=== PATIENT | male | born 1940 | race Caucasian/White ===

== ENCOUNTER 2019-03-26 13:02 | Outpatient (RCR) | payer MEDICARE, SELFPAY ==
[2019-03-26 13:00] VITALS: BP 141/76; PULSE 69; PULSE 76; RESP 16; O2SAT 98
[2019-03-26 13:05] VITALS: BP 137/72
== END 2019-06-24 23:59 | disposition home or self-care (01) ==
LOC: CHSCARD 13:02
PROVIDERS: PCP Family Medicine; Visit Provider Family Medicine
DX: I70.213 Atherosclerosis of native arteries of extremities with intermittent claudication, bilateral legs (principal)
CPT/HCPCS: 93668

== ENCOUNTER 2019-06-12 10:17 | Outpatient (CLI) | payer MEDICARE, SELFPAY ==
[2019-06-12 10:33] LABS: Hematocrit 43.5 % (37.0-46.0); Hemoglobin 14.6 g/dL (12.4-15.3); Mean Corpuscular HGB Conc 33.6 g/dL (32.0-36.0); Mean Corpuscular Hemoglobin 31.7 pg (27.0-31.0); Mean Corpuscular Volume 94.4 fL (78.0-102.0); Mean Platelet Volume 8.8 fl (8.7-11.0); Platelet Count Result 288 K/mm3 (150-420); Red Blood Count 4.61 M/mm3 (4.70-6.10); Red Cell Distribution Width 12.5 % (11.6-14.4); White Blood Count 6.6 K/mm3 (4.8-10.8)
[2019-06-12 12:37] LABS: Ferritin 51 ng/mL (26-388); Iron 87 ug/dL (65-175); Percent Iron Saturation 34 % (12-57)
== END 2019-06-12 10:18 | disposition home or self-care (01) ==
PROVIDERS: PCP Family Medicine; Visit Provider Family Medicine
DX: E78.5 Hyperlipidemia, unspecified (principal); D64.9 Anemia, unspecified
CPT/HCPCS: 36415; 82728; 83540; 83550; 85027

== ENCOUNTER 2019-06-13 10:23 | Outpatient (CLI) | payer MEDICARE, SELFPAY ==
--- NOTE | 2019-06-14 14:53 | WPDPFTINT ---
PFT Interpretation PFT Interpretation: DOS: 06/13/2019 REQUESTING: Toño Dejesus DO REASON FOR TESTING: Nicotine dependence PULMONARY FUNCTION TESTS Results are reliable and reproducible. Spirometry: FEV1 is 78%, mildly reduced, 2.09 liters. FVC is 95%, normal. FEV1% is decreased at 63%. [id number]% is reduced at 36%and increases by 36%. There is a non-statistically significant response to bronchodilator in the large airways, 8% increase in FEV1. Lung volumes: TLC 94%, normal. RV 87%, normal. Airway resistance 133 mildly elevated. Diffusion: DLCO 100%, normal Flow volume loop: normal. IMPRESSION: Mild obstructive ventilatory impairment, severe in the small airways with normal lung volumes and diffusion. Lack of response to bronchodilator should not preclude use if clinically indicated. Racheal Martinez MD
== END 2019-06-13 10:24 | disposition home or self-care (01) ==
PROVIDERS: PCP Family Medicine; Visit Provider Family Medicine
DX: F17.200 Nicotine dependence, unspecified, uncomplicated (principal)
CPT/HCPCS: 94060; 94726; 94729

== ENCOUNTER 2019-06-25 12:06 | Outpatient (RCR) | payer MEDICARE, SELFPAY | END 2019-09-23 23:59 | disposition home or self-care (01) | LOC: CHSCARD 12:06 | PROVIDERS: PCP Family Medicine; Visit Provider Family Medicine | DX: I70.213 Atherosclerosis of native arteries of extremities with intermittent claudication, bilateral legs (principal) | CPT/HCPCS: 93668 ==

== ENCOUNTER 2019-08-07 11:27 | Outpatient (CLI) | payer MEDICARE, SELFPAY ==
[2019-08-07 12:59] LABS: Anion Gap 9.8 mmol/L (7-16); Blood Urea Nitrogen 8 mg/dL (7-18); Carbon Dioxide 34 mmol/L (21-32); Chloride 104 mmol/L (98-108); Estimated Glomerular Filt Rate > 60; Glucose 104 mg/dL (70-99); Osmolality Calculated 296 mOsm/kg (285-295); Potassium 3.8 mmol/L (3.5-5.1); Sodium 144 mmol/L (136-145)
== END 2019-08-07 11:28 | disposition home or self-care (01) ==
PROVIDERS: PCP Family Medicine
DX: I65.29 Occlusion and stenosis of unspecified carotid artery (principal)
CPT/HCPCS: 36415; 80048

== ENCOUNTER 2019-09-19 10:58 | Outpatient (RCR) | payer MEDICARE, SELFPAY | END 2019-09-26 15:16 | disposition home or self-care (01) | PROVIDERS: PCP Family Medicine; Visit Provider Internal Medicine Cardiovascular Disease | DX: I70.213 Atherosclerosis of native arteries of extremities with intermittent claudication, bilateral legs (principal) | CPT/HCPCS: 93668 ==

== ENCOUNTER 2020-01-09 16:13 | Outpatient (CLI) | payer MEDICARE, SELFPAY ==
[2020-01-09 16:34] LABS: Basophils Absolute Auto 0.05 K/mm3 (0.00-0.10); Basophils Percent Auto 0.6 % (0.0-1.0); Eosinophils Absolute Auto 0.08 K/mm3 (0.02-0.50); Hematocrit 43.7 % (37.0-46.0); Hemoglobin 14.6 g/dL (12.4-15.3); Immature Granulocyte Absolute 0.03 K/mm3 (0.00-0.00); Immature Granulocyte Percent A 0.4 % (0.0-0.0); Lymphocytes Absolute Auto 1.49 K/mm3 (1.10-4.50); Lymphocytes Percent Auto 19.1 % (18.0-42.0); Mean Corpuscular HGB Conc 33.4 g/dL (32.0-36.0); Mean Corpuscular Hemoglobin 30.6 pg (27.0-31.0); Mean Corpuscular Volume 91.6 fL (78.0-102.0); Mean Platelet Volume 8.9 fl (8.7-11.0); Neutrophils Absolute Auto 5.5 K/mm3 (1.7-7.2); Neutrophils Percent Auto 69.9 % (50.0-70.0); Platelet Count Result 315 K/mm3 (150-420); Red Blood Count 4.77 M/mm3 (4.70-6.10); Red Cell Distribution Width 13.3 % (11.6-14.4); White Blood Count 7.8 K/mm3 (4.8-10.8)
[2020-01-09 18:00] LABS: Alanine Aminotransferase 10 U/L (16-63); Albumin Level 3.8 g/dL (3.4-5.0); Alkaline Phosphatase 72 U/L (46-116); Anion Gap 10 mmol/L (8-16); Aspartate Amino Transferase 11 U/L (15-37); Bilirubin,Total 0.9 mg/dL (0.00-1.00); Blood Urea Nitrogen 10 mg/dL (7-18); Calcium 9.7 mg/dL (8.5-10.1); Carbon Dioxide 31 mmol/L (21-32); Chloride 102 mmol/L (98-108); Estimated Glomerular Filt Rate 50; Ferritin 52 ng/mL (26-388); Glucose 137 mg/dL (70-99); Iron 127 ug/dL (65-175); Osmolality Calculated 297 mOsm/kg (285-295); Percent Iron Saturation 49 % (12-57); Potassium 3.7 mmol/L (3.5-5.1); Sodium 143 mmol/L (136-145); Total Protein 7.3 g/dL (6.4-8.2)
[2020-01-09 18:10] LABS: Thyroid Stimulating Hormone Reflex 1.19 u/IU/mL (0.36-3.74)
== END 2020-01-09 16:14 | disposition home or self-care (01) ==
LOC: CHSLAB 16:15
PROVIDERS: PCP Family Medicine; Visit Provider Family Medicine
DX: R53.1 Weakness (principal); Z86.2 Personal history of diseases of the blood and blood-forming organs and certain disorders involving the immune mechanism; E03.9 Hypothyroidism, unspecified
CPT/HCPCS: 36415; 80053; 82728; 83540; 83550; 84443; 85025

== ENCOUNTER 2020-01-10 13:55 | Outpatient (CLI) | payer MEDICARE, SELFPAY ==
--- NOTE | ~2020-01-10 | CT_ITS ---
EXAMINATION: CT brain wo con EXAM DATE: 01/10/2020 14:23 INDICATION: R53.1 - Weakness weakness x 1mo, stroke 2019. TECHNIQUE: Spiral CT of the head was performed without contrast. Axial, coronal and sagittal images were reviewed. The dose-length product (DLP) for this examination was 605.33 mGy-cm. The exposure w as tailored according to patient size, and iterative reconstruction (ASIR) was used as additional dos e reduction technique. Comparison is made to prior examination from 10/17/2018. FINDINGS: There is no acute intraparenchymal hemorrhage. No evidence of intraparenchymal brain mass lesion. No evidence of acute infarction. Please note that initial head CT has limited sensitivity f or small or acute infarctions. Bilateral basal ganglia old lacunar infarctions. Small old right occi pital lobe infarction. Small old right temporal lobe infarction. Small old right frontal lobe infarct ion posteriorly. There is moderate periventricular and subcortical hypodensity, nonspecific but proba tres related to small vessel ischemic disease. There is moderate prominence of the sulci and ventric les related to cerebral atrophy. There is intracranial carotid arteriosclerosis. There are no extr a-axial collections. There is no mass effect or midline shift. Patient has had bilateral ocular sabrina s surgery. Soft tissue is unremarkable. The visualized sinuses and mastoid air cells are well aerat ed. There is no significant interval change. IMPRESSION: 1. No acute intracranial findings. 2. Chronic age related findings. 3. Small old infarctions. Reviewed, dictated and finalized at location A. TRIC MOTOR TESTER ASSEMBLER
== END 2020-01-10 13:56 | disposition home or self-care (01) ==
LOC: CHSIMG 13:56
PROVIDERS: PCP Family Medicine; Visit Provider Family Medicine
DX: R53.1 Weakness (principal); Z86.73 Personal history of transient ischemic attack (TIA), and cerebral infarction without residual deficits
CPT/HCPCS: 70450

== ENCOUNTER 2020-01-14 13:45 | Outpatient (RCR) | payer MEDICARE, SELFPAY ==
--- NOTE | 2020-01-14 14:44 | PTOPEVAL ---
Thank you for referring Jacques Quiroz to [facility] [place].? The patient is scheduled to be seen for therapy? ____x/week for ___ weeks. Please review, sign, date and return this plan of care STEVE. I agree with and certify that the following plan of care is medically necessary. 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 he reports he is having increased difficulty with walking and steady. he reports he uses a walker at home. he report she does not use any AD in the community. he reports he does not drive. he reports he has had no falls. he reports he is living at home with his at home. he reports he has 3 steps into the house. Prior Level of Function Comments Additional Prior Level of Function he reports he feels like his Comments mobility and ADL performance have been slowly getting work. Pain Assessment Timing of Pain Assessment Timing of Pain Assessment Assessment Self Report Self Report Pain Level 0 Pain Score Pain Score 0: Self Report Lower Extremity Range of Motion General Lower Extremity Range of Motion Gross Lower Extremity Range of Motion limites bilateral knee Comments extension in sitting due to severe bilateral hamstirngs tightness. however, in supine,
--- NOTE | 2020-02-18 16:48 | PTOPEVAL ---
Thank you for referring Jacques Quiroz to [facility].? The patient is scheduled to be seen for therapy? ____x/week for ___ weeks. Please review, sign, date and return this plan of care STEVE. I agree with and certify that the following plan of care is medically necessary. Referring Physician Date Admitting Provider: Attending Provider: Lew Mcadams MD Referring Provider: *PT Outpatient Evaluation Start: 01/14/20 13:58 Freq: Status: Active Protocol: Document 02/18/20 15:00 [facility] (Rec: 02/18/20 16:09 [facility] [id number]) Therapy Assessment Status Assessment Status Assessment Status Re-evaluation Outpatient Past Medical History Neurological History Hx Cerebrovascular Accident (CVA) Yes: 2018 Hx Transient Ischemic Attacks (TIA) Yes Cardiovascular History Hx Hypercholesterolemia Yes Hx Hypertension Yes Hx Peripheral Vascular Disease Yes Hx Vascular Surgery Yes: CAROTID ENDARTERECTOMY Gastrointestinal History Hx Appendectomy Yes: 1951 Genitourinary History Hx Genitourinary Disorders No Significant History Musculoskeletal History Hx Musculoskeletal Disorders No Significant History Hematological History Hx Hematological Disorders No Significant History Endocrine History Hx Endocrine Disorders No Significant History HEENT History Hx Cataracts Yes: BILATERAL Hx Glaucoma Yes Integumentary History Hx Skin Disorders No Significant History Reproductive History Hx Reproductive Disorders No Significant History Psychosocial History Hx Psychiatric Disorders No Significant History Pain History Has Past Pain Affected Your Daily Life Yes Effective Methods of Pain Control REST Anesthesia History Hx Anesthesia Reactions No Significant History Evaluation Information Problem Diagnosis weakness, gait abnormality Onset 01/07/20` Subjective Information patients reports he is Query Text:As Reported By Patient/ awaiting evaluation for Family parkinsons disease. however, he has had another stroke since beginning therapy initially. he and his report they would like to continue therapy. Pain Assessment Timing of Pain Assessment Timing of Pain Assessment Assessment Self Report Self Report Pain Level 0 Pain Score Pain Score 0: Self Report Lower Extremity Muscle Strength Testing Hip Strength Left Hip Flexion Strength 3+ Fair + Hip Abduction Strength 3+ Fair + Right Hip Flexion Strength 4- Good - Hip Abduction Strength 4- Good - Knee Strength Le
--- NOTE | 2020-04-03 13:03 | PTOPEVAL ---
Thank you for referring Jacques Quiroz to [facility].? The patient is scheduled to be seen for therapy? ____x/week for ___ weeks. Please review, sign, date and return this plan of care STEVE. I agree with and certify that the following plan of care is medically necessary. Referring Physician Date Admitting Provider: Attending Provider: Lew Mcadams MD Referring Provider: *PT Outpatient Evaluation Start: 01/14/20 13:58 Freq: Status: Active Protocol: Document 03/25/20 14:00 [facility] (Rec: 03/25/20 15:07 [facility] [id number]) Therapy Assessment Status Assessment Status Assessment Status Re-evaluation Outpatient Past Medical History Neurological History Hx Cerebrovascular Accident (CVA) Yes: 2018 Hx Transient Ischemic Attacks (TIA) Yes Cardiovascular History Hx Hypercholesterolemia Yes Hx Hypertension Yes Hx Peripheral Vascular Disease Yes Hx Vascular Surgery Yes: CAROTID ENDARTERECTOMY Gastrointestinal History Hx Appendectomy Yes: 1951 Genitourinary History Hx Genitourinary Disorders No Significant History Musculoskeletal History Hx Musculoskeletal Disorders No Significant History Hematological History Hx Hematological Disorders No Significant History Endocrine History Hx Endocrine Disorders No Significant History HEENT History Hx Cataracts Yes: BILATERAL Hx Glaucoma Yes Integumentary History Hx Skin Disorders No Significant History Reproductive History Hx Reproductive Disorders No Significant History Psychosocial History Hx Psychiatric Disorders No Significant History Pain History Has Past Pain Affected Your Daily Life Yes Effective Methods of Pain Control REST Anesthesia History Hx Anesthesia Reactions No Significant History Evaluation Information Problem Diagnosis weakness, gait abnormality, parkinsons Onset 01/07/20 Subjective Information patient reports he feels good Query Text:As Reported By Patient/ this date. he reports no Family pain, and no new complaints. he reports he does follow up with his neurology doctor in a few weeks. Pain Assessment Timing of Pain Assessment Timing of Pain Assessment Assessment Self Report Self Report Pain Level 0 Pain Score Pain Score 0: Self Report Lower Extremity Muscle Strength Testing Hip Strength Left Hip Flexion Strength 4- Good - Hip Abduction Strength 4- Good - Right Hip Flexion Strength 4 Good Hip Abduction Strength 4 Good Knee Strength Left Knee Flexion Strength 4 Good Knee Extension Streng
== END 2020-04-23 16:52 | disposition home or self-care (01) ==
LOC: CHSPT 13:45
PROVIDERS: PCP Family Medicine; Visit Provider Family Medicine
DX: R53.1 Weakness (principal); R26.9 Unspecified abnormalities of gait and mobility; R29.898 Other symptoms and signs involving the musculoskeletal system
CPT/HCPCS: 97110; 97161; 97530

== ENCOUNTER 2020-01-18 08:55 | Outpatient (CLI) | payer MEDICARE, SELFPAY ==
--- NOTE | ~2020-01-18 | MR_ITS ---
EXAMINATION: MR brain/brain stem wo/w con DATE: 01/18/2020 10:35 INDICATION: Unspecified abnormalities of gait and mobility. TECHNIQUE: Magnetic resonance imaging (MRI) of the brain and brainstem was performed without and with 10 mL MultiHance intravenous contrast. Sequences included sagittal and axial T1-weighted FSE, axial diffusion-weighted FS EPI, axial T2*-weighted GRE, axial T2-weighted FLAIR Propeller, and axial T2-we ighted Propeller. Postcontrast sequences included axial and coronal T1-weighted FSE. Apparent diffusi on coefficient (ADC) maps were created. COMPARISON: Brain MRI 04/30/2017, head CT 01/10/20 FINDINGS: There are scattered areas of nonspecific increased T2-weighted signal intensity in the cere bral white matter and dick. There are old infarcts in the right temporal, frontal, and occipital lobe s. There are old infarcts involving the bilateral basal ganglia and thalami and posterior limb left i nternal capsule. There are small acute infarcts in the right subinsular white matter and right pariet al lobe deep white matter. The diffusion weighted images also show a few foci of T2 shine through. Th ere is no intracranial hemorrhage or abnormal mass lesion. There is ex vacuo dilatation of right late ral ventricle. There is mild mucosal thickening in the paranasal sinuses. Right maxillary sinus is sm all. There are likely changes of ocular lens replacement surgeries. IMPRESSION: 1. Small acute infarcts in the right subinsular white matter and right parietal lobe deep white matte r. 2. Multiple old infarcts in the brain. 3. Extensive nonspecific cerebral white matter disease and pontine disease, which likely represents c hronic small vessel ischemic disease. Reviewed, dictated and finalized at location A. TRICAL CONTINUITY INSPECTOR IMPRESSION: 1. Small acute infarcts in the right subinsular white matter and right parietal lobe deep white matter. 2. Multiple old infarcts in the brain. 3. Extensive nonspecific cerebral white matter disease and pontine disease, whi ch likely represents chronic small vessel ischemic disease.
== END 2020-01-18 08:56 | disposition home or self-care (01) ==
LOC: CHSIMG 08:57
PROVIDERS: PCP Family Medicine; Visit Provider Family Medicine
DX: R26.9 Unspecified abnormalities of gait and mobility (principal); R45.86 Emotional lability
CPT/HCPCS: 70553; A9577

== ENCOUNTER 2020-01-24 12:13 | Observation (INO) | payer MEDICARE, SELFPAY ==
[2020-01-24] VITALS (17 sets, daily range): BP systolic 119–198; BP diastolic 64–91; PULSE 80–100; RESP 17–23; TEMP 36.1–36.6; O2SAT 96–98; BMI 22.8
--- NOTE | ~2020-01-24 | CT_ITS ---
EXAMINATION: CTA brain carotid DATE: 01/24/2020 12:32 INDICATION: Cerebrovascular accident. TECHNIQUE: Computed tomographic angiography (CTA) of the head was performed without and with 100 mL O mnipaque-350 intravenous contrast. CTA of the neck was performed with intravenous contrast. Automated exposure control and iterative reconstruction technique were employed. The dose-length product was 1 766.74 mGy-cm. Maximum intensity projection and volume rendered 3D-reconstructions were created by amadou sow technologist on a separate workstation. COMPARISON: Head CT 01/10/20, brain MRI 01/18/2020 FINDINGS: HEAD CTA: There are old infarcts involving the bilateral basal ganglia, right thalamus, posterior yoon b left internal capsule, right temporal lobe, right occipital lobe, right frontal lobe, and right par ietal lobe. There is no intracranial hemorrhage, acute infarction, or abnormal intracranial mass lesi on. There is ex vacuo dilatation of right lateral ventricle. There are likely changes of ocular lens replacement surgeries. The paranasal sinuses are clear. The mastoid air cells are normal. Right verte bral artery is dominant. There is moderate to severe stenosis of left vertebral artery. There is no s ignificant stenosis of basilar artery or the posterior cerebral arteries. There is mild stenosis of t he intracranial internal carotid arteries. Right A1 anterior cerebral artery segment is small, a norm al variant. Anterior communicating artery is normal. There is no significant stenosis of the middle c erebral arteries. There is no aneurysm. NECK CTA: There is mild scarring at the lung apices. There are no pathologically enlarged lymph nodes . There is moderate stenosis of right vertebral artery origin. There is intermittent moderate to tu re stenosis of left vertebral artery with collaterals. There is thrombosis of distal left vertebral a rtery with reconstitution. There is plaque in the proximal internal carotid arteries. There is 0% nick nosis of the proximal right internal carotid artery relative to normal distal artery lumen diameter ( NASCET criteria). There is 46% stenosis of the proximal left internal carotid artery relative to norm al distal artery lumen diameter. There is severe cervical spondylosis. IMPRESSION: 1. Multiple old infarcts in the brain. 2. 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 Multifocal stenosis in the left vertebral artery. 3. 0% stenosis of the proximal right internal carotid artery relative to normal distal artery lumen d iameter (NASCET criteria). 4. 46% stenosis of the proximal left internal carotid artery relative to normal distal artery lumen d iameter. 5. I discussed this case with Dr. Daniels. Reviewed, dictated and finalized at location A. ION INSPECTOR IMPRESSION: 1. Multiple old infarcts in the brain. 2. 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 Multifocal stenosis in the left vertebral artery. 3. 0% stenosis of the proximal right internal carotid artery relative to normal distal artery lumen diameter (NASCET criteria). 4. 46% stenosis of the proximal left internal carotid artery relative to normal distal artery lumen diameter. 5. I discussed this case with Dr. Daniels.
--- NOTE | 2020-01-24 12:31 | ECG_ITS ---
Measurements Intervals [place] Rate: 93 P: -68 NV: 128 QRS: -24 QRSD: 76 T: 127 QT: 334 QTc: 417 Interpretive Statements SINUS RHYTHM ATRIAL PREMATURE COMPLEXES CANNOT RULE OUT SEPTAL INFARCT, AGE INDETERMINATE ST-T WAVE ABNORMALITY IN HIGH LATERAL LEADS- CONSIDER ISCHEMIA BASELINE ARTIFACT- I, II, III, AVR, AVL, AVF ABNORMAL ECG Electronically Signed On 01-24-2020 12:59:37 WHOLESALER by Rian Bautista D.O.
[2020-01-24 12:50] LABS: Basophils Absolute Auto 0.1 K/mm3 (0.0-0.1); Basophils Percent Auto 0.7 % (0.2-1.2); Eosinophils Absolute Auto 0.1 K/mm3 (0-0.3); Eosinophils Percent Auto 1.3 % (0-4.4); Hematocrit 38.6 % (42.0-52.0); Immature Granulocyte Absolute 0.02 K/mm3 (0.00-0.031); Immature Granulocyte Percent A 0.3 % (0-0.5); Lymphocytes Absolute Auto 1.01 K/mm3 (0.9-3.2); Lymphocytes Percent Auto 14.1 % (18.3-44.2); Mean Corpuscular HGB Conc 33.7 g/dl (32-36); Mean Corpuscular Hemoglobin 31.3 pg (26-34); Mean Corpuscular Volume 92.8 fl (80-100); Monocytes Absolute Auto 0.8 K/mm3 (0.1-0.6); Monocytes Percent Auto 11.7 % (2.6-8.5); Neutrophils Absolute Auto 5.2 K/mm3 (1.3-6.7); Neutrophils Percent Auto 71.9 % (45.5-73.1); Platelet Count Result 237 k/mm3 (150-375); Red Blood Count 4.16 M/mm3 (4.6-6.20); Red Cell Distribution Width 13.2 % (11.5-14.5); White Blood Count 7.2 K/mm3 (4.5-10.0)
[2020-01-24 12:51] LABS: Glucose Point of Care 133 (65-105)
[2020-01-24 13:01] LABS: INR 1.1; Prothrombin Time 14.5 Seconds (11.1-14.7)
[2020-01-24 13:03] LABS: Alanine Aminotransferase 8 U/L (4-50); Albumin Level 3.2 g/dL (3.5-5.1); Alkaline Phosphatase 60 U/L (38-126); Anion Gap 3 mmol/L (8-16); Aspartate Amino Transferase 18 U/L (17-59); Blood Urea Nitrogen 10 mg/dL (9-20); Calcium 9.1 mg/dL (8.4-10.2); Carbon Dioxide 33 mmol/L (22-30); Chloride 103 mmol/L (98-107); Estimated CRCL calculation 51 ml/min; Estimated Glomerular Filt Rate > 60; Glucose 127 mg/dL (75-110); Potassium 3.9 mmol/L (3.4-5.0); Sodium 139 mmol/L (137-145)
--- NOTE | 2020-01-24 13:34 | PC.NURSE ---
VERBAL ORDER FOR 3 AND 6 HOUR TROP PER EDP LIVIER.
--- NOTE | 2020-01-24 14:00 | ED.NEUROSD ---
HPI - Neuro Symptoms/Deficit General Chief Complaint: Neuro Symptoms/Deficit Stated Complaint: possible stroke - 2 weeks ago Source: patient and EMS Mode of arrival: EMS Limitations: no limitations History of Present Illness HPI Narrative: 79-year-old with a history of CVA, TIA, hyperlipidemia here with complaints of having slurred speech, inability to walk. Patient states that he woke up this morning feeling okay , had an appointment with a urologist soon after the appointment patient started having the slurred speech, inability to walk. However by the time he arrived to the ER his speech is much clear and he is able to move all the 4 extremities without any difficulty. He denies any headache, chest pain, shortness of breath or blurred vision. Time: 12:19 Last Observed Normal: 11:00 Timing confirmed by: family member Location: speech, left arm and left leg History of same: Yes Severity: moderate Relieving factors: none Exacerbating factors: none Context: sudden onset On Anticoagulants: Yes Associated symptoms: denies other symptoms Related Data Home Medications Medication Instructions Recorded Confirmed aspirin 81 mg tablet,delayed 81 mg PO DAILY 12/14/18 01/09/20 release cilostazol 100 mg tablet 100 mg PO ONCE tablet 12/14/18 01/09/20 latanoprost 0.005 % eye drops 1 drop EACH EYE DAILY 12/14/18 01/09/20 mecobalamin (vitamin B12) 1,000 1,000 mcg SUBLINGUAL DAILY 12/14/18 01/09/20 mcg disintegrating tablet,sublingual timolol maleate 0.5 % eye drops 1 drop EACH EYE Q12H 12/14/18 01/09/20 Allergies Allergy/AdvReac Type Severity Reaction Status Date / Time No Known Allergies Allergy Verified 01/14/20 13:11 Review of Systems Review of Systems: All systems reviewed & are unremarkable except as noted in HPI and below Constitutional: Constitutional: Reports no additional constitutional complaints Eyes: Eyes: Reports no additional eye complaints ENT: Reports system reviewed and no additional complaints, except as documented Cardiovascular: Cardiovascular: Reports no additional cardiovascular complaints Respiratory: Respiratory: Reports no additional respiratory complaints Gastrointestinal: Gastrointestinal: Reports no additional gastrointestinal complaints Musculoskeletal: Musculoskeletal: Reports no additional musculoskeletal complaints Neurologic: Reports system reviewed and no additional complaints, except as documented Psychiatric: Psychiatric: Reports no additional psychiatric complaints [facility] Past Medical History Medical History Cataract COPD (chronic obstructive pulmonary disease) CVA (cerebral vascular accident) History of CVA (cerebrovascular accident) Hyperlipidemia Hypertension Nicotine dependence PVD (peripheral vascular disease) Surgical History Surgical History History of appendectomy History of back surgery History of right-sided carotid endarterectomy Family History Family History Sister Family history of rheumatoid arthritis Brother Familial Alzheimer's disease of late onset Father Lung cancer Other Family history of coronary artery disease Social History Social History Years smoked: 40 Smoking status: Current every day smoker Tobacco type: cigars Second hand tobacco smoke exposure: No Additional smoking assessment comments: SMOKES 10 CIGARS A DAY Alcohol intake: current Substance use: never Additional occupation/education comments: Prior Occupation: [employer]. . No children. Gender identity (if verbalized by the patient): Male Spiritual care concerns: No Exam Narrative: Exam Narrative: GENERAL: Well-appearing, well-nourished, and in no acute distress. HEAD: Normocephalic, atraumatic. EYES: PERRLA and EOMI.
--- NOTE | 2020-01-24 15:45 | ADMGEN ---
This patient, Jacques Quiroz, was admitted to IMU Room 206-02. Patient/family oriented to hospital policies and general routines including ID bracelet, bed and alarms, visiting hours, pain management, procedures, bathroom and other care routines, personal items, smoking policy, room service/diet, and visiting hours. Information on how to activate the Rapid Response Team has been discussed. Patient/Family are encouraged to report perceived risks to care and to ask questions if they do not understand what they are told or what they should do.
[2020-01-24 16:23] LABS: Troponin I 0.052 ng/mL (0.000-0.034)
[2020-01-24] MEDS: SODIUM CHLORIDE 0.9% IV 1,000 ML 75 ML IV CONT (17:12)
--- NOTE | 2020-01-24 18:41 | PM.IMHP ---
H&P: HPI History of Present Illness Date/Time: 01/24/20 18:41 Chief Complaint: TIA Narrative: Jacques Quiroz is a 79 year old male of CVA TIA and hyperlipidemia. The patient was at his urology appointment today when all of his son he started to have slurred speech and inability to walk. The patient stated that he felt fine when he woke up this morning. Patient was sent to the emergency room from the urology appointment and his speech was found to be clear and he could move all 4 extremities. The patient was not short of breath or having any chest pain. At the time that I evaluated the patient he was talking in full sentences and had no focal weakness. The patient has been on aspirin and Plavix. His senior abap developer is here. [employer] Engraver Hand was consulted. Infarcts in the brain. 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 Multifocal stenosis in the left vertebral artery. 0 stenosis of proximal right internal carotid relative to normal distal artery low diameter. 46% stenosis of proximal left internal carotid artery relative to normal distal artery lumen diameter. Shows small acute infarcts in the right subinsular white matter and right parietal lobe deep white matter. Multiple old infarcts in the brain. Extensive nonspecific cerebral white matter disease and on yu disease which likely represents chronic small vessel ischemic disease. Lower GI explained that the patient's symptoms subsided and the NIH score of 0 there is no further intervention needed at this time. The family requested [facility] and the ER physician did talk to neurologist Dr. Garza with no further intervention needed. Patient is being admitted for observation date of service is 01/24/2020. Review of Systems Review of Systems: All systems reviewed & are unremarkable except as noted in HPI and below Constitutional: Constitutional: Reports as per HPI and Reports no additional constitutional complaints Eyes: Eyes: Reports as per HPI and Reports no additional eye complaints ENT: Reports system reviewed and no additional complaints, except as documented and Reports Normal hearing present Cardiovascular: Cardiovascular: Reports no additional cardiovascular complaints Respiratory: Respiratory: Reports no additional respiratory complaints and Reports no additional respiratory complaints Gastrointestinal: Gastrointestinal: Reports as per HPI and Reports no additional gastrointestinal complaints Musculoskeletal: Musculoskeletal: Reports no additional musculoskeletal complaints Integumentary/Breasts: Skin/Breast: Reports system reviewed and no additional complaints, except as docu and Reports as per HPI Neurologic: Reports system reviewed and no additional complaints, except as documented, Reports as per HPI and Reports Normal hearing present Psychiatric: Psychiatric: Reports no additional psychiatric complaints and Reports as per HPI Endocrine: Endocrine: Reports no additional endocrine complaints Hematologic/Lymphatic: Hematologic/Lymphatic: Reports no additional hematologic/lymphatic complaints Allergic/Immunologic: Allergic/Immunologic: Reports no additional allergic/immunologic complaints [facility] Past Medical History Medical History (Updated 01/24/20 @ 22:19 by Treasure Weiner NP) Cataract COPD (chronic obstructive pulmonary disease) CVA (cerebral vascular accident) Glaucoma History of CVA (cerebrovascular accident) Hyperlipidemia Hypertension Nicotine dependence PVD (peripheral vascular disease) Surgical History Surgical History (Updated 01/24/20 @ 22:17 by Treasure Weiner NP) H/O shoulder surgery On the left History of appendectomy History of back surgery History of right-sided carotid endarterectomy Hx of cataract extraction Family History Family History Sister Family history of rheumatoid arthritis Brother Familial Alzheimer's disease of late onset Father Lung cance
[2020-01-24 19:22] LABS: Troponin I 0.053 ng/mL (0.000-0.034)
[2020-01-25] VITALS (9 sets, daily range): BP systolic 162–192; BP diastolic 69–114; PULSE 79–97; RESP 18–20; TEMP 36.2–36.4; O2SAT 95–98
--- NOTE | 2020-01-25 | ECHO_ITS ---
Patient Info Name: Jacques Quiroz Age: 79 years : 1940 Gender: Male Ht: 70 in Wt: 165 lbs BSA: 1.93 m2 HR: 91 bpm BP: 191 / 99 mmHg Heart Rhythm: Sinus Rhythm Technical Quality: Good Exam Date: 01/25/2020 8:47 AM Exam Location: [facility] Pulmonary Exam Room: [facility] Patient Status: Inpatient Admit Date: 01/24/2020 Staff Ordering Physician: Treasure Weiner NP Stunt Person: Mindi Rodriguez RDCS Attending Provider: Soheila Montenegro MD Referring Physician: Regine PALACIOS; Exam Type: CA echo dop bubble study w con Study Info Indications - TIA COPD Complete two-dimensional, color flow and Doppler transthoracic echocardiogram is performed with agitated saline. Contrast/Agitated Saline Contrast/Ag. Saline: Agitated Saline Amount: 20.00 ml Summary 1. Left ventricular chamber dimension is normal. 2. Left ventricular systolic function is normal, estimated at 60-65%. 3. There is mildly increased left ventricular wall thickness. 4. The left ventricular diastolic function is grade I diastolic dysfunction. 5. Intact interatrial septum visualized by agitated saline imaging. 6. There is mild mitral valve regurgitation. 7. The mitral valve has thickened leaflets and calcified annulus. 8. There is mild mitral valve calcification. 9. There is mild tricuspid valve regurgitation. 10. There is mild pulmonic regurgitation. Left Ventricle Left ventricular chamber dimension is normal. Left ventricular systolic function is normal, estimated at 60-65%. There is mildly increased left ventricular wall thickness. The left ventricular diastolic function is grade I diastolic dysfunction. Right Ventricle Right ventricular chamber dimension is normal. Right ventricular systolic function is normal. Left Atria Left atrial chamber dimension is normal. Right Atria Right atrial chamber dimension is normal. Atrial Septum Intact interatrial septum visualized by agitated saline imaging. Aortic Valve The aortic valve is trileaflet. There is mild aortic valve sclerosis. There is no aortic valve stenosis. There is trace aortic valve regurgitation. Pulmonic Valve The pulmonic valve is not well visualized. There is no pulmonic valve stenosis. There is mild pulmonic regurgitation. Mitral Valve The mitral valve has thickened leaflets and calcified annulus. There is no mitral valve stenosis. There is mild mitral valve regurgitation. There is mild mitral valve calcification. Tricuspid Valve The tricuspid valve leaflets are normal. There is no significant tricuspid valve stenosis. There is mild tricuspid valve regurgitation. No pulmonary hypertension, estimated pulmonary arterial systolic pressure is 34 mmHg. Pericardium/Pleural The pericardium appears normal. There is no pericardial effusion. Inferior Vena Cava Normal inferior vena cava with >50% collapse upon inspiration consistent with normal right atrial pressure, 10 mmHg. Aorta The aortic root size at the sinus of Valsalva is normal. There is mild aortic atherosclerosis. Left Ventricular Outflow Tract Name Value Normal LVOT 2D LVOT Diameter 2.1 cm
[2020-01-25 05:20] LABS: Basophils Absolute Auto 0.1 K/mm3 (0.0-0.1); Basophils Percent Auto 0.7 % (0.2-1.2); Eosinophils Absolute Auto 0.2 K/mm3 (0-0.3); Eosinophils Percent Auto 2.4 % (0-4.4); Hematocrit 37.9 % (42.0-52.0); Hemoglobin 12.9 g/dL (14.0-18.0); Immature Granulocyte Absolute 0.01 K/mm3 (0.00-0.031); Immature Granulocyte Percent A 0.1 % (0-0.5); Lymphocytes Absolute Auto 1.55 K/mm3 (0.9-3.2); Lymphocytes Percent Auto 23.1 % (18.3-44.2); Mean Corpuscular Hemoglobin 30.6 pg (26-34); Monocytes Absolute Auto 0.8 K/mm3 (0.1-0.6); Monocytes Percent Auto 11.9 % (2.6-8.5); Neutrophils Absolute Auto 4.1 K/mm3 (1.3-6.7); Neutrophils Percent Auto 61.8 % (45.5-73.1); Platelet Count Result 218 k/mm3 (150-375); Red Blood Count 4.21 M/mm3 (4.6-6.20); Red Cell Distribution Width 13.2 % (11.5-14.5); White Blood Count 6.7 K/mm3 (4.5-10.0)
[2020-01-25 05:58] LABS: Alanine Aminotransferase 7 U/L (4-50); Albumin Level 3.4 g/dL (3.5-5.1); Alkaline Phosphatase 62 U/L (38-126); Anion Gap 2 mmol/L (8-16); Aspartate Amino Transferase 18 U/L (17-59); Bilirubin,Total 0.9 mg/dL (0.2-1.3); Blood Urea Nitrogen 9 mg/dL (9-20); Calcium 8.8 mg/dL (8.4-10.2); Carbon Dioxide 30 mmol/L (22-30); Chloride 108 mmol/L (98-107); Estimated CRCL calculation 77 ml/min; Estimated Glomerular Filt Rate > 60; Glucose 87 mg/dL (75-110); Magnesium 2.1 mg/dL (1.6-2.3); Potassium 3.2 mmol/L (3.4-5.0); Sodium 140 mmol/L (137-145)
[2020-01-25] MEDS: SODIUM CHLORIDE 0.9% IV 1,000 ML 75 ML IV CONT (07:13)
[2020-01-25] MEDS: NICOTINE (*PBKC) 7 MG PATCH 1 PATCH TRANSDERM (10:33)
[2020-01-25] MEDS: POTASSIUM CHLORIDE 10 MEQ TABLET.ER PO (10:33)
[2020-01-25] MEDS: lisinopriL 5 MG TABLET BY MOUTH (10:33)
[2020-01-25] MEDS: ATORVASTATIN 40 MG TABLET PO (10:33)
[2020-01-25] MEDS: LATANOPROST 0.005% OP SOLN 2.5 ML BTL 1 DROP EACH EYE (10:34)
[2020-01-25] MEDS: TIMOLOL MALEATE 0.5% OP SOLN 5 ML BOTTLE 1 DROP EACH EYE (10:34)
--- NOTE | 2020-01-25 14:04 | WPDNEURCNPN ---
Assessment and Plan Assessment and plan (1) Transient cerebral ischemia: Code(s): G45.9 - Transient cerebral ischemic attack, unspecified Status: Acute (2) Gait abnormality: Code(s): R26.9 - Unspecified abnormalities of gait and mobility Status: Acute (3) History of CVA (cerebrovascular accident): Code(s): Z86.73 - Personal history of transient ischemic attack (TIA), and cerebral infarction without residual deficits Status: Acute (4) Hypertension: Code(s): I10 - Essential (primary) hypertension Status: Chronic (5) Hyperlipidemia: Code(s): E78.5 - Hyperlipidemia, unspecified Status: Chronic (6) Nicotine dependence: Code(s): F17.200 - Nicotine dependence, unspecified, uncomplicated Status: Chronic Additional Plan Admitted to the hospital for the complaint of increasing weakness. 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 Patient is receiving aspirin and clopidogrel and will be continued on the same medications Consult date: 01/25/20 Time Seen: 14:04 HPI: Jacques Quiroz is a 79 year old male Admitted to the hospital for the complaints of slurred speech with inability to walk reportedly he felt fine when he woke up in the morning he was able to move all 4 extremities very well but subsequently became weak had slurred speech patient had been taking aspirin and Plavix. Patient does carry the diagnosis of COPD with previous stroke, glaucoma, hypertension, and peripheral vascular disease. He has undergone lead left shoulder surgery in addition to back surgery and right-sided carotid endarterectomy. Currently he is a smoker of cigars. And has been taking aspirin 81 mg daily in addition to lisinopril 5 mg daily mirtazapine 15 mg at HS atorvastatin 40 mg daily as well as clopidogrel 75 mg daily Review of Systems Review of Systems: All systems reviewed & are unremarkable except as noted in HPI and below PMFSH Past Medical History Medical History Cataract COPD (chronic obstructive pulmonary disease) CVA (cerebral vascular accident) Glaucoma History of CVA (cerebrovascular accident) Hyperlipidemia Hypertension Nicotine dependence PVD (peripheral vascular disease) Surgical History Surgical History H/O shoulder surgery On the left History of appendectomy History of back surgery History of right-sided carotid endarterectomy Hx of cataract extraction Family History Family History Sister Family history of rheumatoid arthritis Brother Familial Alzheimer's disease of late onset Father Lung cancer Other Family history of coronary artery disease Social History Social History Social History: The patient lives with his who is a durable power banking attorney for healthcare. He is a full code. 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 Gender identity (if verbalized by the patient): Male Spiritual care concerns: Yes (scientology) Meds Home Medications and Allergies Home Medications Medication Instructions Recorde
--- NOTE | 2020-01-25 14:25 | PM.DS ---
DS: Admitting Diagnosis Admitting Diagnosis Admitting Diagnosis: Slurred speech TIA/Stroke DS: Summary Hospital Course Hospital Course: Jacques Quiroz is a 79 year old male of CVA TIA and hyperlipidemia. He was at his urologist appointment today when suddenly started to have slurred speech and inability to walk. He felt fine when he woke up in the morning. Patient was sent to the emergency room from the urology appointment and his speech was found to be clear and he could move all 4 extremities. The patient was not short of breath or having any chest pain. At the time that patient was evaluated was talking in full sentences and had no focal weakness. The patient has been on aspirin and Plavix. He was admitted for a stroke work up. Pertinent studies are as below. Patient had no events during his hospital stay and was discharged home later in the day. [place] [id number] Magnetic Resonance Report Signed Patient: Jacques Quiroz : 1940MR#: [id number] Age/Sex: 79 / MAcct:[id number] Loc: [facility] [place] ADM Date: 01/18/[address]: Toño Dejesus DO Ordering Physician: Toño Dejesus DO Date of Service: 01/18/20 Procedure(s): MR brain/brain stem wo/w con Accession Number(s): [id number] cc: Toño Dejesus DO~ EXAMINATION: MR brain/brain stem wo/w con DATE: 01/18/2020 10:35 INDICATION: Unspecified abnormalities of gait and mobility. TECHNIQUE: Magnetic resonance imaging (MRI) of the brain and brainstem was performed without and with 10 mL MultiHance intravenous contrast. Sequences included sagittal and axial T1-weighted FSE, axial diffusion-weighted FS EPI, axial T2*-weighted GRE, axial T2-weighted FLAIR Propeller, and axial T2-weighted Propeller. Postcontrast sequences included axial and coronal T1-weighted FSE. Apparent diffusion coefficient (ADC) maps were created. COMPARISON: Brain MRI 04/30/2017, head CT 01/10/20 FINDINGS: There are scattered areas of nonspecific increased T2-weighted signal intensity in the cerebral white matter and dick. There are old infarcts in the right temporal, frontal, and occipital lobes. There are old infarcts involving the bilateral basal ganglia and thalami and posterior limb left internal capsule. There are small acute infarcts in the right subinsular white matter and right parietal lobe deep white matter. The diffusion weighted images also show a few foci of T2 shine through. There is no intracranial hemorrhage or abnormal mass lesion. There is ex vacuo dilatation of right lateral ventricle. There is mild mucosal thickening in the paranasal sinuses. Right maxillary sinus is small. There are likely changes of ocular lens replacement surgeries. IMPRESSION: 1. Small acute infarcts in the right subinsular white matter and right parietal lobe deep white matter. 2. Multiple old infarcts in the brain. 3. Extensive nonspecific cerebral white matter disease and pontine disease, which likely represents chronic small vessel ischemic disease. EXAMINATION: CTA brain carotid DATE: 01/24/2020 12:32 INDICATION: Cerebrovascular accident. TECHNIQUE: Computed tomographic angiography (CTA) of the head was performed without and with 100 mL Omnipaque-350 intravenous contrast. CTA of the neck was performed with intravenous contrast. Automated exposure control and iterative reconstruction technique were employed. The dose-length product was 1766.74 mGy-cm. Maximum intensity projection and volume rendered 3D-reconstructions were created by the technologist on a separate workstation. COMPARISON: Head CT 01/10/20, brain MRI 01/18/2020 FINDINGS: HEAD CTA: There are old infarcts involving the bilateral basal ganglia, right thalamus, posterior limb left internal capsule, right temporal lobe, right occipital lobe, right frontal lobe, and right parietal lobe. There is no intracranial hemorrhage, acute infarction, or abnormal intracrania
== END 2020-01-25 15:23 | disposition home or self-care (01) ==
LOC: ANHED 14:10 → ANHIMU 15:25
PROVIDERS: Nurse Practitioner; Admitting Provider Family Medicine; Emergency Provider Family Medicine; PCP Family Medicine; Visit Provider Internal Medicine
DX: G45.9 Transient cerebral ischemic attack, unspecified (principal); R29.700 NIHSS score 0; R26.9 Unspecified abnormalities of gait and mobility; I10 Essential (primary) hypertension; J44.9 Chronic obstructive pulmonary disease, unspecified; E78.5 Hyperlipidemia, unspecified; H40.9 Unspecified glaucoma; I73.9 Peripheral vascular disease, unspecified; F17.290 Nicotine dependence, other tobacco product, uncomplicated; Z79.02 Long term (current) use of antithrombotics/antiplatelets; Z79.82 Long term (current) use of aspirin; Z86.73 Personal history of transient ischemic attack (TIA), and cerebral infarction without residual deficits
CPT/HCPCS: 36415; 70496; 70498; 80053; 82948; 83735; 84443; 84484; 85025; 85610; 93005; 93306; 96360; 96361; 96375; 99285; A9270; G0378; J7030; Q9967

== ENCOUNTER 2020-04-01 12:46 | Outpatient (CLI) | payer MEDICARE, SELFPAY ==
--- NOTE | ~2020-04-01 | US_ITS ---
EXAMINATION: US retroperitoneal comp EXAM DATE: 04/01/2020 14:36 INDICATION: R32 - Unspecified urinary incontinence.. TECHNIQUE: Multiple grayscale and Doppler images of the kidneys were obtained (by a technologist who performed the scan) and subsequently reviewed. There is no prior study for comparison. FINDINGS: Right kidney: There is normal contour and echogenicity. It measures 10.1 x 4.8 x 6.3 centimeters. T here are no focal renal lesions identified. There is no hydronephrosis. Left kidney: There is normal contour and echogenicity. It measures 9.9 x 5.0 x 5.7 centimeters. The re are no focal renal lesions identified. There is no hydronephrosis. The bladder has trabecular wall consistent with chronic cystitis. Prevoid bladder volume 305 mL, post void bladder volume 64 mL. IMPRESSION: 1. Sonographically unremarkable kidneys. 2. Moderate post void residual of 64 mL. 3. Bladder wall trabeculation, consistent with chronic cystitis. Reviewed, dictated and finalized at location B. N [employer]IVER
[2020-04-01 13:02] LABS: Add Urine Microscopic? NO; Appearance Urine Clear (Clear); Bilirubin Urine Negative (Negative); Blood Urine Negative (Negative); Color Urine Yellow (Yellow); Glucose Urine UA Negative (Negative); Ketones Urine Negative (Negative); Leukocyte Esterase Ur Negative LEU/UL (Negative); Nitrate Urine Negative (Negative); Protein Urine Negative (Negative); Specific Grav Ur >= 1.030 (1.010-1.020); Urobilinogen Urine 0.2 mg/dL (0.2-1.0)
[2020-04-01 13:57] LABS: Anion Gap 9 mmol/L (8-16); Blood Urea Nitrogen 7 mg/dL (7-18); Calcium 9.2 mg/dL (8.5-10.1); Carbon Dioxide 31 mmol/L (21-32); Chloride 102 mmol/L (98-108); Estimated Glomerular Filt Rate > 60; Glucose 154 mg/dL (70-99); Osmolality Calculated 295 mOsm/kg (285-295); Potassium 3.7 mmol/L (3.5-5.1); Sodium 142 mmol/L (136-145)
== END 2020-04-01 12:47 | disposition home or self-care (01) ==
LOC: CHSLAB 12:48
PROVIDERS: PCP Family Medicine; Visit Provider Family Medicine
DX: R32 Unspecified urinary incontinence (principal); N32.89 Other specified disorders of bladder; Z79.899 Other long term (current) drug therapy
CPT/HCPCS: 36415; 76770; 80048; 81003

== ENCOUNTER 2020-04-17 13:31 | Outpatient (CLI) | payer MEDICARE, SELFPAY ==
[2020-04-17 14:31] LABS: Alanine Aminotransferase 10 U/L (16-63); Albumin Level 3.7 g/dL (3.4-5.0); Alkaline Phosphatase 84 U/L (46-116); Anion Gap 7 mmol/L (8-16); Aspartate Amino Transferase 17 U/L (15-37); Blood Urea Nitrogen 11 mg/dL (7-18); Calcium 9.8 mg/dL (8.5-10.1); Carbon Dioxide 31 mmol/L (21-32); Chloride 103 mmol/L (98-108); Estimated Glomerular Filt Rate 56; Glucose 139 mg/dL (70-99); Osmolality Calculated 293 mOsm/kg (285-295); Potassium 3.7 mmol/L (3.5-5.1); Sodium 141 mmol/L (136-145); Total Protein 6.9 g/dL (6.4-8.2)
== END 2020-04-17 13:32 | disposition home or self-care (01) ==
LOC: CHSLAB 13:35
PROVIDERS: PCP Family Medicine; Visit Provider Family Medicine
DX: Z79.899 Other long term (current) drug therapy (principal); Z86.73 Personal history of transient ischemic attack (TIA), and cerebral infarction without residual deficits; I73.9 Peripheral vascular disease, unspecified; G45.9 Transient cerebral ischemic attack, unspecified; R45.86 Emotional lability; R29.898 Other symptoms and signs involving the musculoskeletal system; J06.9 Acute upper respiratory infection, unspecified; F17.200 Nicotine dependence, unspecified, uncomplicated; I10 Essential (primary) hypertension
CPT/HCPCS: 36415; 80053

== ENCOUNTER 2020-07-13 13:46 | Outpatient (CLI) | payer MEDICARE, SELFPAY ==
[2020-07-13 14:37] LABS: Cholesterol 148 mg/dL (0-200); HDL Direct 54 mg/dL (40-60); LDL Cholesterol Calculated 82 mg/dL (<130); Triglycerides 60 mg/dL (0-150)
== END 2020-07-13 13:47 | disposition home or self-care (01) ==
LOC: CHSLAB 13:49
PROVIDERS: PCP Family Medicine; Visit Provider Family Medicine
DX: E78.5 Hyperlipidemia, unspecified (principal)
CPT/HCPCS: 36415; 80061

== ENCOUNTER 2020-07-20 12:47 | Outpatient (RCR) | payer MEDICARE, SELFPAY ==
--- NOTE | 2020-07-20 13:56 | PTOPEVAL ---
Thank you for referring Jacques Quiroz to [facility].? The patient is scheduled to be seen for therapy? ____x/week for ___ weeks. Please review, sign, date and return this plan of care STEVE. I agree with and certify that the following plan of care is medically necessary. Referring Physician Date Admitting Provider: Attending Provider: Toño Dejesus DO Referring Provider: *PT Outpatient Evaluation Start: 07/20/20 12:57 Freq: Status: Active Protocol: Document 07/20/20 12:57 [facility] (Rec: 07/20/20 13:55 [facility] [id number]) Therapy Assessment Status Assessment Status Assessment Status Evaluation Outpatient Past Medical History Neurological History Hx Cerebrovascular Accident (CVA) Yes: 2018 Hx Transient Ischemic Attacks (TIA) Yes Cardiovascular History Hx Hypercholesterolemia Yes Hx Hypertension Yes Hx Peripheral Vascular Disease Yes Hx Vascular Surgery Yes: CAROTID ENDARTERECTOMY Gastrointestinal History Hx Appendectomy Yes: 1951 Genitourinary History Hx Genitourinary Disorders No Significant History Musculoskeletal History Hx Musculoskeletal Disorders No Significant History Hematological History Hx Hematological Disorders No Significant History Endocrine History Hx Endocrine Disorders No Significant History HEENT History Hx Cataracts Yes: BILATERAL Hx Glaucoma Yes Integumentary History Hx Skin Disorders No Significant History Reproductive History Hx Reproductive Disorders No Significant History Psychosocial History Hx Psychiatric Disorders No Significant History Pain History Has Past Pain Affected Your Daily Life Yes Effective Methods of Pain Control REST Anesthesia History Hx Anesthesia Reactions No Significant History Evaluation Information Problem Diagnosis gait instability Onset 07/03/20 Subjective Information Patient states that he had a Query Text:As Reported By Patient/ TIA around the first july. Family The patient states that having difficulty sitting in a chair because he takes such small steps. He states his walking has been good but he tends to furniture surf. Patient states he has no other concerns. Patient states that he sometimes utilizes his rollator, but not often. 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
== END 2020-08-13 11:04 | disposition home or self-care (01) ==
LOC: CHSPT 12:47
PROVIDERS: PCP Family Medicine; Visit Provider Family Medicine
DX: R26.9 Unspecified abnormalities of gait and mobility (principal)
CPT/HCPCS: 97110; 97161; 97530

== ENCOUNTER 2020-09-21 11:50 | Outpatient (CLI) | payer MEDICARE, SELFPAY ==
--- NOTE | ~2020-09-21 | CT_ITS ---
EXAMINATION: CT brain wo con DATE: 09/21/2020 12:39 INDICATION: Right posterior head injury TECHNIQUE: Computed tomography (CT) of the head was performed without intravenous contrast. Sagittal and coronal reconstructions were performed. The mA was adjusted according to patient size. Iterative reconstruction technique was employed. The dose-length product was 681.00 mGy-cm. COMPARISON: head CT dated 01/24/2020 FINDINGS: No fracture. Small old lacunar infarcts at the bilateral basal ganglia including the bilateral caudat e and lentiform nuclei, right thalamus and posterior limb of the right internal capsule. Additional s mall old cortical infarcts in the right frontal, temporal, parietal and occipital lobes. No acute int racranial hemorrhage, acute infarction or abnormal extra axial fluid collection. There is moderate to severe scattered white matter hypoattenuation consistent with chronic small vessel ischemic disease. Ex vacuo dilation of the right lateral ventricle. Increased prominence of the sulci and remaining v entricles consistent with moderate age-appropriate diffuse cerebral volume loss. No mass/mass effect. Changes of bilateral intraocular lens replacement. The orbits, paranasal sinuses and mastoid air terry ls are normal. Intracranial calcified cerebral atherosclerosis is noted. IMPRESSION: 1. No fracture or acute intracranial process. 2. Stable appearance of multiple small old infarcts in the bilateral basal ganglia, right thalamus an d right cerebral hemisphere as detailed above. 3. Age-related changes including moderate diffuse volume loss and moderate to severe scattered white matter hypoattenuation consistent with chronic small vessel ischemic disease. Reviewed, dictated and finalized at location A. IMPRESSION: 1. No fracture or acute intracranial process. 2. Stable appearance of multiple small old infarcts in the bilateral basal gang tammi, right thalamus and right cerebral hemisphere as detailed above. 3. Age-related changes including moderate diffuse volume loss and moderate to s evere scattered white matter hypoattenuation consistent with chronic small vess el ischemic disease.
--- NOTE | ~2020-09-21 | XR_ITS ---
XR hip BI 2V w AP pelvis DATE: 09/21/2020 12:40 INDICATION: Fall 3 days ago. Low back pain, right greater than left hip pain TECHNIQUE: AP pelvis. AP and lateral views of each hip COMPARISON: None FINDINGS: No pelvic fracture. No pelvic bone destruction is evident. The paranasal sinuses and sacroi liac joints are intact. Dextroscoliosis and multilevel degenerative disc disease of the lumbar spine. Extensive arterial calcification of the abdominal aorta, iliac and femoral arteries IMPRESSION: Lumbarization scoliosis and multilevel degenerative disc disease of lumbar spine Reviewed, dictated and finalized at location A.
--- NOTE | ~2020-09-21 | XR_ITS ---
XR lumbar spine 2-3V DATE: 09/21/2020 12:39 INDICATION: Fall 3 days ago. Low back pain, right greater than left hip pain TECHNIQUE: AP, lateral, coned lateral lumbosacral views COMPARISON: None FINDINGS: There is diffuse osteopenia. There is mild rotatory dextroscoliosis of the thoracolumbar spine. There is degenerative disease throughout the lumbar and lumbosacral spine, most severe on the right a t L4-5. No fracture or bone destruction is evident. The sacroiliac joints are intact. Extensive calcification of the abdominal aorta and iliac arteries, without apparent aneurysm. IMPRESSION: Diffuse osteopenia Dextroscoliosis Degenerative disc disease throughout the lumbar and lumbosacral spine Reviewed, dictated and finalized at location A.
== END 2020-09-21 11:51 | disposition home or self-care (01) ==
LOC: CHSIMG 11:55
PROVIDERS: PCP Family Medicine; Visit Provider Family Medicine
DX: M54.5 Low back pain (principal); M25.552 Pain in left hip; M25.551 Pain in right hip; Z86.73 Personal history of transient ischemic attack (TIA), and cerebral infarction without residual deficits; S09.90XA Unspecified injury of head, initial encounter
CPT/HCPCS: 70450; 72100; 73521

== ENCOUNTER 2020-10-19 01:56 | Day surgery (SDC) | payer MEDICARE, SELFPAY ==
[2020-10-07 15:04] VITALS: BMI 24.0
[2020-10-19 06:49] VITALS: BP 153/86; PULSE 79; RESP 18; TEMP 36; O2SAT 98; BMI 24.3
[2020-10-19] MEDS: LACTATED RINGERS 1,000 ML 150 ML IV CONT (06:52)
--- NOTE | 2020-10-19 07:05 | WPDANESEPPF ---
Anes - Initial Pre Proc Eval Procedure: Operation Date: 10/19/20 07:30 Proposed Procedures p Screening Colonoscopy - Brady Jenkins MD Date/Time: 10/19/20 07:05 Surgeon: Brady Jenkins MD Pre Op Diagnosis: hx of colon polyps Patient Data Age: 79 Gender: M Height: 1.78 m Weight: 76.8 kg Last Vital Signs Temp 36.0 C L 10/19/20 06:49 Pulse 79 10/19/20 06:49 Resp 18 10/19/20 06:49 BP 153/86 H 10/19/20 06:49 Pulse Ox 98 10/19/20 06:49 Allergies Allergy/AdvReac Type Severity Reaction Status Date / Time No Known Allergies Allergy Verified 10/19/20 06:47 Home Medications Medication Instructions Recorded Confirmed Type aspirin 81 mg tablet,delayed 81 mg PO DAILY 12/14/18 10/15/20 History release latanoprost 0.005 % eye drops 1 drop EACH EYE DAILY 12/14/18 10/15/20 History mecobalamin (vitamin B12) 1,000 1,000 mcg SUBLINGUAL DAILY 12/14/18 10/15/20 History mcg disintegrating tablet,sublingual timolol maleate 0.5 % eye drops 1 drop EACH EYE QAM 12/14/18 10/15/20 History atorvastatin 40 mg tablet See Rx Instructions .ROUTE 04/08/20 10/15/20 Rx .COMPLEX #90 tablet lisinopril 5 mg tablet 5 mg PO DAILY 04/20/20 10/15/20 History cilostazol 100 mg tablet 100 mg PO BID 07/13/20 10/15/20 History carbidopa 25 mg-levodopa 100 mg See Rx Instructions .ROUTE 08/24/20 10/15/20 Rx tablet .COMPLEX #270 tablet Patient hx anesthesia problems: none Family hx anesthesia problems: none PMFSH Past Medical History Medical History Cataract COPD (chronic obstructive pulmonary disease) CVA (cerebral vascular accident) Glaucoma History of CVA (cerebrovascular accident) Hyperlipidemia PVD (peripheral vascular disease) Surgical History Surgical History H/O shoulder surgery On the left History of appendectomy History of back surgery History of right-sided carotid endarterectomy Hx of cataract extraction Family History Family History Sister Family history of rheumatoid arthritis Brother Familial Alzheimer's disease of late onset Father Lung cancer Other Family history of coronary artery disease Social History Social History Social History: The patient lives with his who is a durable power computing systems mechanic for healthcare. He is a full code. 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 Gender identity (if verbalized by the patient): Male Spiritual care concerns: Yes (zoroastrian) Anes - Eval Final PreProcedure Day of Procedure 10/19/20 07:05 Patient weight: normal Heart: regular rate and rhythm Lungs: clear to auscultation and normal air movement Airway: Mallampati scale class II Neurological: alert and oriented Last oral intake: >/= 8 hours ASA classification: III Emergent: no Anesthetic plan: proceed Anesthesia type and monitoring: general GIVS Informed Consent: The patient's anesthetic plan and its attendant risks and benefits were discussed with the patient/family/POA. Questions were solicited and answers provided to the satisfaction of the patient/family/POA.
--- NOTE | 2020-10-19 07:16 | WPDGICN ---
Assessment and Plan Assessment and plan (1) History of colon polyps: Code(s): Z86.010 - Personal history of colonic polyps Status: Acute Assessment and Plan: Patient has prior history of colon polyps in 2018. He presents today for surveillance colonoscopy. Further recommendations will be given after endoscopy. GI Consult Note Consult date/time: 10/19/20 07:16 HPI: Jacques Quiroz is a 79 year old male Presents for screening colonoscopy. Patient was identified as having several colon polyps in 2018. Patient presents today for follow-up examination. His recent history is significant for several CVAs. Most recently in January of 2020. His reports that he has some modest urgency and incontinence of stools subsequent. Family history is noncontributory. Review of Systems Review of Systems: All systems reviewed & are unremarkable except as noted in HPI and below PMFSH Past Medical History Medical History Cataract COPD (chronic obstructive pulmonary disease) CVA (cerebral vascular accident) Glaucoma History of CVA (cerebrovascular accident) Hyperlipidemia PVD (peripheral vascular disease) Surgical History Surgical History H/O shoulder surgery On the left History of appendectomy History of back surgery History of right-sided carotid endarterectomy Hx of cataract extraction Family History Family History Sister Family history of rheumatoid arthritis Brother Familial Alzheimer's disease of late onset Father Lung cancer Other Family history of coronary artery disease Social History Social History Social History: The patient lives with his who is a durable power commonwealth attorney for healthcare. He is a full code. 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 Gender identity (if verbalized by the patient): Male Spiritual care concerns: Yes (zoroastrian) Meds Home Medications and Allergies Home Medications Medication Instructions Recorded Confirmed Type aspirin 81 mg tablet,delayed 81 mg PO DAILY 12/14/18 10/15/20 History release latanoprost 0.005 % eye drops 1 drop EACH EYE DAILY 12/14/18 10/15/20 History mecobalamin (vitamin B12) 1,000 1,000 mcg SUBLINGUAL DAILY 12/14/18 10/15/20 History mcg disintegrating tablet,sublingual timolol maleate 0.5 % eye drops 1 drop EACH EYE QAM 12/14/18 10/15/20 History atorvastatin 40 mg tablet See Rx Instructions .ROUTE 04/08/20 10/15/20 Rx .COMPLEX #90 tablet lisinopril 5 mg tablet 5 mg PO DAILY 04/20/20 10/15/20 History cilostazol 100 mg tablet 100 mg PO BID 07/13/20 10/15/20 History carbidopa 25 mg-levodopa 100 mg See Rx Instructions .ROUTE 08/24/20 10/15/20 Rx tablet .COMPLEX #270 tablet Allergies Allergy/AdvReac Type Severity Reaction Status Date / Time No Known Allergies Allergy Verified 10/19/20 06:47 Vital Signs Vital Signs - 24 hr 10/19/20 06:49 Temperature 96.8 F L Pulse Rate 79 Respiratory Rate 18 Blood Pressure 153/86 H Pulse Oximetry 98 Exam Narrative: Physical exam reveals patient to be alert. Vital signs are stable. HEENT exam is unremarkable. Patient is anicteric. Lungs are clear to auscultation and percussion. Heart is without murmur o
[2020-10-19 08:08] VITALS: BP 151/70; PULSE 81; RESP 21; O2SAT 100
[2020-10-19 08:18] VITALS: BP 163/72; PULSE 76; RESP 25; O2SAT 100
[2020-10-19 08:28] VITALS: BP 159/91; PULSE 81; RESP 22; O2SAT 97
--- NOTE | 2020-10-19 08:50 | SUR.PHASEII ---
Notified Dr. Arechiga (anesthesiology) of possible A-fib on monitor. Dr. Arechiga in to speak to pt and spouse and recommends for pt to follow up with alley worker as planned. Pt and spouse state understanding.
--- NOTE | 2020-10-19 08:57 | SUR.PHASEII ---
Notified Dr. Jenkins that pt is taking Cilastozol. Dr. Jenkins states ok to resume medication today.
== END 2020-10-19 08:59 | disposition home or self-care (01) ==
PROVIDERS: PCP Family Medicine; Visit Provider Internal Medicine Gastroenterology
PROC: 0DJD8ZZ Inspection of Lower Intestinal Tract, Via Natural or Artificial Opening Endoscopic (ICD-10-PCS; CPT 45378; principal; 2020-10-19 07:30)
DX: Z12.11 Encounter for screening for malignant neoplasm of colon (principal); Z86.010 Personal history of colon polyps; K63.5 Polyp of colon; K57.30 Diverticulosis of large intestine without perforation or abscess without bleeding; K64.8 Other hemorrhoids; J44.9 Chronic obstructive pulmonary disease, unspecified; Z86.73 Personal history of transient ischemic attack (TIA), and cerebral infarction without residual deficits; I73.9 Peripheral vascular disease, unspecified; E78.5 Hyperlipidemia, unspecified; Z87.891 Personal history of nicotine dependence; Z79.82 Long term (current) use of aspirin
CPT/HCPCS: 45385; 88305; J2704; J7120

== ENCOUNTER 2021-01-04 15:02 | Outpatient (NON) | payer MEDICARE, SELFPAY | END 2021-01-04 15:03 | disposition home or self-care (01) | LOC: CHSLAB 15:04 | PROVIDERS: Visit Provider Family Medicine | DX: R31.9 Hematuria, unspecified (principal) | CPT/HCPCS: 87077; 87086; 87088; 87186 ==

== ENCOUNTER 2021-03-02 12:42 | Outpatient (CLI) | payer MEDICARE, SELFPAY ==
[2021-03-02 14:46] LABS: Add Urine Microscopic? NO; Appearance Urine Clear (Clear); Bilirubin Urine Negative (Negative); Blood Urine Negative (Negative); Color Urine Light Yellow (Yellow); Glucose Urine UA Negative (Negative); Ketones Urine Negative (Negative); Leukocyte Esterase Ur Negative (Negative); Nitrate Urine Negative (Negative); Protein Urine Negative (Negative); Urobilinogen Urine 0.2 mg/dL (0.2-1.0); pH Urine 5.5 (5.0-8.0)
== END 2021-03-02 12:43 | disposition home or self-care (01) ==
LOC: CHSLAB 12:45
PROVIDERS: PCP Family Medicine; Visit Provider Family Medicine
DX: M54.50 Low back pain, unspecified (principal); R82.90 Unspecified abnormal findings in urine
CPT/HCPCS: 81003; 87086

== ENCOUNTER 2021-06-18 13:09 | Outpatient (CLI) | payer MEDICARE, SELFPAY ==
[2021-06-18 13:24] LABS: Hematocrit 42.2 % (37.0-46.0); Hemoglobin 13.6 g/dL (12.4-15.3); Mean Corpuscular HGB Conc 32.2 g/dL (32.0-36.0); Mean Corpuscular Hemoglobin 28.9 pg (27.0-31.0); Mean Corpuscular Volume 89.8 fL (78.0-102.0); Mean Platelet Volume 8.8 fl (8.7-11.0); Platelet Count Result 269 K/mm3 (150-420); Red Cell Distribution Width 14.6 % (11.6-14.4); White Blood Count 9.5 K/mm3 (4.8-10.8)
[2021-06-18 14:02] LABS: Thyroid Stimulating Hormone Reflex 0.52 u/IU/mL (0.36-3.74)
[2021-06-18 14:04] LABS: Albumin Level 3.3 g/dL (3.4-5.0); Alkaline Phosphatase 92 U/L (46-116); Anion Gap 6 mmol/L (8-16); Aspartate Amino Transferase 13 U/L (15-37); Bilirubin,Total 0.7 mg/dL (0.00-1.00); Blood Urea Nitrogen 11 mg/dL (7-18); Calcium 9.2 mg/dL (8.5-10.1); Carbon Dioxide 29 mmol/L (21-32); Chloride 104 mmol/L (98-108); Cholesterol 137 mg/dL (0-200); Estimated Glomerular Filt Rate > 60; Glucose 101 mg/dL (70-99); HDL Direct 48 mg/dL (40-60); LDL Cholesterol Calculated 69 mg/dL (<130); Osmolality Calculated 287 mOsm/kg (285-295); Potassium 4.4 mmol/L (3.5-5.1); Sodium 139 mmol/L (136-145); Total Protein 7.4 g/dL (6.4-8.2); Triglycerides 100 mg/dL (0-150)
[2021-06-18 14:14] LABS: Alanine Aminotransferase < 6 U/L (16-63)
== END 2021-06-18 13:10 | disposition home or self-care (01) ==
LOC: CHSLAB 13:12
PROVIDERS: PCP Family Medicine; Visit Provider Family Medicine
DX: E11.9 Type 2 diabetes mellitus without complications (principal); I10 Essential (primary) hypertension
CPT/HCPCS: 36415; 80053; 80061; 84443; 85027

== ENCOUNTER 2022-06-23 10:18 | Outpatient (CLI) | payer MEDICARE, SELFPAY ==
[2022-06-23 10:34] LABS: Hematocrit 39.8 % (37.0-46.0); Hemoglobin 13.1 g/dL (12.4-15.3); Mean Corpuscular HGB Conc 32.9 g/dL (32.0-36.0); Mean Corpuscular Hemoglobin 30.5 pg (27.0-31.0); Mean Corpuscular Volume 92.6 fL (78.0-102.0); Mean Platelet Volume 9.7 fl (8.7-11.0); Platelet Count Result 230 K/mm3 (150-420); Red Cell Distribution Width 13.9 % (11.6-14.4); White Blood Count 7.8 K/mm3 (4.8-10.8)
[2022-06-23 10:49] LABS: Appearance Urine Clear (Clear); Bilirubin Urine Negative (Negative); Blood Urine Negative (Negative); Color Urine Light Yellow (Yellow); Glucose Urine UA Negative (Negative); Ketones Urine Trace (Negative); Leukocyte Esterase Ur Negative LEU/UL (Negative); Nitrate Urine Negative (Negative); Protein Urine Negative (Negative); Urobilinogen Urine 0.2 mg/dL (0.2-1.0)
[2022-06-23 10:53] LABS: Add Urine Microscopic? YES; Bacteria Urine Trace /hpf; RBC Urine 0-2 /hpf (0-2); Squamous Epithelial Cell Urine Occasional /hpf (Few); WBC Urine None seen /hpf (0-3)
[2022-06-23 11:03] LABS: Alanine Aminotransferase 8 U/L (16-63); Albumin Level 3.3 g/dL (3.4-5.0); Alkaline Phosphatase 97 U/L (46-116); Anion Gap 8 mmol/L (8-16); Aspartate Amino Transferase 12 U/L (15-37); Bilirubin,Total 0.6 mg/dL (0.00-1.00); Blood Urea Nitrogen 8 mg/dL (7-18); Calcium 9.1 mg/dL (8.5-10.1); Carbon Dioxide 29 mmol/L (21-32); Chloride 105 mmol/L (98-108); Cholesterol 115 mg/dL (0-200); Estimated Glomerular Filt Rate > 60; Glucose 135 mg/dL (70-99); HDL Direct 44 mg/dL (40-60); LDL Cholesterol Calculated 61 mg/dL (<130); Osmolality Calculated 294 mOsm/kg (285-295); Potassium 4.1 mmol/L (3.5-5.1); Sodium 142 mmol/L (136-145); Total Protein 6.7 g/dL (6.4-8.2); Triglycerides 49 mg/dL (0-150)
== END 2022-06-23 10:19 | disposition home or self-care (01) ==
LOC: CHSLAB 10:19
PROVIDERS: PCP Family Medicine; Visit Provider Family Medicine
DX: R39.9 Unspecified symptoms and signs involving the genitourinary system (principal); I10 Essential (primary) hypertension
CPT/HCPCS: 36415; 80053; 80061; 81001; 85027

== ENCOUNTER 2022-09-24 09:32 | Outpatient (CLI) | payer MEDICARE, SELFPAY ==
--- NOTE | ~2022-09-24 | MR_ITS ---
EXAMINATION: MR brain IAC wo con DATE: 09/24/2022 10:49 INDICATION: Cerebral infarct. TECHNIQUE: Magnetic resonance imaging (MRI) of the brain, brainstem, and internal auditory canals was performed without intravenous contrast. COMPARISON: Head CT 09/21/2020, brain MRI 01/18/2020 FINDINGS: There are small scattered acute infarcts in the right frontal and parietal lobes. There are old infarcts involving the right frontal, temporal, parietal, and occipital lobes. There are old inf arcts involving the bilateral basal ganglia and thalami. There is no intracranial hemorrhage or abnor mal mass lesion. There is an old infarct in left cerebellum. There are scattered areas of nonspecific increased T2-weighted signal intensity in the cerebral white matter and dick. There is ex vacuo dila tation of right lateral ventricle. There are likely changes of ocular lens replacement surgeries. The re is mild mucosal thickening in the ethmoid sinuses. The mastoid air cells are normal. IMPRESSION: 1. Small scattered acute infarcts in the right frontal and parietal lobes. 2. Multiple old infarcts in the brain. 3. Extensive nonspecific cerebral white matter disease and pontine disease, which likely represents c hronic small vessel ischemic disease. Reviewed, dictated and finalized at location A. IMPRESSION: 1. Small scattered acute infarcts in the right frontal and parietal lobes. 2. Multiple old infarcts in the brain. 3. Extensive nonspecific cerebral white matter disease and pontine disease, whi ch likely represents chronic small vessel ischemic disease.
[2022-09-24 09:49] LABS: Basophils Absolute Auto 0.04 K/mm3 (0.00-0.10); Basophils Percent Auto 0.6 % (0.0-1.0); Eosinophils Absolute Auto 0.26 K/mm3 (0.02-0.50); Hematocrit 42.7 % (37.0-46.0); Hemoglobin 14.2 g/dL (12.4-15.3); Immature Granulocyte Absolute 0.02 K/mm3 (0.00-0.00); Immature Granulocyte Percent A 0.3 % (0.0-0.0); Lymphocytes Percent Auto 15.6 % (18.0-42.0); Mean Corpuscular HGB Conc 33.3 g/dL (32.0-36.0); Mean Corpuscular Hemoglobin 30.7 pg (27.0-31.0); Mean Corpuscular Volume 92.4 fL (78.0-102.0); Mean Platelet Volume 9.1 fl (8.7-11.0); Monocytes Absolute Auto 0.62 K/mm3 (0.10-0.90); Monocytes Percent Auto 9.6 % (2.0-11.0); Neutrophils Absolute Auto 4.5 K/mm3 (1.7-7.2); Neutrophils Percent Auto 69.9 % (50.0-70.0); Platelet Count Result 227 K/mm3 (150-420); Red Blood Count 4.62 M/mm3 (4.70-6.10); White Blood Count 6.4 K/mm3 (4.8-10.8)
[2022-09-24 11:30] LABS: Albumin Level 3.4 g/dL (3.4-5.0); Alkaline Phosphatase 95 U/L (46-116); Anion Gap 8 mmol/L (8-16); Blood Urea Nitrogen 9 mg/dL (7-18); Calcium 9.3 mg/dL (8.5-10.1); Carbon Dioxide 31 mmol/L (21-32); Chloride 104 mmol/L (98-108); Estimated Glomerular Filt Rate > 60; Folic Acid 11.8 ng/mL (8.6->20); Glucose 88 mg/dL (70-99); Osmolality Calculated 293 mOsm/kg (285-295); Potassium 4.3 mmol/L (3.5-5.1); Sodium 143 mmol/L (136-145); Total Protein 6.7 g/dL (6.4-8.2); Vitamin B12 870 pg/mL (193-986)
[2022-09-24 11:35] LABS: Thyroid Stimulating Hormone Reflex 0.51 u/IU/mL (0.36-3.74)
[2022-09-24 11:47] LABS: Aspartate Amino Transferase 15 U/L (15-37)
[2022-09-24 11:53] LABS: Alanine Aminotransferase < 6 U/L (16-63)
== END 2022-09-24 09:33 | disposition home or self-care (01) ==
PROVIDERS: PCP Family Medicine; Visit Provider Family Medicine
DX: R53.1 Weakness (principal); E11.9 Type 2 diabetes mellitus without complications; E53.8 Deficiency of other specified B group vitamins; I63.9 Cerebral infarction, unspecified; R90.82 White matter disease, unspecified
CPT/HCPCS: 36415; 70551; 80053; 82607; 82746; 84443; 85025

== ENCOUNTER 2022-09-27 13:39 | Outpatient (RCR) | payer MEDICARE, SELFPAY ==
--- NOTE | 2022-09-27 14:55 | PTOPEVAL1 ---
Assessment and note entered by Jose Alberto Borges Evaluation Information Assessment Status Evaluation Diagnosis weakness, PD Onset 09/13/22 Subjective Information Pt. is present. She reports that 2 weeks ago the pt. suffered a stroke. He reports that he has noticed he is starting to shuffle more and has weakness in the left hand. He reports that he has had no recent falls. he reports that he is currently having no pain. Pt. states that they have a walker and he is uisng it on occasion, but not all the time. He reports that he is concerned regarding his balance. He states that his goal is to improve his strength and balance. Reported Pain Level Pain Score 0: Self Report Assessment PT Clinical Summary Pt. is an 81 year old male who enters the clinic due to developed weakness and impaired balance. He presents with impaired gait, impaired l.e. strength, impaired balance, high fall risk and functional decline. Continued skilled PT is indicated in order to improve these areas to allow the pt. to be able to complete all IADL's with improved safety and efficiency. Plan of Care Interventions Gait Training,Manual Therapy,Neuro Re-education, Patient/Caregiver Educati,Therapeutic Activities, Therapeutic Exercise PT Services Indicated Yes Treatment Frequency and 3x/week x 12 visits Duration These treatments will address the objective and functional deficits as defined above. The patient will be advanced safely and appropriately in order for the patient to progress towards his/her prior level of function. Additional exercises will be introduced and as well as a comprehensive home exercise program upon discharge, if needed, ?to ensure carryover of functional gains achieved in the clinic. This treatment plan has been reviewed and agreement upon by the patient.
--- NOTE | 2022-09-27 14:55 | OPREHPOC ---
Outpatient Therapy Plan of Care This is a Multidisciplinary Plan of Care that may contain components documented by all disciplines (PT, OT, and ST.) PT Problem 1 PT Problem #1 Knowledge Deficit PT Goal 1 Goal Pt. will be independent with a HEP addressing strength and mobility. Target Visit 2 PT Problem 2 PT Problem #2 Impaired Balance PT Goal 1 Goal -Pt. will complete 5 time sit to fire alarm inspector 22 seconds or less indicating improved safety -Pt. will improve tinetti score to 15 or greater indicating improve safety and decreased fall risk. Target Visit 12 PT Problem 3 PT Problem #3 Impaired Gait PT Goal 1 Goal Pt. will demonstrate improve stride length with use of rollator walker and complete 6 minute walk test for distance of 800' or greater independently . Target Visit 12 PT Problem 4 PT Problem #4 Impaired Strength PT Goal 1 Goal Pt. will present with 4/5 gross l.e. strength or greater to improve standing endurance Target Visit 12
--- NOTE | 2022-09-29 17:40 | PCPTNOTE ---
patient cancelled therapy today for an unknown reason
--- NOTE | 2022-11-15 15:38 | OPREHPOC ---
Outpatient Therapy Plan of Care This is a Multidisciplinary Plan of Care that may contain components documented by all disciplines (PT, OT, and ST.) PT Problem 1 PT Problem #1 Knowledge Deficit PT Goal 1 Goal Pt. will be independent with a HEP addressing strength and mobility. Target Visit 2 PT Problem 2 PT Problem #2 Impaired Balance PT Goal 1 Goal -Pt. will complete 5 time sit to brine maker 14 seconds or less indicating improved safety -Pt. will improve tinetti score to 19 or greater indicating improve safety and decreased fall risk. Target Visit 12 PT Problem 3 PT Problem #3 Impaired Gait PT Goal 1 Goal Pt. will demonstrate improve stride length with use of rollator walker and complete 6 minute walk test for distance of 800' or greater independently . Target Visit 12 PT Problem 4 PT Problem #4 Impaired Strength PT Goal 1 Goal Pt. will present with 4/5 gross l.e. strength or greater to improve standing endurance Target Visit 12
--- NOTE | 2022-11-15 15:39 | PTOPPROG ---
Assessment and note entered by JT File, PT Evaluation Information Assessment Status Progress Diagnosis weakness, PD Onset 09/13/22 Subjective Information patient has not been to skilled PT since his initial evaluation on 09/27/22. he reports he has had no falls since his initial evaluation, but continues to have weakness, decreased balance, and trouble walking. Assessment PT Clinical Summary mr. dodge presents to skilled PT with continued weakness, decreased balance, and poor ambulation mechanics. he has not been to skilled PT since his initial evaluation on 09/27/22. due to his continued deficits, he is appropriate to continue skilled PT to finish out his POC from his initial evaluation. Plan of Care Interventions Gait Training,Manual Therapy,Neuro Re-education, Patient/Caregiver Educati,Therapeutic Activities, Therapeutic Exercise PT Services Indicated Yes Treatment Frequency and continue skilled PT 3x weekly for 10 more visits Duration per initial evaluation These treatments will address the objective and functional deficits as defined above. The patient will be advanced safely and appropriately in order for the patient to progress towards his/her prior level of function. Additional exercises will be introduced and as well as a comprehensive home exercise program upon discharge, if needed, ?to ensure carryover of functional gains achieved in the clinic. This treatment plan has been reviewed and agreement upon by the patient.
--- NOTE | 2022-12-16 13:59 | OPREHPOC ---
Outpatient Therapy Plan of Care This is a Multidisciplinary Plan of Care that may contain components documented by all disciplines (PT, OT, and ST.) PT Problem 1 PT Problem #1 Knowledge Deficit PT Goal 1 Goal Pt. will be independent with a HEP addressing strength and mobility. Target Visit 2 Progress Partially Met Comment assist of with HEP PT Problem 2 PT Problem #2 Impaired Balance PT Goal 1 Goal -Pt. will complete 5 time sit to coating inspector 14 seconds or less indicating improved safety. not met -Pt. will improve tinetti score to 19 or greater indicating improve safety and decreased fall risk. not met Target Visit 12 Progress Not Met PT Problem 3 PT Problem #3 Impaired Gait PT Goal 1 Goal Pt. will demonstrate improve stride length with use of rollator walker and complete 6 minute walk test for distance of 800' or greater independently . not met Target Visit 12 Progress Not Met PT Problem 4 PT Problem #4 Impaired Strength PT Goal 1 Goal Pt. will present with 4/5 gross l.e. strength or greater to improve standing endurance Target Visit 12 Progress Met PT Problem 5 PT Problem #5 Impaired Functional Mobil PT Goal 1 Goal 1. patient to maintain score on tinetti, tug, and 6 minute walk test to maintain his level of functional performance quality of life. 2. patient to aquire rollator walker to use for ambulation at all times. Target Visit 16
--- NOTE | 2022-12-16 13:59 | PTOPREEVAL ---
Assessment and note entered by JT File, PT Evaluation Information Assessment Status Re-evaluation Diagnosis weakness, PD Onset 09/13/22 Subjective Information patient reports he feels Good today. he reports no pain. he reports he has had no falls since starting this bout of therapy. Reported Pain Level Pain Score 0: Self Report Assessment PT Clinical Summary mr. dodge presents to skilled PT for his 12th skilled PT visit this date. he presents with continued deficits in transfers, ambulation, and balance associated with his parkinsons disease. he has met goal for HEP participation with his , and for LE strength. however, his balance, ambulation, and transfer goals are not met. due to his neuroligcal deficits from parkinsons disease, patients progress in and ability to maintain current balance and ambulation safety will begin to dwindle if he does not participate in a routine exercise program. unfortunately he is unsafe to perform most balance exercises and gait training on his own at home. he will be able to participate in some strengthening exercises with his , but would best continue skilled PT in a maintenance program to limit the regression of his independence and safety and to maintain a higher quality of life. Plan of Care Interventions Gait Training,Neuro Re-education,Patient/Caregiver Educati,Therapeutic Activities,Therapeutic Exercise PT Services Indicated Yes Treatment Frequency and continue skilled PT 1x weekly for 4 weeks in a Duration maintenance capacity. These treatments will address the objective and functional deficits as defined above. The patient will be advanced safely and appropriately in order for the patient to progress towards his/her prior level of function. Additional exercises will be introduced and as well as a comprehensive home exercise program upon discharge, if needed, ?to ensure carryover of functional gains achieved in the clinic. This treatment plan has been reviewed and agreement upon by the patient.
== END 2022-12-21 13:23 | disposition still patient (30) ==
LOC: CHSPT 13:39
PROVIDERS: PCP Family Medicine; Visit Provider Family Medicine
DX: I63.9 Cerebral infarction, unspecified (principal); R53.1 Weakness; G20 Parkinson's disease
CPT/HCPCS: 97110; 97112; 97116; 97161; 97530; 97750

== ENCOUNTER 2022-10-12 12:42 | Outpatient (CLI) | payer MEDICARE, SELFPAY ==
--- NOTE | 2022-10-12 12:56 | ECG_ITS ---
Measurements Intervals [place] Rate: 75 P: 76 NV: 181 QRS: 2 QRSD: 77 T: 88 QT: 353 QTc: 396 Interpretive Statements SINUS RHYTHM ATRIAL PREMATURE COMPLEX DELAYED PRECORDIAL R/S TRANSITION BORDERLINE ST-T WAVE ABNORMALITY- HIGH LATERAL LEADS BASELINE ARTIFACT- I, II, III, AVR, AVL, AVF BORDERLINE ECG COMPARED TO ECG 01/24/2020 12:19:24 NO SIGNIFICANT CHANGES Electronically Signed On 10-12-2022 13:49:33 CDT by Rian Bautista D.O.
[2022-10-12 13:11] LABS: Hemoglobin A1C 5.8 % (<5.7)
== END 2022-10-12 12:43 | disposition home or self-care (01) ==
LOC: CHSLAB 12:45
PROVIDERS: PCP Family Medicine; Visit Provider Student in an Organized Health Care Education/Training Program
DX: I63.9 Cerebral infarction, unspecified (principal); Z86.2 Personal history of diseases of the blood and blood-forming organs and certain disorders involving the immune mechanism
CPT/HCPCS: 36415; 83036; 93005

== ENCOUNTER 2022-11-11 07:30 | Outpatient (CLI) | payer MEDICARE, SELFPAY ==
--- NOTE | ~2022-11-11 | CT_ITS ---
CT ANGIOGRAM NECK AND HEAD History: Cerebral infarct. Technique: Axial noncontrast imaging of the brain was performed. Serial spiral axial images through t he head and neck were then obtained during arterial phase IV injection of 100 cc of Omnipaque 350. 3- D postprocessing and MIP images were then reconstructed on the remote workstation. Dose reduction rose hnique was used on this scan by utilizing automated exposure control and iterative reconstruction rose hnique. The dose-length product (DLP) was 1818.17 mGy-cm. COMPARISON: 09/21/2020, 01/24/2020 CTA neck findings: There is multifocal high-grade stenotic change throughout the course of the left vertebral artery, overall similar to prior exam. There is probable focal moderate stenosis at the beto gin of the right vertebral artery, however the right vertebral artery otherwise is widely patent. The re as been interval development of high-grade stenosis at the proximal right internal carotid artery, approximately 95%. There is probable moderate stenosis at the proximal left internal carotid artery , with approximate 60% luminal narrowing. There are extensive calcified plaques at the bilateral prox imal internal carotid arteries. The proximal right internal carotid artery demonstrates 95% stenosis relative to the normal distal artery lumen diameter. The proximal left internal carotid artery demons trates 60% stenosis relative to the normal distal artery lumen diameter. CTA head findings: Basilar artery and posterior cerebral arteries are patent. Distal internal carotid arteries, middle cerebral arteries, and anterior cerebral arteries are patent. There are extensive a therosclerotic calcifications of the cavernous portions of the distal internal carotid arteries, with areas of [id number] stenosis. Axial noncontrast imaging of the brain demonstrates no acute abnormality. There is moderate generaliz ed atrophy and moderate hypodensities about the periventricular white matter, consistent with chronic microvascular ischemic change. Probable tiny chronic lacunar infarcts in the right basal ganglia reg ion. Paranasal sinuses and mastoid air cells are clear. Impression: Interval development of high-grade stenosis of the proximal right internal carotid artery, 95% in deg ree. Probable minimal progression of moderate degree stenosis of the proximal left internal carotid artery , 60% in degree. Multifocal severe stenotic change of the left vertebral artery throughout its course, similar to prio r exam. No acute abnormality seen on noncontrast brain CT. There are stable chronic lacunar infarcts, chroni c microvascular ischemic changes, and atrophic changes. Reviewed, dictated and finalized at location M. Impression: Interval development of high-grade stenosis of the proximal right internal banda tid artery, 95% in degree. Probable minimal progression of moderate degree stenosis of the proximal left i nternal carotid artery, 60% in degree. Multifocal severe stenotic change of the left vertebral artery throughout its c ourse, similar to prior exam. No acute abnormality seen on noncontrast brain CT. There are stable chronic la cunar infarcts, chronic microvascular ischemic changes, and atrophic changes.
[2022-11-11 07:59] LABS: Estimated Glomerular Filt Rate > 60
== END 2022-11-11 07:31 | disposition home or self-care (01) ==
LOC: CHSIMG 07:33
PROVIDERS: PCP Family Medicine; Visit Provider Student in an Organized Health Care Education/Training Program
DX: I63.231 Cerebral infarction due to unspecified occlusion or stenosis of right carotid arteries (principal); I65.23 Occlusion and stenosis of bilateral carotid arteries
CPT/HCPCS: 70496; 70498; Q9967

== ENCOUNTER 2022-12-26 09:48 | Outpatient (CLI) | payer MEDICARE, SELFPAY ==
[2022-12-26 10:01] LABS: Basophils Absolute Auto 0.03 K/mm3 (0.00-0.10); Basophils Percent Auto 0.4 % (0.0-1.0); Eosinophils Percent Auto 1.3 % (1.0-6.0); Hematocrit 42.5 % (37.0-46.0); Immature Granulocyte Absolute 0.03 K/mm3 (0.00-0.00); Immature Granulocyte Percent A 0.4 % (0.0-0.0); Lymphocytes Absolute Auto 0.94 K/mm3 (1.10-4.50); Lymphocytes Percent Auto 12.6 % (18.0-42.0); Mean Corpuscular HGB Conc 32.9 g/dL (32.0-36.0); Mean Corpuscular Hemoglobin 30.5 pg (27.0-31.0); Mean Corpuscular Volume 92.6 fL (78.0-102.0); Mean Platelet Volume 9.2 fl (8.7-11.0); Monocytes Absolute Auto 0.55 K/mm3 (0.10-0.90); Monocytes Percent Auto 7.4 % (2.0-11.0); Neutrophils Absolute Auto 5.8 K/mm3 (1.7-7.2); Neutrophils Percent Auto 77.9 % (50.0-70.0); Platelet Count Result 297 K/mm3 (150-420); Red Blood Count 4.59 M/mm3 (4.70-6.10); Red Cell Distribution Width 13.7 % (11.6-14.4); White Blood Count 7.5 K/mm3 (4.8-10.8)
[2022-12-26 10:44] LABS: Alanine Aminotransferase 11 U/L (16-63); Albumin Level 3.1 g/dL (3.4-5.0); Alkaline Phosphatase 86 U/L (46-116); Anion Gap 7 mmol/L (8-16); Aspartate Amino Transferase 14 U/L (15-37); Bilirubin,Total 1.2 mg/dL (0.00-1.00); Blood Urea Nitrogen 12 mg/dL (7-18); Calcium 9.3 mg/dL (8.5-10.1); Carbon Dioxide 32 mmol/L (21-32); Chloride 102 mmol/L (98-108); Estimated Glomerular Filt Rate 59; Glucose 125 mg/dL (70-99); Osmolality Calculated 292 mOsm/kg (285-295); Potassium 4.3 mmol/L (3.5-5.1); Sodium 141 mmol/L (136-145)
== END 2022-12-26 09:49 | disposition home or self-care (01) ==
LOC: CHSLAB 09:50
PROVIDERS: PCP Family Medicine; Visit Provider Family Medicine
DX: I63.9 Cerebral infarction, unspecified (principal)
CPT/HCPCS: 36415; 80053; 85025

== ENCOUNTER 2022-12-28 13:25 | Outpatient (RCR) | payer MEDICARE, SELFPAY ==
--- NOTE | 2023-01-11 14:46 | OPREHPOC ---
Outpatient Therapy Plan of Care This is a Multidisciplinary Plan of Care that may contain components documented by all disciplines (PT, OT, and ST.) PT Problem 1 PT Problem #1 Knowledge Deficit PT Goal 1 Goal Pt. will be independent with a HEP addressing strength and mobility. Target Visit 2 Progress Partially Met Comment assist of with HEP PT Problem 2 PT Problem #2 Impaired Balance PT Goal 1 Goal -Pt. will complete 5 time sit to ground services instructor 14 seconds or less indicating improved safety. not met -Pt. will improve tinetti score to 19 or greater indicating improve safety and decreased fall risk. not met Target Visit 12 Progress Not Met PT Problem 3 PT Problem #3 Impaired Gait PT Goal 1 Goal Pt. will demonstrate improve stride length with use of rollator walker and complete 6 minute walk test for distance of 800' or greater independently . not met Target Visit 12 Progress Not Met PT Problem 4 PT Problem #4 Impaired Strength PT Goal 1 Goal Pt. will present with 4/5 gross l.e. strength or greater to improve standing endurance Target Visit 12 Progress Met PT Problem 5 PT Problem #5 Impaired Functional Mobil PT Goal 1 Goal 1. patient to maintain score on tinetti, tug, and 6 minute walk test to maintain his level of functional performance quality of life. 2. patient to aquire rollator walker to use for ambulation at all times. has not completed this Target Visit 20 Progress Partially Met
--- NOTE | 2023-01-11 14:47 | PTOPREEVAL ---
Assessment and note entered by JT File, PT Evaluation Information Assessment Status Re-evaluation Diagnosis weakness, PD Onset 09/13/22 Subjective Information patient reports he has had no falls. he reports he and his are working on some exercises at home. Reported Pain Level Pain Score 0: Self Report Assessment PT Clinical Summary mr. dodge presents to skilled PT services for his 4th visit in a skilled maintenance program. through his first 4 visits, he has maintined scoring on TUG, 5x sit to tand, tinetti, and ambulation distance during 6 minute walk test. he continues to ambulate with shuffled gait mechanics and poor foot clearance. he would benefit from continued maintenance skilled PT to maintain his balance, strength, safety, and ambulation independence to maintain his quality of life and functional activity performance Plan of Care Interventions Therapeutic Exercise,Patient/Caregiver Educati, Neuro Re-education,Therapeutic Activities,Gait Training PT Services Indicated Yes Treatment Frequency and continue skilled maintenance therapy 1x weekly for Duration 4 more visits These treatments will address the objective and functional deficits as defined above. The patient will be advanced safely and appropriately in order for the patient to progress towards his/her prior level of function. Additional exercises will be introduced and as well as a comprehensive home exercise program upon discharge, if needed, ?to ensure carryover of functional gains achieved in the clinic. This treatment plan has been reviewed and agreement upon by the patient.
--- NOTE | 2023-02-15 13:18 | OPREHPOC ---
Outpatient Therapy Plan of Care This is a Multidisciplinary Plan of Care that may contain components documented by all disciplines (PT, OT, and ST.) PT Problem 1 PT Problem #1 Knowledge Deficit PT Goal 1 Goal Pt. will be independent with a HEP addressing strength and mobility. Target Visit 2 Progress Met Comment assist of with HEP PT Problem 2 PT Problem #2 Impaired Balance PT Goal 1 Goal -Pt. will complete 5 time sit to metal sander and finisher 14 seconds or less indicating improved safety. met -Pt. will improve tinetti score to 19 or greater indicating improve safety and decreased fall risk. not met Target Visit 24 Progress Partially Met PT Problem 3 PT Problem #3 Impaired Gait PT Goal 1 Goal Pt. will demonstrate improve stride length with use of rollator walker and complete 6 minute walk test for distance of 800' or greater independently . not met Target Visit 24 Progress Not Met PT Problem 4 PT Problem #4 Impaired Strength PT Goal 1 Goal Pt. will present with 4/5 gross l.e. strength or greater to improve standing endurance Target Visit 12 Progress Met PT Problem 5 PT Problem #5 Impaired Functional Mobil PT Goal 1 Goal 1. patient to maintain score on tinetti, tug, and 6 minute walk test to maintain his level of functional performance quality of life. 2. patient to aquire rollator walker to use for ambulation at all times. has not completed this 3. patient to be compliant with 2x weekly fall prevention class and 3x weekly HEP at home. Target Visit 24 Progress Partially Met
--- NOTE | 2023-02-15 13:18 | PTOPREEVAL ---
Assessment and note entered by JT File, PT Evaluation Information Assessment Status Re-evaluation Diagnosis weakness, PD, maintenance therapy Onset 09/13/22 Subjective Information patient reports he has been doing well. he reports he has had no falls. he reports no pain today. he reports he is doing some exercises at home with his . he reports he has not tried to attend the fall prevention class yet. Reported Pain Level Pain Score 0: Self Report Assessment PT Clinical Summary mr. dodge presents to skilled PT for his 20th overall visit, but 8th bout of maintenance therapy . he continues to not use a rollator for ambulation, and reportedly is unable to complete his HEP consistently at home. however, he displays improvements in 6 minute walk test, TUG, 5x sit to stand, and tinetti. objectively he continues have a high fall risk per the tinetti. he would benefit from continued skilled maintenance therapy to maintain his improvements and stability in balance, endurance, strength, and transfers. patient will attend fall prevention calls 2x a week in addition to 1x weekly skilled PT. if patient continues to do well with maintenance program at the end of his next 4 visits, we may taper off to an HEP and fall prevention class only trial. Plan of Care Interventions Therapeutic Exercise,Patient/Caregiver Educati, Neuro Re-education,Therapeutic Activities,Gait Training PT Services Indicated Yes Treatment Frequency and continue skilled maintenance therapy 1x weekly for Duration 4 more visits These treatments will address the objective and functional deficits as defined above. The patient will be advanced safely and appropriately in order for the patient to progress towards his/her prior level of function. Additional exercises will be introduced and as well as a comprehensive home exercise program upon discharge, if needed, ?to ensure carryover of functional gains achieved in the clinic. This treatment plan has been reviewed and agreement upon by the patient.
--- NOTE | 2023-03-15 14:39 | OPREHPOC ---
Outpatient Therapy Plan of Care This is a Multidisciplinary Plan of Care that may contain components documented by all disciplines (PT, OT, and ST.) PT Problem 1 PT Problem #1 Knowledge Deficit PT Goal 1 Goal Pt. will be independent with a HEP addressing strength and mobility. Target Visit 2 Progress Met Comment assist of with HEP PT Problem 2 PT Problem #2 Impaired Balance PT Goal 1 Goal -Pt. will complete 5 time sit to director inbound sales 14 seconds or less indicating improved safety. not met -Pt. will improve tinetti score to 19 or greater indicating improve safety and decreased fall risk. met Target Visit 24 Progress Partially Met PT Problem 3 PT Problem #3 Impaired Gait PT Goal 1 Goal Pt. will demonstrate improve stride length with use of rollator walker and complete 6 minute walk test for distance of 800' or greater independently . not met Target Visit 24 Progress Not Met PT Problem 4 PT Problem #4 Impaired Strength PT Goal 1 Goal Pt. will present with 4/5 gross l.e. strength or greater to improve standing endurance Target Visit 12 Progress Met PT Problem 5 PT Problem #5 Impaired Functional Mobil PT Goal 1 Goal 1. patient to maintain score on tinetti, tug, and 6 minute walk test to maintain his level of functional performance quality of life. met 2. patient to aquire rollator walker to use for ambulation at all times. has not completed this 3. patient to be compliant with 2x weekly fall prevention class and 3x weekly HEP at home. met Target Visit 24 Progress Partially Met
--- NOTE | 2023-03-15 14:39 | PTOPDC ---
Assessment and note entered by JT File, PT Evaluation Information Assessment Status Discharge Diagnosis weakness, PD, maintenance therapy Onset 09/13/22 Subjective Information patient reports he is doing well today. he reports he has no pain. he reports he has had no falls. he reports his has been able to take him to fall prevention class 2x weekly. his reports he has been doing very well walking and moving about at home an the community. Reported Pain Level Pain Score 0: Self Report Assessment PT Clinical Summary mr. dodge presents to skilled PT for his 4th visit of his last round of maintenance therapy. he is doing well, and has no had any falls. he maintains his scores on tinetti, 5x sit to stand, tug, and 6 minute walk test within a relative variance. patient has been able to attend fall prevention class 2x weekly. as of this date, we will DC patient from skilled PT/maintenance therapy for a trial of HEP with , and 2x weekly fall prevention class. patient and are in agreement with plan at this time. they were both educated to return back to therapy if patient regresses, or if patient has any falls. Plan of Care PT Services Indicated Yes
== END 2023-03-15 15:52 | disposition home or self-care (01) ==
LOC: CHSPT 13:25
PROVIDERS: PCP Family Medicine; Visit Provider Family Medicine
DX: I63.9 Cerebral infarction, unspecified (principal); R53.1 Weakness; G20.C Parkinsonism, unspecified
CPT/HCPCS: 97112; 97530; 97750

== ENCOUNTER 2023-02-04 09:09 | Emergency (ER) | payer MEDICARE, SELFPAY ==
[2023-02-04 09:09] VITALS: BP 143/61; PULSE 72; RESP 16; TEMP 36.2; O2SAT 100
--- NOTE | 2023-02-04 09:20 | ED.GENADULT ---
HPI - General Adult General Chief complaint: Skin/Abscess/Foreign Body Stated complaint: left hand injury Time Seen by Provider: 02/04/23 09:20 Source: patient Mode of arrival: ambulatory Limitations: no limitations History of Present Illness HPI narrative: Patient is an 82-year-old male with a left hand skin laceration after his dog accidentally placed his paw on the left hand of the patient. Patient has CVA and Plavix. There has been some oozing and bleeding since yesterday. Patient had last tetanus 2017. Onset (ago): day(s) (1) Location: left and upper extremity (hand) Radiation: non-radiation Severity: mild Severity scale (1-10): 1 Quality: aching Pain Consistency: constant Relieving factors: none Exacerbating factors: none Associated symptoms: denies other symptoms Treatments prior to arrival: none Related Data Home Medications Medication Instructions Recorded Confirmed aspirin 81 mg tablet,delayed 81 mg PO DAILY 12/14/18 02/04/23 release (Adult Low Dose Aspirin) latanoprost 0.005 % eye drops 1 drop ophthalmic (eye) DAILY 12/14/18 02/04/23 (Xalatan) mecobalamin (vitamin B12) 1,000 1,000 mcg sublingual DAILY 12/14/18 02/04/23 mcg disintegrating tablet,sublingual timolol maleate 0.5 % eye drops 1 drop ophthalmic (eye) QAM 12/14/18 02/04/23 cilostazol 100 mg tablet 100 mg PO BID 07/13/20 02/04/23 clopidogrel 75 mg tablet 75 mg PO DAILY 10/11/22 02/04/23 Allergies Allergy/AdvReac Type Severity Reaction Status Date / Time No Known Allergies Allergy Verified 02/04/23 09:21 Review of Systems Review of Systems: All systems reviewed & are unremarkable except as noted in HPI and below Constitutional: Constitutional: Reports no additional constitutional complaints Eyes: Eyes: Reports no additional eye complaints ENT: Reports system reviewed and no additional complaints, except as documented Cardiovascular: Cardiovascular: Reports no additional cardiovascular complaints Respiratory: Respiratory: Reports no additional respiratory complaints Gastrointestinal: Gastrointestinal: Reports no additional gastrointestinal complaints Genitourinary: Genitourinary: Reports no additional male genitourinary complaints Musculoskeletal: Musculoskeletal: Reports no additional musculoskeletal complaints Integumentary/Breasts: Skin/Breast: Reports system reviewed and no additional complaints, except as docu Neurologic: Reports system reviewed and no additional complaints, except as documented Psychiatric: Psychiatric: Reports no additional psychiatric complaints Endocrine: Endocrine: Reports no additional endocrine complaints Hematologic/Lymphatic: Hematologic/Lymphatic: Reports no additional hematologic/lymphatic complaints Allergic/Immunologic: Allergic/Immunologic: Reports no additional allergic/immunologic complaints PMFSH Past Medical History Medical History Cataract COPD (chronic obstructive pulmonary disease) CVA (cerebral vascular accident) History of CVA (cerebrovascular accident) Hyperlipidemia PVD (peripheral vascular disease) Surgical History Surgical History H/O shoulder surgery On the left History of appendectomy History of back surgery History of right-sided carotid endarterectomy Hx of cataract extraction Family History Family History Sister Family history of rheumatoid arthritis Brother Familial Alzheimer's disease of late onset Father Lung cancer Other Family history of coronary artery disease Social History Social History Social History: The patient lives with his who is a durable power supervisor 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 He is a full code. Smoking packs per day: 2 Smoking cigarettes per day: 40.0 Years smoked: 25 Smoking pack-years: 5
[2023-02-04 09:23] VITALS: BP 143/61; PULSE 72; RESP 16; TEMP 36.2; O2SAT 100
[2023-02-04 10:22] VITALS: BP 132/69; PULSE 65; RESP 16; TEMP 36.6; O2SAT 97
== END 2023-02-04 10:24 | disposition home or self-care (01) ==
PROVIDERS: Emergency Provider Emergency Medicine; PCP Family Medicine
DX: S61.412A Laceration without foreign body of left hand, initial encounter (principal); J44.9 Chronic obstructive pulmonary disease, unspecified; E78.5 Hyperlipidemia, unspecified; Z79.899 Other long term (current) drug therapy; Z79.82 Long term (current) use of aspirin; Z86.73 Personal history of transient ischemic attack (TIA), and cerebral infarction without residual deficits; Z87.891 Personal history of nicotine dependence; W45.8XXA Other foreign body or object entering through skin, initial encounter
CPT/HCPCS: 12001; 99283

== ENCOUNTER 2023-04-10 11:29 | Outpatient (CLI) | payer MEDICARE, SELFPAY ==
[2023-04-10 12:21] LABS: Hemoglobin A1C 5.1 % (<5.7)
[2023-04-10 13:01] LABS: LDL Cholesterol Direct 72 mg/dL (0-130); Thyroid Stimulating Hormone 0.78 uIU/mL (0.36-3.74); Vitamin B12 485 pg/mL (193-986)
== END 2023-04-10 11:30 | disposition home or self-care (01) ==
LOC: CHSLAB 11:33
PROVIDERS: PCP Family Medicine; Visit Provider Student in an Organized Health Care Education/Training Program
DX: R41.3 Other amnesia (principal); Z86.2 Personal history of diseases of the blood and blood-forming organs and certain disorders involving the immune mechanism; E78.5 Hyperlipidemia, unspecified
CPT/HCPCS: 36415; 82607; 82746; 83036; 83721; 84443

== ENCOUNTER 2023-04-24 13:45 | Outpatient (CLI) | payer MEDICARE, SELFPAY ==
--- NOTE | 2023-04-24 13:50 | ECHO_ITS ---
Patient Info Name: Jacques Quiroz Age: 82 years : 1940 Gender: Male Ht: 70 in Wt: 160 lbs BSA: 1.89 m2 HR: 75 bpm BP: 160 / 80 mmHg Heart Rhythm: Sinus Rhythm Technical Quality: Fair Exam Date: 04/24/2023 1:54 PM Exam Location: Echo Lab Patient Status: Outpatient Admit Date: 04/24/2023 Staff Ordering Physician: Michaela Richardson MD Planner/Scheduler: Aidan Morales RDCS Attending Provider: Michaela Richardson MD Exam Type: CA echo doppler w bubble study Study Info Indications - hx of stroke Complete two-dimensional, color flow and Doppler transthoracic echocardiogram is performed with agitated saline. Summary 1. Left ventricular chamber dimension is normal. 2. Left ventricular systolic function is normal, estimated at 60-65%. 3. The left ventricular diastolic function is grade I diastolic dysfunction. 4. E/e' 12 is mildly elevated. 5. Left atrial chamber dimension is mildly enlarged. 6. There is moderate aortic valve sclerosis. 7. The mitral valve has moderately calcified leaflets and moderately calcified annulus. 8. No pulmonary hypertension, estimated pulmonary arterial systolic pressure is 13 mmHg. Left Ventricle E/e' 12 is mildly elevated. Left ventricular chamber dimension is normal. Left ventricular systolic function is normal, estimated at 60-65%. The left ventricular diastolic function is grade I diastolic dysfunction. Right Ventricle Right ventricular systolic function is normal and with normal TAPSE 3.0 cm. Right ventricular chamber dimension is normal. Left Atria Left atrial chamber dimension is mildly enlarged. Right Atria Right atrial chamber dimension is normal. Atrial Septum Agitated saline injection with and without valsalva maneuver opacified right side cardiac chambers with no shunt to left side cardiac chambers. Interatrial septum not well visualized by 2D and agitated saline imaging. Aortic Valve The aortic valve is trileaflet. There is moderate aortic valve sclerosis. There is no aortic valve stenosis. There is no aortic valve regurgitation. Pulmonic Valve There is no pulmonic regurgitation. Mitral Valve The mitral valve has moderately calcified leaflets and moderately calcified annulus. There is no mitral valve stenosis. There is no mitral valve regurgitation. Tricuspid Valve There is no tricuspid valve regurgitation. No pulmonary hypertension, estimated pulmonary arterial systolic pressure is 13 mmHg. Pericardium/Pleural There is no pericardial effusion. Inferior Vena Cava Normal inferior vena cava with >50% collapse upon inspiration consistent with normal right atrial pressure, 5 mmHg. Aorta The aortic root size at the sinus of Valsalva is normal. Left Ventricular Outflow Tract Name Value Normal LVOT 2D LVOT Diameter 1.9 cm LVOT Doppler LVOT Peak Velocity 88 cm/s LVOT Peak Gradient 3 mmHg LVOT Mean Gradient 2 mmHg LVOT VTI 31 cm LVOT VTI/AV VTI Ratio 0.7 LVOT Stroke Volume 87 ml Pulmonic Valve Name
== END 2023-04-24 13:46 | disposition home or self-care (01) ==
LOC: CHSIMG 13:46
PROVIDERS: PCP Family Medicine; Visit Provider Student in an Organized Health Care Education/Training Program
DX: R41.3 Other amnesia (principal); I63.9 Cerebral infarction, unspecified; I08.0 Rheumatic disorders of both mitral and aortic valves
CPT/HCPCS: 93306; 96375

== ENCOUNTER 2023-06-15 12:26 | Emergency (ER) | payer MEDICARE, SELFPAY ==
--- NOTE | ~2023-06-15 | CT_ITS ---
EXAMINATION: CT brain wo con DATE: 06/15/2023 13:02 INDICATION: Left posterior head injury. TECHNIQUE: Computed tomography (CT) of the head was performed without intravenous contrast. The mA wa s adjusted according to patient size. Iterative reconstruction technique was employed. The dose-lengt h product was 605.33 mGy-cm. COMPARISON: Head CT 11/11/2022 FINDINGS: There is an old infarct in left cerebellum. There are old infarcts involving right frontal, temporal, and parietal lobes. There are old infarcts in the right thalamus and the right basal gangl ia. There is an old lacunar infarct in the left basal ganglia. There is no intracranial hemorrhage, a cute infarction, or abnormal intracranial mass lesion. There are scattered areas of low attenuation i n the cerebral white matter. There is ex vacuo dilatation of right lateral ventricle. There are likel y changes of ocular lens replacement surgeries. The paranasal sinuses are clear. The mastoid air cell s are normal. There is left posterior scalp soft tissue swelling. IMPRESSION: 1. Old infarcts in the brain. 2. Stable extensive nonspecific cerebral white matter disease, which likely represents chronic small vessel ischemic disease. Reviewed, dictated and finalized at location A. IMPRESSION: 1. Old infarcts in the brain. 2. Stable extensive nonspecific cerebral white matter disease, which likely rep resents chronic small vessel ischemic disease.
[2023-06-15 12:26] VITALS: BP 100/48; PULSE 77; RESP 20; TEMP 36.8; O2SAT 99
--- NOTE | 2023-06-15 12:53 | ED.HEATRA ---
HPI - Head Injury General Chief complaint: Head Injury Stated complaint: FALL, HEAD INJURY Source: patient and family Mode of arrival: wheelchair Limitations: no limitations History of Present Illness HPI Narrative: this is 82-year-old male with history of CVA and peripheral vascular disease currently on Plavix had a fall earlier today and hit the back of his head has a mild hematoma with no lacerations no abrasions, patient is on Plavix, no loss of consciousness no neck pain has good range of motion with no neurological deficits no nausea vomiting no blurry vision no headache. Complaint: head injury Onset (ago): hour(s) Mechanism of Injury: fall Place: home Loss of Consciousness: no Location of injury: occipital Severity: mild Severity scale (1-10): 1 Radiation: none Other Injuries: none Context: other anticoagulant use Associated symptoms: denies other symptoms Related Data Home Medications Medication Instructions Recorded Confirmed aspirin 81 mg tablet,delayed 81 mg PO DAILY 12/14/18 02/04/23 release (Adult Low Dose Aspirin) latanoprost 0.005 % eye drops 1 drop ophthalmic (eye) DAILY 12/14/18 02/04/23 (Xalatan) mecobalamin (vitamin B12) 1,000 1,000 mcg sublingual DAILY 12/14/18 02/04/23 mcg disintegrating tablet,sublingual timolol maleate 0.5 % eye drops 1 drop ophthalmic (eye) QAM 12/14/18 02/04/23 cilostazol 100 mg tablet 100 mg PO BID 07/13/20 02/04/23 Allergies Allergy/AdvReac Type Severity Reaction Status Date / Time No Known Allergies Allergy Verified 04/06/23 13:42 Review of Systems Review of Systems: All systems reviewed & are unremarkable except as noted in HPI and below PMFSH Past Medical History Medical History Cataract COPD (chronic obstructive pulmonary disease) CVA (cerebral vascular accident) History of CVA (cerebrovascular accident) Hyperlipidemia PVD (peripheral vascular disease) Surgical History Surgical History H/O shoulder surgery On the left History of appendectomy History of back surgery History of right-sided carotid endarterectomy Hx of cataract extraction Family History Family History Sister Family history of rheumatoid arthritis Brother Familial Alzheimer's disease of late onset Father Lung cancer Other Family history of coronary artery disease Social History Social History Social History: The patient lives with his who is a durable power defense attorney for healthcare. He is a full code. Smoking packs per day: 2 Smoking cigarettes per day: 40.0 Years smoked: 25 Smoking pack-years: 50.00 Smoking status: Former smoker Tobacco type: cigars Second hand tobacco smoke exposure: No Smoking end date: 01/07/20 Additional smoking assessment comments: SMOKES 20 CIGARS A DAY Alcohol intake: current Drinks per week: 1 Alcohol use details: RARE SINCE THE STROKES Substance use: never Substance use type: does not use Lack of Transportation: No Lack of Food: Never True Current Housing: I Have Housing Concerned About Future Housing: No Difficulty Paying Gas/Electric Bills: No Difficulty Paying for Meds: No Currently Unemployed: No Education: Associate Degree Difficulty w/ Childcare or Family Care: No Living arrangements: with family Occupation/Education: retired Additional occupation/education comments: 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 Gender identity (if verbalized by the patient): Male Spiritual care concerns: Yes (mandaen) Exam Const: General: healthy appearing, no acute distress and alert Nutritional Appearance: well nourished Orientation/consciousness: patient oriented x3 Limitations: no limitations HENMT: Head: normal to inspection Eyes:
[2023-06-15 13:10] VITALS: BP 92/46; PULSE 75
[2023-06-15 13:12] VITALS: BP 91/52; PULSE 82
[2023-06-15 13:15] VITALS: BP 144/61; PULSE 76
[2023-06-15] MEDS: SODIUM CHLORIDE 0.9% IV 1,000 ML 999 ML IV CONT (13:19)
[2023-06-15 13:47] VITALS: BP 122/56; PULSE 79; RESP 20; TEMP 36.9; O2SAT 97
== END 2023-06-15 13:47 | disposition home or self-care (01) ==
LOC: CHSED 13:14
PROVIDERS: Emergency Provider Emergency Medicine; PCP Family Medicine
DX: S09.90XA Unspecified injury of head, initial encounter (principal); I95.1 Orthostatic hypotension; W19.XXXA Unspecified fall, initial encounter; J44.9 Chronic obstructive pulmonary disease, unspecified; E78.5 Hyperlipidemia, unspecified; I73.9 Peripheral vascular disease, unspecified; Z86.73 Personal history of transient ischemic attack (TIA), and cerebral infarction without residual deficits; Z87.891 Personal history of nicotine dependence; Z79.82 Long term (current) use of aspirin; Z79.02 Long term (current) use of antithrombotics/antiplatelets
CPT/HCPCS: 70450; 99284; J7030

== ENCOUNTER 2023-08-04 08:36 | Outpatient (CLI) | payer MEDICARE, SELFPAY ==
--- NOTE | ~2023-08-04 | XR_ITS ---
EXAMINATION: XR barium swallow modified DATE: 08/04/2023 09:04 INDICATION: Dysphagia, unspecified. TECHNIQUE: The patient was given barium-containing material of multiple consistencies to swallow by t addie speech pathologist while I performed fluoroscopy. Fluoroscopy exposure time was 1.1 minutes. The n umber of fluoroscopy images saved to the PACS was 1. Dose-area product was 0.8 Gy-cm^2. FINDINGS: There is reduced labial seal/lip tension. There is reduced lingual movement. There is reduced larynge al elevation, reduced laryngeal adduction, reduced tongue base retraction, reduced pharyngeal squeeze , vallecular residue, pyriform sinus residue, laryngeal penetration, and aspiration. IMPRESSION: 1. Aspiration. 2. Please refer to the speech therapy report for recommendations. Reviewed, dictated and finalized at location A.
--- NOTE | 2023-08-04 10:01 | REHSTMBS ---
Assessment and note entered by Racheal Patel, [employer]NAGER Modified Barium Swallow Evaluation Feeding Type Recommended Oral Food Consistency Pureed, Level 4 Liquid Consistency Mildly Thick (2) Treatment Recommendations Bolus Control Exercise,Effortful Swallow,Laryngeal Elevation Exerc,Supraglottic Swallow,Tongue Base Exercise,Tongue ROM Exercise,Vocal Fold Adduction Exer ST Clinical Summary MODIFIED BARIUM SWALLOW STUDY This patient was seen for an outpatient Modified Barium Swallow study at the request of his physician. Patient has a history of CVA 2017, and TIA, 2020. reported patient was diagnosed with Parkinson's Disease two years ago. After the evaluation and when presented with recommendations and exercises, then admitted patient has had previous swallowing and speech therapy. Today, the patient stated, I just can't swallow, and reported he has even had difficulty swallowing ice cream. She stated that his most success is with chocolate protein shakes and V8 juice. Throughout this evaluation, it was noted that patient was exhibiting loss of saliva anteriorly from the mouth. Patient was viewed in the lateral position to the level of C5/C6. He was presented with small sip of thin liquid contrast medium, then thin liquid contrast medium per cup, and a small bite of pudding mixed with semi-solid contrast medium. Impairments: Oral Stage: *Loss of material anteriorly from the mouth during and for a significant period of time after the evaluation. *Poor anterior to posterior lingual movement Pharyngeal Stage: *Reduced base of tongue retraction contributing to significant vallecular residue before, during, and after the swallows were triggered. *Reduced laryngeal elevation contributing to mild laryngeal penetration with no cough reflex triggered and with aspiration at and below the level of the vocal cords expected. *Reduced pharyngeal squeeze.
== END 2023-08-04 08:37 | disposition home or self-care (01) ==
PROVIDERS: PCP Family Medicine; Visit Provider Family Medicine
DX: R13.10 Dysphagia, unspecified (principal)
CPT/HCPCS: 92611

== ENCOUNTER 2023-10-19 12:30 | Outpatient (RCR) | payer MEDICARE, SELFPAY ==
--- NOTE | 2023-09-01 12:55 | STOPEVAL1 ---
Assessment and note entered by CORIE Chacon Evaluation Information Assessment Status Evaluation ICD-10 Condition Codes (ST) R13.12 Onset 07/28 Reported Pain Level Pain Score 0: Self Report Assessment ST Clinical Summary SWALLOWING EVALUATION This patient was seen for a Swallowing Evaluation after being seen for a Modified Barium Swallow ( MBS) study at [facility] on 08/04/23. See above information for results of that MBS study. Because the patient lives near [facility], continued Speech Therapy was recommended however there is a waiting list for Speech Therapy at that location so had patient return to [place] for continued ST. Results of MBS 08/04/23 This patient was seen for an outpatient Modified Barium Swallow study at the request of his physician. Patient has a history of CVA 2017, and TIA, 2020. reported patient was diagnosed with Parkinson's Disease two years ago. After the evaluation and when presented with recommendations and exercises, then admitted patient has had previous swallowing and speech therapy. Today, the patient stated, I just can't swallow, and reported he has even had difficulty swallowing ice cream. She stated that his most success is with chocolate protein shakes and V8 juice. Throughout this evaluation, it was noted that patient was exhibiting loss of saliva anteriorly from the mouth. Patient was viewed in the lateral position to the level of C5/C6. He was presented with small sip of thin liquid contrast medium, then thin liquid contrast medium per cup, and a small bite of pudding mixed with semi-solid contrast medium. Impairments: Oral Stage: *Loss of material anteriorly from the mouth during and for a significant period of time after the evaluation. *Poor anterior to posterior lingual movement Pharyngeal Stage:
--- NOTE | 2023-09-26 13:36 | PCSTNOTE ---
The patient treatment will not be completed on 09/28/23 due to patient/family being out of town. Will plan to continue treatment per plan of care.
--- NOTE | 2023-10-20 12:59 | STOPPROG ---
Assessment and note entered by Racheal Patel, REGROOVER Assessment ST Clinical Summary PROGRESS NOTE The patient has been seen for 10 visits of Speech Therapy focusing on improving the strength of the swallow and also addressing improving vocal volume to improve overall speech intelligibility and communication. Patient has completed swallowing exercises at home with and they are now both reporting no significant issues with swallowing, that patient advanced from liquids only to soft solid foods. Additionally, they both report that patient's vocal volume has improved in that can understand him much better and that he is expressing himself much better. Today the patient completed the sustaining of the ah sound as a laryngeal adduction exercise for improved airway protection and for adequate vocal loudness with an average of 81 decibels; initially his ah sound was sustained at 88-90 decibels with an average of 84 decibels. This demonstrates an increase in overall vocal loudness indicating improved airway protection. Additionally he responded to a variety of questions with adequate loudness and specific information expected of someone who is participating in a complete conversation using quiet room and also while loud music was being played for distraction. He completed swallowing strengthening exercises 10 reps with good strength and loudness. Speech Therapy will not continue twice weekly at this time, however patient is undergoing dental procedures on October 30 and is concerned that patient will regress after the dental work. The patient will be seen for a re-assessment to determine if any regression has taken place and that he is confident to resume soft solid foods without risk of choking. Patient and are in agreement. Plan of Care Interventions Treatment of Swallowing D ST Services Indicated Yes Treatment Frequency and 1x reassessment within three weeks Duration These treatments will address the objective and functional deficits as defined above. The patient will be advanced safely and appropri
--- NOTE | 2023-11-07 11:30 | STOPDC ---
Assessment and note entered by Racheal Patel [employer]ODUCTION TROUBLESHOOTER Evaluation Information Assessment Status Discharge - Pt Not Presen Assessment ST Clinical Summary DISCHARGE SUMMARY Patient was seen for a Speech Therapy evaluation for swallowing and speech and then for nine subsequent treatment sessions focusing on safe swallowing, strengthening the swallow through exercises, and improving vocal loudness for intelligibility. Patient performed exercises well; the reported they completed the exercises regularly at home in between sessions, and speech was judged to be more intelligible with improved loudness, patient participating more in conversation more frequently and for longer periods of time during sessions and at home, and no recent choking episodes noted by time of discharge. Patient is discharged at this time with all goals achieved other than the most recent goal of completing a reassessment session after dentist appointment to ensure improved speech and swallowing continue due to session omitted at request as patient was maintaining improved skills. No further Speech Therapy is indicated at this time however, patient may return at any time there is a decline in skills. Plan of Care ST Services Indicated No
== END 2023-11-07 15:05 | disposition home or self-care (01) ==
LOC: ANHST 12:30
PROVIDERS: PCP Family Medicine; Visit Provider Family Medicine
DX: T17.908A Unspecified foreign body in respiratory tract, part unspecified causing other injury, initial encounter (principal); R13.10 Dysphagia, unspecified; R41.3 Other amnesia
CPT/HCPCS: 92507; 92526; 92610

== ENCOUNTER 2023-12-26 10:59 | Outpatient (CLI) | payer MEDICARE, SELFPAY ==
[2023-12-26 11:13] LABS: Basophils Absolute Auto 0.07 K/mm3 (0.00-0.10); Basophils Percent Auto 0.8 % (0.0-1.0); Eosinophils Absolute Auto 0.39 K/mm3 (0.02-0.50); Eosinophils Percent Auto 4.6 % (1.0-6.0); Hematocrit 44.5 % (37.0-46.0); Hemoglobin 14.7 g/dL (12.4-15.3); Immature Granulocyte Absolute 0.04 K/mm3 (0.00-0.00); Immature Granulocyte Percent A 0.5 % (0.0-0.0); Lymphocytes Absolute Auto 1.59 K/mm3 (1.10-4.50); Lymphocytes Percent Auto 18.7 % (18.0-42.0); Mean Corpuscular Hemoglobin 29.8 pg (27.0-31.0); Mean Corpuscular Volume 90.3 fL (78.0-102.0); Mean Platelet Volume 9.4 fl (8.7-11.0); Monocytes Percent Auto 9.4 % (2.0-11.0); Neutrophils Absolute Auto 5.63 K/mm3 (1.70-7.20); Platelet Count Result 249 K/mm3 (150-420); Red Blood Count 4.93 M/mm3 (4.70-6.10); Red Cell Distribution Width 14.4 % (11.6-14.4); White Blood Count 8.5 K/mm3 (4.8-10.8)
[2023-12-26 12:08] LABS: Alanine Aminotransferase 10 U/L (16-63); Albumin Level 3.6 g/dL (3.4-5.0); Alkaline Phosphatase 110 U/L (46-116); Anion Gap 10 mmol/L (4-12); Aspartate Amino Transferase 13 U/L (15-37); Blood Urea Nitrogen 14 mg/dL (7-18); Calcium 9.7 mg/dL (8.5-10.1); Carbon Dioxide 30 mmol/L (21-32); Chloride 104 mmol/L (98-108); Cholesterol 140 mg/dL (0-200); Estimated Glomerular Filt Rate > 60; Glucose 89 mg/dL (70-99); HDL Direct 54 mg/dL (40-60); LDL Cholesterol Calculated 77 mg/dL (<130); Osmolality Calculated 297 mOsm/kg (285-295); Potassium 3.9 mmol/L (3.5-5.1); Sodium 144 mmol/L (136-145); Total Protein 7.1 g/dL (6.4-8.2); Triglycerides 46 mg/dL (0-150)
== END 2023-12-26 11:00 | disposition home or self-care (01) ==
PROVIDERS: PCP Family Medicine; Visit Provider Family Medicine
DX: E78.5 Hyperlipidemia, unspecified (principal); Z86.73 Personal history of transient ischemic attack (TIA), and cerebral infarction without residual deficits
CPT/HCPCS: 36415; 80053; 80061; 85025

== ENCOUNTER 2024-05-11 09:17 | Outpatient (CLI) | payer MEDICARE, SELFPAY ==
--- NOTE | ~2024-05-11 | MR_ITS ---
EXAMINATION: MR brain/brain stem wo con DATE: 05/11/2024 10:17 INDICATION: Left arm and hand weakness post fall 3 months prior TECHNIQUE: Magnetic resonance imaging (MRI) of the brain and brainstem was performed without intraven ous contrast. Sequences included sagittal and axial T1-weighted SE, axial diffusion-weighted FS SE, a xial T2*-weighted GRE, axial T2-weighted FLAIR, and axial T2-weighted FSE. Apparent diffusion coeffic ient (ADC) maps were created. COMPARISON: 09/24/2022 FINDINGS: There are a few small regions of encephalomalacia in the left cerebellum and in the right right front al, temporal and parietal lobes consistent with sequela of chronic infarcts. Additional small old lac unar infarcts in the bilateral thalami and bilateral basal ganglia. There are no areas of restricted diffusion to suggest acute infarction. No intracranial hemorrhage or abnormal intracranial mass lesio n. Additional extensive scattered areas of nonspecific increased T2-weighted signal intensity in the cerebral white matter, predominantly involving the deep and periventricular white matter consistent w ith chronic small vessel ischemic disease. There are no intraparenchymal signal abnormalities seen on the other pulse sequences. Symmetric prominence of the sulci and ventricles consistent with moderate age-appropriate diffuse cerebral volume loss. There are no abnormal extra-axial fluid collections. W ith the exception of the left vertebral artery there are flow voids in the cerebral arteries on the T 2-weighted sequences consistent with their expected patency. Chronic absence of the left vertebral fl ow void is likely due to slow flow with contrast opacification of the intracranial portion of the art jennifer on prior CT angiogram dated 11/11/2022 but with a few regions of severe stenosis in the more proxi mal artery. Changes of bilateral intraocular lens replacement. Visualized orbits and soft tissues ar e unremarkable. IMPRESSION: 1. No acute intracranial process. 2. 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 3. Age-related changes including moderate diffuse volume loss and extensive scattered white matter T2 hyperintensity consistent with chronic small vessel ischemic disease. 4. 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 Reviewed, dictated and finalized at location A. IMPRESSION: 1. No acute intracranial process. 2. 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 3. Age-related changes including moderate diffuse volume loss and extensive sca ttered white matter T2 hyperintensity consistent with chronic small vessel isch emic disease. 4. 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
--- OUTSIDE RECORDS SUMMARY | 2024-05-11 09:23 | XMS_ITS | Encounter Summary ---
Author Organization [facility] Address [address] [place] [address] Care Team Providers Care Lidar Technician Name Role Phone [facility], External Provider Primary Care Provider U navailable Encounter Details Date Type Department Care Team (Late st Contact Info) Description 08/17/2006 Outpatient Historical [facility] Supp [facility] Blood Flow [address] [place] [address] Nghia Longoria MD [address] 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 [place] [id number] PCP - General 08/06/19 documented as of this encounter
--- OUTSIDE RECORDS SUMMARY | 2024-05-11 09:23 | XMS_ITS | Encounter Summary ---
Author Name [facility] [place] [facility] [place] Address [address] [place] [address] Care Team Providers Care Dietary Clerk Name Role Phone LUCERO GRIFFIN Primary Care Provider Unavail le Insurance Providers: All historical and current Section Date Range: From patient's date of to the date document was created. This section includes the names of all active insurance providers for the patient. Insurance Provider Type of Coverage Plan Name Start of Policy Coverage End of Policy Coverage Group Number Member ID Insurance Provider's Telephone Number Policy Smith's Name Patient's Relationship to Policy Smith [place] MEDIC ARE SUPPL EMENT Aug 06, 2009 [id number] [phone] LEVI NIETO PATIENT [place] MED[place] SUPPL EMENT Aug 06, 2009 [id number] [phone] LEVI NIETO PATIENT AN[place] MEDICARE SUPPLEMEN [place] MEDIC ARE SUPPL EMENT Aug 06, 2009 [id number] [phone] LEVI NIETO PATIENT [place] MEDIC ARE SUPPL EMENT Aug 06, 2009 [id number] [phone] LEVI NIETO PATIENT MEDICARE (WNR) MEDICARE (M) PART A Dec 07, 2006 PART A [id number] [phone] LEVI NIETO PATIENT MEDICARE (WNR) MEDICARE (M) PART B Dec 07, 2006 PART B [id number] [phone] LEVI NIETO PATIENT Selected Encounter This section includes the information on record at [place] for the Encounter. Date/Time Encounter Type Encounter Description Reason Provider Source May 08, 2024 11:00 AM OFFICE O/P EST HI 40 MIN PRIMARY CARE/MEDICINE ICD-10-CM I67.9 Cerebrovascular disease, unspecified SIMMERING,JAM ES IHE Encounter Template Text not used by [place] Assessments - Encounter Diagnoses This section includes the primary and secondary diagnoses documented for the Encounter. Date/Time Primary/Secondary Diagnosis Diagnosis Name Provider Source May 08, 2024 12:15 PM PRIMARY C[facility]brovascular disease, unspecified [facility] May 08, 2024 12:15 PM SECONDARY Chronic obstructive pulmonary disease, unspecified [facility] May 08, 2024 12:15 PM SECONDARY Contact with and exposure to other hazardous substances [facility] May 08, 2024 12:15 PM SECONDARY Deficiency of other specified B group vitamins [facility] May 08, 2024 12:15 PM SECONDARY Essential (primary) hypertension [facility] May 08, 2024 12:15 PM SECONDARY Low back pain, unspecified [facility] May 08, 2024 12:15 PM SECONDARY Male erectile dysfunction, unspecified [facility] May 08, 2024 12:15 PM SECONDARY Mixed hyperlipidemia [facility] May 08, 2024 12:15 PM SECONDARY Occlusion and stenosis of unspecified carotid artery [facility] May 08, 2024 12:15 PM SECONDARY Peripheral vascular disease, unspecified [facility] May 08, 2024 12:15 PM SECONDARY Polyneuropathy, unspecified [facility] May 08, 2024 12:15 PM SECONDARY Unsp dementia, unsp severity, without beh/psych/mood/anx [facility] Lab Results: +/- 30 days of the encounter This section includes the Chemistry and Hematology Lab Results on record with [facility] for the [facility]. Radiology Reports and Pathology Reports are provided separately, in subsequent sections. Lab Results This section contains the Chemistry/Hematology Results that were resulted 30 days before or 30 daysafter the date of the Encounter. Date/Time Source Result Type Result - Unit Interpretation Reference Range Comment May 08, 2024 12:21 PM [facility] TSH W/ REFLEX FT4 (STL) Specimen Type: PLASMA No comment entered. Ordering Provider: AYDIN GRIFFIN Report Released Date/Time: May 08, 2024 12:01 PM Reporting Lab: [facility] [address] [place] [phone] Performing Lab: [address] [phone] TSH 0.764 u[IU]/mL 0.47-5 May 08, 2024 12:21 PM [facility] VITAMIN D, 25-HYDROXY Specimen Type: SERUM No comment entered. Ordering Provider: AYDIN GRIFFIN Report Released Date/Time: May 08, 2024 12:01 PM Reporting Lab: [facility] [address] [place] [phone] Performing Lab: [facility] [address] [place] [phone] VITAMIN D, 25-HYDROXY 27.2 ng/mL L 30-96 May 08, 2024 12:21 PM [facility] URINALYSIS (STL-PB) Specimen Type: URINE No comment entered. Ordering Provider: AYDIN GRIFFIN Report Released Date/Time: May 08, 2024 12:01 PM Reporting Lab: [facility] [address] [place] [phone] Performing Lab: [facility] [address] [place] [phone] URINE COLOR Yellow Yellow U.BILIRUBIN Negative mg/dL Negative U.PH 6.0 5.0-8.0 URINE WBC/HPF >182 /[HPF] H 0-5 URINE RBC/HPF 3 /[HPF] 0-5 APPEARANCE Turbid Clear U.NITRITE 2+ mg/dL H Negative BACTERIA OCC /[HPF] Negative SQUAMOUS EPITH. 2 /[HPF] 0-5 MUCUS RARE /[LPF] Negative -Rar e URN.GLUCOSE Normal mg/dL Negative URN.PROTEIN 20 mg/dL H URN.UROBILINOGEN Normal mg/dL Normal URN.BLOOD Negative mg/dL Negative-Tra ce URN.KETONES Trace mg/dL Negati ve-Tra ce URN.LEUK.EST. 500 mg/dL H Negati ve-Tra ce URN.SPECIFIC GRAVITY 1.022 May 08, 2024 12:21 PM [facility] COMPREHENSIVE METABOLIC PANEL Specimen Type: PLASMA Comment: No hemolysis noted. Ordering Provider: AYDIN GRIFFIN [facility] Report Released Date/Time: May 08, 2024 12:01 PM Reporting Lab: [address] [phone] Performing Lab: [address] [phone] CREATININE 0.72 mg/dL 0.7-1.3 UREA NITROGEN 12.4 mg/dL 9.0-25.0 GLUCOSE 104 mg/dL H 72-99 SODIUM 139 meq/L 136-145 POTASSIUM 4.0 meq/L 3.5-5 CHLORIDE 104 meq/L 98-107 CARBON DIOXIDE 27 meq/L 22-31 CALCIUM 9.9 mg/dL 8.4-10.4 PROTEIN 7.0 g/dL 6-8.6 ALBUMIN 3.7 g/dL 3.4-5 TOTAL BILIRUBIN 1.1 mg/dL 0.2-1.2 ALKALINE PHOSPHATASE 78 U/L 40-150 AST/SGOT 41 U/L H 5-34 ALT/SGPT <7 U/L L 8-40 EGFR (CKD-EPI 2020) 91.2 >60 May 08, 2024 12:21 PM [facility] LIPID PANEL (STL) Specimen Type: PLASMA Comment: No hemolysis noted. Ordering Provider: AYDIN GRIFFIN [facility] Report Released Date/Time: May 08, 2024 12:01 PM Reporting Lab: [address] [phone] Performing Lab: [address] [phone] CHOLESTEROL 132 mg/dL 0-200 TRIGLYCERIDE 55 mg/dL 0-150 CALCULATED LDL 75 mg/dL HDL(New) 46 mg/dL >40 May 08, 2024 12:21 PM [facility] CBC Specimen Type: BLOOD No comment entered. Ordering Provider: AYDIN GRIFFIN [facility] Report Released Date/Time: May 08, 2024 12:01 PM Reporting Lab: [facility] [address] [place] [phone] Performing Lab: [address] [phone] WBC 7.9 10*3/uL 3.6-11.2 RBC 4.54 10*6/uL 4.10-5.70 HGB 13.5 g/dL 13.1-16.8 HCT 41.2 38.2-48.4 MCV 90.7 fL 80.0-100.0 MCH 29.7 pg 27.0-34.0 MCHC 32.8 g/dL L 33.0-36.0 PLT 280 10*3/uL 150-400 MPV 10.1 fL 7.5-11.2 RDW 14.4 11.8-15.1 LYMPHOCYTES, AUTO % 15 MONOCYTES, AUTO % 12 NEUTROPHILS, AUTO % 70 EOSINOPHILS, AUTO % 2 BASOPHILS, AUTO % 1 LYMPHOCYTES, ABSOLUTE 1.18 10*3/uL 0.77-4.50 MONOCYTES, ABSOLUTE 0.93 10*3/uL H 0.19-0.80 NEUTROPHILS, ABSOLUTE 5.59 10*3/uL 2.10-8.00 EOSINOPHILS, ABSOLUTE 0.14 10*3/uL 0.00-0.60 BASOPHILS, ABSOLUTE 0.06 10*3/uL 0.00-0.20 May 08, 2024 12:21 PM [facility] HGA1C Specimen Type: BLOOD No comment entered. Ordering Provider: AYDIN GRIFFIN [facility] Report Released Date/Time: May 08, 2024 12:01 PM Reporting Lab: [facility] [address] [place] [phone] Performing Lab: [address] [phone] HGA1C 5.7 4.0-6.0 Vital Signs: All taken on the encounter date This section contains inpatient and outpatient Vital Signs collected on the date of the Encounter. Date/Time Temperature Pulse Blood Pressure Respiratory Rate SP02 Pain Height Weight Body Mass Index Source May 08, 2024 11:34 AM 98.2 63 134/72 20 94 0 172 [facility] Social History: Smoking Status (Most current) and Tobacco Use (All prior to encounter date) This section includes the most current, and the historical, smoking and tobacco- related health factors from the [place] facility where the Encounter took place. Current Smoking Status This section includes the most current smoking, or tobacco-related health factor, from the [place] facility where the Encounter took place. Date/Time Current Smoking Status Comment Facil ity May 08, 2024 11:00 AM [facility]-TOBACCO USE FORMER CIGARETTES [facility] Tobacco Use History This section includes a history of the smoking, or tobacco-related health factors, that were collected on or before the date of the Encounter. The data comes from the [place] facility where the Encounter took place. Date/Time Smoking Status/Tobacco Use Comment F acility May 08, 2024 11:00 AM [facility] May 08, 2023 10:00 AM VA-TOBACCO FORMER USER [facility] May 08, 2023 10:00 AM VA-TOBACCO QUIT 1 TO < 5 YRS [facility] May 06, 2022 09:00 AM VA-TOBACCO FORMER USER [facility] May 06, 2022 09:00 AM VA-TOBACCO QUIT 15 YRS OR MORE [facility] Encounter Notes: All associated encounter notes This section contains the clinical notes associated to the Encounter. Date/Time Encounter Note(s) Provider Source May 08, 2024 11:56 AM PRIMARY CARE NOTE: LOCAL TITLE: PRIMARY CARE PROVIDER ESTABLISHED VISIT ST STANDARD TITLE: PRIMARY CARE NOTE DATE OF NOTE: MAY 08, 2024@11:56 ENTRY DATE: MAY 08, 2024@11:57:01 AUTHOR: LUCERO GRIFFIN COSIGNER: URGENCY: STATUS: COMPLETED ESTABLISHED PATIENT CVPP-TE-CTVY: REASON FOR VISIT/CHIEF COMPLAINT: HPI: pt had stroke last year. July 2023. had dental implants. (held his plavix asa and clilostiazol) had a stroke immediately after that. pt has seen dr Nghia justice (vascular surgery) he has a high grade stenosis right sided carotid (operated on this in the past and it has recurred)) dr justice declines surgery in the past due to age and overall health. pt now has left sided weakness and contracture. meds reviwed w today. memory no change. appetitite is better off aricept. pt is not taking memantine. WHAT IS YOUR GOAL FOR TODAY? SOURCE(S) OF HISTORY: Patient PAST MEDICAL HISTORY: 1) Parkinsonism 2) CVD - Cerebrovascular Disease ([facility] [id number]) comment: right sided stroke left sided weakness. comment: cva in september 2022. 3) PVD - peripheral vascular disease comment: left sided weakness. 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 Vascular declined [facility] intervene outside [facility] Navarro 18) Dementia ([facility] [id number]) comment: vascular and parkinson's. 19) Abnormal swallowing FAMILY HISTORY: Reviewed and unchanged. SOCIAL HISTORY: NICOTINE:quit ILLICIT DRUGS:none ALCOHOL:none ALLERGIES: Patient has answered NKA ALLERGY REVIEW: Allergy list reviewed and remains current. MEDICATIONS: Active and Recently Outpatient Medications (excluding Supplies): Active Outpatient Medications Status 1) MEMANTINE HCL 5MG TAB TAKE ONE TABLET BY MOUTH TWICE A DAY ACTIVE Indication: FOR ALZHEIMER DISEASE Active Non-VA Medications Status 1) Non-VA ASPIRIN 81MG CHEW TAB 81MG BY MOUTH ONCE A DAY ACTIVE 2) Non-VA ATORVASTATIN CALCIUM 80MG TAB 40MG BY MOUTH EVERY ACTIVE EVENING 3) Non-VA CARBIDOPA 25/LEVODOPA 100MG TAB 1 TABLET BY MOUTH 6 ACTIVE TIMES A DAY 4) Non-VA CILOSTAZOL 100MG TAB 100MG BY MOUTH TWICE A DAY ACTIVE 5) Non-VA CLOPIDOGREL BISULFATE 75MG TAB 75MG BY MOUTH ONCE A ACTIVE DAY Indication: FOR STROKE PREVENTION 6) Non-VA CYANOCOBALAMIN 1000MCG TAB 1000MCG BY MOUTH ONCE A ACTIVE DAY 7) Non-VA LATANOPROST 0.005% OPH SOLN 1 DROP BOTH EYES EVERY ACTIVE EVENING 8) Non-VA LISINOPRIL 10MG TAB 5MG BY MOUTH ONCE A DAY ACTIVE 9) Non-VA TIMOLOL MALEATE 0.5% OPH SOLN 1 DROP BOTH EYES TWICE ACTIVE A DAY 10 Total Medications MEDICATION RECONCILIATION: I have reviewed the patient's medication list with the patient and/or his/her care-solutions market consultant. Handwritten corrections, additions and/or deletions were made to the list. Corrected Outpatient Medication List was provided to the patient/caregiver. REVIEW OF SYSTEMS: General: Normal Ears, Nose, Mouth, Throat: Normal Eye: Normal Cardiovascular: Normal Respiratory: Normal ABD/GI: Normal Musculoskeletal/Extremities: Normal /SVP: Normal Hematology & Lymph: Normal Endocrine: Normal Skin: Normal PHYSICAL EXAMINATION: General appearance: VITALS (most recent, as listed in the electronic record): Temperature: 98.2 F [36.8 C] (05/08/2024 11:34) BP: 134/72 (05/08/2024 11:34) Pulse: 63 (05/08/2024 11:34) Resp: 20 (05/08/2024 11:34) PulsOx: 94% (05/08/2024 11:34) Pain: 0 (05/08/2024 11:34) Weight: Measurement DT WEIGHT LB(KG)[BMI] 05/08/2024 11:34 172(78.02) Ears, Nose, Mouth, Throat: Normal. Eye: Normal sclera Normal PERRLA Cardiovascular: S1 S2 Nl. Respiratory: Clear ABD/GI: Normal. Extremities: Normal /SVP: Deferred Hematology & Lymph: Normal Endocrine: Normal Psych: Normal Neuro: Normal. CN 2-12 WNL. Strength 4/4 all ext Reflexes 2+ x 4. Skin: Normal. DATA REVIEW: HGA1C 5.5 % 05/06/2022 10:13 Lipid Panel: No LIPID PANEL EO data found CMP: No COMPREHENSIVE METABOLIC PANEL EO data found CBC: No CBC EO data found No PSA (LAST 10 5Y) EO data found TSH: No TSH (1YR) EO data found VITAMIN D, 25-HYDROXY 17.9 L ng/mL 05/06/2022 10:13 INR: No INR EO data found UA: No URINALYSIS EO data found IM - IMMUNIZATIONS ADMINISTERED Immunization Series Date Facility Reaction Info RSV, BIVALENT, PROTEIN SUBUNIT R* 05/08/2023 [facility] CONTRAINDICATED No data available REFUSED ======= Immunization Date Facility Info PNEUMOCOCCAL CONJUGATE, UNSPECIF* 05/08/2023 [facility] <I> TDAP 05/08/2023 [facility] <I> <I> See the Detailed Immunizations Health Summary Component[DIM] for Additional Information * Value is truncated; see the Detailed Immunizations Health Summary Component[DIM] for complete text ST - SKIN TESTS No data available Result: Acceptable Follow-up Action: Re check prior to next visit. Data results reviewed with patient and/or caregiver. ASSESSMENT/PLAN: 1. cva probably due to holding plavix asa and pletal for dental implant. 2. Hypertension: pt counseled regarding hypertension, it's causes and the need for tight blood pressure control (120/80 or less). Continue current therapy. Check blood pressure and pulse twice daily and record the readings. Reduce sodium intake through dietary changes. 3. Hyperlipidemia: pt counseled regarding hyperlipidemia, it's causes and need for treatment. Patient denies myopathy or other issues with medication. Counseled to continue to follow a low cholesterol diet. 4. high grade stenosis rt carotid. eval outside [facility]. 5. Vitamin D defeciency: the patient was counseled regarding Vitamin D defeciency, it's causes and the role that vitamin D plays in bone health and calcium metabolism. Shared decision making occurred re: medication compliance and monitoring. 6. parkinson's disease. cct. 7. dypshagia no aspiration currently RETURN TO CLINIC: 6 months. SUMMARY STATEMENT: Plan of care has been discussed with including expected therapeutic benefits and potential side effects of prescribed medication and treatments. verbalizes understanding and is in agreement with the plan of care. Patient was instructed to keep all scheduled appointments and contact brim curler for any additional problems. PREVENTION & SCREENING: ALCOHOL: Clinical Reminder not due now or within a month COLORECTAL CANCER: Clinical Reminder not due now or within a month BLOOD PRESSURE: Clinical Reminder not due now or within a month HEMOGLOBIN A1C: Clinical Reminder not due now or within a month On the date of the encounter, I spent 46 minutes on some or all of the following: chart review, history, physical examination, treatment planning, education and counseling of the patient/family/assurance services manager health care, placing orders, communicating with other health care providers, and documentation in the electronic health record. Herpes Zoster (Shingles) Vaccine - L,N,P,PH,U: The patient declines to receive the recommended dose of zoster (shingles) vaccine. Immunization: ZOSTER RECOMBINANT Refusal Reason: PATIENT DECISION Patient refuses all immunization(s) in the ZOSTER group Date Documented: 05/08/24 12:06 Ischemic HD/Post [facility] Follow Up: Patient is taking aspirin from a non-VA source. PAVE Foot Check - L,N,P,PH,PO,PT,U: A complete foot check was completed at this encounter. VISUAL INSPECTION: Includes inspection for skin breaks, deformity, erythema, trauma, pallor on elevation, dependent rubor, nail deformities, extensive callus and pitting edema. Visual exam results: Abnormal Observations: Thickened toenails PEDAL PULSES: Includes palpation of dorsalis and posterior tibial pulses and signs/symptoms of vascular compromise like pain, pallor, parasthesia or paralysis. Present (even if diminished) SENSORY CHECK: Includes 10 gram Monofilament ([place]) test of sensation. Intact (Greater than or equal to 80% of sites checked) Abnormal (Less than 80% of sites checked): Abnormal (decreased or absent sensation to monofilament): LOW-RISK: LOW RISK INFORMATION PROVIDED: 1. Advised patient not to walk barefoot. 2. Explained the importance of daily foot checks for changes. 3. Stressed the importance of daily foot hygiene, including bathing and complete drying. Pneumococcal Conjugate Vaccine (PCV15/PCV20/PCV21) - L,N,P,PH,U: Refuses PCV vaccine Immunization: PNEUMOCOCCAL CONJUGATE, UNSPECIFIED FORMULATION Refusal Reason: PATIENT DECISION Patient refuses all immunization(s) in the PneumoPCV group Date Documented: 05/08/24 12:06 Prior Approval/Non-formulary Drug: MEDICATION USE EVALUATION Tdap Immunization - L,N,P,PH,U: The patient declines to receive the recommended dose of Tdap vaccine. Immunization: TDAP Refusal Reason: PATIENT DECISION Patient refuses all immunization(s) in the TDAP group Date Documented: 05/08/24 12:07 COVID-19 Immunization - L,N,P,PH,U: Refused Moderna Monovalent COVID-19 vaccine Immunization: COVID-19 (MODERNA), MRNA, LNP-S, PF, 50 MCG/0.5 ML (AGES 12+ YEARS) Refusal Reason: PATIENT DECISION Patient refuses all immunization(s) in the COVID-19 group Date Documented: 05/08/24 12:07 Sexual Orientation - CP,L,N,P,PH,PS,S,U: The patient thinks of their sexual orientation as: Straight or Heterosexual /es/ LUCERO GRIFFIN MD STAFF PHYSICIAN Signed: 05/08/2024 12:15 LUCERO GRIFFIN [facility] May 08, 2024 11:36 AM NURSING NOTE: LOCAL TITLE: V15 PACT FACE TO FACE NOTE STL STANDARD TITLE: NURSING NOTE DATE OF NOTE: MAY 08, 2024@11:36 ENTRY DATE: MAY 08, 2024@11:36:14 AUTHOR: RAMON LAMB COSIGNER: URGENCY: STATUS: COMPLETED Provider Visit: Patient Identifiers : Full Name Date of Reason for visit: Established Follow-Up Mode of Arrival: Ambulatory Allergy Review: Patient has answered NKA Allergy list reviewed and remains current. Recent Vital Signs: Temperature: 98.2 F [36.8 C] (05/08/2024 11:34) Pulse: 63 (05/08/2024 11:34) Respiration: 20 (05/08/2024 11:34) B/P: 134/72 (05/08/2024 11:34) Pain: 0 (05/08/2024 11:34) Wt: 172 lb [78.02 kg] (05/08/2024 11:34) Ht: BMI: BMI not available without height POX: 94% (05/08/2024 11:34) PERSONAL HEALTH INVENTORY Notes: No data available for PHI note titles PERSONAL HEALTH INVENTORY - MAP: 05/06/2022 Personal Health Plan [place], [place], [place] (MAP) family What matters most to you in your life right now? - 's Response: staying healthy Would you like to discuss any personal problem, family problem, alcohol use, drug use, or a mental or emotional illness? No My [facility] ([facility]), please select appointment type: Face to face: Yes- Done Contact provided Primary Care phone number and encouraged to call if any questions or concerns. Review that after hours nurse line [phone] and emergency room are available 29/08 for patient use. Contact verbalized good understanding. No notification required for this note. Suicide Screen - V: C-SSRS Screening [place] Suicide Severity Rating Scale (C-SSRS) screener 1. Over the past month, have you wished you were or wished you could go to sleep and not wake up? No 2. Over the past month, have you had any actual thoughts of killing yourself? No 3. Over the past month, have you been thinking about how you might do this? Response not required due to responses to other questions. 4. Over the past month, have you had these thoughts and had some intention of acting on them? Response not required due to responses to other questions. 5. Over the past month, have you started to work out or worked out the details of how to kill yourself? Response not required due to responses to other questions. 6. If yes, at any time in the past month did you intend to carry out this plan? Response not required due to responses to other questions. 7. In your lifetime, have you ever done anything, started to do anything, or prepared to do anything to end your life (for example, collected pills, obtained a gun, gave away valuables, went to the roof but didn't jump)? No 8. If YES, was this within the past 3 months? Response not required due to responses to other questions. Alcohol Use Screen (AUDIT-C) - V: Alcohol Screen: SCREEN FOR ALCOHOL (AUDIT-C) An alcohol screening test (AUDIT-C) was negative (score=1). 1. How often did you have a drink containing alcohol in the past year? Consider a drink to be a 12 ounce can or bottle of regular beer, 8 ounces of malt liquor, a 5 ounce glass of table wine, or a 1.5 ounce shot of liquor (like scotch, gin, or vodka). Monthly or less 2. How many drinks containing alcohol did you have on a typical day when you were drinking in the past year? One or two drinks 3. How often did you have six or more drinks on one occasion in the past year? Never Depression Screening - V: Perform PHQ-2 A PHQ-2 screen was performed. The score was 0 which is a negative screen for depression. Over the past two weeks, how often have you been bothered by the following problems? 1. Little interest or pleasure in doing things Not at all 2. Feeling down, depressed, or hopeless Not at all Frail/Elderly Screen: ADL Screen - Little Index of [place] in Activities of Daily Living Bathing: (2 Points) Receives assistance in bathing only one part of the body (such as back or leg) Dressing: (2 Points) Gets clothes and gets dressed without assistance, except for assistance with tying shoes. Toileting: (3 Points) Goes to toilet room , cleans self, and arranges clothes without assistance (may use object for support such as cane, walker, or wheelchair, and may manage own night bedpan or commode, emptying same next morning) Transferring: (3 Points) Moves in and out of bed and in and out of chair without assistance (may be using object for support, such as cane or walker) Continence: (3 Points) Controls urination and bowel movement completely by self Feeding: (3 Points) Feeds self without assistance Total Score: 16 Points 18 = High (patient independent) 6 = Low (patient very dependent) IADL Screen - [place] Instrumental Activities of Daily Living Scale Ability to use telephone: (1 point) Operates Telephone on own initiative; looks up and dials numbers. Shopping: (0 points) Completely unable to shop. Food preparation: (0 points) Needs to have meals prepared and served. Housekeeping: (0 points) Does not participate in any housekeeping tasks. Laundry: (0 points) All laundry must be done by others. Mode of transportation: (0 points) Does not travel at all. Responsibility for own medications: (0 points) Is not capable of dispensing own medication. Ability to handle finances: (0 points) Incapable of handling money. Total score: 1 point 8 = High function, independent 0 = Low function, dependent Falls Screen: No falls within the past 12 months. Incontinence Screen: YES - Incontinence is a problem for this patient. Is urinary incontinence NEW for this patient? NO - Incontinence is NOT a new problem. What is the current treatment? depends Homelessness/Food Insecurity Screen - DI,L,N,P,PH,PS,S,U: In the past 2 months, have you been living in stable housing that you own, rent, or stay in as part of a household? Yes - Living in stable housing. Are you worried or concerned that in the next 2 months you may NOT have stable housing that you own, rent, or stay in as part of a household? No - Not worried about housing near future The reports the following: Within the past 12 months, you worried whether your food would run out before you got money to buy more. Never true Within the past 12 months, the food you bought just didn't last and you didn't have money to get more. Never true Learning Assessment: - * This patient's learning ABILITIES, BARRIERS to learning, CULTURAL and ZOROASTRIANISM beliefs, and learning PREFERENCES were assessed. Following are findings of note: Patient reads well. 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 LANGUAGE Patient reports that Serbian is preferred language for healthcare. Patient has the following vision barrier(s) to consider when teaching: Requires glasses/contacts for reading Patient reports learning preference is to refer to handouts. Patient reports learning preference is attending one-to-one or group demonstrations. Patient reports learning preference is looking at pictures or viewing videos. Tobacco Use Screening - AT,DE,L,M,N,P,PH,PS,RT,S,U: The patient is a former cigarette smoker. The patient has never used other types of tobacco. /adriana/ RAMON LAMB Licensed Practical Nurse Signed: 05/08/2024 11:40 RAMON LAMB [facility]
--- OUTSIDE RECORDS SUMMARY | 2024-05-11 09:23 | XMS_ITS ---
Author Organization [facility] Address [address] [place], [place] [id number] Care Team Providers Care Computer Patternmaker Name Role Phone MADELINE CARRASCO Unavailable [phone] Toño Dejesus Unavailable Unavailable RENEA SIMMONS Unavailable [phone] REASON FOR VISIT *General care Medications Medication SIG (Take, Route, Frequency, Duration) Notes Start Date End Date Status Latanoprost 0.005 % Ophthalmic for 75 Days Active Timolol Maleate 0.5 % INSTILL ONE DROP I NTO BOTH EYES EVERY MORNING Ophthalmic for 150 Days Active Atorvastatin Calcium 40 MG TAKE 1 TABLET BY MOUTH EVERY DAY Oral for 90 Days Active Cilostazol 100 MG TAKE 1 TABLET BY DECLAN TH TWICE A DAY BEFORE MEALS Oral for 90 Days Active Lisinopril 20 MG TAKE 1 TABLET BY DECLAN TH DAILY Oral for 90 Days Active Encounters Encounter Location Date Provider Diagnosis [facility] [address], [place] [id number] 10/12/2023 RENEA SIMMONS Other hammer toe(s) (acquired), right foot M20.41 ; Tinea unguium B35.1 ; Other hammer toe(s) (acquired), left foot M20.42 ; Pain in right toe(s) M79.674 ; Pain in left toe(s) M79.675 and 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 The patient was given education about shoe recommendations specific for the condition. The patient was educated about custom orthotics and how appropriate shoes and orthotics can prevent further worsening of the deformity. The patient was educated about how bad shoe habits can worsen the condition. NSAIDS, P.T., injections and other conservative treatments were discussed. Both surgical and non surgical treatments were discussed, but conservative options were emphasized. 10/12/2023 Tinea unguium (ICD-10 - B35.1) Aseptic debridement of elongated thickened nails x 10 using sterile nippers, nails were debrided in length and thickness by 30% utilizing a nail nipper without incident. The patient was educated regarding all treatment options that include topical and oral antifungal treatments. I discussed the options of taking a sample of the nail to confirm diagnosis. Nail clippings were not sent for pathology analysis. The patient was educated why and how the fungal infection evolved in their feet and the patient was given information regarding how to prevent further infection. The patient was told to keep feet dry and change socks. The patient was told to be careful with old shoes and excessive sweating. The patient was educated regarding both OTC and prescription treatments. 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 The patient was given education about shoe recommendations specific for the condition. The patient was educated about custom orthotics and how appropriate shoes and orthotics can prevent further worsening of the deformity. The patient was educated about how bad shoe habits can worsen the condition. NSAIDS, P.T., injections and other conservative treatments were discussed. Both surgical and non surgical treatments were discussed, but conservative options were emphasized. Tinea unguium Aseptic debridement of elongated thickened nails x 10 using sterile nippers, nails were debrided in length and thickness by 30% utilizing a nail nipper without incident. The patient was educated regarding all treatment options that include topical and oral antifungal treatments. I discussed the options of taking a sample of the nail to confirm diagnosis. Nail clippings were not sent for pathology analysis. The patient was educated why and how the fungal infection evolved in their feet and the patient was given information regarding how to prevent further infection. The patient was told to keep feet dry and change socks. The patient was told to be careful with old shoes and excessive sweating. The patient was educated regarding both OTC and prescription treatments. Unspecified atherosclerosis of minto arteries of extremities, bilateral legs Patient educated on risks and aggravating factors of PVD, including conservative treatment options such as a diet and exercise regimen to aid in slowing progression of vascular disease Next Appt Details Follow Up: 3 Months, Reason: Provider Name:LOLA LOPEZ, 07/25/2024 11:30:00 AM, [address] [place] [address], [phone], Progress Notes * ASMITA NIETO DDOB: [birth year] (82 yo M)Acc No.[id number]:10/12/2023 Patient: ASMITA RIVERA Joan Provider: Irene SIMMONS :1940 A ge:82 Y S ex:Male Date:10/12/2023 Address:[address] [place] [address] Subjective: * Chief Complaints: * 1 . *General care. * HPI: H PI: General care P atient presents to the office for at risk foot care. Patient states that their nails are thickened, elongated and painful. Patient states that it is aggravated by shoe gear. Onset is gradual. Patient denies being diabetic., Patient denies taking prescription blood thinners but does take a daily aspirin., Date last seen by Dr. Dejesus was 07/2023., Initials mca. * ROS: G eneral / Constitutional: Patient denies w eakness. R espiratory: Patient denies c hronic cough, shortness of breath, sputum production. C ardiovascular: Patient denies c hest pain, history of NH, irregular heartbeat. M usculoskeletal: Patient complains of h ammertoes. P eripheral Vascular: Patient denies b lanching of skin, cold extremities, decreased sensation in extremities. S kin: Patient complains of f ungal nails, nail changes. ? N eurologic: Patient denies d izziness, gait abnormality, headache. * Medical History: * Medications: T aking Latanoprost 0.005 % Solution Ophthalmic , Taking Cilostazol 100 MG Tablet TAKE 1 TABLET BY MOUTH TWICE A DAY BEFORE MEALS Oral , Taking Lisinopril 20 MG Tablet TAKE 1 TABLET BY MOUTH DAILY Oral , Taking Timolol Maleate 0.5 % Solution INSTILL ONE DROP INTO BOTH EYES EVERY MORNING Ophthalmic , Taking Atorvastatin Calcium 40 MG Tablet TAKE 1 TABLET BY MOUTH EVERY DAY Oral Objective: * Examination: P hysical Examination: V ascular: Dorsalis Pedis pulse noted at 1/4 right foot and 1/4 left foot and Posterior Tibial pulse noted at 1/4 right foot and 1/4 left foot, Capillary refill times noted to be less than three seconds x ten, Temperature gradient noted to be warm to cool to bilateral foot, pedal hair present to bilateral foot and no varicosities are noted Dermatologic: there are no open lesions, no signs of active clinical infection, no erythema noted, no ecchymoses, nails are elongated thickened and dystrophic with subungual debris x ten Musculoskeletal: there is pain to palpation onto nail plate x ten, no calf pain noted bilaterally, arch height noted at 2/5 non-weight bearing bilaterally, first metatarsophalangeal joint range of motion 30 deg non-weight bearing bilaterally, flexible fifth digit hammer toe deformity noted to bilateral foot reducible with kelikian push up test Neurology: protective sensation intact to light touch bilateral digits one through five, vibratory sensation intact to first metatarsophalangeal joint bilaterally. Assessment: * Assessment: 1. T inea unguium - B35.1 (Primary) 2 . O ther hammer toe(s) (acquired), right foot - M20.41 3 . O ther hammer toe(s) (acquired), left foot - M20.42 4 . P ain in right toe(s) - M79.673 5 . P ain in left toe(s) - M79.675 6 . U nspecified atherosclerosis of minto arteries of extremities, bilateral legs - I70.203 Plan: * Treatment: 2. O ther hammer toe(s) (acquired), right foot Notes: The patient was educated regarding how to mechanically stabilize their deformity. The patient was given education about shoe recommendations specific for the condition. The patient was educated about custom orthotics and how appropriate shoes and orthotics can prevent further worsening of the deformity. The patient was educated about how bad shoe habits can worsen the condition. NSAIDS, P.T., injections and other conservative treatments were discussed. Both surgical and non surgical treatments were discussed, but conservative options were emphasized. 3. U nspecified atherosclerosis of minto arteries of extremities, bilateral legs Notes: Patient educated on risks and aggravating factors of PVD, including conservative treatment options such as a diet and exercise regimen to aid in slowing progression of vascular disease ? * Procedure Codes: 1 1721 DEBRIDE NAIL, 6 OR MORE, Modifiers: Q8 * Follow Up: 3 Months * Billing Information: * Visit Code: * Procedure Codes: 20361 DEBRIDE NAIL, 6 OR MORE. Modifiers: Q8 * Sign off status: Completed true * Provider: Irene SIMMONS Date: 0 10/12/2023 Generated for Alen pitts/Lakesha on: 0 05/11/2024 09:23 AM CDT History and Physical Notes * HPI (History of Present Illness) Category Sub-Category Detail Notes Category Not es HPI General care Patient presents to the office for at risk foot care. Patient states that their nails are thickened, elongated and painful. Patient states that it is aggravated by shoe gear. Onset is gradual. Patient denies being diabetic., Patient denies taking prescription blood thinners but does take a daily aspirin., Date last seen by Dr. Dejesus was 07/2023., Initials mca Examination Category Sub-Category Detail Notes Category Not es Physical Examination Vascular: Dorsalis Pedis pulse noted at 1/4 right foot and 1/4 left foot and Posterior Tibial pulse noted at 1/4 right foot and 1/4 left foot, Capillary refill times noted to be less than three seconds x ten, Temperature gradient noted to be warm to cool to bilateral foot, pedal hair present to bilateral foot and no varicosities are noted Dermatologic: there are no open lesions, no signs of active clinical infection, no erythema noted, no ecchymoses, nails are elongated thickened and dystrophic with subungual debris x ten Musculoskeletal: there is pain to palpation onto nail plate x ten, no calf pain noted bilaterally, arch height noted at 2/5 non-weight bearing bilaterally, first metatarsophalangeal joint range of motion 30 deg non-weight bearing bilaterally, flexible fifth digit hammer toe deformity noted to bilateral foot reducible with kelikian push up test Neurology: protective sensation intact to light touch bilateral digits one through five, vibratory sensation intact to first metatarsophalangeal joint bilaterally
--- OUTSIDE RECORDS SUMMARY | 2024-05-11 09:23 | XMS_ITS | Continuity of Care Document ---
Author Name [facility] Organization [facility] Care Team Providers Care Sneller Hand Name Role Phone [facility] Unavailable Unavailable Problems Combined list of problems from Department of Defense and Veterans Affairs facilities. It does not include entries that were removed or entered in error. Problem Status Onset Date Problem Type Date of Resolution Comments Source Abnormal swallowing Active Condition [facility] Appendix absent Active Condition [facility] Carotid artery stenosis Active Condition May 08, 2023 Entered By: LORENA GRIFFIN ES Comment: 95% right sided. Vascular declined to intervene outside [facility] [place]. [facility] COPD - Chronic Obstructive Pulmonary Disease ([facility] 89429150) Active Condition [facility] CVD - Cerebrovascular Disease ([facility] [id number]) Active Condition May 06, 2022 Entered By: LORENA GRIFFIN ES Comment: right sided stroke left sided weakness.May 08, 2023 Entered By: LORENA GRIFFIN ES Comment: cva in september 2022. [facility] Dementia ([facility] [id number]) Active Condition May 08, 2023 Entered By: LORENA GRIFFIN ES Comment: vascular and parkinson's. [facility] Erectile dysfunction Active Condition [facility] Exposure to potentially hazardous substance Active Condition [facility] Glaucoma Active Condition [facility] HTN - Hypertension ([facility] [id number]) Active Condition [facility] Incontinence Active Condition [facility] LBP - Low back pain Active Condition May 06, 2022 Entered By: LORENA GRIFFIN ES Comment: status post discectomy [facility] Mixed Hyperlipidemia ([facility] [id number]) Active Condition [facility] Neuropathy (nerve damage) Active Condition [facility] Parkinsonism Active Condition [facility] Polyp Colon ([facility] [id number]) Active Condition [facility] PVD - peripheral vascular disease Active Condition May 06 Entered By: LORENA GRIFFIN Comment: left sided weakness.May 06, 2022 Entered By: LORENA GRIFFIN Comment: status post right cea [facility] Rotator cuff impingement syndrome Active Condition May 06, 2022 Entered By: LORENA GRIFFIN Comment: left [facility] Vitamin B12 Deficiency ([facility] 818522055) Active Condition [facility] Diagnosis: ICD-10-CM I67.9 Cerebrovascular disease, unspecified Active Diagnosis [facility] Diagnosis: ICD-10-CM Z55.9 Problems related to education and literacy, unspecified Active Diagnosis [facility] Medications Combined list of outpatient medications from Department of Defense and Veterans Affairs facilities.Medications provided include 1) outpatient medications from the last 15 months, and 2) patient-reported medications. Medication Details Route Status Patient Instructions Prescription Expires Prescription Number Last Dispense Date Ordering Provider Order Date Order Qty Source ASPIRIN 81MG TAB,CHEWABL E CHEW AND SWALLOW ONE TABLET BY MOUTH ONCE A DAY ORAL ACTIVE LUCERO GRIFFIN 2022 [facility] ATORVASTATI N CA 80MG TAB TAKE ONE-HALF TABLET BY MOUTH EVERY EVENING ORAL ACTIVE LUCERO GRIFFIN 2022 [facility] CARBIDOPA 25MG/LEVODO PA 100MG TAB TAKE ONE TABLET BY MOUTH 6 TIMES A DAY ORAL ACTIVE LUCERO GRIFFIN 2022 [facility] CICLOPIROX 8% SOLN,TOP APPLY LIGHTLY TO AFFECTED AREA(S) ONCE A DAY (THIN COAT TO THICK NAILS - FILE DOWN AFTER 1 WEEK) (EXTERNA L USE ONLY) TOPICA L ACTIVE 05/09/2025 [id number] LUCERO GRIFFIN 2024 6.6 [facility] CILOSTAZOL 100MG TAB TAKE ONE TABLET BY MOUTH TWICE A DAY ORAL ACTIVE LUCERO GRIFFNI 2022 [facility] CLOPIDOGREL BISULFATE 75MG TAB TAKE ONE TABLET BY MOUTH ONCE A DAY ORAL ACTIVE LUCERO GRIFFIN 2024 [facility] CYANOCOBALA MIN 1000MCG TAB TAKE ONE TABLET BY MOUTH ONCE A DAY ORAL ACTIVE LUCERO GRIFFIN 2022 [facility] LATANOPROST 0.005% SOLN,OPH INSTILL 1 DROP IN BOTH EYES EVERY EVENING OPHTHA LMIC ACTIVE SIMMERLUCERO [place] 2022 [facility] LISINOPRIL 10MG TAB TAKE ONE-HALF TABLET BY MOUTH ONCE A DAY ORAL ACTIVE LUCERO GRIFFIN 2024 [facility] MEMANTINE HCL 5MG TAB TAKE ONE TABLET BY MOUTH TWICE A DAY ORAL ACTIVE 06/14/2024 [id number] SIMLUCERO PAN 2023 180 [facility] TIMOLOL MALEATE 0.5% SOLN,OPH INSTILL 1 DROP IN BOTH EYES TWICE A DAY OPHFELICITAS LM ACTIVE LUCERO GRIFFIN 2022 [facility] Immunizations Combined list of available immunizations from the Department of Defense and Veterans Affairs facilities. Immunization Series Date Given Administered By Site Reaction Lot Number CVX Code Drug Pressure Steamer Tender Status Comments Source RSV, BIVALENT, PROTEIN SUBUNIT RSVPREF, DILUENT RECONSTITUTED , 0.5 ML, PF 2023 DINA LAMB R RIGHT DELTO ID [id number] [place] [address] [facility] Results Combined list of recent chemistry, hematology and other laboratory results from Department of Defense and Veterans Affairs, ranging from 15 months to all on record, depending upon the facility. Order Name Results Value Reference Range Date Interpretation Specimen Comments Source TSH W/ REFLEX FT4 (STL) THYROTROPIN [UNITS/VOLUM E] IN SERUM OR PLASMA 0.764 u[IU]/m L 0.47 - 5 05/08 Specimen Type: PLASMA No comment entered. Ordering Provider: LUCERO GRIFFIN Report Released Date/Time: May 08, 2024 12:01 PM Reporting Lab: [facility] [address] [facility] [address] Performing Lab: [facility] [address] [facility] [address] [facility] VITAMIN D, 25-HYDROXY 25-HYDROXYVI TAMIN D3 [MASS/VOLUME ] IN SERUM OR PLASMA 27.2 ng/mL 30 - 96 05/08 L Specimen Type: SERUM No comment entered. Ordering Provider: LUCERO GRIFFIN Report Released Date/Time: May 08, 2024 12:01 PM Reporting Lab: [facility] [address] [place] [address] Performing Lab: [address] [facility] URINALYSIS (STL-PB) COLOR OF URINE Yellow 05/08 Specimen Type: URINE No comment entered. Ordering Provider: LUCERO GRIFFIN Report Released Date/Time: May 08, 2024 12:01 PM Reporting Lab: [place] [address] Performing Lab: [address] [facility] URINALYSIS (STL-PB) BILIRUBIN.TO RORO [PRESENCE] IN URINE BY TEST STRIP Negativ emg/dL 05/08 Specimen Type: URINE No comment entered. Ordering Provider: LUCERO GRIFFIN Report Released Date/Time: May 08, 2024 12:01 PM Reporting Lab: [facility] [address] [place] [address] Performing Lab: [address] [facility] URINALYSIS (STL-PB) PH OF URINE BY TEST STRIP 6.0 5.0 - 8.0 05/08 Specimen Type: URINE No comment entered. Ordering Provider: LUCERO GRIFFIN Report Released Date/Time: May 08, 2024 12:01 PM Reporting Lab: [place] [address] Performing Lab: [address] [facility] URINALYSIS (STL-PB) LEUKOCYTES [#/AREA] IN URINE SEDIMENT BY MICROSCOPY HIGH POWER FIELD >182/[H PF] 0 - 5 05/08 H Specimen Type: URINE No comment entered. Ordering Provider: LUCERO GRIFFIN Report Released Date/Time: May 08, 2024 12:01 PM Reporting Lab: [facility] [address] [place] [phone] Performing Lab: [facility] [address] [place] [phone] [place] [address] [facility] URINALYSIS (STL-PB) ERYTHROCYTES [#/VOLUME] IN URINE SEDIMENT BY MICROSCOPY HIGH POWER FIELD 3 /[HPF] 0 - 5 05/08 Specimen Type: URINE No comment entered. Ordering Provider: LUCERO GRIFFIN Report Released Date/Time: May 08, 2024 12:01 PM Reporting Lab: [facility] [address] [place] [address] Performing Lab: [address] [facility] URINALYSIS (STL-PB) APPEARANCE OF URINE Turbid 05/08 Specimen Type: URINE No comment entered. Ordering Provider: LUCERO GRIFFIN Report Released Date/Time: May 08, 2024 12:01 PM Reporting Lab: [facility] [address] [place] [address] Performing Lab: [place] [phone] [facility] URINALYSIS (STL-PB) NITRITE [PRESENCE] IN URINE BY TEST STRIP 2+mg/dL 05/08 H Specimen Type: URINE No comment entered. Ordering Provider: LUCERO GRIFFIN Report Released Date/Time: May 08, 2024 12:01 PM Reporting Lab: [facility] [address] [place] [address] Performing Lab: [address] [facility] URINALYSIS (STL-PB) BACTERIA [PRESENCE] IN URINE SEDIMENT BY LIGHT MICROSCOPY OCC/[HP F] 05/08 Specimen Type: URINE No comment entered. Ordering Provider: LUCERO GRIFFIN Report Released Date/Time: May 08, 2024 12:01 PM Reporting Lab: [facility] [address] [place] [address] Performing Lab: [facility] [address] [place] [phone] [facility] URINALYSIS (STL-PB) EPITHELIAL CELLS [#/AREA] IN URINE SEDIMENT BY MICROSCOPY LOW POWER FIELD 2 /[HPF] 0 - 5 05/08 Specimen Type: URINE No comment entered. Ordering Provider: LUCERO GRIFFIN Report Released Date/Time: May 08, 2024 12:01 PM Reporting Lab: [place] [address] Performing Lab: [address] [facility] URINALYSIS (STL-PB) MUCUS [PRESENCE] IN URINE SEDIMENT BY LIGHT MICROSCOPY RARE/[L PF] 05/08 Specimen Type: URINE No comment entered. Ordering Provider: LUCERO GRIFFIN Report Released Date/Time: May 08, 2024 12:01 PM Reporting Lab: [facility] [address] [place] [address] Performing Lab: [place] [phone] [facility] URINALYSIS (STL-PB) GLUCOSE [MASS/VOLUME ] IN URINE BY TEST STRIP Normalm g/dL 05/08 Specimen Type: URINE No comment entered. Ordering Provider: LUCERO GRIFFIN Report Released Date/Time: May 08, 2024 12:01 PM Reporting Lab: [facility] [address] [place] [address] Performing Lab: [place] [phone] [facility] URINALYSIS (STL-PB) PROTEIN [MASS/VOLUME ] IN URINE BY TEST STRIP 20 mg/dL 05/08 H Specimen Type: URINE No comment entered. Ordering Provider: LUCERO GRIFFIN Report Released Date/Time: May 08, 2024 12:01 PM Reporting Lab: [facility] [address] [place] [phone] Performing Lab: [facility] [address] [place] [phone] [facility] URINALYSIS (STL-PB) URN.UROBILIN OGEN Normalm g/dL 05/08 Specimen Type: URINE No comment entered. Ordering Provider: LUCERO GRIFFIN Report Released Date/Time: May 08, 2024 12:01 PM Reporting Lab: [facility] [address] [place] [phone] Performing Lab: [place] [address] [facility] URINALYSIS (STL-PB) HEMOGLOBIN [MASS/VOLUME ] IN URINE BY TEST STRIP Negativ emg/dL 05/08 Specimen Type: URINE No comment entered. Ordering Provider: LUCERO GRIFFIN Report Released Date/Time: May 08, 2024 12:01 PM Reporting Lab: [facility] [place] [phone] Performing Lab: [facility] [place] [phone] [facility] URINALYSIS (STL-PB) KETONES [MASS/VOLUME ] IN URINE BY TEST STRIP Tracemg /dL 05/08 Specimen Type: URINE No comment entered. Ordering Provider: LUCERO GRIFFIN Report Released Date/Time: May 08, 2024 12:01 PM Reporting Lab: [facility] [address] [place] [phone] Performing Lab: [facility] [address] [facility] URINALYSIS (STL-PB) URN.LEUK.EST . 500 mg/dL 05/08 H Specimen Type: URINE No comment entered. Ordering Provider: LUCERO GRIFFIN Report Released Date/Time: May 08, 2024 12:01 PM Reporting Lab: [facility] [address] [facility] [address] Performing Lab: [place] [address] [facility] [address] [facility] URINALYSIS (STL-PB) SPECIFIC GRAVITY OF URINE 1.022 05/08 Specimen Type: URINE No comment entered. Ordering Provider: LUCERO GRIFFIN Report Released Date/Time: May 08, 2024 12:01 PM Reporting Lab: [place] [address] [facility] [phone] Performing Lab: [address] [phone] [facility] COMPREHENS ALBA METABOLIC PANEL CREATININE [MASS/VOLUME ] IN SERUM OR PLASMA 0.72 mg/dL 0.7 - 1.3 05/08 Specimen Type: PLASMA Comment: No hemolysis noted. Ordering Provider: LUCERO GRIFFIN Report Released Date/Time: May 08, 2024 12:01 PM Reporting Lab: [place] [address] [facility] [address] Performing Lab: [address] [phone] [facility] COMPREHENS ALBA METABOLIC PANEL UREA NITROGEN [MASS/VOLUME ] IN SERUM OR PLASMA 12.4 mg/dL 9.0 - 25.0 05/08 Specimen Type: PLASMA Comment: No hemolysis noted. Ordering Provider: LUCERO GRIFFIN Report Released Date/Time: May 08, 2024 12:01 PM Reporting Lab: [place] [address] [facility] [address] Performing Lab: [address] [phone] [facility] COMPREHENS ALBA METABOLIC PANEL GLUCOSE [MASS/VOLUME ] IN SERUM OR PLASMA 104 mg/dL 72 - 99 05/08 H Specimen Type: PLASMA Comment: No hemolysis noted. Ordering Provider: LUCERO GRIFFIN Report Released Date/Time: May 08, 2024 12:01 PM Reporting Lab: [address] [place] [address] Performing Lab: [facility] [address] [place] [phone] [facility] COMPREHENS ALBA METABOLIC PANEL SODIUM [MOLES/VOLUM E] IN SERUM OR PLASMA 139 meq/L 136 - 145 05/08 Specimen Type: PLASMA Comment: No hemolysis noted. Ordering Provider: LUCERO GRIFFIN Report Released Date/Time: May 08, 2024 12:01 PM Reporting Lab: [address] [phone] Performing Lab: [address] [phone] [facility] COMPREHENS ALBA METABOLIC PANEL POTASSIUM [MOLES/VOLUM E] IN SERUM OR PLASMA 4.0 meq/L 3.5 - 5 05/08 Specimen Type: PLASMA Comment: No hemolysis noted. Ordering Provider: LUCERO GRIFFIN Report Released Date/Time: May 08, 2024 12:01 PM Reporting Lab: [address] [phone] Performing Lab: [address] [address] [facility] COMPREHENS ALBA METABOLIC PANEL CHLORIDE [MOLES/VOLUM E] IN SERUM OR PLASMA 104 meq/L 98 - 107 05/08 Specimen Type: PLASMA Comment: No hemolysis noted. Ordering Provider: LUCERO GRIFFIN Report Released Date/Time: May 08, 2024 12:01 PM Reporting Lab: [address] [address] Performing Lab: [address] [phone] [facility] COMPREHENS ALBA METABOLIC PANEL CARBON DIOXIDE, TOTAL [MOLES/VOLUM E] IN SERUM OR PLASMA 27 meq/L 22 - 31 05/08 Specimen Type: PLASMA Comment: No hemolysis noted. Ordering Provider: LUCERO GRIFFIN Report Released Date/Time: May 08, 2024 12:01 PM Reporting Lab: [facility] [address] [facility] [address] Performing Lab: [facility] [address] [facility] [address] [facility] COMPREHENS ALBA METABOLIC PANEL CALCIUM [MASS/VOLUME ] IN SERUM OR PLASMA 9.9 mg/dL 8.4 - 10.4 05/08 Specimen Type: PLASMA Comment: No hemolysis noted. Ordering Provider: LUCERO GRIFFIN Report Released Date/Time: May 08, 2024 12:01 PM Reporting Lab: [facility] [address] [facility] [address] Performing Lab: [facility] [address] [facility] [address] [facility] COMPREHENS ALBA METABOLIC PANEL PROTEIN [MASS/VOLUME ] IN SERUM OR PLASMA 7.0 g/dL 6 - 8.6 05/08 Specimen Type: PLASMA Comment: No hemolysis noted. Ordering Provider: LUCERO GRIFFIN Report Released Date/Time: May 08, 2024 12:01 PM Reporting Lab: [facility] [address] [facility] [address] Performing Lab: [facility] [address] [facility] [address] [facility] COMPREHENS ALBA METABOLIC PANEL ALBUMIN [MASS/VOLUME ] IN SERUM OR PLASMA 3.7 g/dL 3.4 - 5 05/08 Specimen Type: PLASMA Comment: No hemolysis noted. Ordering Provider: LUCERO GRIFFIN Report Released Date/Time: May 08, 2024 12:01 PM Reporting Lab: [facility] [address] [facility] [address] Performing Lab: [facility] [address] [place] [phone] [facility] COMPREHENS ALBA METABOLIC PANEL BILIRUBIN.TO RORO [MASS/VOLUME ] IN SERUM OR PLASMA 1.1 mg/dL 0.2 - 1.2 05/08 Specimen Type: PLASMA Comment: No hemolysis noted. Ordering Provider: LUCERO GRIFFIN Report Released Date/Time: May 08, 2024 12:01 PM Reporting Lab: [place] [address] [facility] [address] Performing Lab: [address] [phone] [place] [address] [facility] COMPREHENS ALBA METABOLIC PANEL ALKALINE PHOSPHATASE [ENZYMATIC ACTIVITY/VOL UME] IN SERUM OR PLASMA 78 U/L 40 - 150 05/08 Specimen Type: PLASMA Comment: No hemolysis noted. Ordering Provider: LUCERO GRIFFIN Report Released Date/Time: May 08, 2024 12:01 PM Reporting Lab: [place] [address] [facility] [address] Performing Lab: [phone] [place] [address] [facility] COMPREHENS ALBA METABOLIC PANEL ASPARTATE AMINOTRANSFE RASE [ENZYMATIC ACTIVITY/VOL UME] IN SERUM OR PLASMA 41 U/L 5 - 34 05/08 H Specimen Type: PLASMA Comment: No hemolysis noted. Ordering Provider: LUCERO GRIFFIN Report Released Date/Time: May 08, 2024 12:01 PM Reporting Lab: [address] [phone] Performing Lab: [place] [address] [facility] [address] [facility] COMPREHENS ALBA METABOLIC PANEL ALANINE AMINOTRANSFE RASE [ENZYMATIC ACTIVITY/VOL UME] IN SERUM OR PLASMA <7U/L 8 - 40 05/08 L Specimen Type: PLASMA Comment: No hemolysis noted. Ordering Provider: LUCERO GRIFFIN Report Released Date/Time: May 08, 2024 12:01 PM Reporting Lab: [address] [address] Performing Lab: [address] [phone] [facility] COMPREHENS ALBA METABOLIC PANEL GLOMERULAR FILTRATION RATE/1.73 SQ M.PREDICTED [VOLUME RATE/AREA] IN SERUM, PLASMA OR BLOOD BY CREATININE-B ASED FORMULA (CKD-EPI 2020) 91.2 60 05/08 Specimen Type: PLASMA Comment: No hemolysis noted. Ordering Provider: LUCERO GRIFFIN Report Released Date/Time: May 08, 2024 12:01 PM Reporting Lab: [facility] [address] [place] [phone] Performing Lab: [facility] [address] [place] [phone] [facility] LIPID PANEL (STL) CHOLESTEROL [MASS/VOLUME ] IN SERUM OR PLASMA 132 mg/dL 0 - 200 05/08 Specimen Type: PLASMA Comment: No hemolysis noted. Ordering Provider: LUCERO GRIFFIN Report Released Date/Time: May 08, 2024 12:01 PM Reporting Lab: [facility] [address] [place] [phone] Performing Lab: [facility] [address] [place] [phone] [facility] LIPID PANEL (STL) TRIGLYCERIDE [MASS/VOLUME ] IN SERUM OR PLASMA 55 mg/dL 0 - 150 05/08 Specimen Type: PLASMA Comment: No hemolysis noted. Ordering Provider: LUCERO GRIFFIN Report Released Date/Time: May 08, 2024 12:01 PM Reporting Lab: [facility] [address] [place] [phone] Performing Lab: [facility] [address] [place] [phone] [facility] LIPID PANEL (STL) CHOLESTEROL IN LDL [MASS/VOLUME ] IN SERUM OR PLASMA BY CALCULATION 75 mg/dL 05/08 Specimen Type: PLASMA Comment: No hemolysis noted. Ordering Provider: LUCERO GRIFFIN Report Released Date/Time: May 08, 2024 12:01 PM Reporting Lab: [facility] [address] [place] [phone] Performing Lab: [facility] [address] [place] [phone] [facility] LIPID PANEL (STL) CHOLESTEROL IN HDL [MASS/VOLUME ] IN SERUM OR PLASMA 46 mg/dL 40 05/08 Specimen Type: PLASMA Comment: No hemolysis noted. Ordering Provider: LUCERO GRIFFIN Report Released Date/Time: May 08, 2024 12:01 PM Reporting Lab: [facility] [address] [place], [place] [phone] Performing Lab: [facility] [address] [place] [phone] [facility] CBC LEUKOCYTES [#/VOLUME] IN BLOOD BY AUTOMATED COUNT 7.9 10*3/uL 3.6 - 11.2 05/08 Specimen Type: BLOOD No comment entered. Ordering Provider: LUCERO GRIFFIN Report Released Date/Time: May 08, 2024 12:01 PM Reporting Lab: [facility] [address] [place] [address] Performing Lab: [place] [phone] [facility] CBC ERYTHROCYTES [#/VOLUME] IN BLOOD BY AUTOMATED COUNT 4.54 10*6/uL 4.10 - 5.70 05/08 Specimen Type: BLOOD No comment entered. Ordering Provider: LUCERO GRIFFIN Report Released Date/Time: May 08, 2024 12:01 PM Reporting Lab: [facility] [address] [place] [address] Performing Lab: [place] [phone] [facility] CBC HEMOGLOBIN [MASS/VOLUME ] IN BLOOD 13.5 g/dL 13.1 - 16.8 05/08 Specimen Type: BLOOD No comment entered. Ordering Provider: LUCERO GRIFFIN Report Released Date/Time: May 08, 2024 12:01 PM Reporting Lab: [facility] [address] [place] [address] Performing Lab: [place] [phone] [facility] CBC HEMATOCRIT [VOLUME FRACTION] OF BLOOD 41.2 38.2 - 48.4 05/08 Specimen Type: BLOOD No comment entered. Ordering Provider: LUCERO GRIFFIN Report Released Date/Time: May 08, 2024 12:01 PM Reporting Lab: [facility] [address] [place] [phone] Performing Lab: [address] [phone] [place] [address] [facility] CBC MCV [ENTITIC VOLUME] BY AUTOMATED COUNT 90.7 fL 80.0 - 100.0 05/08 Specimen Type: BLOOD No comment entered. Ordering Provider: LUCERO GRIFFIN Report Released Date/Time: May 08, 2024 12:01 PM Reporting Lab: [address] [phone] Performing Lab: [place] [phone] [facility] CBC MCH [ENTITIC MASS] BY AUTOMATED COUNT 29.7 pg 27.0 - 34.0 05/08 Specimen Type: BLOOD No comment entered. Ordering Provider: LUCERO GRIFFIN Report Released Date/Time: May 08, 2024 12:01 PM Reporting Lab: [address] [phone] Performing Lab: [address] [phone] [facility] CBC MCHC [MASS/VOLUME ] BY AUTOMATED COUNT 32.8 g/dL 33.0 - 36.0 05/08 L Specimen Type: BLOOD No comment entered. Ordering Provider: LUCERO GRIFFIN Report Released Date/Time: May 08, 2024 12:01 PM Reporting Lab: [address] [phone] Performing Lab: [address] [phone] [facility] CBC PLATELETS [#/VOLUME] IN BLOOD BY AUTOMATED COUNT 280 10*3/uL 150 - 400 05/08 Specimen Type: BLOOD No comment entered. Ordering Provider: LUCERO GRIFFIN Report Released Date/Time: May 08, 2024 12:01 PM Reporting Lab: [facility] [address] [place] [address] [place] [address] Performing Lab: [facility] [address] [facility] [phone] [facility] CBC PLATELET MEAN VOLUME [ENTITIC VOLUME] IN BLOOD BY AUTOMATED COUNT 10.1 fL 7.5 - 11.2 05/08 Specimen Type: BLOOD No comment entered. Ordering Provider: LUCERO GRIFFIN Report Released Date/Time: May 08, 2024 12:01 PM Reporting Lab: [facility] [address] Performing Lab: [place] [address] [facility] [address] [facility] CBC ERYTHROCYTE DISTRIBUTION WIDTH [RATIO] BY AUTOMATED COUNT 14.4 11.8 - 15.1 05/08 Specimen Type: BLOOD No comment entered. Ordering Provider: LUCERO GRIFFIN Report Released Date/Time: May 08, 2024 12:01 PM Reporting Lab: [facility] [address] Performing Lab: [place] [address] [facility] [address] [facility] CBC LYMPHOCYTES/ 100 LEUKOCYTES IN BLOOD BY AUTOMATED COUNT 15 05/08 Specimen Type: BLOOD No comment entered. Ordering Provider: LUCERO GRIFFIN Report Released Date/Time: May 08, 2024 12:01 PM Reporting Lab: [facility] [facility] [address] Performing Lab: [facility] [address] [facility] CBC MONOCYTES/10 0 LEUKOCYTES IN BLOOD BY AUTOMATED COUNT 12 05/08 Specimen Type: BLOOD No comment entered. Ordering Provider: LUCERO GRIFFIN Report Released Date/Time: May 08, 2024 12:01 PM Reporting Lab: [facility] [address] Performing Lab: [facility] [address] [facility] CBC NEUTROPHILS/ 100 LEUKOCYTES IN BLOOD BY AUTOMATED COUNT 70 05/08 Specimen Type: BLOOD No comment entered. Ordering Provider: LUCERO GRIFFIN Report Released Date/Time: May 08, 2024 12:01 PM Reporting Lab: [facility] [address] [facility] [address] Performing Lab: [facility] [address] [facility] [phone] [place] [address] [facility]OC CBC EOSINOPHILS/ 100 LEUKOCYTES IN BLOOD BY AUTOMATED COUNT 2 05/08 Specimen Type: BLOOD No comment entered. Ordering Provider: LUCERO GRIFFIN Report Released Date/Time: May 08, 2024 12:01 PM Reporting Lab: [facility] [address] [place] [address] Performing Lab: [facility] [address] [place] [id number] [facility] CBC BASOPHILS/10 0 LEUKOCYTES IN BLOOD BY AUTOMATED COUNT 1 05/08 Specimen Type: BLOOD No comment entered. Ordering Provider: LUCERO GRIFFIN Report Released Date/Time: May 08, 2024 12:01 PM Reporting Lab: [facility] [place] [id number] Performing Lab: [facility] [address] [place] [id number] [facility] CBC LYMPHOCYTES [#/VOLUME] IN BLOOD BY AUTOMATED COUNT 1.18 10*3/uL 0.77 - 4.50 05/08 Specimen Type: BLOOD No comment entered. Ordering Provider: LUCERO GRIFFIN Report Released Date/Time: May 08, 2024 12:01 PM Reporting Lab: [facility] [address] [facility] [address] Performing Lab: [facility] [address] [place] [address] [facility]OC CBC MONOCYTES [#/VOLUME] IN BLOOD BY AUTOMATED COUNT 0.93 10*3/uL 0.19 - 0.80 05/08 H Specimen Type: BLOOD No comment entered. Ordering Provider: LUCERO GRIFFIN Report Released Date/Time: May 08, 2024 12:01 PM Reporting Lab: [facility] [address] [place] [address] Performing Lab: [facility] [address] [place] [address] [facility]OC CBC NEUTROPHILS [#/VOLUME] IN BLOOD BY AUTOMATED COUNT 5.59 10*3/uL 2.10 - 8.00 05/08 Specimen Type: BLOOD No comment entered. Ordering Provider: LUCERO GRIFFIN Report Released Date/Time: May 08, 2024 12:01 PM Reporting Lab: [place] [address] Performing Lab: [address] [facility] CBC EOSINOPHILS [#/VOLUME] IN BLOOD BY AUTOMATED COUNT 0.14 10*3/uL 0.00 - 0.60 05/08 Specimen Type: BLOOD No comment entered. Ordering Provider: LUCERO GRIFFIN Report Released Date/Time: May 08, 2024 12:01 PM Reporting Lab: [facility] [address] [place] [address] Performing Lab: [address] [facility] CBC BASOPHILS [#/VOLUME] IN BLOOD BY AUTOMATED COUNT 0.06 10*3/uL 0.00 - 0.20 05/08 Specimen Type: BLOOD No comment entered. Ordering Provider: LUCERO GRIFFIN Report Released Date/Time: May 08, 2024 12:01 PM Reporting Lab: [facility] [address] [place] [address] Performing Lab: [facility] [address] [place] [address] CBOC HGA1C HEMOGLOBIN A1C/HEMOGLOB IN.TOTAL IN BLOOD 5.7 4.0 - 6.0 05/08 Specimen Type: BLOOD No comment entered. Ordering Provider: LUCERO GRIFFIN Report Released Date/Time: May 08, 2024 12:01 PM Reporting Lab: [facility] [address] [facility] [address] Performing Lab: [facility] [address] [facility] [address] [facility] Vital Signs Combined list of inpatient and outpatient Vital Signs from Department of [facility] and [facility], ranging from 12 months to all on record, depending upon the facility. Vital Sign Value Date Comments Source SYSTOLIC BLOOD PRESSURE 134 05/08/2024 11:34:05 [facility] DIASTOLIC BLOOD PRESSURE 72 05/08/2024 [facility]:34[facility] PULSE OXIMETRY 94 05/08/2024 11:34:[address] [facility] WEIGHT 172 05/08/2024 11:34:05 [facility] PAIN 0 05/08/2024 11:34:05 [facility] TEMPERATURE 98.2 05/08/2024 11:34:05 [facility] PULSE 63 05/08/2024 11:34:05 [facility] RESPIRATION 20 05/08/2024 11:34:05 [facility] Encounters Combined list of: 1) Encounters from Department of [facility] facilities going backup to the last 18 months, not all [place] inpatient encounters are included; 2) Encounters from the Department [facility] facilities going backup to 280 months. Location Location Details Encounter Type Encounter Number Reason For Visit Attending Provider ADM Date DC Date Status Disposition Source [facility] Outpatient Encounter [id number] 11/21 [facility] Outpatient Encounter [id number] 12/19 [facility] Outpatient Encounter [id number] 12/26 [facility] N [facility] OFFICE O/P EST MOD 30 MIN [id number] Diagnos is: ICD-10- CM I67.9 Cerebro vascula r disease , unspeci saundra GRIFFIN LUCERO 05/07 [facility] FEE [id number] Diagnos is: ICD-10- CM Z55.9 Problem s related to educati on and literac y, unspeci fijean JOSY CARRILLO O 05/07 [facility] Encounter [id number] [place] 06/[address] [facility] Outpatient Encounter [id number] FEI O[place] CA E 07/17 [facility] Encounter [id number] [place] 07/17 [facility] Outpatient Encounter [id number] Lavinia LAMB 05/07 [facility] OFFICE O/P [place] HI 40 MIN [id number] Diagnos is: ICD-10- CM I67.9 Cerebro vascula r disease , unspeci saundra GRIFFIN LUCERO 05/08 [facility] Social History Combined list of available smoking, tobacco, and other social history from Department of Defense and Veterans Affairs facilities. Social History Type Response Date Comment Sourc e Tobacco smoking status NHIS VA-TOBACCO USE FORMER CIGARETTES 05/08/2024 [facility] History of tobacco use VA-TOBACCO NEVER USED OTHER TYPE 05/08/2024 [facility] History of tobacco use VA-TOBACCO FORMER USER 05/08/2023 [facility] History of tobacco use VA-TOBACCO FORMER USER 05/06/2022 [facility]
--- OUTSIDE RECORDS SUMMARY | 2024-05-11 09:23 | XMS_ITS ---
Author Organization [facility] Address [address] [place], [place] [id number] Care Team Providers Care Pigment And Lacquer Mixer Name Role Phone MADELINE CARRASCO Unavailable [phone] Toño Dejesus Unavailable Unavailable RENEA SIMMONS Unavailable [phone] REASON FOR VISIT *General care Medications Medication SIG (Take, Route, Frequency, Duration) Notes Start Date End Date Status Lisinopril 20 MG TAKE 1 TABLET BY DECLAN TH DAILY Oral for 90 Days Active Cilostazol 100 MG TAKE 1 TABLET BY DECLAN TH TWICE A DAY BEFORE MEALS Oral for 90 Days Active Latanoprost 0.005 % Ophthalmic for 75 Days Active Atorvastatin Calcium 40 MG TAKE 1 TABLET BY MOUTH EVERY DAY Oral for 90 Days Active Timolol Maleate 0.5 % INSTILL ONE DROP I NTO BOTH EYES EVERY MORNING Ophthalmic for 150 Days Active Vital Signs Weight 165 lbs 06/22/2023 Weight-kg 74.84 kg 06/22/2023 Height 70.00 in 06/22/2023 Height-cm 177.80 cm 06/22/2023 BMI 23.67 kg/m2 06/22/2023 Encounters Encounter Location Date Provider Diagnosis [facility] [address] [place], [place] [id number] 06/22/2023 RENEA SIMMONS Other hammer toe(s) (acquired), right foot M20.41 ; Tinea unguium B35.1 ; Other hammer toe(s) (acquired), left foot M20.42 ; Pain in right toe(s) M79.674 ; Pain in left toe(s) M79.675 and Unspecified atherosclerosis of [place] arteries of extremities, bilateral legs I70.203 Assessments Encounter Date Diagnosis (ICD Code) Assessment Notes Treatment Notes Treatment Clinical Notes Section Notes 06/22/2023 Other hammer toe(s) (acquired), right foot (ICD-10 [...] were discussed, but conservative options were emphasized. 06/22/2023 Tinea unguium (ICD-10 - B35.1) Aseptic debridement [...] educated regarding both OTC and prescription treatments. 06/22/2023 Other hammer toe(s) (acquired), left foot (ICD-10 - M20.42) 06/22/2023 Pain in right toe(s) (ICD-10 - M79.674) 06/22/2023 Pain in left toe(s) (ICD-10 - M79.675) 06/22/2023 Unspecified atherosclerosis of [place] arteries of extremities, bilateral legs (ICD-10 - [...] OTC and prescription treatments. Unspecified atherosclerosis of conf[place] arteries of extremities, bilateral legs Patient educated on risks and aggravating factors of PVD, including conservative treatment options such as a diet and exercise regimen to aid in slowing progression of vascular disease Next Appt Details Follow Up: 3 Months, Reason: Provider Name:LOLA LOPEZ, 07/25/2024 11:30:00 AM, [address] [place] [address], [id number], Progress Notes * ASMITA NIETO DDOB: [birth year] (82 yo M)Acc No.[id number]:06/22/2023 Patient: ASMITA RIVERA Provider: Irene SIMMONS :1940 A ge:82 Y S ex:Male Date:06/22/2023 Address:[address] [place] [address] Subjective: * Chief Complaints: * 1 . [...] Date last seen by Dr. Dejesus was , Initials As. * ROS: G eneral / Constitutional: Patient denies w eakness. R espiratory: Patient denies c hronic cough, shortness of breath, sputum production. C ardiovascular: Patient denies c hest pain, history of GA, irregular heartbeat. M usculoskeletal: Patient complains of [...] BY MOUTH EVERY DAY Oral Objective: * Vitals: W t: 165 lbs, Wt-k.84 kg, Ht: 70.00 in, Ht-cm: 177.80 cm, BMI: 23.67 Index, Body Surface Area: 1.92. * Examination: P hysical Examination: V ascular: [...] . P ain in right toe(s) - M79.674 5 . P ain in left toe(s) - M79.675 6 . U nspecified atherosclerosis of conf[place] arteries of extremities, bilateral legs - I70.203 [...] were emphasized. 3. U nspecified atherosclerosis of [place] arteries of extremities, bilateral legs Notes: Patient educated on risks and aggravating factors of PVD, including conservative treatment options such as a diet and exercise regimen to aid in slowing progression of vascular disease ? * Procedure Codes: 1 1721 DEBRIDE NAIL, 6 OR MORE, Modifiers: Q8 * Follow Up: 3 Months * Billing Information: * Visit Code: * Procedure Codes: 43423 DEBRIDE NAIL, 6 OR MORE. Modifiers: Q8 * Sign off status: Completed true * Provider: Irene SIMMONS Date: 0 06/22/2023 Generated for Alen pitts/Volodymyr/Darcy on: 0 05/11/2024 09:23 AM CDT History [...] Date last seen by Dr. Dejesus was , Initials As Examination Category Sub-Category Detail Notes Category Not [...]
--- OUTSIDE RECORDS SUMMARY | 2024-05-11 09:23 | XMS_ITS | Patient Health Record ---
Author Organization [facility] Address [address] [place], [place] [id number] Care Team Providers Care Warehouse Record Clerk Name Role Phone MADELINE CARRASCO Unavailable [phone] Toño Dejesus Unavailable Unavailable RENEA SIMMONS Unavailable [phone] Allergies No Known Allergies Reason For Referral No Information Medications Medication SIG (Take, Route, Frequency, Duration) Notes Start Date End Date Status Cilostazol 100 MG TAKE 1 TABLET BY DECLAN TH TWICE A DAY BEFORE MEALS Oral for 90 Days Active Latanoprost 0.005 % Ophthalmic for 75 Days Active Atorvastatin Calcium 40 MG TAKE 1 TABLET BY MOUTH EVERY DAY Oral for 90 Days Active Timolol Maleate 0.5 % INSTILL ONE DROP I NTO BOTH EYES EVERY MORNING Ophthalmic for 150 Days Active Lisinopril 20 MG TAKE 1 TABLET BY DECLAN TH DAILY Oral for 90 Days Active Vital Signs Height-cm 177.80 cm 06/22/2023 Weight-kg 74.84 kg 06/22/2023 Height 70.00 in 06/22/2023 Weight 165 lbs 06/22/2023 BMI 23.67 kg/m2 06/22/2023 Encounters Encounter Location Date Provider Diagnosis [facility] [address] [place], [place] [id number] 01/25/2024 RENEA SIMMONS Other hammer toe(s) (acquired), right foot M20.41 ; Tinea unguium B35.1 ; Other hammer toe(s) (acquired), left foot M20.42 ; Pain in right toe(s) M79.674 ; Pain in left toe(s) M79.675 and Unspecified atherosclerosis of southern [place] arteries of extremities, bilateral legs I70.203 [facility] [address] [place], [place] [id number] 06/22/2023 RENEA SIMMONS Other hammer toe(s) (acquired), right foot M20.41 ; Tinea unguium B35.1 ; Other hammer toe(s) (acquired), left foot M20.42 ; Pain in right toe(s) M79.674 ; Pain in left toe(s) M79.675 and Unspecified atherosclerosis of southern ute arteries of extremities, bilateral legs I70.203 [facility] [address] [place], [place] [id number] 10/12/2023 RENEA SIMMONS Other hammer toe(s) (acquired), right foot M20.41 ; Tinea unguium B35.1 ; Other hammer toe(s) (acquired), left foot M20.42 ; Pain in right toe(s) M79.674 ; Pain in left toe(s) M79.675 and Unspecified atherosclerosis of southern ute arteries of extremities, bilateral legs I70.203 Assessments Encounter Date Diagnosis (ICD Code) Assessment Notes Treatment Notes Treatment Clinical Notes Section Notes 06/22/2023 Tinea unguium (ICD-10 - B35.1) Aseptic [...] prescription treatments. 06/22/2023 Other hammer toe(s) (acquired), right foot [...] discussed, but conservative options were emphasized. 10/12/2023 Other hammer toe(s) (acquired), right foot [...] educated regarding both OTC and prescription treatments. 01/25/2024 Tinea unguium (ICD-10 - B35.1) Aseptic debridement [...] educated regarding both OTC and prescription treatments. 01/25/2024 Other hammer toe(s) (acquired), right foot (ICD-10 [...] were discussed, but conservative options were emphasized. 01/25/2024 Other hammer toe(s) (acquired), left foot (ICD-10 - M20.42) 10/12/2023 Other hammer toe(s) (acquired), left foot (ICD-10 - M20.42) 06/22/2023 Other hammer toe(s) (acquired), left foot (ICD-10 - M20.42) 06/22/2023 Pain in right toe(s) (ICD-10 - M79.674) 10/12/2023 Pain in right toe(s) (ICD-10 - M79.674) 01/25/2024 Pain in right toe(s) (ICD-10 - M79.674) 01/25/2024 Pain in left toe(s) (ICD-10 - M79.675) 10/12/2023 Pain in left toe(s) (ICD-10 - M79.675) 06/22/2023 Pain in left toe(s) (ICD-10 - M79.675) 06/22/2023 Unspecified atherosclerosis of southern ute arteries of extremities, 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) Patient educated on risks and aggravating factors of PVD, including conservative treatment options such as a diet and exercise regimen to aid in slowing progression of vascular disease 01/25/2024 Unspecified atherosclerosis of southern ute arteries of extremities, 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) Patient educated on risks and aggravating factors of PVD, including conservative treatment options such as a diet and exercise regimen to aid in slowing progression of vascular disease 10/12/2023 Unspecified atherosclerosis of southern ute arteries of extremities, 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) Patient educated on risks and aggravating factors of PVD, including conservative treatment options such as a diet and exercise regimen to aid in slowing progression of vascular disease Plan Of Treatment Next Appt Details Provider Name:LOAL Darryn LOPEZ, 07/25/2024 11:30:00 AM, [address] [place] [address], [phone], Insurance Providers Payer Name Payer Address Payer Phone Subscriber Number Group Number Insured Name Patient Relationship to Insured Coverage Start Date Coverage End Date Medicare Cedrick Merchant GBA [id number] [address] [address] [place], [place] [phone] [id number] ASMITA NIETO Self - patient is the insured [facility] ([facility]) ATTN CLAIMS [address] [place] [address] [id number] ASMITA NIETO Self - patient is the insured
--- OUTSIDE RECORDS SUMMARY | 2024-05-11 09:24 | XMS_ITS | Encounter Summary ---
Author Organization [facility] Address [address] [place] [address] Care Team Providers Care Tip Fixer Name Role Phone [facility], External Provider Primary Care Provider U beccaailable Encounter Details Date Type Department Care Team (Late st Contact Info) Description 08/23/[address] [facility] Support Serv. (Adt Cardiology-[facility]) [address] 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
--- OUTSIDE RECORDS SUMMARY | 2024-05-11 09:24 | XMS_ITS | Encounter Summary ---
Author Organization [facility] Address [address] [place] [address] Care Team Providers Care Wrapper Rewinder Name Role Phone [facility], External Provider Primary Care Provider U beccaailable Encounter Details Date Type Department Care Team (Late st Contact Info) Description 03/15/2007 Outpatient Historical [facility] Supp [facility] Blood Flow [address] [place] [address] Luke Ochoa MD NO ADDRESS ON FILE Social History Tobacco Use Types Packs/Day Years Used Date Smoking Tobacco: Never Assessed Sex and Gender Information Value Date Recorded Sex Assigned at Not on file Legal Sex Male 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
--- OUTSIDE RECORDS SUMMARY | 2024-05-11 09:24 | XMS_ITS | Clinical Summary ---
Author Organization [facility] Address [address] [place] [address] Phone Care Team Providers Care Chemicals Distiller Name Role Phone [facility], External Provider Primary Care Provider U navailable Allergies No known active allergies Medications LATANOPROST OP by Ophthalmic route daily. Both eyes Active TIMOLOL MALEATE (ISTALOL OP) by Ophthalmic route daily. Both eyes Active aspirin (ECOTRIN EC) 81 mg Tablet, Delayed Release (E.C.) Take 81 mg by mouth daily. Active cyanocobalamin (vit B-12) 1,000 mcg tablet Take 1,000 mcg by mouth daily. Active atorvastatin (LIPITOR) 40 mg tablet TAKE 1 TABLET BY MOUTH EVERY DAY 0 Active clopidogreL (PLAVIX) 75 mg Tablet TAKE 1 TABLET BY MOUTH EVERY DAY 0 Active lisinopriL (PRINIVIL) 5 mg tablet TAKE 1 TABLET BY MOUTH EVERY DAY 0 Active carbidopa-levod opa (SINEMET) 25-100 mg tablet TAKE 2 TABLETS BY MOUTH 3 TIMES A DAY 3 Active lisinopriL (PRINIVIL) 20 mg tablet TAKE 1 TABLET BY MOUTH DAILY Oral for 90 Days Active donepeziL (ARICEPT) 10 mg tablet Take 1 Tablet by mouth daily at bedtime. 4 Active amoxicillin-cla vulanate (AUGMENTIN) 500-125 mg tablet Take 1 Tablet by mouth 2 times daily. Active cilostazoL (PLETAL) 100 mg TabletIndicatio ns:PVD (peripheral vascular disease) take 1 tablet by mouth twice a day before meals 180 Tablet 3 4 Active Active Problems Problem Noted Date Diagnosed Date Abnormal deglutition 05/30/2023 Chronic obstructive pulmonary disease 05/30/2023 Carotid artery stenosis 05/30/2023 Overview (05/30/2023): May 08, 2023 Entered By: LUCERO GRIFFIN Comment: 95% right sided. Vascular declined to intervene outside [facility] [place]. Cobalamin deficiency 05/30/2023 Counseling, unspecified 05/30/2023 Dementia 05/30/2023 Overview (05/30/2023): May 08, 2023 Entered By: LUCERO GRIFFIN Comment: vascular and parkinson's. Erectile dysfunction 05/30/2023 Exposure to potentially hazardous substance 05/08 Glaucoma 05/30/2023 Incontinence 05/30/2023 Low back pain 05/30/2023 Overview (05/30/2023): May 06, 2022 Entered By: LUCERO GRIFFIN Comment: status post discectomy Mixed hyperlipidemia 05/30/2023 Neuropathy 05/30/2023 Polyp of colon 05/30/2023 Problems related to education and literacy, unsp ecified 05/30/2023 Rotator cuff impingement syndrome 05/30/2023 Overview (05/30/2023): May 06, 2022 Entered By: LUCERO GRIFFIN Comment: left Parkinson's disease 11/20/2020 Stroke 05/23/2017 Tobacco use 04/17/2015 PVD (peripheral vascular disease) 10/16/2012 Occlusion and stenosis of carotid artery 012 Encounters Date Type Department Care Team Description 05/07/2024 External Device Data [facility] Provider, Abstract 04/24/2024 External Device Data [facility] Provider, Abstract 04/15/2024 External Device Data [facility] Provider, Abstract 04/13/2024 External Device Data [facility] Provider, Abstract 04/13/2024 External Device Data [facility] Provider, Abstract 03/06/2024 External Device Data [facility] Provider, Abstract 02/29/2024 External Device Data [facility] Provider, Abstract from Last 3 Months Family History Medical History Relation Name Comments Hypertension Father Lung Cancer Father Heart Disease Mother Hypertension Mother Relation Name Status Comments Father Mother Alive Social History Tobacco Use Types Packs/Day Years Used Date Smoking Tobacco: Former Cigars Smokeless Tobacco: Current Alcohol Use Standard Drinks/Week Comments Not Asked 0 (1 standard drink = 0.6 oz pur e alcohol) Sex and Gender Information Value Date Recorded Sex Assigned at Not on file 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 Gender Identity Not on file Sexual Orientation Not on file Occupation Industry Job Start Date Job End Date Not on file Not on file Not on file Not on file Last Filed Vital Signs Vital Sign Reading Time Taken Comments Blood Pressure 106/67 05/30/2023 11:32 AM CDT pt took BP meds Pulse 62 05/30/2023 11:32 AM CDT Temperature - - Respiratory Rate - - Oxygen Saturation 98% 05/30/2023 11: 32 AM CDT Inhaled Oxygen Concentration - - Weight 79.4 kg (175 lb) 05/24/2022 11:5 1 AM CDT Height 177.8 cm (5' 10 ) 05/24/2022 11: 51 AM CDT Body Mass Index 25.11 05/24/2022 11:51 AM CDT Plan of Treatment Health Maintenance Due Date Last Done Comments DTAP/TDAP/TD VACCINES (1 - Tdap) 1959 PNEUMOCOCCAL VACCINE 50+ YEARS (1 of 2 - PCV) 12/28/18 61 ZOSTER VACCINE (1 of 2) 12/29/1991 RSV VACCINE (60+ or ) (1 - 1-dose 75+ series) 2016 INFLUENZA VACCINE (#1) 2023 Insurance MEDICARE [facility] SUPP Care Teams Chemicals Distiller Relationship Specialty Start Date End Date [facility], External Provider [address] [place] [address] PCP - General 08/06/19
--- OUTSIDE RECORDS SUMMARY | 2024-05-11 09:24 | XMS_ITS ---
Author Organization [facility] Address [address] [place], [place] [address] Care Team Providers Care Cad Intern Name Role Phone MADELINE CARRASCO Unavailable [phone] Toño Dejesus Unavailable Unavailable RENEA SIMMONS Unavailable [phone] REASON FOR VISIT *General care Medications Medication [...] Active Encounters Encounter Location Date Provider Diagnosis [facility] [address] [place], [place] [id number] 01/25/2024 RENEA SIMMONS Other hammer toe(s) (acquired), right foot M20.41 ; Tinea unguium B35.1 ; Other hammer toe(s) (acquired), left foot M20.42 ; Pain in right toe(s) M79.674 ; Pain in left toe(s) M79.675 and Unspecified atherosclerosis of [place] arteries of extremities, bilateral legs I70.203 Assessments Encounter Date Diagnosis (ICD Code) Assessment Notes Treatment Notes Treatment Clinical Notes Section Notes 01/25/2024 Other hammer toe(s) (acquired), right foot [...] discussed, but conservative options were emphasized. 01/25/2024 Tinea unguium (ICD-10 - B35.1) Aseptic [...] prescription treatments. 01/25/2024 Other hammer toe(s) (acquired), left foot (ICD-10 - M20.42) 01/25/2024 Pain in right toe(s) (ICD-10 - M79.674) 01/25/2024 Pain in left toe(s) (ICD-10 - M79.675) 01/25/2024 Unspecified atherosclerosis of [place] arteries of extremities, bilateral legs (ICD-10 - [...] OTC and prescription treatments. Unspecified atherosclerosis of [place] arteries of extremities, bilateral legs Patient educated on risks and aggravating factors of PVD, including conservative treatment options such as a diet and exercise regimen to aid in slowing progression of vascular disease Next Appt Details Follow Up: 3 Months, Reason: Provider Name:LOLA LOPEZ, 07/25/2024 11:30:00 AM, [address] [place] [address], [id number], Progress Notes * ASMITA NIETO DDOB: [birth year] (83 yo M)Acc No.[id number]:01/25/2024 Patient: ASMITA RIVERA Joan Provider: Irene SIMMONS :1940 A ge:83 Y S ex:Male Date:01/25/2024 Address:[address] [place] [address] Subjective: * Chief Complaints: * 1 . [...] Date last seen by Dr. Dejesus was 11/2023., Initials mca. * ROS: G eneral / Constitutional: Patient denies w eakness. R espiratory: Patient denies c hronic cough, shortness of breath, sputum production. C ardiovascular: Patient denies c hest pain, history of VT, irregular heartbeat. M usculoskeletal: Patient complains of [...] MOUTH EVERY DAY Oral Objective: * Vitals: * Examination: P hysical Examination: V ascular: [...] hammer toe(s) (acquired), left foot - M20.42 ? 4 . P ain in right toe(s) - M79.674 5 . P ain in left toe(s) - M79.675 6 . U nspecified atherosclerosis of [place] arteries of extremities, bilateral legs - I70.203 [...] were emphasized. 3. U nspecified atherosclerosis of [place] arteries of extremities, bilateral legs Notes: Patient educated on risks and aggravating factors of PVD, including conservative treatment options such as a diet and exercise regimen to aid in slowing progression of vascular disease ? * Procedure Codes: 1 1721 DEBRIDE NAIL, 6 OR MORE, Modifiers: Q8 * Follow Up: 3 Months * Billing Information: * Visit Code: * Procedure Codes: 35814 DEBRIDE NAIL, 6 OR MORE. Modifiers: Q8 * Electronic signature of LOLITA SIMMONS DPM on 05/11/2024 at 09:24 AM CDT Sign off status: Pending * Provider: Irene SIMMONS Date: 1 03/27/2023 Generated for Alen pitts/Volodymyr/Darcy on: 0 05/11/2024 09:24 AM CDT History and Physical Notes * [...] Date last seen by Dr. Dejesus was 11/2023., Initials mca Examination Category Sub-Category Detail Notes [...]
--- OUTSIDE RECORDS SUMMARY | 2024-05-11 09:24 | XMS_ITS | Encounter Summary ---
Author Organization [employer] Address [address] [place] [address] Care Team Providers Care Superintendent Pier Name Role Phone [facility] Primary Care Provider U beccaailjoao Encounter Details Date Type Department Care Team (Latest Contact Info) Description 08/17/2006 Outpatient Historical HIS CARDIOPULMONARY Nghia Longroia MD [address] [facility] [address] [place] [phone] Carotid Art Occ w/o Infarc (Primary Dx) Social History Tobacco Use Types Packs/Day Years Used Date Smoking Tobacco: Never Assessed Sex and Gender Information Value Date Recorded Sex Assigned at Not on file 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
--- OUTSIDE RECORDS SUMMARY | 2024-05-11 09:24 | XMS_ITS | Encounter Summary ---
Author Organization [employer] Address [address] [place] [address] Care Team Providers Care Hydraulic And Plumbing Installer Name Role Phone [facility], External Provider Primary Care Provider U beccaailjoao Encounter Details Date Type Department Care Team (Late st Contact Info) Description 08/23/2006 Outpatient Historical [facility] Support Serv. (Adt Cardiology[facility]) [address] 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
--- OUTSIDE RECORDS SUMMARY | 2024-05-11 09:24 | XMS_ITS | Encounter Summary ---
Author Organization [employer] Address [address] [place] [address] Care Team Providers Care Mobile Solutions Architect Name Role Phone [facility], [facility] Primary Care Provider U navailable Encounter Details Date Type Department Care Team (Latest Contact Info) Description 08/23/2006 Outpatient Historical [facility] Nghia Longoria MD [address] [facility] [address] [place] [phone] Shortness of Breath (Primary Dx) Social History Tobacco Use Types Packs/Day Years Used Date Smoking Tobacco: Never Assessed Sex and Gender Information Value Date Recorded Sex Assigned at Not on file 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
--- OUTSIDE RECORDS SUMMARY | 2024-05-11 09:24 | XMS_ITS | Encounter Summary ---
Author Organization [employer] Address [address] [place] [address] Care Team Providers Care Business Management Specialist Name Role Phone [facility], [facility] Primary Care Provider U beccaailable Encounter Details Date Type Department Care Team (Latest Contact Info) Description 03/25/2008 Outpatient Historical HIS CARDIOPULMONARY Nghia Longoria MD [address] [facility] [address] [place] [address] Carotid Art Occ w/o Infarc Social History Tobacco Use Types Packs/Day Years Used Date Smoking Tobacco: Never Assessed Sex and Gender Information Value Date Recorded Sex Assigned at Not on file 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 [address] [email or web address] Noninvasive Vascular Lab Carotid Duplex Study Patient: Jacques Quiroz Study ID: [id number] Gender: M : 1940 Age: 67 years Race: 1 Room: Bed: Height: Study Date: March 25, 2008 Patient status: Outpatient Weight: Access. #: [id number] POC: Metal Baler: Alondra Ordering: Romina Attending MD: Romina Admitting MD: Romina SUMMARY: The right carotid Doppler velocities and ratios are within normal limits, excluding significant stenosis. Abnormal left artery Doppler velocity parameters consistent with 50 - 79% stenosis at the lower end of this range. Bilateral vertebral flow is antegrade. VELOCITY IMPRESSIONS The right carotid Doppler velocities and ratios are within normal limits, excluding significant stenosis. Abnormal left artery Doppler velocity parameters consistent with 50 - 79% stenosis at the lower end of this range. Bilateral vertebral flow is antegrade. COMPARISONS This study was compared to the previous study of March 15, 2007. There has been no significant interval change. HISTORY AND INDICATIONS: INDICATIONS Follow-up carotid disease BASELINE PHYSICAL EXAMINATION Baseline brachial blood pressure: 130 mmHg (right) 130 mmHg (left). STUDY INFORMATION: PROCEDURE PERFORMED A duplex study of the right and left carotid systems was performed with B-Mode imaging and spectral analysis. DOPPLER VELOCITIES CCA proximal R peak systolic: 59 cm/sec R end diastolic: 9 cm/sec L peak systolic: 80 cm/sec L end diastolic: 16 cm/sec CCA distal R peak systolic: 58 cm/sec R end diastolic: 18 cm/sec L peak systolic: 85 cm/sec L end diastolic: 23 cm/sec ICA proximal R peak systolic: 35 cm/sec R end diastolic: 10 cm/sec L peak systolic: 143 cm/sec L end diastolic: 36 cm/sec ICA distal R peak systolic: 60 cm/sec R end diastolic: 12 cm/sec L peak systolic: 106 cm/sec L end diastolic: 15 cm/sec ECA R peak systolic: 83 cm/sec R end diastolic: -- L peak systolic: 138 cm/sec L end diastolic: -- Vertebral artery R peak systolic: 53 cm/sec R end diastolic: 12 cm/sec L peak systolic: 44 cm/sec L end diastolic: 12 cm/sec FLOW/PLAQUE LOCATION Stenosis Plaque Morphology L internal carotid 50 - 79% Heterogeneous Prepared and Electronically Authenticated Nghia Longoria MD Confirmed March 25, 2008 18:16:07 Procedure Note Provider, Historical - 03/25/2008 [address] [place], [place] [address]Gbswa: [email or web address] Noninvasive Vascular Lab Carotid Duplex Study Patient: Jacques Quiroz Study ID: [id number] Gender: M : 1940 Age: 67 years Race: 1 Room: Bed: Height: Study Date: March 25, 2008 Patient status: Outpatient Weight: Access. #: [id number] POC: Metal Baler: Alondra Ordering: Romina Attending MD: Romina Admitting MD: Romina SUMMARY: The right carotid Doppler velocities and ratios are within normallimits, excluding significant stenosis. Abnormal left artery Doppler velocity parameters consistent with 50 - 79% stenosis at the lower end of this range. Bilateral vertebral flow is antegrade. VELOCITY IMPRESSIONS The right carotid Doppler velocities and ratios are within normallimits, excluding significant stenosis. Abnormal left artery Doppler velocity parameters consistent with 50 - 79% stenosis at the lower end of this range. Bilateral vertebral flow is antegrade. COMPARISONS This study was compared to the previous study of March 15, 2007.There has been no significant interval change. HISTORY AND INDICATIONS: INDICATIONS Follow-up carotid disease BASELINE PHYSICAL EXAMINATION Baseline brachial blood pressure: 130 mmHg (right) 130 mmHg (left). STUDY INFORMATION: PROCEDURE PERFORMED A duplex study of the right and left carotid systems was performed with B-Mode imaging and spectral analysis. DOPPLER VELOCITIES CCA proximal R peak systolic: 59 cm/sec R end diastolic: 9 cm/sec L peak systolic: 80 cm/sec L end diastolic: 16 cm/sec CCA distal R peak systolic: 58 cm/sec R end diastolic: 18 cm/sec L peak systolic: 85 cm/sec L end diastolic: 23 cm/sec ICA proximal R peak systolic: 35 cm/sec R end diastolic: 10 cm/sec L peak systolic: 143 cm/sec L end diastolic: 36 cm/sec ICA distal R peak systolic: 60 cm/sec R end diastolic: 12 cm/sec L peak systolic: 106 cm/sec L end diastolic: 15 cm/sec ECA R peak systolic: 83 cm/sec R end diastolic: -- L peak systolic: 138 cm/sec L end diastolic: -- Vertebral artery R peak systolic: 53 cm/sec R end diastolic: 12 cm/sec L peak systolic: 44 cm/sec L end diastolic: 12 cm/sec FLOW/PLAQUE LOCATION Stenosis Plaque Morphology L internal carotid 50 - 79% Heterogeneous Prepared and Electronically Authenticated Nghia Longoria MD Confirmed March 25, 2008 18:16:07 Nghia Longoria MD US ORDERABLES Final Result documented in this encounter Visit Diagnoses Diagnosis Occlusion and stenosis of carotid artery without mention of cerebral infarction documented in this encounter Care Teams Business Management Specialist Relationship Specialty Start Date End Date [facility], External Provider [address] [place] [address] PCP - General 08/06/19 documented as of this encounter
--- OUTSIDE RECORDS SUMMARY | 2024-05-11 09:24 | XMS_ITS | Encounter Summary ---
Author Organization [employer] Address [address] [place] [address] Care Team Providers Care Industrial Insulator Name Role Phone [facility], External Provider Primary Care Provider U beccaailable Encounter Details Date Type Department Care Team (Latest Contact Info) Description 08/30/2006 Outpatient Historical HIS CARD CHIEF OPHTHALMIC TECHNICIAN Nghia Longoria MD [address] 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 Gender Identity Not on file Sexual Orientation Not on file documented as of this encounter Plan of Treatment Not on file documented as of this encounter Procedures Procedure Name Priority Date/Time Associated Diagnosis Comments HEMOGLOBIN AND HEMATOCRIT Routine 08/23/2006 10:54 AM CDT BASIC METABOLIC PANEL Routine 08/23/2006 10:54 AM CDT documented in this encounter Results * (ABNORMAL) HEMOGLOBIN AND HEMATOCRIT (08/23/2006 10:54 AM CDT) HEMOGLOBIN 16.7(H) 13.6 - 16.5 g/dL INTERFACE SYSTEM HEMATOCRIT 47.3 40.0 - 48.0 % INTERFACE SYSTEM 08/23/2006 10:5 4 AM CDT us Nghia Longoria MD HEMATOLOGY ORDERABLES Edited INTERFACE SYSTEM Refer to clinic/hospital department * (ABNORMAL) BASIC METABOLIC PANEL (08/23/2006 10:54 AM CDT) GLUCOSE 101(H) 65 - 99 mg/dL INTERFACE SYSTEM CREATININE 0.73 0.67 - 1.17 mg/dL INTERFACE SYSTEM CALCIUM 8.8 8.4 - 10.2 mg/dL INTERFACE SYSTEM BUN 9 6 - 20 mg/dL INTERFACE SYSTEM SODIUM 141 135 - 145 mmol/L INTERFACE SYSTEM POTASSIUM 3.7 3.5 - 4.9 mmol/L INTERFACE SYSTEM CHLORIDE 101 96 - 108 mmol/L INTERFACE SYSTEM CO2 30 22 - 30 mmol/L INTERFACE SYSTEM GFR, >60 >=60 mL/min/1. 7 sq meter INTERFACE SYSTEM GFR >60 >=60 mL/min/1. 7 sq meter INTERFACE SYSTEM Comment: Estimated GFR rate interpretative information for both Americans and non- Americans is available on the [facility] Intranet at: [email or web address] Select: Lab Policies and Procedures Select: Reference Ranges - GFR 08/23/2006 10:5 4 AM CDT us Nghia Longoria MD CHEMISTRY ORDERABLES Edited INTERFACE SYSTEM Refer to clinic/hospital department documented in this encounter Visit Diagnoses Diagnosis Occlusion and stenosis of carotid artery without mention of cerebral infarction- Primary documented in this encounter Care Teams Industrial Insulator Relationship Specialty Start Date End Date [facility], External Provider [address] [place] [address] PCP - General 08/06/19 documented as of this encounter
--- OUTSIDE RECORDS SUMMARY | 2024-05-11 09:24 | XMS_ITS | Encounter Summary ---
Author Organization [employer] Address [address] [place] [address] Care Team Providers Care Assistant Health Educator Name Role Phone [facility] Primary Care Provider U beccaailable Encounter Details Date Type Department Care Team (Latest Contact Info) Description 03/15/2007 Outpatient Historical HIS CARDIOPULMONARY Nghia Longoria MD [address] [facility] [address] [place] [address] Carotid Art Occ w/o Infarc Social History Tobacco Use Types Packs/Day Years Used Date Smoking Tobacco: Never Assessed Sex and Gender Information Value Date Recorded Sex Assigned at Not on file 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 [facility] [address] [place] [address] [email or web address] Noninvasive Vascular Lab Carotid Duplex Study Patient: Jacques MESAN: [id number] Study ID: BLOOD FLOW STUDY Gender: M : 1940 Age: 66 years Race: 1 Room: Bed: Height: Study Date: March 15, 2007 Patient status: Outpatient Weight: Access. #: [id number] POC: Manager Of Application Development: Sumanth Ordering: Romina Attending MD: Romina Admitting MD: Romina SUMMARY: The right carotid Doppler velocities and ratios are within normal limits, excluding significant stenosis. Abnormal left internal carotid artery Doppler velocity parameters consistent with moderate 50 - 79% stenosis. This study was compared to the previous study of August 17, 2006. There has been marked improvement on the right following right carotid endarterectomy. VELOCITY IMPRESSIONS The right carotid Doppler velocities and ratios are within normal limits, excluding significant stenosis. Abnormal left internal carotid artery Doppler velocity parameters consistent with moderate 50 - 79% stenosis. COMPARISONS This study was compared to the previous study of August 17, 2006. There has been marked improvement on the right following right carotid endarterectomy. Cerebrovascular disease regression noted on right. HISTORY AND INDICATIONS: INDICATIONS Post endarterectomy (right). BASELINE PHYSICAL EXAMINATION Baseline brachial blood pressure: 140 / 80 mmHg (right) 144 / 80 mmHg (left). STUDY INFORMATION: PROCEDURE PERFORMED A duplex study of the right and left carotid systems was performed with B-Mode imaging and spectral analysis. PROCEDURE DETAIL This was an outpatient procedure. DOPPLER VELOCITIES CCA proximal R peak systolic: 108 cm/sec R end diastolic: 14 cm/sec L peak systolic: 103 cm/sec L end diastolic: 17 cm/sec CCA distal R peak systolic: 111 cm/sec R end diastolic: 19 cm/sec L peak systolic: 77 cm/sec L end diastolic: 13 cm/sec ICA proximal R peak systolic: 43 cm/sec R end diastolic: 12 cm/sec L peak systolic: 284 cm/sec L end diastolic: 48 cm/sec ICA distal R peak systolic: 74 cm/sec R end diastolic: 19 cm/sec L peak systolic: 128 cm/sec L end diastolic: 30 cm/sec ECA R peak systolic: 143 cm/sec R end diastolic: 19 cm/sec L peak systolic: 219 cm/sec L end diastolic: 25 cm/sec Vertebral artery R peak systolic: 87 cm/sec R end diastolic: 24 cm/sec L peak systolic: 62 cm/sec L end diastolic: 14 cm/sec ICA:CCA R peak systolic: 0.7 R end diastolic: -- L peak systolic: 2.8 L end diastolic: -- FLOW/PLAQUE LOCATION Plaque Surface Plaque Morphology Plaque Morphology R prox internal carotid Smooth -- Heterogeneous L prox internal carotid Irregular Heterogeneous Hard Prepared and Electronically Authenticated Luke Ochoa MD Confirmed March 15, 2007 15:45:58 Procedure Note Provider, Historical - 03/15/2007 Please type in written order in Special Instructions field. [address] [place], [place] [address]: [email or web address] Noninvasive Vascular Lab Carotid Duplex Study Patient: Jacques Quiroz Study ID: BLOOD FLOW STUDY Gender: M : 1940 Age: 66 years Race: 1 Room: Bed: Height: Study Date: March 15, 2007 Patient status: Outpatient Weight: Access. #: [id number] POC: Manager Of Application Development: Sumanth Ordering: Romina Attending MD: Romina Admitting MD: Romina SUMMARY: The right carotid Doppler velocities and ratios are within normallimits, excluding significant stenosis. Abnormal left internal carotid artery Doppler velocity parameters consistent with moderate 50 - 79% stenosis. This study was compared to the previous study of August 17, 2006. Therehas been marked improvement on the right following right carotid endarterectomy. VELOCITY IMPRESSIONS The right carotid Doppler velocities and ratios are within normallimits, excluding significant stenosis. Abnormal left internal carotid artery Doppler velocity parameters consistent with moderate 50 - 79% stenosis. COMPARISONS This study was compared to the previous study of August 17, 2006. Therehas been marked improvement on the right following right carotid endarterectomy. Cerebrovascular disease regression noted on right. HISTORY AND INDICATIONS: INDICATIONS Post endarterectomy (right). BASELINE PHYSICAL EXAMINATION Baseline brachial blood pressure: 140 / 80 mmHg (right) 144 / 80 mmHg (left). STUDY INFORMATION: PROCEDURE PERFORMED A duplex study of the right and left carotid systems was performed with B-Mode imaging and spectral analysis. PROCEDURE DETAIL This was an outpatient procedure. DOPPLER VELOCITIES CCA proximal R peak systolic: 108 cm/sec R end diastolic: 14 cm/sec L peak systolic: 103 cm/sec L end diastolic: 17 cm/sec CCA distal R peak systolic: 111 cm/sec R end diastolic: 19 cm/sec L peak systolic: 77 cm/sec L end diastolic: 13 cm/sec ICA proximal R peak systolic: 43 cm/sec R end diastolic: 12 cm/sec L peak systolic: 284 cm/sec L end diastolic: 48 cm/sec ICA distal R peak systolic: 74 cm/sec R end diastolic: 19 cm/sec L peak systolic: 128 cm/sec L end diastolic: 30 cm/sec ECA R peak systolic: 143 cm/sec R end diastolic: 19 cm/sec L peak systolic: 219 cm/sec L end diastolic: 25 cm/sec Vertebral artery R peak systolic: 87 cm/sec R end diastolic: 24 cm/sec L peak systolic: 62 cm/sec L end diastolic: 14 cm/sec ICA:CCA R peak systolic: 0.7 R end diastolic: -- L peak systolic: 2.8 L end diastolic: -- FLOW/PLAQUE LOCATION Plaque Surface Plaque Morphology Plaque Morphology R prox internal carotid Smooth -- Heterogeneous L prox internal carotid Irregular Heterogeneous Hard Prepared and Electronically Authenticated Luke Ochoa MD Confirmed March 15, 2007 15:45:58 us Nghia Longoria MD US ORDERABLES Final Result documented in this encounter Visit Diagnoses Diagnosis Occlusion and stenosis of carotid artery without mention of cerebral infarction documented in this encounter Care Teams Assistant Health Educator Relationship Specialty Start Date End Date [facility], External Provider [address] [place] [address] PCP - General 08/06/19 documented as of this encounter
[2024-05-11 10:41] LABS: Cholesterol 129 mg/dL (0-200); HDL Direct 52 mg/dL (40-60); LDL Cholesterol Calculated 71 mg/dL (<130); Triglycerides 31 mg/dL (0-150)
== END 2024-05-11 09:18 | disposition home or self-care (01) ==
PROVIDERS: PCP Nurse Practitioner Family; Visit Provider Psychiatry & Neurology Neurology
DX: I69.30 Unspecified sequelae of cerebral infarction (principal); Z87.828 Personal history of other (healed) physical injury and trauma
CPT/HCPCS: 36415; 70551; 80061

== ENCOUNTER 2024-05-15 15:45 | Outpatient (CLI) | payer MEDICARE, SELFPAY ==
--- NOTE | ~2024-05-15 | US_ITS ---
EXAMINATION: US carotid duplex BI DATE: 05/15/2024 17:49 INDICATION: Personal history of TIA. TECHNIQUE: Grayscale, color Doppler, and pulsed Doppler images of the cervical carotid arteries were obtained. The degree of vessel stenosis is placed in one of the following categories: normal, <50%, 5 0-69%, >=70% but less than near-occlusion, near-occlusion, or total occlusion. Note that percent sten osis relative to normal distal artery lumen diameter is indirectly measured from velocity measurement s as described by Harshal, et al. Radiology 2003; 229:340-346. Notes: Normal: Peak systolic velocity <125 centimeters/sec and no plaque <50%. Peak systolic velocity <125 ( EDV <40; ICA/CCA PSV ratio <2.0; used these factors only a tandem lesions or low cardiac output or co ntralateral disease) 50-69 %: PSV 125-230 (EDV 40-100; ratio 2-4) >= 70% but less than near occlusion: PSV greater than 230 (EDV > 100; ratio> 4.0) Near Occlusion: PSV that is variable; markedly narrowed lumen Occlusion: Absent flow on color/spectral Doppler and no lumen on beard scale. COMPARISON: None. FINDINGS: RIGHT: The right common carotid artery (CCA) peak systolic velocity (PSV) is 74 cm/s. The right internal car otid artery (ICA) PSV is 156 cm/s. The right ICA end-diastolic velocity (EDV) is 62 cm/s. The right I CA/CCA PSV ratio is 2.1. The external carotid artery (ECA) PSV is 162 cm/s. There is antegrade flow i n the right vertebral artery. LEFT: The left CCA PSV is 72 cm/s. The left ICA PSV is 223 cm/s. The left ICA EDV is 26 cm/s. The left ICA/ CCA PSV ratio is 3.1. The ECA PSV is 353 cm/s. Flow in the left vertebral artery not visualized. IMPRESSION: 1. 50-69% stenosis in the right internal carotid artery by sonographic criteria. 2. 50-69% stenosis in the left internal carotid artery by sonographic criteria. 3: Left vertebral artery flow not visualized, possibly occluded. Reviewed, dictated and finalized at location A. IMPRESSION: 1. 50-69% stenosis in the right internal carotid artery by sonographic criteria . 2. 50-69% stenosis in the left internal carotid artery by sonographic criteria. 3: Left vertebral artery flow not visualized, possibly occluded.
--- OUTSIDE RECORDS SUMMARY | 2024-05-15 16:58 | XMS_ITS ---
Author Organization [facility] Address [address] [place], [place] [id number] Care Team Providers Care Historical Records Administrator Name Role Phone MADELINE CARRASCO Unavailable [phone] Toño Dejesus Unavailable Unavailable RENEA SIMMONS Unavailable [phone] REASON FOR VISIT *General care Medications Medication [...] Active Encounters Encounter Location Date Provider Diagnosis [facility] [address] [place], [place] [id number] 10/12/2023 RENEA SIMMONS Other hammer toe(s) (acquired), right foot M20.41 ; Tinea unguium B35.1 ; Other hammer toe(s) (acquired), left foot M20.42 ; Pain in right toe(s) M79.674 ; Pain in left toe(s) M79.675 and 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 [...] Patient denies c hest pain, history of IA, irregular heartbeat. M usculoskeletal: Patient complains of [...] . P ain in right toe(s) - M79.670 5 . P ain in left toe(s) - M79.675 6 . U nspecified atherosclerosis of viejas arteries of extremities, bilateral legs - I70.203 [...] were emphasized. 3. U nspecified atherosclerosis of viejas arteries of extremities, bilateral legs Notes: Patient educated on risks and aggravating factors of PVD, including conservative treatment options such as a diet and exercise regimen to aid in slowing progression of vascular disease ? * Procedure Codes: 1 1721 DEBRIDE NAIL, 6 OR MORE, Modifiers: Q8 * Follow Up: 3 Months * Billing Information: * Visit Code: * Procedure Codes: 81036 DEBRIDE NAIL, 6 OR MORE. Modifiers: Q8 * Sign off status: Completed true * Provider: Irene SIMMONS Date: 0 10/12/2023 Generated for Alen pitts/Lakesha on: 0 05/15/2024 04:58 PM CDT History and Physical Notes * HPI [...]
--- OUTSIDE RECORDS SUMMARY | 2024-05-15 16:58 | XMS_ITS | Encounter Summary ---
Author Organization [facility] Address [address] [place] [address] Care Team Providers Care Extra Hand Name Role Phone [facility], External Provider Primary Care Provider U beccaailjoao Encounter Details Date Type Department Care Team (Late st Contact Info) Description 08/23/2006 Outpatient Historical [facility] [place] [facility]) [address] 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
--- OUTSIDE RECORDS SUMMARY | 2024-05-15 16:58 | XMS_ITS | Encounter Summary ---
Author Organization [employer] [facility] Address [address] [place] [address] Care Team Providers Care Mixing Machine Operator Name Role Phone [facility], External Provider Primary Care Provider U beccaailable Encounter Details Date Type Department Care Team (Late st Contact Info) Description 08/23/2006 Outpatient Historical [facility] [place] [facility] ([facility]iology[facility]) [address] 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
--- OUTSIDE RECORDS SUMMARY | 2024-05-15 16:58 | XMS_ITS | Encounter Summary ---
Author Organization [facility] Address [address] [place] [address] Care Team Providers Care Public Health Advisor Name Role Phone [facility] Primary Care Provider U navailable Encounter Details Date Type Department Care Team (Late st Contact Info) Description 08/17/2006 Outpatient Historical [facility] Blood Flow [address] [place] [address] Nghia Longoria MD [address] [place] [address] Social History Tobacco Use Types Packs/Day Years Used Date Smoking Tobacco: Never Assessed Sex and Gender Information Value Date Recorded Sex Assigned at Not on file 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
--- OUTSIDE RECORDS SUMMARY | 2024-05-15 16:58 | XMS_ITS | Patient Health Record ---
Author Organization [facility] Address [address] [place], [place] [id number] Care Team Providers Care Director Of Laboratory Operations Name Role Phone MADELINE CARRASCO Unavailable [phone] Toño Dejesus Unavailable Unavailable RENEA SIMMONS Unavailable [phone] Allergies No Known Allergies Reason For Referral [...] 06/22/2023 Encounters Encounter Location Date Provider Diagnosis [facility] [address] [place], [place] [id number] 01/25/2024 RENEA SIMMONS Other hammer toe(s) (acquired), right foot M20.41 ; Tinea unguium B35.1 ; Other hammer toe(s) (acquired), left foot M20.42 ; Pain in right toe(s) M79.674 ; Pain in left toe(s) M79.675 and 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, bilateral legs I70.203 [facility] [address] [place], [place] [id number] 06/22/2023 RENEA SIMMONS Other hammer toe(s) (acquired), right foot M20.41 ; Tinea unguium B35.1 ; Other hammer toe(s) (acquired), left foot M20.42 ; Pain in right toe(s) M79.674 ; Pain in left toe(s) M79.675 and 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, bilateral legs I70.203 [facility] [address] [place], [place] [id number] 10/12/2023 RENEA SIMMONS Other hammer toe(s) (acquired), right foot M20.41 ; Tinea unguium B35.1 ; Other hammer toe(s) (acquired), left foot M20.42 ; Pain in right toe(s) M79.674 ; Pain in left toe(s) M79.675 and 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, bilateral legs I70.203 Assessments [...] (ICD-10 - M79.675) 06/22/2023 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, 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) Patient educated on risks and aggravating factors of PVD, including conservative treatment options such as a diet and exercise regimen to aid in slowing progression of vascular disease 01/25/2024 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, 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) Patient educated on risks and aggravating factors of PVD, including conservative treatment options such as a diet and exercise regimen to aid in slowing progression of vascular disease 10/12/2023 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, 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) Patient educated on risks and aggravating factors of PVD, including conservative treatment options such as a diet and exercise regimen to aid in slowing progression of vascular disease Plan Of Treatment Next Appt Details Provider Name:LOLA Darryn LOPEZ, 07/25/2024 11:30:00 AM, [address] [place] [address], [id number], Insurance Providers Payer Name Payer Address Payer Phone Subscriber Number Group Number Insured Name Patient Relationship to Insured Coverage Start Date Coverage End Date Medicare Cedrick Merchant GBA [id number] [address] [address] [place], [place] [phone] [id number] ASMITA NIETO Self - patient is the insured [facility] ATTN CLAIMS [address] [place] [address] [id number] ASMITA NIETO Self - patient is the insured
--- OUTSIDE RECORDS SUMMARY | 2024-05-15 16:58 | XMS_ITS | Continuity of Care Document ---
Author Name [facility] Organization [facility] Care Team Providers Care Home Coordinator Name Role Phone [facility] Unavailable Unavailable Problems Combined list of problems from Department of Defense and Veterans Affairs facilities. It does not include entries that were removed or entered in error. Problem Status Onset Date Problem Type Date of Resolution Comments Source Abnormal swallowing Active Condition [facility] Appendix absent Active Condition [facility] Carotid artery stenosis Active Condition May 08, 2023 Entered By: LORENA GRIFFIN ES Comment: 95% right sided. Vascular declined [facility] intervene outside [facility] [place]. [facility] COPD - Chronic Obstructive Pulmonary Disease ([facility] [id number]) Active Condition [facility] CVD - Cerebrovascular Disease ([facility] 27361820) Active Condition May 06, 2022 Entered By: LORENA GRIFFIN ES Comment: right sided stroke left sided weakness.May 08, 2023 Entered By: LROENA GRIFFIN ES Comment: cva in september 2022. [facility] Dementia ([facility] [id number]) Active Condition May 08, 2023 Entered By: LORENA GRIFFIN ES Comment: vascular and parkinson's. [facility] Erectile dysfunction Active Condition [facility] Exposure to potentially hazardous substance Active Condition [facility] Glaucoma Active Condition [facility] HTN - Hypertension ([facility] [id number]) Active Condition [facility] Incontinence Active Condition [facility] LBP - Low back pain Active Condition May 06, 2022 Entered By: LORENA GRIFFIN ES Comment: status post discectomy [facility] Mixed Hyperlipidemia ([facility] [id number]) Active Condition [facility] Neuropathy (nerve damage) Active Condition [facility] Parkinsonism Active Condition [facility] Polyp Colon ([facility] [id number]) Active Condition [facility] PVD - peripheral vascular disease Active Condition May 06 Entered By: LORENA GRIFFIN Comment: left sided weakness.May 06, 2022 Entered By: LORENA GRIFFIN Comment: status post right cea [facility] Rotator cuff impingement syndrome Active Condition May 06, 2022 Entered By: LORENA GRIFFIN Comment: left [facility] Vitamin B12 Deficiency ([facility] [id number]) Active Condition [facility] Diagnosis: ICD-10-CM I67.9 Cerebrovascular disease, unspecified Active Diagnosis [facility] Diagnosis: ICD-10-CM Z55.9 Problems related to education and literacy, unspecified Active Diagnosis [facility] Medications Combined list of outpatient medications from [...] A DAY ORAL ACTIVE LUCERO GRIFFIN 2022 [facility] ATORVASTATI N CA 80MG TAB TAKE ONE-HALF TABLET BY MOUTH EVERY EVENING ORAL ACTIVE LUCERO GRIFFIN 2022 [facility] CARBIDOPA 25MG/LEVODO PA 100MG TAB TAKE ONE TABLET BY MOUTH 6 TIMES A DAY ORAL ACTIVE LUCERO GRIFFIN 2022 [facility] CICLOPIROX 8% SOLN,TOP APPLY LIGHTLY TO AFFECTED AREA(S) ONCE A DAY (THIN COAT TO THICK NAILS - FILE DOWN AFTER 1 WEEK) (EXTERNA L USE ONLY) TOPICA L ACTIVE 05/09/2025 [id number] LUCERO GRIFFIN 2024 6.6 [facility] CILOSTAZOL 100MG TAB TAKE ONE TABLET BY MOUTH TWICE A DAY ORAL ACTIVE LUCERO GRIFFIN 2022 [facility] CLOPIDOGREL BISULFATE 75MG TAB TAKE ONE TABLET BY MOUTH ONCE A DAY ORAL ACTIVE LUCERO GRIFFIN 2024 [facility] CYANOCOBALA MIN 1000MCG TAB TAKE ONE TABLET BY MOUTH ONCE A DAY ORAL ACTIVE LUCERO GRIFFIN 2022 [facility] LATANOPROST 0.005% SOLN,OPH INSTILL 1 DROP IN BOTH EYES EVERY EVENING OPHTHA LMIC ACTIVE SIMMERLUCERO BOSTON 2022 [facility] LISINOPRIL 10MG TAB TAKE ONE-HALF TABLET BY MOUTH ONCE A DAY ORAL ACTIVE LUCERO GRIFFIN 2024 [facility] MEMANTINE HCL 5MG TAB TAKE ONE TABLET BY MOUTH TWICE A DAY ORAL ACTIVE 06/14/2024 [id number] SIMLUCERO PAN 2023 180 [facility] TIMOLOL MALEATE 0.5% SOLN,OPH INSTILL 1 DROP IN BOTH EYES TWICE A DAY OPHFELICITAS LM ACTIVE LUCERO GIRFFIN 2022 [facility] Immunizations Combined list of available immunizations from the Department of Defense and Veterans Affairs facilities. Immunization Series Date Given Administered By Site Reaction Lot Number CVX Code Drug Data Warehousing Specialist Status Comments Source RSV, BIVALENT, PROTEIN SUBUNIT RSVPREF, DILUENT RECONSTITUTED , 0.5 ML, PF 2023 DINA LAMB R RIGHT DEL[place] ID [id number] [place] [address] [facility] Results Combined list of recent chemistry, [...] May 08, 2024 12:01 PM Reporting Lab: [facility] [address] [facility] [phone] Performing Lab: [facility] [address] [facility] [address] [facility] VITAMIN D, 25-HYDROXY 25-HYDROXYVI TAMIN D3 [MASS/VOLUME ] IN SERUM OR PLASMA 27.2 ng/mL 30 - 96 05/08 L Specimen Type: SERUM No comment entered. Ordering Provider: LUCERO GRIFFIN Report Released Date/Time: May 08, 2024 12:01 PM Reporting Lab: [facility] [address] [place] [address] Performing Lab: [address] [facility] URINALYSIS (STL-PB) COLOR OF URINE Yellow 05/08 Specimen Type: URINE No comment entered. Ordering Provider: LUCERO GRIFFIN Report Released Date/Time: May 08, 2024 12:01 PM Reporting Lab: [place] [address] Performing Lab: [address] [facility] URINALYSIS (STL-PB) BILIRUBIN.TO RORO [PRESENCE] IN URINE BY TEST STRIP Negativ emg/dL 05/08 Specimen Type: URINE No comment entered. Ordering Provider: LUCERO GRIFFIN Report Released Date/Time: May 08, 2024 12:01 PM Reporting Lab: [facility] [address] [place] [address] Performing Lab: [address] [facility] URINALYSIS (STL-PB) PH OF URINE BY TEST STRIP 6.0 5.0 - 8.0 05/08 Specimen Type: URINE No comment entered. Ordering Provider: LUCERO GRIFFIN Report Released Date/Time: May 08, 2024 12:01 PM Reporting Lab: [place] [address] Performing Lab: [address] [facility] URINALYSIS (STL-PB) LEUKOCYTES [#/AREA] IN URINE SEDIMENT BY MICROSCOPY HIGH POWER FIELD >182/[H PF] 0 - 5 05/08 H Specimen Type: URINE No comment entered. Ordering Provider: LUCERO GRIFFIN Report Released Date/Time: May 08, 2024 12:01 PM Reporting Lab: [facility] [address] [place] [phone] Performing Lab: [facility] [address] [place] [phone] [place] [address] [facility] URINALYSIS (STL-PB) ERYTHROCYTES [#/VOLUME] IN URINE SEDIMENT BY MICROSCOPY HIGH POWER FIELD 3 /[HPF] 0 - 5 05/08 Specimen Type: URINE No comment entered. Ordering Provider: LUCERO GRIFFIN Report Released Date/Time: May 08, 2024 12:01 PM Reporting Lab: [facility] [address] [place] [address] Performing Lab: [address] [facility] URINALYSIS (STL-PB) APPEARANCE OF URINE Turbid 05/08 Specimen Type: URINE No comment entered. Ordering Provider: LUCERO GRIFFIN Report Released Date/Time: May 08, 2024 12:01 PM Reporting Lab: [facility] [address] [place] [address] Performing Lab: [place] [phone] [facility] URINALYSIS (STL-PB) NITRITE [PRESENCE] IN URINE BY TEST STRIP 2+mg/dL 05/08 H Specimen Type: URINE No comment entered. Ordering Provider: LUCERO GRIFFIN Report Released Date/Time: May 08, 2024 12:01 PM Reporting Lab: [facility] [address] [place] [address] Performing Lab: [address] [facility] URINALYSIS (STL-PB) BACTERIA [PRESENCE] IN URINE SEDIMENT BY LIGHT MICROSCOPY OCC/[HP F] 05/08 Specimen Type: URINE No comment entered. Ordering Provider: LUCERO GRIFFIN Report Released Date/Time: May 08, 2024 12:01 PM Reporting Lab: [facility] [address] [place] [address] Performing Lab: [facility] [address] [place] [address] [phone] [facility] URINALYSIS (STL-PB) EPITHELIAL CELLS [#/AREA] IN URINE SEDIMENT BY MICROSCOPY LOW POWER FIELD 2 /[HPF] 0 - 5 05/08 Specimen Type: URINE No comment entered. Ordering Provider: LUCERO GRIFFIN Report Released Date/Time: May 08, 2024 12:01 PM Reporting Lab: [place] [address] Performing Lab: [address] [facility] URINALYSIS (STL-PB) MUCUS [PRESENCE] IN URINE SEDIMENT BY LIGHT MICROSCOPY RARE/[L PF] 05/08 Specimen Type: URINE No comment entered. Ordering Provider: LUCERO GRIFFIN Report Released Date/Time: May 08, 2024 12:01 PM Reporting Lab: [facility] [address] [place] [address] Performing Lab: [place] [phone] [facility] URINALYSIS (STL-PB) GLUCOSE [MASS/VOLUME ] IN URINE BY TEST STRIP Normalm g/dL 05/08 Specimen Type: URINE No comment entered. Ordering Provider: LUCERO GRIFFIN Report Released Date/Time: May 08, 2024 12:01 PM Reporting Lab: [facility] [address] [place] [address] Performing Lab: [place] [phone] [facility] URINALYSIS (STL-PB) PROTEIN [MASS/VOLUME ] IN URINE BY TEST STRIP 20 mg/dL 05/08 H Specimen Type: URINE No comment entered. Ordering Provider: LUCERO GRIFFIN Report Released Date/Time: May 08, 2024 12:01 PM Reporting Lab: [facility] [address] [phone] Performing Lab: [facility] [address] [phone] [facility] URINALYSIS (STL-PB) URN.UROBILIN OGEN Normalm g/dL 05/08 Specimen Type: URINE No comment entered. Ordering Provider: LUCERO GRIFFIN Report Released Date/Time: May 08, 2024 12:01 PM Reporting Lab: [facility] [address] [place] [phone] Performing Lab: [place] [address] [facility] URINALYSIS (STL-PB) HEMOGLOBIN [MASS/VOLUME ] IN URINE BY TEST STRIP Negativ emg/dL 05/08 Specimen Type: URINE No comment entered. Ordering Provider: LUCERO GRIFFIN Report Released Date/Time: May 08, 2024 12:01 PM Reporting Lab: [facility] [place] [phone] Performing Lab: [facility] [place] [phone] [facility] URINALYSIS (STL-PB) KETONES [MASS/VOLUME ] IN URINE BY TEST STRIP Tracemg /dL 05/08 Specimen Type: URINE No comment entered. Ordering Provider: LUCERO GRIFFIN Report Released Date/Time: May 08, 2024 12:01 PM Reporting Lab: [facility] [address] [place] [phone] Performing Lab: [facility] [address] [facility] URINALYSIS (STL-PB) URN.LEUK.EST . 500 mg/dL 05/08 H Specimen Type: URINE No comment entered. Ordering Provider: LUCERO GRIFFIN Report Released Date/Time: May 08, 2024 12:01 PM Reporting Lab: [facility] [address] [facility] [phone] Performing Lab: [place] [address] [facility] [phone] [facility] URINALYSIS (STL-PB) SPECIFIC GRAVITY OF URINE 1.022 05/08 Specimen Type: URINE No comment entered. Ordering Provider: LUCERO GRIFFIN Report Released Date/Time: May 08, 2024 12:01 PM Reporting Lab: [place] [address] [facility] [phone] Performing Lab: [address] [phone] [facility] COMPREHENS ALBA METABOLIC PANEL CREATININE [MASS/VOLUME ] IN SERUM OR PLASMA 0.72 mg/dL 0.7 - 1.3 05/08 Specimen Type: PLASMA Comment: No hemolysis noted. Ordering Provider: LUCERO GRIFFIN Report Released Date/Time: May 08, 2024 12:01 PM Reporting Lab: [place] [address] [facility] [phone] Performing Lab: [address] [phone] [facility] COMPREHENS ALBA METABOLIC PANEL UREA NITROGEN [MASS/VOLUME ] IN SERUM OR PLASMA 12.4 mg/dL 9.0 - 25.0 05/08 Specimen Type: PLASMA Comment: No hemolysis noted. Ordering Provider: LUCERO GRIFFIN Report Released Date/Time: May 08, 2024 12:01 PM Reporting Lab: [place] [address] [facility] [phone] Performing Lab: [address] [phone] [facility] COMPREHENS ALBA METABOLIC PANEL GLUCOSE [MASS/VOLUME ] IN SERUM OR PLASMA 104 mg/dL 72 - 99 05/08 H Specimen Type: PLASMA Comment: No hemolysis noted. Ordering Provider: LUCERO GRIFFIN Report Released Date/Time: May 08, 2024 12:01 PM Reporting Lab: [address] [place] [address] Performing Lab: [facility] [address] [place] [phone] [facility] COMPREHENS ALBA METABOLIC PANEL SODIUM [MOLES/VOLUM E] IN SERUM OR PLASMA 139 meq/L 136 - 145 05/08 Specimen Type: PLASMA Comment: No hemolysis noted. Ordering Provider: LUCERO GRIFFIN Report Released Date/Time: May 08, 2024 12:01 PM Reporting Lab: [address] [phone] Performing Lab: [address] [address] [facility] COMPREHENS ALBA METABOLIC PANEL POTASSIUM [MOLES/VOLUM E] IN SERUM OR PLASMA 4.0 meq/L 3.5 - 5 05/08 Specimen Type: PLASMA Comment: No hemolysis noted. Ordering Provider: LUCERO GRIFFIN Report Released Date/Time: May 08, 2024 12:01 PM Reporting Lab: [address] [phone] Performing Lab: [address] [address] [facility] COMPREHENS ALBA METABOLIC PANEL CHLORIDE [MOLES/VOLUM E] IN SERUM OR PLASMA 104 meq/L 98 - 107 05/08 Specimen Type: PLASMA Comment: No hemolysis noted. Ordering Provider: LUCERO GRIFFIN Report Released Date/Time: May 08, 2024 12:01 PM Reporting Lab: [address] [phone] Performing Lab: [address] [phone] [facility] COMPREHENS ALBA METABOLIC PANEL CARBON DIOXIDE, TOTAL [MOLES/VOLUM E] IN SERUM OR PLASMA 27 meq/L 22 - 31 05/08 Specimen Type: PLASMA Comment: No hemolysis noted. Ordering Provider: LUCERO GRIFFIN Report Released Date/Time: May 08, 2024 12:01 PM Reporting Lab: [facility] [address] [facility] [address] Performing Lab: [facility] [address] [facility] [phone] [facility] COMPREHENS ALBA METABOLIC PANEL CALCIUM [MASS/VOLUME ] IN SERUM OR PLASMA 9.9 mg/dL 8.4 - 10.4 05/08 Specimen Type: PLASMA Comment: No hemolysis noted. Ordering Provider: LUCERO GRIFFIN Report Released Date/Time: May 08, 2024 12:01 PM Reporting Lab: [facility] [address] [facility] [address] Performing Lab: [facility] [address] [facility] [phone] [facility] COMPREHENS ALBA METABOLIC PANEL PROTEIN [MASS/VOLUME ] IN SERUM OR PLASMA 7.0 g/dL 6 - 8.6 05/08 Specimen Type: PLASMA Comment: No hemolysis noted. Ordering Provider: LUCERO GRIFFIN Report Released Date/Time: May 08, 2024 12:01 PM Reporting Lab: [facility] [address] [facility] [phone] Performing Lab: [facility] [address] [facility] [phone] [facility] COMPREHENS ALBA METABOLIC PANEL ALBUMIN [MASS/VOLUME ] IN SERUM OR PLASMA 3.7 g/dL 3.4 - 5 05/08 Specimen Type: PLASMA Comment: No hemolysis noted. Ordering Provider: LUCERO GRIFFIN Report Released Date/Time: May 08, 2024 12:01 PM Reporting Lab: [facility] [address] [facility] [phone] Performing Lab: [facility] [address] [place] [phone] [facility] COMPREHENS ALBA METABOLIC PANEL BILIRUBIN.TO RORO [MASS/VOLUME ] IN SERUM OR PLASMA 1.1 mg/dL 0.2 - 1.2 05/08 Specimen Type: PLASMA Comment: No hemolysis noted. Ordering Provider: LUCERO GRIFFIN Report Released Date/Time: May 08, 2024 12:01 PM Reporting Lab: [place] [address] [facility] [address] Performing Lab: [address] [phone] [place] [address] CBOC COMPREHENS ALBA METABOLIC PANEL ALKALINE PHOSPHATASE [ENZYMATIC ACTIVITY/VOL UME] IN SERUM OR PLASMA 78 U/L 40 - 150 05/08 Specimen Type: PLASMA Comment: No hemolysis noted. Ordering Provider: LUCERO GRIFFIN Report Released Date/Time: May 08, 2024 12:01 PM Reporting Lab: [place] [address] [facility] [address] Performing Lab: [address] [phone] [place] [address] [facility]OC COMPREHENS ALBA METABOLIC PANEL ASPARTATE AMINOTRANSFE RASE [ENZYMATIC ACTIVITY/VOL UME] IN SERUM OR PLASMA 41 U/L 5 - 34 05/08 H Specimen Type: PLASMA Comment: No hemolysis noted. Ordering Provider: LUCERO GRIFFIN Report Released Date/Time: May 08, 2024 12:01 PM Reporting Lab: [address] [phone] Performing Lab: [place] [address] [facility] [phone] [facility] COMPREHENS ALBA METABOLIC PANEL ALANINE AMINOTRANSFE RASE [ENZYMATIC ACTIVITY/VOL UME] IN SERUM OR PLASMA <7U/L 8 - 40 05/08 L Specimen Type: PLASMA Comment: No hemolysis noted. Ordering Provider: LUCERO GRIFFIN Report Released Date/Time: May 08, 2024 12:01 PM Reporting Lab: [address] [address] Performing Lab: [address] [phone] [facility] COMPREHENS ALBA METABOLIC PANEL GLOMERULAR FILTRATION RATE/1.73 SQ M.PREDICTED [VOLUME RATE/AREA] IN SERUM, PLASMA OR BLOOD BY CREATININE-B ASED FORMULA (CKD-EPI 2020) 91.2 60 05/08 Specimen Type: PLASMA Comment: No hemolysis noted. Ordering Provider: LUCERO GRIFFIN Report Released Date/Time: May 08, 2024 12:01 PM Reporting Lab: [facility] [address] [place] [phone] Performing Lab: [facility] [address] [place] [phone] [facility] LIPID PANEL (STL) CHOLESTEROL [MASS/VOLUME ] IN SERUM OR PLASMA 132 mg/dL 0 - 200 05/08 Specimen Type: PLASMA Comment: No hemolysis noted. Ordering Provider: LUCERO GRIFFIN Report Released Date/Time: May 08, 2024 12:01 PM Reporting Lab: [facility] [address] [place] [phone] Performing Lab: [facility] [address] [place] [phone] [facility] LIPID PANEL (STL) TRIGLYCERIDE [MASS/VOLUME ] IN SERUM OR PLASMA 55 mg/dL 0 - 150 05/08 Specimen Type: PLASMA Comment: No hemolysis noted. Ordering Provider: LUCERO GRIFFIN Report Released Date/Time: May 08, 2024 12:01 PM Reporting Lab: [facility] [address] [place] [phone] Performing Lab: [facility] [address] [place] [phone] [facility] LIPID PANEL (STL) CHOLESTEROL IN LDL [MASS/VOLUME ] IN SERUM OR PLASMA BY CALCULATION 75 mg/dL 05/08 Specimen Type: PLASMA Comment: No hemolysis noted. Ordering Provider: LUCERO GRIFFIN Report Released Date/Time: May 08, 2024 12:01 PM Reporting Lab: [facility] [address] [place] [phone] Performing Lab: [facility] [address] [place] [phone] [facility] LIPID PANEL (STL) CHOLESTEROL IN HDL [MASS/VOLUME ] IN SERUM OR PLASMA 46 mg/dL 40 05/08 Specimen Type: PLASMA Comment: No hemolysis noted. Ordering Provider: LUCERO GRIFFIN Report Released Date/Time: May 08, 2024 12:01 PM Reporting Lab: [facility] [address] [place], [place] [phone] Performing Lab: [facility] [address] [place] [phone] [facility] CBC LEUKOCYTES [#/VOLUME] IN BLOOD BY AUTOMATED COUNT 7.9 10*3/uL 3.6 - 11.2 05/08 Specimen Type: BLOOD No comment entered. Ordering Provider: LUCERO GRIFFIN Report Released Date/Time: May 08, 2024 12:01 PM Reporting Lab: [facility] [address] [place] [address] Performing Lab: [place] [phone] [facility] CBC ERYTHROCYTES [#/VOLUME] IN BLOOD BY AUTOMATED COUNT 4.54 10*6/uL 4.10 - 5.70 05/08 Specimen Type: BLOOD No comment entered. Ordering Provider: LUCERO GRIFFIN Report Released Date/Time: May 08, 2024 12:01 PM Reporting Lab: [facility] [address] [place] [address] Performing Lab: [place] [phone] [facility] CBC HEMOGLOBIN [MASS/VOLUME ] IN BLOOD 13.5 g/dL 13.1 - 16.8 05/08 Specimen Type: BLOOD No comment entered. Ordering Provider: LUCERO GRIFFIN Report Released Date/Time: May 08, 2024 12:01 PM Reporting Lab: [facility] [address] [place] [address] Performing Lab: [place] [phone] [facility] CBC HEMATOCRIT [VOLUME FRACTION] OF BLOOD 41.2 38.2 - 48.4 05/08 Specimen Type: BLOOD No comment entered. Ordering Provider: LUCERO GRIFFIN Report Released Date/Time: May 08, 2024 12:01 PM Reporting Lab: [facility] [address] [place] [phone] Performing Lab: [address] [phone] [place] [address] [facility] CBC MCV [ENTITIC VOLUME] BY AUTOMATED COUNT 90.7 fL 80.0 - 100.0 05/08 Specimen Type: BLOOD No comment entered. Ordering Provider: LUCERO GRIFFIN Report Released Date/Time: May 08, 2024 12:01 PM Reporting Lab: [address] [phone] Performing Lab: [place] [phone] [facility] CBC MCH [ENTITIC MASS] BY AUTOMATED COUNT 29.7 pg 27.0 - 34.0 05/08 Specimen Type: BLOOD No comment entered. Ordering Provider: LUCERO GRIFFIN Report Released Date/Time: May 08, 2024 12:01 PM Reporting Lab: [address] [phone] Performing Lab: [address] [phone] [facility] CBC MCHC [MASS/VOLUME ] BY AUTOMATED COUNT 32.8 g/dL 33.0 - 36.0 05/08 L Specimen Type: BLOOD No comment entered. Ordering Provider: LUCERO GRIFFIN Report Released Date/Time: May 08, 2024 12:01 PM Reporting Lab: [address] [phone] Performing Lab: [address] [phone] [facility] CBC PLATELETS [#/VOLUME] IN BLOOD BY AUTOMATED COUNT 280 10*3/uL 150 - 400 05/08 Specimen Type: BLOOD No comment entered. Ordering Provider: LUCERO GRIFFIN Report Released Date/Time: May 08, 2024 12:01 PM Reporting Lab: [facility] [address] [place] [address] [place] [address] Performing Lab: [facility] [address] [facility] [address] [facility] CBC PLATELET MEAN VOLUME [ENTITIC VOLUME] IN BLOOD BY AUTOMATED COUNT 10.1 fL 7.5 - 11.2 05/08 Specimen Type: BLOOD No comment entered. Ordering Provider: LUCERO GRIFFIN Report Released Date/Time: May 08, 2024 12:01 PM Reporting Lab: [facility] [address] Performing Lab: [place] [address] [facility] [phone] [facility] CBC ERYTHROCYTE DISTRIBUTION WIDTH [RATIO] BY AUTOMATED COUNT 14.4 11.8 - 15.1 05/08 Specimen Type: BLOOD No comment entered. Ordering Provider: LUCERO GRIFFIN Report Released Date/Time: May 08, 2024 12:01 PM Reporting Lab: [facility] [address] Performing Lab: [place] [address] [facility] [address] [facility] CBC LYMPHOCYTES/ 100 LEUKOCYTES IN BLOOD BY AUTOMATED COUNT 15 05/08 Specimen Type: BLOOD No comment entered. Ordering Provider: LUCERO GRIFFIN Report Released Date/Time: May 08, 2024 12:01 PM Reporting Lab: [facility] [place] [facility] [address] Performing Lab: [facility] [address] [facility] CBC MONOCYTES/10 0 LEUKOCYTES IN BLOOD BY AUTOMATED COUNT 12 05/08 Specimen Type: BLOOD No comment entered. Ordering Provider: LUCERO GRIFFIN Report Released Date/Time: May 08, 2024 12:01 PM Reporting Lab: [facility] [address] Performing Lab: [facility] [address] [facility] CBC NEUTROPHILS/ 100 LEUKOCYTES IN BLOOD BY AUTOMATED COUNT 70 05/08 Specimen Type: BLOOD No comment entered. Ordering Provider: LUCERO GRIFFIN Report Released Date/Time: May 08, 2024 12:01 PM Reporting Lab: [facility] [address] [facility] [address] Performing Lab: [facility] [address] [facility] [address] [place] [address] CBOC CBC EOSINOPHILS/ 100 LEUKOCYTES IN BLOOD BY AUTOMATED COUNT 2 05/08 Specimen Type: BLOOD No comment entered. Ordering Provider: LUCERO GRIFFIN Report Released Date/Time: May 08, 2024 12:01 PM Reporting Lab: [facility] [address] [place] [address] Performing Lab: [facility] [address] [id number] [facility] CBC BASOPHILS/10 0 LEUKOCYTES IN BLOOD BY AUTOMATED COUNT 1 05/08 Specimen Type: BLOOD No comment entered. Ordering Provider: LUCERO GRIFFIN Report Released Date/Time: May 08, 2024 12:01 PM Reporting Lab: [facility] [place] [phone] Performing Lab: [facility] [address] [phone] [facility] CBC LYMPHOCYTES [#/VOLUME] IN BLOOD BY AUTOMATED COUNT 1.18 10*3/uL 0.77 - 4.50 05/08 Specimen Type: BLOOD No comment entered. Ordering Provider: LUCERO GRIFFIN Report Released Date/Time: May 08, 2024 12:01 PM Reporting Lab: [facility] [address] [facility] [address] Performing Lab: [facility] [address] [place] [address] [facility]OC CBC MONOCYTES [#/VOLUME] IN BLOOD BY AUTOMATED COUNT 0.93 10*3/uL 0.19 - 0.80 05/08 H Specimen Type: BLOOD No comment entered. Ordering Provider: LUCERO GRIFFIN Report Released Date/Time: May 08, 2024 12:01 PM Reporting Lab: [facility] [address] [place] [address] Performing Lab: [facility] [address] [place] [address] [facility]OC CBC NEUTROPHILS [#/VOLUME] IN BLOOD BY AUTOMATED COUNT 5.59 10*3/uL 2.10 - 8.00 05/08 Specimen Type: BLOOD No comment entered. Ordering Provider: LUCERO GRIFFIN Report Released Date/Time: May 08, 2024 12:01 PM Reporting Lab: [place] [address] Performing Lab: [address] [facility] CBC EOSINOPHILS [#/VOLUME] IN BLOOD BY AUTOMATED COUNT 0.14 10*3/uL 0.00 - 0.60 05/08 Specimen Type: BLOOD No comment entered. Ordering Provider: LUCERO GRIFFIN Report Released Date/Time: May 08, 2024 12:01 PM Reporting Lab: [facility] [address] [place] [address] Performing Lab: [address] [facility] CBC BASOPHILS [#/VOLUME] IN BLOOD BY AUTOMATED COUNT 0.06 10*3/uL 0.00 - 0.20 05/08 Specimen Type: BLOOD No comment entered. Ordering Provider: LUCERO GRIFFIN Report Released Date/Time: May 08, 2024 12:01 PM Reporting Lab: [facility] [address] [place] [address] Performing Lab: [facility] [address] [place] [address] CBOC HGA1C HEMOGLOBIN A1C/HEMOGLOB IN.TOTAL IN BLOOD 5.7 4.0 - 6.0 05/08 Specimen Type: BLOOD No comment entered. Ordering Provider: LUCERO GRIFFIN Report Released Date/Time: May 08, 2024 12:01 PM Reporting Lab: [facility] [address] [facility] [address] Performing Lab: [facility] [address] [facility] [address] [facility] Vital Signs Combined list of inpatient and outpatient Vital Signs from Department of [facility] and [facility], ranging from 12 months to all on record, depending upon the facility. Vital Sign Value Date Comments Source SYSTOLIC BLOOD PRESSURE 134 05/08/2024 11:34:05 [facility] DIASTOLIC BLOOD PRESSURE 72 05/08/2024 11:34:05 [facility] PULSE OXIMETRY 94 05/08/2024 11:34:05 [facility] WEIGHT 172 05/08/2024 11:34:05 [facility] PAIN 0 05/08/2024 11:34:05 [facility] TEMPERATURE 98.2 05/08/2024 11:34:05 [facility] PULSE 63 05/08/2024 11:34:05 [facility] RESPIRATION 20 05/08/2024 11:34:05 [facility] Encounters Combined list of: 1) Encounters from Department of [facility] facilities going backup to the last 18 months, not all [place] inpatient encounters are included; 2) Encounters from the Department [facility] facilities going backup to 280 months. Location Location Details Encounter Type Encounter Number Reason For Visit Attending Provider ADM Date DC Date Status Disposition Source [facility] Outpatient Encounter [id number] 11/21 [facility] Outpatient Encounter [id number] 12/[facility] Outpatient Encounter [id number] 12/26 [facility] N [facility] OFFICE O/P EST MOD 30 MIN [id number] Diagnos is: ICD-10- CM I67.9 Cerebro vascula r disease , unspeci saundra GRIFFIN LUCERO 05/07 [facility] FEE [id number] Diagnos is: ICD-10- CM Z55.9 Problem s related to educati on and literac y, unspeci fijean JOSY CARRILLO O 05/07 [facility] Encounter [id number] FEI [place] CA E 06/11 [facility] Outpatient Encounter [id number] FEI [place] E 07/17 [facility] Encounter [id number] FEI [place] CA E 07/17 [facility] Outpatient Encounter [id number] Lavinia LAMB 05/07 [facility] OFFICE O/P EST HI 40 MIN [id number] Diagnos is: ICD-10- CM I67.9 Cerebro vascula r disease , unspeci saundra GRIFFINLUCERO 05/08 [facility] Outpatient Encounter [id number] 05/15 [facility] Social History Combined list of available smoking, tobacco, and other social history from Department of Defense and Veterans Affairs facilities. Social History Type Response Date Comment [facility] e Tobacco smoking status NHIS VA-TOBACCO USE FORMER CIGARETTES 05/08/2024 [facility] History of tobacco use VA-TOBACCO NEVER USED OTHER TYPE 05/08/2024 [facility] [place] [facility] History of tobacco use VA-TOBACCO FORMER USER 05/08/2023 [facility] History of tobacco use VA-TOBACCO FORMER USER 05/06/2022 [facility] Plan of Care List of future care activities from Department of Veterans Affairs facilities. Additional future care activities may be listed in the Assessment and Plan section. Date/Time Care Activity Care Activity Detail Facili ty 11/12/2024 AMBULATORY - MEDICINE AMBULATORY - MEDICI [facility]
--- OUTSIDE RECORDS SUMMARY | 2024-05-15 16:58 | XMS_ITS | Encounter Summary ---
Author Organization [employer] Address [address] [place] [address] Care Team Providers Care Senior Svp Name Role Phone [facility], External Provider Primary Care Provider U beccaailable Encounter Details Date Type Department Care Team (Latest Contact Info) Description 03/15/2007 Outpatient Historical HIS CARDIOPULMONARY Nghia Longoria MD [address] [place] [address] Carotid Art Occ w/o Infarc Social History Tobacco Use Types Packs/Day Years Used Date Smoking Tobacco: Never Assessed Sex and Gender Information Value Date Recorded Sex Assigned at Not on file 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 [facility] [address] [place] [address] [email or web address] Noninvasive Vascular Lab Carotid Duplex Study Patient: Jacques MESAN: [id number] Study ID: BLOOD FLOW STUDY Gender: M : 1940 Age: 66 years Race: 1 Room: Bed: Height: Study Date: March 15, 2007 Patient status: Outpatient Weight: Access. #: [id number] POC: Excavating Contractor: Sumanth Ordering: Romina Attending MD: Romina Admitting [...] in written order in Special Instructions field. [place] [address] [place], [place] [address]Ayeky: [email or web address] Noninvasive Vascular Lab Carotid Duplex Study Patient: Jacques Quiroz Study ID: BLOOD FLOW STUDY Gender: M : 1940 Age: 66 years Race: 1 Room: Bed: Height: Study Date: March 15, 2007 Patient status: Outpatient Weight: Access. #: [id number] POC: Excavating Contractor: Sumanth Ordering: Romina Attending MD: Romina Admitting [...] infarction documented in this encounter Care Teams Senior Svp Relationship Specialty Start Date End Date [facility], External Provider [address] [place] [address] PCP - General 08/06/19 documented as of this encounter
--- OUTSIDE RECORDS SUMMARY | 2024-05-15 16:58 | XMS_ITS | Encounter Summary ---
Author Organization [employer] Address 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 Nghia Longoria MD [address] [facility] [address] [place] [address] Carotid Art Occ w/o Infarc (Primary Dx) Social History Tobacco Use Types Packs/Day Years Used Date Smoking Tobacco: Never Assessed Sex and Gender Information Value Date Recorded Sex Assigned at Not on file 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 Gender Identity Not on file Sexual [...] and non- Americans is available on the [facility] Intranet at: [email or web address] Select: Lab Policies and Procedures Select: Reference Ranges - GFR 08/23/2006 10:5 4 AM CDT us Nghia Longoria MD CHEMISTRY ORDERABLES Edited INTERFACE SYSTEM Refer to clinic/hospital department documented in this encounter Visit Diagnoses Diagnosis Occlusion and stenosis of carotid artery without mention of cerebral infarction- Primary documented in this encounter Care Teams Platform Man Relationship Specialty Start Date End Date [facility], External Provider [address] [place] [address] PCP - General 08/06/19 documented as of this encounter
--- OUTSIDE RECORDS SUMMARY | 2024-05-15 16:58 | XMS_ITS | Encounter Summary ---
Author Name [facility] [facility] Address [address] [place] [address] Care Team Providers Care Production Control Analyst Name Role Phone LUCERO GRIFFIN Primary Care Provider Unavailab guthrie Insurance Providers: All historical and current Section [...] MEDIC ARE SUPPL EMENT Aug 06, 2009 [id number] [phone] LEVI NIETO PATIENT ANTHEM [place] MED[place] PLAN F MEDIC ARE SUPPL EMENT Aug 06, 2009 [id number] [phone] LEVI NIETO PATIENT ANTHEM [place] MEDICARE SUPPLEMEN [place] MEDIC ARE SUPPL EMENT Aug 06, 2009 [id number] [phone] LEVI NIETO PATIENT [place] PLAN F MEDIC ARE SUPPL EMENT Aug 06, 2009 [id number] [phone] LEVI NIETO PATIENT MEDICARE (WNR) MEDICARE (M) PART A Dec 07, 2006 PART A [id number] LEVI NIETO PATIENT MEDICARE (WNR) MEDICARE (M) PART B Dec 07, 2006 PART B [id number] [phone] LEVI NIETO PATIENT Selected Encounter This section includes the information on record at [place] for the Encounter. Date/Time Encounter Type Encounter Description Reason Pro vider Source May 15, 2024 02:39 PM Outpatient Encounter ADMIN PAT ACTIVTIES (MASNONCT) IHE Encounter Template Text not used by [place] Plan of Treatment: Future Appointments (+ 6 months) and Future Tests (+/- 45 days) The Plan of Treatment section includes future care activities for the patient from all [place] treatmentfacilities. This section includes future appointments and future orders which are active, pending or scheduled. Future Appointments This section includes appointments that were scheduled to occur 6 months from the date of the Encounter, up to a maximum of 20 appointments. The data comes from all [place] treatment facilities. Appointment Date/Time Appointment Type Appointme nt Facility Name Nov 12, 2024 11:00 AM AMBULATORY - MEDICINE [facility] Lab Results: +/- 30 days of the encounter This section includes the Chemistry and Hematology Lab Results on record with [place] for the patient. Radiology Reports and Pathology Reports are provided separately, in subsequent sections. Lab Results This section contains the Chemistry/Hematology Results that were resulted 30 days before or 30 daysafter the date of the Encounter. Date/Time Source Result Type Result - Unit Interpretation Reference Range Comment May 08, 2024 12:21 PM [facility] TSH W/ REFLEX FT4 (STL) Specimen Type: PLASMA No comment entered. Ordering Provider: AYDIN GRIFFIN Report Released Date/Time: May 08, 2024 12:01 PM Reporting Lab: [facility] [address] [facility] [address] Performing Lab: [facility] [address] [facility] [address] TSH 0.764 u[IU]/mL 0.47-5 May 08, 2024 12:21 PM [facility] VITAMIN D, 25-HYDROXY Specimen Type: SERUM No comment entered. Ordering Provider: AYDIN GRIFFIN Report Released Date/Time: May 08, 2024 12:01 PM Reporting Lab: [facility] [address] [place] [address] Performing Lab: [address] [address] VITAMIN D, 25-HYDROXY 27.2 ng/mL L 30-96 May 08, 2024 12:21 PM [facility] URINALYSIS (STL-PB) Specimen Type: URINE No comment entered. Ordering Provider: AYDIN GRIFFIN [facility] Report Released Date/Time: May 08, 2024 12:01 PM Reporting Lab: [address] [address] Performing Lab: [address] [address] URINE COLOR Yellow Yellow U.BILIRUBIN Negative mg/dL [...] GRAVITY 1.022 May 08, 2024 12:21 PM [facility] COMPREHENSIVE METABOLIC PANEL Specimen Type: PLASMA Comment: No hemolysis noted. Ordering Provider: AYDIN GRIFFIN Report Released Date/Time: May 08, 2024 12:01 PM Reporting Lab: [facility] [address] [place] [address] Performing Lab: [address] [address] CREATININE 0.72 mg/dL 0.7-1.3 UREA NITROGEN 12.4 [...] 91.2 >60 May 08, 2024 12:21 PM [facility] LIPID PANEL (STL) Specimen Type: PLASMA Comment: No hemolysis noted. Ordering Provider: AYDIN GRIFFIN Report Released Date/Time: May 08, 2024 12:01 PM Reporting Lab: [address] [address] Performing Lab: [address] [address] CHOLESTEROL 132 mg/dL 0-200 TRIGLYCERIDE 55 mg/dL 0-150 CALCULATED LDL 75 mg/dL HDL(New) 46 mg/dL >40 May 08, 2024 12:21 PM [facility] CBC Specimen Type: BLOOD No comment entered. Ordering Provider: AYDIN GRIFFIN Report Released Date/Time: May 08, 2024 12:01 PM Reporting Lab: [address] [address] Performing Lab: [address] [address] WBC 7.9 10*3/uL 3.6-11.2 RBC 4.54 10*6/uL [...] 10*3/uL 0.00-0.20 May 08, 2024 12:21 PM [facility] HGA1C Specimen Type: BLOOD No comment entered. Ordering Provider: AYDIN GRIFFIN Report Released Date/Time: May 08, 2024 12:01 PM Reporting Lab: [facility] [address] [facility] [address] Performing Lab: [address] [address] HGA1C 5.7 4.0-6.0 Encounter Notes: All associated encounter notes This section contains the clinical notes associated to the Encounter. Date/Time Encounter Note(s) Provider Source May 15, 2024 02:39 PM ADMINISTRATIVE NOT E: LOCAL TITLE: CONTACT NOTE [facility] STANDARD TITLE: ADMINISTRATIVE NOTE DATE OF NOTE: MAY 15, 2024@14:39 ENTRY DATE: MAY 15, 2024@14:39:22 AUTHOR: REBEKAH GOSS EXP COSIGNER: URGENCY: STATUS: COMPLETED Veterans name and last 4 were used to verify identity Verified Veterans telephone #/Updated telephone number in the system REASON FOR CALL: Other: Reason for call: PT'S CALLED ABOUT MESSAGE THAT WAS RECEIVED AND MSA LET HER KNOW IT WAS ABOUT LABS AND A LETTER WILL BE MAILED OUT. /adriana/ REBEKAH GOSS SEAL SKINNER Signed: 05/15/2024 14:40 Receipt Acknowledged By: * AWAITING SIGNATURE * LUCERO GRIFFIN CHRISTINA C [facility]
--- OUTSIDE RECORDS SUMMARY | 2024-05-15 16:58 | XMS_ITS | Encounter Summary ---
Author Organization [employer] Address [address] [place] [address] Care Team Providers Care Certified Nurse Aide Name Role Phone [facility] Primary Care Provider U beccaailjoao Encounter Details Date Type Department Care Team (Latest Contact Info) Description 08/17/2006 Outpatient Historical HIS CARDIOPULMONARY Nghia Longoria MD [address] [facility] [address] [place] [phone] Carotid Art Occ w/o Infarc (Primary Dx) Social History Tobacco Use Types Packs/Day Years Used Date Smoking Tobacco: Never Assessed Sex and Gender Information Value Date Recorded Sex Assigned at Not on file 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
--- OUTSIDE RECORDS SUMMARY | 2024-05-15 16:58 | XMS_ITS ---
Author Organization [facility] Address [address] [place], [place] [address] Care Team Providers Care Quarter Backer Name Role Phone MADELINE CARRASCO Unavailable [phone] Toño Deejsus Unavailable Unavailable RENEA SIMMONS Unavailable [phone] REASON FOR VISIT *General care Medications Medication [...] Ophthalmic for 150 Days Active Vital Signs Height 70.00 in 06/22/2023 Weight 165 lbs 06/22/2023 BMI 23.67 kg/m2 06/22/2023 Height-cm 177.80 cm 06/22/2023 Weight-kg 74.84 kg 06/22/2023 Encounters Encounter Location Date Provider Diagnosis [address] [place], [place] [id number] 06/22/2023 RENEA SIMMONS Other hammer toe(s) (acquired), right foot M20.41 ; Tinea unguium B35.1 ; Other hammer toe(s) (acquired), left foot M20.42 ; Pain in right toe(s) M79.674 ; Pain in left toe(s) M79.675 and Unspecified atherosclerosis of [place] arteries of extremities, bilateral legs I70.203 Assessments [...] (ICD-10 - M79.675) 06/22/2023 Unspecified atherosclerosis of [place] arteries of extremities, bilateral legs (ICD-10 - [...] OTC and prescription treatments. Unspecified atherosclerosis of [place] arteries of extremities, bilateral legs Patient educated on risks and aggravating factors of PVD, including conservative treatment options such as a diet and exercise regimen to aid in slowing progression of vascular disease Next Appt Details Follow Up: 3 Months, Reason: Provider Name:LOLA LOPEZ, 07/25/2024 11:30:00 AM, [address] [place] [address], [phone], Progress Notes * ASMITA NIETO DDOB: [birth year] (82 yo M)Acc No.[id number]:06/22/2023 Patient: ASMITA RIVERA Provider: Irene SIMMONS :1940 A ge:82 Y S ex:Male Date:06/22/2023 Address:[address] [place] [address] Subjective: * Chief Complaints: * 1 . [...] Patient denies c hest pain, history of HI, irregular heartbeat. M usculoskeletal: Patient complains of [...] M79.675 6 . U nspecified atherosclerosis of [place] arteries of extremities, bilateral legs - I70.203 [...] were emphasized. 3. U nspecified atherosclerosis of [place] arteries of extremities, bilateral legs Notes: Patient educated on risks and aggravating factors of PVD, including conservative treatment options such as a diet and exercise regimen to aid in slowing progression of vascular disease ? * Procedure Codes: 1 1721 DEBRIDE NAIL, 6 OR MORE, Modifiers: Q8 * Follow Up: 3 Months * Billing Information: * Visit Code: * Procedure Codes: 82922 DEBRIDE NAIL, 6 OR MORE. Modifiers: Q8 * Sign off status: Completed true * Provider: Irene SIMMONS Date: 0 06/22/2023 Generated for Alen pitts/Volodymyr/Darcy on: 0 05/15/2024 04:58 PM CDT History [...]
--- OUTSIDE RECORDS SUMMARY | 2024-05-15 16:58 | XMS_ITS | Encounter Summary ---
Author Name [facility] [place] Address [address] [place] [address] Care Team Providers Care Trolley Cleaner Name Role Phone LUCERO GRIFFIN Primary Care [...] MEDIC ARE SUPPL EMENT Aug 06, 2009 [id number] [phone] LEVI QUIROZ PATIENT ANTHE[place] MEDIG[place] PLAN F MEDIC ARE SUPPL EMENT Aug 06, 2009 [id number] [phone] LEVI QUIROZ PATIENT AN[place] MEDICARE SUPPLEMEN [place]O MEDIC ARE SUPPL EMENT Aug 06, 2009 [id number] [phone] LEVI QUIROZ PATIENT [place] PL[place] F MEDIC ARE SUPPL EMENT Aug 06, 2009 [id number] [phone] LEVI QUIROZ PATIENT MEDICARE (WNR) MEDICARE (M) PART A Dec 07, 2006 PART A [id number] LEVI QUIROZ PATIENT MEDICARE (WNR) MEDICARE (M) PART B Dec 07, 2006 PART B [id number] LEVI QUIROZ PATIENT Selected Encounter This section includes the information on [place] at [place] for the Encounter. Date/Time Encounter Type Encounter Description Reason Provider Source May 08, 2024 11:00 AM OFFICE O/P EST HI 40 MIN PRIMARY CARE/MEDICINE ICD-10-CM I67.9 Cerebrovascular disease, unspecified SIMMERING,JAM ES IHE Encounter Template Text not used by [place] Assessments - Encounter Diagnoses This section includes the primary and secondary diagnoses documented for the Encounter. Date/Time Primary/Secondary Diagnosis Diagnosis Name Provider Source May 08, 2024 12:15 PM PRIMARY Cerebrovascular disease, unspecified [facility] May 08, 2024 12:15 PM SECONDARY Chronic obstructive pulmonary disease, unspecified [facility] May 08, 2024 12:15 PM SECONDARY Contact with and exposure to other hazardous substances [facility] May 08, 2024 12:15 PM SECONDARY Deficiency of other specified B group vitamins [facility] May 08, 2024 12:15 PM SECONDARY Essential (primary) hypertension [facility] May 08, 2024 12:15 PM SECONDARY Low back pain, unspecified [facility] May 08, 2024 12:15 PM SECONDARY Male erectile dysfunction, unspecified [facility] May 08, 2024 12:15 PM SECONDARY Mixed hyperlipidemia [facility] May 08, 2024 12:15 PM SECONDARY Occlusion and stenosis of unspecified carotid artery [facility] May 08, 2024 12:15 PM SECONDARY Peripheral vascular disease, unspecified [facility] May 08, 2024 12:15 PM SECONDARY Polyneuropathy, unspecified [facility] May 08, 2024 12:15 PM SECONDARY Unsp dementia, unsp severity, without beh/psych/mood/anx [facility] Lab Results: +/- 30 days of [...] Range Comment May 08, 2024 12:21 PM [facility] TSH W/ REFLEX FT4 (STL) Specimen Type: PLASMA No comment entered. Ordering Provider: AYDIN GRIFFIN Report Released Date/Time: May 08, 2024 12:01 PM Reporting Lab: [facility] [address] [place] [phone] Performing Lab: [address] [phone] TSH 0.764 u[IU]/mL 0.47-5 May 08, 2024 12:21 PM [facility] VITAMIN D, 25-HYDROXY Specimen Type: SERUM No comment entered. Ordering Provider: AYDIN GRIFFIN Report Released Date/Time: May 08, 2024 12:01 PM Reporting Lab: [facility] [address] [place] [phone] Performing Lab: [facility] [address] [place] [phone] VITAMIN D, 25-HYDROXY 27.2 ng/mL L 30-96 May 08, 2024 12:21 PM [facility] URINALYSIS (STL-PB) Specimen Type: URINE No comment entered. Ordering Provider: AYDIN GRIFFIN Report Released Date/Time: May 08, 2024 12:01 PM Reporting Lab: [facility] [address] [place] [phone] Performing Lab: [facility] [address] [place] [phone] URINE COLOR Yellow Yellow U.BILIRUBIN Negative mg/dL [...] GRAVITY 1.022 May 08, 2024 12:21 PM [facility] COMPREHENSIVE METABOLIC PANEL Specimen Type: PLASMA Comment: No hemolysis noted. Ordering Provider: AYDIN GRIFFIN [facility] Report Released Date/Time: May 08, 2024 12:01 PM Reporting Lab: [address] [phone] Performing Lab: [address] [address] CREATININE 0.72 mg/dL 0.7-1.3 UREA NITROGEN 12.4 [...] 91.2 >60 May 08, 2024 12:21 PM [facility] LIPID PANEL (STL) Specimen Type: PLASMA Comment: No hemolysis noted. Ordering Provider: AYDIN GRIFFIN [facility] Report Released Date/Time: May 08, 2024 12:01 PM Reporting Lab: [address] [phone] Performing Lab: [address] [phone] CHOLESTEROL 132 mg/dL 0-200 TRIGLYCERIDE 55 mg/dL 0-150 CALCULATED LDL 75 mg/dL HDL(New) 46 mg/dL >40 May 08, 2024 12:21 PM [facility] CBC Specimen Type: BLOOD No comment entered. Ordering Provider: AYDIN GRIFFIN [facility] Report Released Date/Time: May 08, 2024 12:01 PM Reporting Lab: [facility] [address] [place] [phone] Performing Lab: [address] [phone] WBC 7.9 10*3/uL 3.6-11.2 RBC 4.54 10*6/uL [...] 10*3/uL 0.00-0.20 May 08, 2024 12:21 PM [facility] HGA1C Specimen Type: BLOOD No comment entered. Ordering Provider: AYDIN GRIFFIN [facility] Report Released Date/Time: May 08, 2024 12:01 PM Reporting Lab: [facility] [address] [place] [phone] Performing Lab: [address] [phone] HGA1C 5.7 4.0-6.0 Vital Signs: All taken on the encounter date This section contains inpatient and outpatient Vital Signs collected on the date of the Encounter. Date/Time Temperature Pulse Blood Pressure Respiratory Rate SP02 Pain Height Weight Body Mass Index Source May 08, 2024 11:34 AM 98.2 63 134/72 20 94 0 172 [facility] Social History: Smoking Status (Most current) and Tobacco Use (All prior to encounter date) This section includes the most current, and the historical, smoking and tobacco- related health factors from the [place] facility where the Encounter took place. Current Smoking Status This section includes the most current smoking, or tobacco-related health factor, from the [place] facility where the Encounter took place. Date/Time Current Smoking Status Comment Facil ity May 08, 2024 11:00 AM VA-TOBACCO USE FORMER CIGARETTES [facility] Tobacco Use History This section includes a history of the smoking, or tobacco-related health factors, that were collected on or before the date of the Encounter. The data comes from the [place] facility where the Encounter took place. Date/Time Smoking Status/Tobacco Use Comment F acility May 08, 2024 11:00 AM VA-TOBACCO USE FORMER CIGARETTES [facility] May 08, 2023 10:00 AM [facility] May 08, 2023 10:00 AM VA-TOBACCO QUIT 1 TO < 5 YRS [facility] May 06, 2022 09:00 AM VA-TOBACCO FORMER USER [facility] May 06, 2022 09:00 AM VA-TOBACCO QUIT 15 YRS OR MORE [facility] Encounter Notes: All associated encounter notes This section contains the clinical notes associated to the Encounter. Date/Time Encounter Note(s) Provider Source May 15, 2024 11:26 AM PHYSICIAN LETTERS: LOCAL TITLE: TEST RESULT GENERAL LETTER ST[facility] STANDARD TITLE: PHYSICIAN LETTERS DATE OF NOTE: MAY 15, 2024@11:26 ENTRY DATE: MAY 15, 2024@11:26:33 AUTHOR: LUCERO GRIFFIN COSIGNER: URGENCY: STATUS: COMPLETED [facility] [address] [place] [address] MAY 15, 2024 ASMITA QUIROZ [address] [place] [address] Dear Asmita Quiroz, I would like to update you on your recent test results. LIPID PROFILE - High cholesterol and triglycerides (lipids) are risk factors for heart disease. Your cholesterol should fall between 140 and 200, and your triglycerides levels should be less than or equal to 150. HDL is the good cholesterol and should ideally be greater than 40. LDL is the bad cholesterol and optimal levels should be less than 100 (near optimal is between 100 and 129). TRIGLYCERIDE 55 mg/dL 05/08/2024 12:21 CHOLESTEROL 132 mg/dL 05/08/2024 12:21 HDL(New) 46 mg/dL 05/08/2024 12:21 CALCULATED LDL 75 mg/dL 05/08/2024 12:21 No DIRECT LDL EO data found These readings are within normal limits. GLUCOSE - Your blood sugar or glucose level result GLUCOSE GLUCOSE 104 H mg/dL 05/08/2024 12:21 The results are similar to previous values and not a clinical concern. HEMOGLOBIN A1C - Gives us information about your diabetes (sugar or glucose) control over the past 3 months. Your target is to keep your A1C below 7 %. HGA1C 5.7 % 05/08/2024 12:21 These readings are within normal limits. CBC - A complete blood count (CBC) gives important information about the kinds and numbers of cells in the blood, especially red blood cells, white blood cells, and platelets. HGB 13.5 g/dL 05/08/2024 12:21 HEMATOCRIT 41.2 % (05/08/24 12:21) PLT 280 10*3/uL 05/08/2024 12:21 WHITE BLOOD COUNT 7.9 10*3/uL (05/08/24 12:21) These readings are within normal limits. CHEM 7 - This is important information about the current status of your kidneys, liver, and electrolyte and acid/base balance as well as of your blood sugar and blood proteins. SODIUM 139 mEq/L 05/08/2024 12:21 POTASSIUM 4.0 mEq/L 05/08/2024 12:21 CHLORIDE 104 mEq/L 05/08/2024 12:21 UREA NITROGEN 12.4 mg/dL 05/08/2024 12:21 CREATININE 0.72 mg/dL 05/08/2024 12:21 CALCIUM 9.9 mg/dL 05/08/2024 12:21 CARBON DIOXIDE 27 mEq/L 05/08/2024 12:21 GLUCOSE 104 H mg/dL 05/08/2024 12:21 EGFR (CKD-EPI 2020) 91.2 05/08/2024 12:21 These readings are within normal limits. LIVER FUNCTION PANEL - These are tests for liver function: PROTEIN 7.0 g/dL 05/08/2024 12:21 ALBUMIN 3.7 g/dL 05/08/2024 12:21 TOTAL BILIRUBIN 1.1 mg/dL 05/08/2024 12:21 ALKALINE PHOSPHATASE 78 U/L 05/08/2024 12:21 AST/SGOT 41 H U/L 05/08/2024 12:21 ALT/SGPT <7 L U/L 05/08/2024 12:21 The results are similar to previous values and not a clinical concern. Your liver enzymes are slightly elevated. This can be due to alcohol consumption,fatty liver along with side effects from medication. Please avoid alcohol and watch your intake of carbohydrates. TSH - Thyroid-stimulating hormone (also known as TSH or thyrotropin) is a peptide hormone synthesized and secreted by thyrotrope cells in the anterior pituitary gland, which regulates the endocrine function of the thyroid gland. TSH TSH 0.764 uIU/mL 05/08/2024 12:21 These readings are within normal limits. VITAMIN D - Helps promote the proper utilization of calcium and phosphorus, thereby producing proper bone maintenance. VITAMIN D, 25-HYDROXY 27.2 L ng/mL 05/08/2024 12:21 The results are similar to previous values and not a clinical concern. Your vitamin D was low. Please take 5000 units of over the counter vitamin D daily. No Prescription needed. URINALYSIS - A urinalysis (or UA ) is an array of tests performed on urine and one of the most common methods of medical diagnosis. URINALYSIS URINE COLOR Yellow 05/08/2024 12:21 APPEARANCE Turbid 05/08/2024 12:21 U.PH 6.0 05/08/2024 12:21 U.BILIRUBIN Negative mg/dL 05/08/2024 12:21 U.NITRITE 2+ H mg/dL 05/08/2024 12:21 URINE RBC/HPF 3 /HPF 05/08/2024 12:21 URINE WBC/HPF >182 H /HPF 05/08/2024 12:21 BACTERIA OCC /HPF 05/08/2024 12:21 SQUAMOUS EPITH. 2 /HPF 05/08/2024 12:21 MUCUS RARE /LPF 05/08/2024 12:21 These results are abnormal. you have a urinary infection please call me. PLAN Please continue your treatment as we discussed during your visit. If you have any questions please call your case management director. I look forward to seeing you at your next clinic appointment. Thank you for choosing the [facility] for your healthcare. We need to speak to you by phone. Please call the following number at your earliest convenience. Toll Free: Local: [phone] FUTURE APPOINTMENTS: 11/12/2024 11:00 BRITTANEY-NOCO PACT 1 PCP Sincerely, LUCERO GRIFFIN MD STAFF PHYSICIAN ASMITA QUIROZ [facility] [place] [facility] May 08, 2024 11:56 AM PRIMARY CARE NOTE: LOCAL TITLE: PRIMARY CARE PROVIDER ESTABLISHED VISIT [facility] STANDARD TITLE: PRIMARY CARE NOTE DATE OF NOTE: MAY 08, 2024@11:56 ENTRY DATE: MAY 08, 2024@11:57:01 AUTHOR: LUCERO GRIFFIN COSIGNER: URGENCY: STATUS: COMPLETED PRIMARY CARE PROVIDER ESTABLISHED VISIT ST Has ADDENDA ESTABLISHED PATIENT [id number]: REASON FOR VISIT/CHIEF COMPLAINT: HPI: pt had [...] 1) Parkinsonism 2) CVD - Cerebrovascular Disease ([facility] [id number]) comment: right sided stroke left sided weakness. comment: cva in september 2022. 3) PVD - peripheral vascular disease comment: left sided weakness. comment: status post right cea 4) HTN - Hypertension ([facility] [id number]) 5) Mixed Hyperlipidemia ([facility] [id number]) 6) COPD - Chronic Obstructive Pulmonary Disease ([facility] [id number]) 7) Glaucoma 8) Neuropathy (nerve damage) 9) Vitamin B12 Deficiency ([facility] 303336144) 10) Incontinence 11) Polyp Colon ([facility] [id number]) 12) Erectile dysfunction 13) Rotator cuff impingement syndrome comment: left 14) Appendix absent 15) LBP - Low back pain comment: status post discectomy 16) Exposure to potentially hazardous substance 17) Carotid artery stenosis comment: 95% right sided. Vascular declined to intervene outside [place]. dr Navarro 18) Dementia ([facility] [id number]) comment: vascular and parkinson's. 19) Abnormal swallowing [...] medication list with the patient and/or his/her care-phosphoric acid operator. Handwritten corrections, additions and/or deletions were made to the list. Corrected Outpatient Medication List was provided to the patient/caregiver. REVIEW OF SYSTEMS: General: Normal Ears, Nose, Mouth, Throat: Normal Eye: Normal Cardiovascular: Normal Respiratory: Normal ABD/GI: Normal Musculoskeletal/Extremities: Normal /SENIOR NET C DEVELOPER: Normal Hematology & Lymph: Normal Endocrine: Normal [...] Nl. Respiratory: Clear ABD/GI: Normal. Extremities: Normal /SENIOR NET C DEVELOPER: Deferred Hematology & Lymph: Normal Endocrine: Normal [...] Date Facility Info PNEUMOCOCCAL CONJUGATE, UNSPECIF* 05/08/2023 [facility]* <I> TDAP 05/08/2023 [facility]* <I> <I> See the Detailed Immunizations Health [...] side effects of prescribed medication and treatments. Aroda verbalizes understanding and is in agreement with the plan of care. Patient was instructed to keep all scheduled appointments and contact spooling supervisor for any additional problems. PREVENTION & SCREENING: [...] treatment planning, education and counseling of the patient/family/patient care coordinator, placing orders, communicating with other health care providers, and documentation in the electronic health record. Herpes Zoster (Shingles) Vaccine - L,N,P,PH,U: The patient declines to receive the recommended dose of zoster (shingles) vaccine. Immunization: ZOSTER RECOMBINANT Refusal Reason: PATIENT DECISION Patient refuses all immunization(s) in the ZOSTER group Date Documented: 05/08/24 12:06 Ischemic HD/Post CT Follow Up: Patient is taking aspirin from [...] diminished) SENSORY CHECK: Includes 10 gram Monofilament (Holden-Glen) test of sensation. Intact (Greater than or [...] their sexual orientation as: Straight or Heterosexual /jennifer GRIFFIN MD STAFF PHYSICIAN Signed: 05/08/2024 12:15 05/15/2024 ADDENDUM STATUS: COMPLETED Attempted to call patient, No answer. left HIPAA compliant message for patient to return call. uti lab letter sent. /adriana/ LUCERO GRIFFIN MD STAFF PHYSICIAN Signed: 05/15/2024 11:26 LUCERO GRIFFIN [facility] May 08, 2024 11:36 AM NURSING NOTE: LOCAL TITLE: V15 PACT FACE TO FACE NOTE ST STANDARD TITLE: NURSING NOTE DATE OF NOTE: [...] INVENTORY - MAP: 05/06/2022 Personal Health Plan [place], [place], Purpose (MAP) family What matters most to you in your life right now? - Aroda's Response: staying healthy Would you like to discuss any personal problem, family problem, alcohol use, drug use, or a mental or emotional illness? No My [facility] ([facility]), please select appointment type: Face to face: Yes- Done Contact provided Primary Care phone number and encouraged to call if any questions or concerns. Review that after hours nurse line [phone] and emergency room are available 29/08 for patient use. Contact verbalized good understanding. No notification required for this note. Suicide Screen - V: C-SSRS Screening [place] Suicide Severity Rating Scale (C-SSRS) screener 1. [...] Screen: ADL Screen - Little Index of [place] in Activities of Daily Living Bathing: (2 [...] Low (patient very dependent) IADL Screen - [place] Instrumental Activities of Daily Living Scale Ability [...] Not worried about housing near future The Aroda reports the following: Within the past 12 months, you worried whether your food would run out before you got money to buy more. Never true Within the past 12 months, the food you bought just didn't last and you didn't have money to get more. Never true Learning Assessment: - * This patient's learning ABILITIES, BARRIERS to learning, CULTURAL and LUTHERAN beliefs, and learning PREFERENCES were assessed. Following are findings of note: Patient reads well. 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 LANGUAGE Patient reports that Palestinian is preferred language for healthcare. Patient has [...] Practical Nurse Signed: 05/08/2024 11:40 [facility]
--- OUTSIDE RECORDS SUMMARY | 2024-05-15 16:58 | XMS_ITS | Encounter Summary ---
Author Organization [employer] Address [address] [place] [address] Care Team Providers Care Wreath Machine Operator Name Role Phone [facility], [facility] Provider Primary Care Provider U navailable Encounter Details Date Type Department Care Team (Latest Contact Info) Description 08/23/2006 Outpatient Historical [facility] Nghia Longoria MD [address] [facility] [address] [place] [id number] Shortness of Breath (Primary Dx) Social History Tobacco Use Types Packs/Day Years Used Date Smoking Tobacco: Never Assessed Sex and Gender Information Value Date Recorded Sex Assigned at Not on file 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
--- OUTSIDE RECORDS SUMMARY | 2024-05-15 16:59 | XMS_ITS | Encounter Summary ---
Author Organization [facility] Address [address] [place] [address] Support Name Relationship Address Phone Noemi Quiroz Personal Relationship [address] [place] [address] Care Team Providers Care Food Order Expediter Name Role Phone [facility], External Provider Primary Care Provider U beccaailable Encounter Details Date Type Department Care Team (Late st Contact Info) Description 03/15/2007 Outpatient Historical [facility] Blood Flow [address] [place] [address] Luke Ochoa MD NO ADDRESS ON FILE Social History Tobacco Use Types Packs/Day Years Used Date Smoking Tobacco: Never Assessed Sex and Gender Information Value Date Recorded Sex Assigned at Not on file 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
--- OUTSIDE RECORDS SUMMARY | 2024-05-15 16:59 | XMS_ITS | Clinical Summary ---
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
--- OUTSIDE RECORDS SUMMARY | 2024-05-15 16:59 | XMS_ITS ---
Author Organization [facility] Address [address] [place], [place] [id number] Care Team Providers Care Adjunct Spanish Instructor Name Role Phone MADELINE CARRASCO Unavailable [phone] Toño Dejesus Unavailable Unavailable RENEA SIMMONS Unavailable [phone] REASON FOR VISIT *General care Medications Medication [...] Active Encounters Encounter Location Date Provider Diagnosis [facility] [address], [place] [id number] 01/25/2024 RENEA SIMMONS Other hammer toe(s) (acquired), right foot M20.41 ; Tinea unguium B35.1 ; Other hammer toe(s) (acquired), left foot M20.42 ; Pain in right toe(s) M79.674 ; Pain in left toe(s) M79.675 and 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 [...] Patient denies c hest pain, history of TN, irregular heartbeat. M usculoskeletal: Patient complains of [...] M79.675 6 . U nspecified atherosclerosis of knik arteries of extremities, bilateral legs - I70.203 [...] were emphasized. 3. U nspecified atherosclerosis of knik arteries of extremities, bilateral legs Notes: Patient educated on risks and aggravating factors of PVD, including conservative treatment options such as a diet and exercise regimen to aid in slowing progression of vascular disease ? * Procedure Codes: 1 1721 DEBRIDE NAIL, 6 OR MORE, Modifiers: Q8 * Follow Up: 3 Months * Billing Information: * Visit Code: * Procedure Codes: 52616 DEBRIDE NAIL, 6 OR MORE. Modifiers: Q8 * Electronic signature of LOLITA SIMMONS DPM on 05/15/2024 at 04:59 PM CDT Sign off status: Pending * Provider: Irene SIMMONS Date: 1 03/27/2023 Generated for Alen pitts/Volodymyr/Darcy on: 0 05/15/2024 04:59 PM CDT History and Physical Notes * [...]
--- OUTSIDE RECORDS SUMMARY | 2024-05-15 16:59 | XMS_ITS | Encounter Summary ---
Author Organization [employer] Address [address] [place] [address] Care Team Providers Care Position Classification Specialist Name Role Phone [facility], External Provider Primary Care Provider U beccaailable Encounter Details Date Type Department Care Team (Latest Contact Info) Description 03/25/2008 Outpatient Historical HIS CARDIOPULMONARY Nghia Longoria MD [address] [facility] [address] [place] [address] Carotid Art Occ w/o Infarc Social History Tobacco Use Types Packs/Day Years Used Date Smoking Tobacco: Never Assessed Sex and Gender Information Value Date Recorded Sex Assigned at Not on file Legal Sex Male 4:15 AM K 12 PRINCIPAL Gender Identity Not on file Sexual Orientation Not on file documented as of this encounter Plan of Treatment Not on file documented as of this encounter Procedures Procedure Name Priority Date/Time Associated Diagnosis Comments US CAROTID DOPPLER Routine 03/25/2008 7: 04 PM K 12 PRINCIPAL documented in this encounter Results * US CAROTID DOPPLER (03/25/2008 7:04 PM K 12 PRINCIPAL) Anatomical Region Laterality Modality Neck Other Narrative 03/25/2008 7:04 PM K 12 PRINCIPAL [facility] [address] [place] [address] [email or web address] Noninvasive Vascular Lab Carotid Duplex Study Patient: Jacques Quiroz Study ID: [id number] Gender: M : 1940 Age: 67 years Race: 1 Room: Bed: Height: Study Date: March 25, 2008 Patient status: Outpatient Weight: Access. #: [id number] POC: Traffic Rate Analyst: Alondra Ordering: Romina Attending MD: Romina Admitting [...] 18:16:07 Procedure Note Provider, Historical - 03/25/2008 [address] [place], [place] [address]Isdvp: [email or web address] Noninvasive Vascular Lab Carotid Duplex Study Patient: Jacques Quiroz Study ID: [id number] Gender: M : 1940 Age: 67 years Race: 1 Room: Bed: Height: Study Date: March 25, 2008 Patient status: Outpatient Weight: Access. #: [id number] POC: Traffic Rate Analyst: Alondra Ordering: Romina Attending MD: Romina Admitting [...] infarction documented in this encounter Care Teams Position Classification Specialist Relationship Specialty Start Date End Date [facility], External Provider [address] [place] [address] PCP - General 08/06/19 documented as of this encounter
== END 2024-05-15 15:46 | disposition home or self-care (01) ==
PROVIDERS: PCP Nurse Practitioner Family; Visit Provider Psychiatry & Neurology Neurology
DX: I65.23 Occlusion and stenosis of bilateral carotid arteries (principal)
CPT/HCPCS: 93880

== ENCOUNTER 2024-05-24 12:45 | Inpatient (IN) | payer MEDICARE, SELFPAY ==
[2024-05-24] VITALS (8 sets, daily range): BP systolic 134–155; BP diastolic 56–66; PULSE 60–79; RESP 16–24; TEMP 36.5; O2SAT 97–100; BMI 24.0
--- NOTE | ~2024-05-24 | CT_ITS ---
EXAMINATION: CTA BRAIN/CAROTID DATE: 05/24/2024 13:07 INDICATION: Right-sided hemiparesis TECHNIQUE: Computed tomographic angiography (CTA) of the head and neck was performed with 100 mL Omni paque-350 intravenous contrast. Multiplanar reconstructions and maximum intensity projection 3D-recon structions of the carotid arteries and of the intracranial arteries were created by the technologist on a separate workstation. Automated exposure control and iterative reconstruction technique were emp loyed.The dose-length product was 1074.62 mGy-cm. COMPARISON: None. FINDINGS: Carotid arteries: Extensive atherosclerotic plaque along the normal caliber thoracic aorta and the great vessels arisin g from the arch. There is a moderate 50-70% stenosis at the origin of the right subclavian artery and at the origin of the right vertebral artery. No hematoma significant stenosis along the innominate, bilateral common carotid and left subclavian arteries. Severe stenosis at the origin of the left vert ebral artery with multifocal mild to moderate stenosis on the more distal extracranial left vertebral artery. Unchanged 60% stenosis of the right carotid bulb relative to normal distal artery lumen diam eter (NASCET criteria). Also unchanged is a 95% stenosis of the right carotid bulb relative to normal distal artery lumen diameter. Severe cervical spondylosis. Visualized portion of the upper lungs are clear. Cervical soft tissues are unremarkable. Intracranial arteries Vertebral arteries are codominant. There is thrombosis with complete segmental occlusion of the left vertebral artery at the level of the ring of C1. The more distal left vertebral artery opacifies with contrast likely bilateral retrograde filling from the right vertebral artery and supplies the left p osterior inferior cerebellar artery. There are couple unchanged foci of high-grade stenosis along the left vertebral artery between the takeoff of the posterior inferior cerebellar artery and the conflu ence with the right vertebral artery. There is chronic plaque with no hemodynamically significant nick nosis at the bilateral carotid siphons. There is no hemodynamically significant stenosis in the right vertebral and basilar arteries. There are no aneurysms identified. The left A1 and bilateral P1 segm ents are patent. The right anterior cerebral artery is supplied via the left A1 segment and a patent anterior communicating artery. Cerebral arterial arborization appears symmetric. Chronic small region s of encephalomalacia in the right frontal and parietal lobes consistent with chronic infarcts. There is secondary ex vacuo dilation of the right lateral ventricle. IMPRESSION: 1. 95% stenosis of the right carotid bulb relative to normal distal artery lumen diameter (NASCET cri teria). 2. 60% stenosis of the left carotid bulb relative to normal distal artery lumen diameter. 3. Segmental occlusion of the junction of the extracranial to intracranial left vertebral artery with likely retrograde filling of the more distal left vertebral artery and left posterior inferior cereb ellar artery and a couple unchanged small foci of high-grade stenosis along this segment of the left vertebral artery. 4. Moderate stenosis at the origin of the right subclavian artery and right vertebral artery and mult ifocal mild to moderate stenosis along the extracranial left vertebral artery. Reviewed, dictated and finalized at location A. IMPRESSION: 1. 95% stenosis of the right carotid bulb relative to normal distal artery lume n diameter (NASCET criteria). 2. 60% stenosis of the left carotid bulb relative to normal distal artery lumen diameter. 3. Segmental occlusion of the junction of the extracranial to intracranial left vertebral artery with likely retrograde filling of the more distal left verteb ral artery and left posterior inferior cerebellar artery and a couple unchanged small foci of high-grade stenosis along this segment of the left vertebral art jennifer. 4. Moderate stenosis at the origin of the right subclavian artery and right dany tebral artery and multifocal mild to moderate stenosis along the extracranial l eft vertebral artery.
--- NOTE | ~2024-05-24 | US_ITS ---
EXAMINATION: US carotid duplex BI DATE: 05/24/2024 15:33 INDICATION: Right-sided weakness TECHNIQUE: Grayscale, color Doppler, and pulsed Doppler images of the cervical carotid arteries were obtained. The degree of vessel stenosis is placed in one of the following categories: normal, <50%, 5 0-69%, >=70% but less than near-occlusion, near-occlusion, or total occlusion. Note that percent sten osis relative to normal distal artery lumen diameter is indirectly measured from velocity measurement s as described by Harshal, et al. Radiology 2003; 229:[id number]. Notes: Normal: Peak systolic velocity <125 centimeters/sec and no plaque <50%. Peak systolic velocity <125 ( EDV <40; ICA/CCA PSV ratio <2.0; used these factors only a tandem lesions or low cardiac output or co ntralateral disease) 50-69 %: PSV 125-230 (EDV 40-100; ratio 2-4) >= 70% but less than near occlusion: PSV greater than 230 (EDV > 100; ratio> 4.0) Near Occlusion: PSV that is variable; markedly narrowed lumen Occlusion: Absent flow on color/spectral Doppler and no lumen on beard scale. COMPARISON: None. FINDINGS: RIGHT: The right common carotid artery (CCA) peak systolic velocity (PSV) is 111 cm/s. The right internal ca rotid artery (ICA) PSV is 95 cm/s. The right ICA end-diastolic velocity (EDV) is 18 cm/s. The right I CA/CCA PSV ratio is 0.9. The external carotid artery (ECA) PSV is 186 cm/s. There is antegrade flow i n the right vertebral artery. LEFT: The left CCA PSV is 105 cm/s. The left ICA PSV is 352 cm/s. The left ICA EDV is 11 cm/s. The left ICA /CCA PSV ratio is 3.3. The ECA PSV is 229 cm/s. There is antegrade flow in the left vertebral artery . IMPRESSION: 1. Less than 50% stenosis in the right internal carotid artery by sonographic criteria. 2. Greater than or equal to 70% stenosis in the left internal carotid artery by sonographic criteria. Reviewed, dictated and finalized at location B. IMPRESSION: 1. Less than 50% stenosis in the right internal carotid artery by sonographic c riteria. 2. Greater than or equal to 70% stenosis in the left internal carotid artery by sonographic criteria.
--- NOTE | ~2024-05-24 | CT_ITS ---
History: Right-sided weakness and altered mental status PROCEDURE: CT head without contrast. COMPARISON: 06/15/2023. Reference is also made to an MRI examination of the brain dated 05/11/2024 and cotton bsequent ultrasound of the bilateral carotid arteries dated 05/15/2024 which demonstrated multiple prio r cerebral infarctions as well as a left vertebral artery occlusion. TECHNIQUE: Axial imaging of the head performed from the skull base to the vertex without IV contrast. Sagittal a nd coronal reformations obtained. DLP: 605 mGy-cm FINDINGS: The ventricles are enlarged. The dilatation of the ventricles is proportional to the degree of sulcal prominence, not uncommon in the senescent brain. Evidence of prior cerebral infarctions within the left cerebellum, right frontal, right temporal, and right parietal lobes with encephalomalacia and gliosis. Bilateral prior lacunar infarcts also noted. Decreased attenuation is identified diffusely within the periventricular white matter, likely seconda ry to microvascular ischemic disease, in a patient of this age. There is no mass, mass effect or midline shift. There is no abnormal extra-axial fluid collection or intracranial hemorrhage. Visualized paranasal sinuses are clear. The mastoid air cells are well aerated. No acute displaced fractures within the overlying cranium. Impression: No acute intracranial hemorrhage or suspicious mass effect. Multiple prior cerebral infarctions, as detailed above. Reviewed, dictated and finalized at location A. Impression: No acute intracranial hemorrhage or suspicious mass effect. Multiple prior cerebral infarctions, as detailed above.
--- NOTE | ~2024-05-24 | XR_ITS ---
CHEST RADIOGRAPH CLINICAL HISTORY: right sided weakness . COMPARISON: 07/24/2017 TECHNIQUE: Single portable view of the chest. FINDINGS The cardiomediastinal silhouette is unremarkable. Coarse interstitial lung markings detected bilaterally, chronic in origin. Calcified granulomas are demonstrated. The remainder of the lungs are clear. IMPRESSION: Chronic interstitial change, without focal infiltrate or effusion. Reviewed, dictated and finalized at location A.
--- NOTE | 2024-05-24 12:47 | ECG_ITS ---
Test Date: 2024-05-24 13:12:26 Measurements Intervals [place] Rate: 73 P: -89 VA: 145 QRS: -31 QRSD: 93 T: 71 QT: 379 QTc: 420 Interpretive Statements SINUS RHYTHM WITH OCCASIONAL SUPRAVENTRICULAR PREMATURE COMPLEXES LEFT AXIS DEVIATION BORDERLINE ST-T WAVE ABNORMALITY- HIGH LATERAL LEADS BASELINE ARTIFACT- I, II, III, AVR, AVL, AVF, V1-V6 BORDERLINE ECG No previous ECG available for comparison Electronically Signed On 05-24-2024 13:33:45 CDT by Rian Bautista D.O.
[2024-05-24 12:56] LABS: Glucose Point of Care 118 mg/dl (65-105)
[2024-05-24 12:58] LABS: Basophils Absolute Auto 0.1 K/mm3 (0.0-0.1); Basophils Percent Auto 0.6 % (0.2-1.2); Eosinophils Absolute Auto 0.2 K/mm3 (0-0.3); Hematocrit 41.2 % (42.0-52.0); Hemoglobin 13.3 g/dL (14.0-18.0); Immature Granulocyte Absolute 0.03 K/mm3 (0.00-0.031); Immature Granulocyte Percent A 0.3 % (0-0.5); Lymphocytes Absolute Auto 1.15 K/mm3 (0.9-3.2); Lymphocytes Percent Auto 11.7 % (18.3-44.2); Mean Corpuscular HGB Conc 32.3 g/dl (32-36); Mean Corpuscular Volume 92.8 fl (80-100); Mean Platelet Volume 9.4 fl (7.4-10.4); Monocytes Absolute Auto 1.1 K/mm3 (0.1-0.6); Monocytes Percent Auto 11.4 % (2.6-8.5); Neutrophils Absolute Auto 7.3 K/mm3 (1.3-6.7); Platelet Count Result 215 k/mm3 (150-375); Red Blood Count 4.44 M/mm3 (4.6-6.20); White Blood Count 9.8 K/mm3 (4.5-10.0)
[2024-05-24 13:08] LABS: Alanine Aminotransferase 8 U/L (6-50); Albumin Level 3.8 g/dL (3.5-5.1); Alkaline Phosphatase 91 U/L (38-126); Anion Gap 6 mmol/L (4-12); Aspartate Amino Transferase 22 U/L (17-59); Bilirubin,Total 1.1 mg/dL (0.2-1.3); Blood Urea Nitrogen 15 mg/dL (9-20); Calcium 9.2 mg/dL (8.4-10.2); Carbon Dioxide 30 mmol/L (22-30); Chloride 105 mmol/L (98-107); Estimated Glomerular Filt Rate > 60; Glucose 103 mg/dL (65-110); Potassium 3.5 mmol/L (3.4-5.0); Sodium 141 mmol/L (137-145)
--- OUTSIDE RECORDS SUMMARY | 2024-05-24 13:08 | XMS_ITS | Encounter Summary ---
Author Organization [employer] Address [address] [place] [address] Care Team Providers Care Wine Steward Name Role Phone [facility], [facility] Provider Primary Care Provider U beccaailable Encounter Details Date Type Department Care Team (Latest Contact Info) Description 03/15/2007 Outpatient Historical HIS CARDIOPULMONARY Nghia Longoria MD [address] [facility] [address] [place] [address] Carotid Art Occ w/o Infarc Social History Tobacco Use Types Packs/Day Years Used Date Smoking Tobacco: Never Assessed Sex and Gender Information Value Date Recorded Sex Assigned at Not on file Legal Sex Male 4:15 AM SPINNING BATH PATROLLER Gender Identity Not on file Sexual Orientation Not on file documented as of this encounter Plan of Treatment Not on file documented as of this encounter Procedures Procedure Name Priority Date/Time Associated Diagnosis Comments US DUPLEX ARTERIAL LEGS BILATERAL Routine 03/15/2007 3:48 PM SPINNING BATH PATROLLER documented in this encounter Results * US DOPPLER ARTERIAL LEGS BILATERAL (03/15/2007 3:48 PM SPINNING BATH PATROLLER) Anatomical Region Laterality Modality Lower Extremity Other Narrative 03/15/2007 3:48 PM SPINNING BATH PATROLLER Please type in written order in Special Instructions field. [facility] [address] [place] [address] [email or web address] Noninvasive Vascular Lab Carotid Duplex Study Patient: Jacques MESAN: [id number] Study ID: BLOOD FLOW STUDY Gender: M : 1940 Age: 66 years Race: 1 Room: Bed: Height: Study Date: March 15, 2007 Patient status: Outpatient Weight: Access. #: [id number] POC: Estimator Printing: Sumanth Ordering: Romina Attending MD: Romina Admitting [...] in written order in Special Instructions field. [address] [place], [place] [address]Fxxfx: [email or web address] Non[facility] V[facility] Lab Carotid Duplex Study Patient: Jacques Quiroz Study ID: BLOOD FLOW STUDY Gender: M : 1940 Age: 66 years Race: 1 Room: Bed: Height: Study Date: March 15, 2007 Patient status: Outpatient Weight: Access. #: [id number] POC: Estimator Printing: Sumanth Ordering: Romina Attending MD: Romina Admitting [...] infarction documented in this encounter Care Teams Wine Steward Relationship Specialty Start Date End Date [facility], External Provider [address] [place] [address] PCP - General 08/06/19 documented as of this encounter
--- OUTSIDE RECORDS SUMMARY | 2024-05-24 13:08 | XMS_ITS | Encounter Summary ---
Author Organization [employer] Address [address] [place] [address] Care Team Providers Care Police Lieutenant Patrol Name Role Phone [facility], External Provider Primary Care Provider U beccaailjoao Encounter Details Date Type Department Care Team (Late st Contact Info) Description 08/23/2006 Outpatient Historical [facility] [address] [place] [id number] Goyo Medrano MD [address] [place] [address] Social History Tobacco Use Types Packs/Day Years Used Date Smoking Tobacco: Never Assessed Sex and Gender Information Value Date Recorded Sex Assigned at Not on file Legal Sex Male 4:15 AM DOCUMENT MANAGEMENT CONSULTANT Gender Identity Not on file Sexual Orientation Not on file documented as of this encounter Plan of Treatment Not on file documented as of this encounter Visit Diagnoses Not on filedocumented in this encounter Care Teams Police Lieutenant Patrol Relationship Specialty Start Date End Date Evelyn, External Provider [address] [place] [address] PCP - General 08/06/19 documented as of this encounter
--- OUTSIDE RECORDS SUMMARY | 2024-05-24 13:08 | XMS_ITS | Continuity of Care Document ---
Author Name [facility] Organization [facility] Care Team Providers Care Correctional Security Officer Name Role Phone [facility] Unavailable Unavailable Problems Combined list of problems from Department of Defense and Veterans Affairs facilities. It does not include entries that were removed or entered in error. Problem Status Onset Date Problem Type Date of Resolution Comments Source Abnormal swallowing Active Condition [facility] Appendix absent Active Condition [facility] Carotid artery stenosis Active Condition May 08, 2023 Entered By: LORENA GRIFFIN ES Comment: 95% right sided. Vascular declined to intervene outside [facility] [place]. [facility] COPD - Chronic Obstructive Pulmonary Disease ([facility] [id number]) Active Condition [facility] CVD - Cerebrovascular Disease ([facility] [id number]) Active Condition May 06, 2022 Entered By: LORENA GRIFFIN ES Comment: right sided stroke left sided weakness.May 08, 2023 Entered By: LORENA GRIFFIN ES Comment: cva in september 2022. [facility] Dementia ([facility] [id number]) Active Condition May 08, 2023 Entered By: LORENA GRIFFIN ES Comment: vascular and parkinson's. [facility] Erectile dysfunction Active Condition [facility] Exposure to potentially hazardous substance Active Condition [facility] Glaucoma Active Condition [facility] HTN - Hypertension ([facility] [id number]) Active Condition [facility] Incontinence Active Condition [facility] LBP - Low back pain Active Condition May 06, 2022 Entered By: LORENA GRIFFIN ES Comment: status post discectomy [facility] Mixed Hyperlipidemia ([facility] [id number]) Active Condition [facility] Neuropathy (nerve damage) Active Condition [facility] Parkinsonism Active Condition [facility] Polyp Colon ([facility] [id number]) Active Condition [facility] PVD - peripheral vascular disease Active Condition May 06 Entered By: LORENA GRIFFIN Comment: left sided weakness.May 06, 2022 Entered By: LORENA GRIFFIN Comment: status post right cea [facility] Rotator cuff impingement syndrome Active Condition May 06, 2022 Entered By: LORENA GRIFFIN Comment: left [facility] Vitamin B12 Deficiency ([facility] [id number]) Active Condition [facility] Diagnosis: ICD-10-CM I67.9 Cerebrovascular disease, unspecified Active Diagnosis [facility] Diagnosis: ICD-10-CM Z55.9 Problems related to education and literacy, unspecified Active Diagnosis [facility] Medications Combined list of outpatient medications from [...] A DAY ORAL ACTIVE LUCERO GRIFFIN 2022 [facility] ATORVASTATI N CA 80MG TAB TAKE ONE-HALF TABLET BY MOUTH EVERY EVENING ORAL ACTIVE LUCERO GRIFFIN 2022 [facility] CARBIDOPA 25MG/LEVODO PA 100MG TAB TAKE ONE TABLET BY MOUTH 6 TIMES A DAY ORAL ACTIVE LUCERO GRIFFIN 2022 [facility] CICLOPIROX 8% SOLN,TOP APPLY LIGHTLY TO AFFECTED AREA(S) ONCE A DAY (THIN COAT TO THICK NAILS - FILE DOWN AFTER 1 WEEK) (EXTERNA L USE ONLY) TOPICA L ACTIVE 05/09/2025 [id number] LUCERO GRIFFIN 2024 6.6 [facility] CILOSTAZOL 100MG TAB TAKE ONE TABLET BY MOUTH TWICE A DAY ORAL ACTIVE LUCERO GRIFFIN 2022 [facility] CLOPIDOGREL BISULFATE 75MG TAB TAKE ONE TABLET BY MOUTH ONCE A DAY ORAL ACTIVE LUCERO GRIFFIN 2024 [facility] CYANOCOBALA MIN 1000MCG TAB TAKE ONE TABLET BY MOUTH ONCE A DAY [facility]AL [facility] 2022 [facility] LATANOPROST 0.005% SOLN,OPH INSTILL 1 DROP IN BOTH EYES EVERY EVENING OPHTHA LMIC ACTIVE SIMMERLUCERO [place]OSTON 2022 [facility] LISINOPRIL 10MG TAB TAKE ONE-HALF TABLET BY MOUTH ONCE A DAY ORAL ACTIVE LUCERO GRIFFIN 2024 [facility] MEMANTINE HCL 5MG TAB TAKE ONE TABLET BY MOUTH TWICE A DAY ORAL ACTIVE 06/14/2024 [id number] SIMLUCERO PAN 2023 180 [facility] TIMOLOL MALEATE 0.5% SOLN,OPH INSTILL 1 DROP IN BOTH EYES TWICE A DAY OPHA LMIC ACTIVE SIMLUCERO PAN 2022 [facility] Immunizations Combined list of available immunizations from the Department of Defense and Veterans Affairs facilities. 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 Order Name Results Value Reference Range Date Interpretation Specimen Comments Source URINALYSIS (STL-PB) COLOR OF URINE Yellow 05/21 Specimen Type: URINE No comment entered. Ordering Provider: LUCERO GRIFFIN Report Released Date/Time: May 17, 2024 01:11 PM Reporting Lab: [facility] [address] [facility] [address] Performing Lab: [facility] [address] [facility] [address] [facility] URINALYSIS (STL-PB) BILIRUBIN.TO RORO [PRESENCE] IN URINE BY TEST STRIP Negativ emg/dL 05/21 Specimen Type: URINE No comment entered. Ordering Provider: LUCERO GRIFFIN Report Released Date/Time: May 17, 2024 01:11 PM Reporting Lab: [facility] [address] [place] [phone] Performing Lab: [address] [address] [facility] URINALYSIS (STL-PB) PH OF URINE BY TEST STRIP 6.0 5.0 - 8.0 05/21 Specimen Type: URINE No comment entered. Ordering Provider: LUCERO GRIFFIN Report Released Date/Time: May 17, 2024 01:11 PM Reporting Lab: [place] [address] Performing Lab: [address] [phone] [place] [address] [facility] URINALYSIS (STL-PB) LEUKOCYTES [#/AREA] IN URINE SEDIMENT BY MICROSCOPY HIGH POWER FIELD >182/[H PF] 0 - 5 05/21 H Specimen Type: URINE No comment entered. Ordering Provider: LUCERO GRIFFIN Report Released Date/Time: May 17, 2024 01:11 PM Reporting Lab: [address] [address] Performing Lab: [address] [address] [facility] URINALYSIS (STL-PB) ERYTHROCYTES [#/VOLUME] IN URINE SEDIMENT BY MICROSCOPY HIGH POWER FIELD 6 /[HPF] 0 - 5 05/21 H Specimen Type: URINE No comment entered. Ordering Provider: LUCERO GRIFFIN Report Released Date/Time: May 17, 2024 01:11 PM Reporting Lab: [facility] [address] [place] [address] Performing Lab: [address] [address] [facility] URINALYSIS (STL-PB) APPEARANCE OF URINE Turbid 05/21 Specimen Type: URINE No comment entered. Ordering Provider: LUCERO GRIFFIN Report Released Date/Time: May 17, 2024 01:11 PM Reporting Lab: [facility] [place] [phone] Performing Lab: [facility] [address] [address] [facility] URINALYSIS (STL-PB) NITRITE [PRESENCE] IN URINE BY TEST STRIP 2+mg/dL 05/21 H Specimen Type: URINE No comment entered. Ordering Provider: LUCERO GRIFFIN Report Released Date/Time: May 17, 2024 01:11 PM Reporting Lab: [facility] [place] [address] Performing Lab: [place] [address] [address] [address] [facility] URINALYSIS (STL-PB) LEUKOCYTE CLUMPS [#/VOLUME] IN URINE BY AUTOMATED COUNT OCC/[HP F] 05/21 Specimen Type: URINE No comment entered. Ordering Provider: LUCERO GRIFFIN Report Released Date/Time: May 17, 2024 01:11 PM Reporting Lab: [facility] [place] [phone] Performing Lab: [facility] [address] [facility] URINALYSIS (STL-PB) BACTERIA [PRESENCE] IN URINE SEDIMENT BY LIGHT MICROSCOPY FEW/[HP F] 05/21 Specimen Type: URINE No comment entered. Ordering Provider: LUCERO GRIFFIN Report Released Date/Time: May 17, 2024 01:11 PM Reporting Lab: [facility] [address] [address] Performing Lab: [facility] [place] [phone] [facility] URINALYSIS (STL-PB) MUCUS [PRESENCE] IN URINE SEDIMENT BY LIGHT MICROSCOPY RARE/[L PF] 05/21 Specimen Type: URINE No comment entered. Ordering Provider: LUCERO GRIFFIN Report Released Date/Time: May 17, 2024 01:11 PM Reporting Lab: [facility] [address] [address] Performing Lab: [facility] [address] [address] [facility] URINALYSIS (STL-PB) GLUCOSE [MASS/VOLUME ] IN URINE BY TEST STRIP Normalm g/dL 05/21 Specimen Type: URINE No comment entered. Ordering Provider: LUCERO GRIFFIN Report Released Date/Time: May 17, 2024 01:11 PM Reporting Lab: [facility] [address] [address] Performing Lab: [facility] [address] [address] [place] [address] [facility] URINALYSIS (STL-PB) PROTEIN [MASS/VOLUME ] IN URINE BY TEST STRIP 10 mg/dL 05/21 H Specimen Type: URINE No comment entered. Ordering Provider: LUCERO GRIFFIN Report Released Date/Time: May 17, 2024 01:11 PM Reporting Lab: [facility] [address] [address] Performing Lab: [facility] [address] [address] [facility] URINALYSIS (STL-PB) URN.UROBILIN OGEN Normalm g/dL 05/21 Specimen Type: URINE No comment entered. Ordering Provider: LUCERO GRIFFIN Report Released Date/Time: May 17, 2024 01:11 PM Reporting Lab: [facility] [address] [address] Performing Lab: [facility] [address] [phone] [place] [address] [facility] URINALYSIS (STL-PB) HEMOGLOBIN [MASS/VOLUME ] IN URINE BY TEST STRIP Negativ emg/dL 05/21 Specimen Type: URINE No comment entered. Ordering Provider: LUCERO GRIFFIN Report Released Date/Time: May 17, 2024 01:11 PM Reporting Lab: [facility] [address] [place] [phone] Performing Lab: [address] [facility] URINALYSIS (STL-PB) KETONES [MASS/VOLUME ] IN URINE BY TEST STRIP Tracemg /dL 05/21 Specimen Type: URINE No comment entered. Ordering Provider: LUCERO GRIFFIN Report Released Date/Time: May 17, 2024 01:11 PM Reporting Lab: [place] [address] [place] [address] Performing Lab: [address] [facility] URINALYSIS (STL-PB) URN.LEUK.EST . 500 mg/dL 05/21 H Specimen Type: URINE No comment entered. Ordering Provider: LUCERO GRIFFIN Report Released Date/Time: May 17, 2024 01:11 PM Reporting Lab: [place] [address] [place] [address] Performing Lab: [address] [facility] URINALYSIS (STL-PB) SPECIFIC GRAVITY OF URINE 1.022 05/21 Specimen Type: URINE No comment entered. Ordering Provider: LUCERO GRIFFIN Report Released Date/Time: May 17, 2024 01:11 PM Reporting Lab: [place] [address] Performing Lab: [address] [facility] TSH W/ REFLEX FT4 (STL) THYROTROPIN [UNITS/VOLUM E] IN SERUM OR PLASMA 0.764 u[IU]/m L 0.47 - 5 05/08 Specimen Type: PLASMA No comment entered. Ordering Provider: LUCERO GRIFFIN Report Released Date/Time: May 08, 2024 12:01 PM Reporting Lab: [place] [address] [address] [address] Performing Lab: [place] [address] [address] [address] [facility] VITAMIN D, 25-HYDROXY 25-HYDROXYVI TAMIN D3 [MASS/VOLUME ] IN SERUM OR PLASMA 27.2 ng/mL 30 - 96 05/08 L Specimen Type: SERUM No comment entered. Ordering Provider: LUCERO GRIFFIN Report Released Date/Time: May 08, 2024 12:01 PM Reporting Lab: [place] [address] [address] [address] Performing Lab: [place] [address] [address] [phone] [place] [address] [facility] URINALYSIS (STL-PB) COLOR OF URINE Yellow 05/08 Specimen Type: URINE No comment entered. Ordering Provider: LUCERO GRIFFIN Report Released Date/Time: May 08, 2024 12:01 PM Reporting Lab: [place] [address] [address] [address] Performing Lab: [place] [address] [address] [phone] [place] [address] [facility] URINALYSIS (STL-PB) BILIRUBIN.TO RORO [PRESENCE] IN URINE BY TEST STRIP Negativ emg/dL 05/08 Specimen Type: URINE No comment entered. Ordering Provider: LUCERO GRIFFIN Report Released Date/Time: May 08, 2024 12:01 PM Reporting Lab: [facility] [address] [address] Performing Lab: [place] [address] [address] [address] [facility] URINALYSIS (STL-PB) PH OF URINE BY TEST STRIP 6.0 5.0 - 8.0 05/08 Specimen Type: URINE No comment entered. Ordering Provider: LUCERO GRIFFIN Report Released Date/Time: May 08, 2024 12:01 PM Reporting Lab: [facility] [address] [address] Performing Lab: [facility] [address] [place] [address] [facility] URINALYSIS (STL-PB) LEUKOCYTES [#/AREA] IN URINE SEDIMENT BY MICROSCOPY HIGH POWER FIELD >182/[H PF] 0 - 5 05/08 H Specimen Type: URINE No comment entered. Ordering Provider: LUCERO GRIFFIN Report Released Date/Time: May 08, 2024 12:01 PM Reporting Lab: [place] [address] [address] [address] Performing Lab: [address] [address] [facility] URINALYSIS (STL-PB) ERYTHROCYTES [#/VOLUME] IN URINE SEDIMENT BY MICROSCOPY HIGH POWER FIELD 3 /[HPF] 0 - 5 05/08 Specimen Type: URINE No comment entered. Ordering Provider: LUCERO GRIFFIN Report Released Date/Time: May 08, 2024 12:01 PM Reporting Lab: [address] [address] Performing Lab: [place] [phone] [facility] URINALYSIS (STL-PB) APPEARANCE OF URINE Turbid 05/08 Specimen Type: URINE No comment entered. Ordering Provider: LUCERO GRIFFIN Report Released Date/Time: May 08, 2024 12:01 PM Reporting Lab: [address] [address] Performing Lab: [address] [address] [facility] URINALYSIS (STL-PB) NITRITE [PRESENCE] IN URINE BY TEST STRIP 2+mg/dL 05/08 H Specimen Type: URINE No comment entered. Ordering Provider: LUCERO GRIFFIN Report Released Date/Time: May 08, 2024 12:01 PM Reporting Lab: [address] [address] Performing Lab: [address] [place] [address] [facility] URINALYSIS (STL-PB) BACTERIA [PRESENCE] IN URINE SEDIMENT BY LIGHT MICROSCOPY OCC/[HP F] 05/08 Specimen Type: URINE No comment entered. Ordering Provider: LUCERO GRIFFIN Report Released Date/Time: May 08, 2024 12:01 PM Reporting Lab: [address] [address] Performing Lab: [place] [address] [address] [address] [facility] URINALYSIS (STL-PB) EPITHELIAL CELLS [#/AREA] IN URINE SEDIMENT BY MICROSCOPY LOW POWER FIELD 2 /[HPF] 0 - 5 05/08 Specimen Type: URINE No comment entered. Ordering Provider: LUCERO GRIFFIN Report Released Date/Time: May 08, 2024 12:01 PM Reporting Lab: [address] [address] Performing Lab: [address] [address] [facility] URINALYSIS (STL-PB) MUCUS [PRESENCE] IN URINE SEDIMENT BY LIGHT MICROSCOPY RARE/[L PF] 05/08 Specimen Type: URINE No comment entered. Ordering Provider: LUCERO GRIFFIN Report Released Date/Time: May 08, 2024 12:01 PM Reporting Lab: [place] [address] [address] [address] Performing Lab: [address] [address] [facility] URINALYSIS (STL-PB) GLUCOSE [MASS/VOLUME ] IN URINE BY TEST STRIP Normalm g/dL 05/08 Specimen Type: URINE No comment entered. Ordering Provider: LUCERO GRIFFIN Report Released Date/Time: May 08, 2024 12:01 PM Reporting Lab: [place] [address] [address] [address] Performing Lab: [place] [address] [address] [address] [facility] URINALYSIS (STL-PB) PROTEIN [MASS/VOLUME ] IN URINE BY TEST STRIP 20 mg/dL 05/08 H Specimen Type: URINE No comment entered. Ordering Provider: LUCERO GRIFFIN Report Released Date/Time: May 08, 2024 12:01 PM Reporting Lab: [facility] [address] [address] Performing Lab: [facility] [address] [address] [facility] URINALYSIS (STL-PB) URN.UROBILIN OGEN Normalm g/dL 05/08 Specimen Type: URINE No comment entered. Ordering Provider: LUCERO GRIFFIN Report Released Date/Time: May 08, 2024 12:01 PM Reporting Lab: [place] [address] [address] [address] Performing Lab: [facility] [address] [address] [facility] URINALYSIS (STL-PB) HEMOGLOBIN [MASS/VOLUME ] IN URINE BY TEST STRIP Negativ emg/dL 05/08 Specimen Type: URINE No comment entered. Ordering Provider: LUCERO GRIFFIN Report Released Date/Time: May 08, 2024 12:01 PM Reporting Lab: [facility] [address] [address] Performing Lab: [facility] [address] [address] [facility] URINALYSIS (STL-PB) KETONES [MASS/VOLUME ] IN URINE BY TEST STRIP Tracemg /dL 05/08 Specimen Type: URINE No comment entered. Ordering Provider: LUCERO GRIFFIN Report Released Date/Time: May 08, 2024 12:01 PM Reporting Lab: [facility] [address] [address] Performing Lab: [facility] [address] [address] [facility] URINALYSIS (STL-PB) URN.LEUK.EST . 500 mg/dL 05/08 H Specimen Type: URINE No comment entered. Ordering Provider: LUCERO GRIFFIN Report Released Date/Time: May 08, 2024 12:01 PM Reporting Lab: [facility] [address] [address] Performing Lab: [facility] [address] [place] [address] [facility] URINALYSIS (STL-PB) SPECIFIC GRAVITY OF URINE 1.022 05/08 Specimen Type: URINE No comment entered. Ordering Provider: LUCERO GRIFFIN Report Released Date/Time: May 08, 2024 12:01 PM Reporting Lab: [address] [address] Performing Lab: [address] [address] [facility] COMPREHENS ALBA METABOLIC PANEL CREATININE [MASS/VOLUME ] IN SERUM OR PLASMA 0.72 mg/dL 0.7 - 1.3 05/08 Specimen Type: PLASMA Comment: No hemolysis noted. Ordering Provider: LUCERO GRIFFIN Report Released Date/Time: May 08, 2024 12:01 PM Reporting Lab: [address] [address] Performing Lab: [address] [address] [facility] COMPREHENS ALBA METABOLIC PANEL UREA NITROGEN [MASS/VOLUME ] IN SERUM OR PLASMA 12.4 mg/dL 9.0 - 25.0 05/08 Specimen Type: PLASMA Comment: No hemolysis noted. Ordering Provider: LUCERO GRIFFIN Report Released Date/Time: May 08, 2024 12:01 PM Reporting Lab: [facility] [address] [address] Performing Lab: [address] [address] [facility] COMPREHENS ALBA METABOLIC PANEL GLUCOSE [MASS/VOLUME ] IN SERUM OR PLASMA 104 mg/dL 72 - 99 05/08 H Specimen Type: PLASMA Comment: No hemolysis noted. Ordering Provider: LUCERO GRIFFIN Report Released Date/Time: May 08, 2024 12:01 PM Reporting Lab: [facility] [address] [place] [address] Performing Lab: [address] [phone] [place] [address] [facility] COMPREHENS ALBA METABOLIC PANEL SODIUM [MOLES/VOLUM E] IN SERUM OR PLASMA 139 meq/L 136 - 145 05/08 Specimen Type: PLASMA Comment: No hemolysis noted. Ordering Provider: LUCERO GRIFFIN Report Released Date/Time: May 08, 2024 12:01 PM Reporting Lab: [address] [address] Performing Lab: [address] [phone] [facility] COMPREHENS ALBA METABOLIC PANEL POTASSIUM [MOLES/VOLUM E] IN SERUM OR PLASMA 4.0 meq/L 3.5 - 5 05/08 Specimen Type: PLASMA Comment: No hemolysis noted. Ordering Provider: LUCERO GRIFFIN Report Released Date/Time: May 08, 2024 12:01 PM Reporting Lab: [address] [address] Performing Lab: [address] [address] [place] [address] [facility] COMPREHENS ALBA METABOLIC PANEL CHLORIDE [MOLES/VOLUM E] IN SERUM OR PLASMA 104 meq/L 98 - 107 05/08 Specimen Type: PLASMA Comment: No hemolysis noted. Ordering Provider: LUCERO GRIFFIN Report Released Date/Time: May 08, 2024 12:01 PM Reporting Lab: [address] [address] Performing Lab: [address] [address] [facility] COMPREHENS ALBA METABOLIC PANEL CARBON DIOXIDE, TOTAL [MOLES/VOLUM E] IN SERUM OR PLASMA 27 meq/L 22 - 31 05/08 Specimen Type: PLASMA Comment: No hemolysis noted. Ordering Provider: LUCERO GRIFFIN Report Released Date/Time: May 08, 2024 12:01 PM Reporting Lab: [address] [address] Performing Lab: [address] [phone] [place] [address] [facility] COMPREHENS ALBA METABOLIC PANEL CALCIUM [MASS/VOLUME ] IN SERUM OR PLASMA 9.9 mg/dL 8.4 - 10.4 05/08 Specimen Type: PLASMA Comment: No hemolysis noted. Ordering Provider: LUCERO GRIFFIN Report Released Date/Time: May 08, 2024 12:01 PM Reporting Lab: [address] [address] Performing Lab: [address] [address] [facility] COMPREHENS ALBA METABOLIC PANEL PROTEIN [MASS/VOLUME ] IN SERUM OR PLASMA 7.0 g/dL 6 - 8.6 05/08 Specimen Type: PLASMA Comment: No hemolysis noted. Ordering Provider: LUCERO GRIFFIN Report Released Date/Time: May 08, 2024 12:01 PM Reporting Lab: [address] [address] Performing Lab: [phone] [place] [address] [facility] COMPREHENS ALBA METABOLIC PANEL ALBUMIN [MASS/VOLUME ] IN SERUM OR PLASMA 3.7 g/dL 3.4 - 5 05/08 Specimen Type: PLASMA Comment: No hemolysis noted. Ordering Provider: LUCERO GRIFFIN Report Released Date/Time: May 08, 2024 12:01 PM Reporting Lab: [address] [address] Performing Lab: [address] [phone] [place] [address] [facility] COMPREHENS ALBA METABOLIC PANEL BILIRUBIN.TO RORO [MASS/VOLUME ] IN SERUM OR PLASMA 1.1 mg/dL 0.2 - 1.2 05/08 Specimen Type: PLASMA Comment: No hemolysis noted. Ordering Provider: LUCERO GRIFFIN Report Released Date/Time: May 08, 2024 12:01 PM Reporting Lab: [place] [address] [address] [address] Performing Lab: [address] [address] [facility] COMPREHENS ALBA METABOLIC PANEL ALKALINE PHOSPHATASE [ENZYMATIC ACTIVITY/VOL UME] IN SERUM OR PLASMA 78 U/L 40 - 150 05/08 Specimen Type: PLASMA Comment: No hemolysis noted. Ordering Provider: LUCERO GRIFFIN Report Released Date/Time: May 08, 2024 12:01 PM Reporting Lab: [address] [id number] Performing Lab: [place] [address] [facility] [id number] [facility] COMPREHENS ALBA METABOLIC PANEL ASPARTATE AMINOTRANSFE RASE [ENZYMATIC ACTIVITY/VOL UME] IN SERUM OR PLASMA 41 U/L 5 - 34 05/08 H Specimen Type: PLASMA Comment: No hemolysis noted. Ordering Provider: LUCERO GRIFFIN Report Released Date/Time: May 08, 2024 12:01 PM Reporting Lab: [address] [address] Performing Lab: [place] [address] [facility] [address] [facility] COMPREHENS ALBA METABOLIC PANEL ALANINE AMINOTRANSFE RASE [ENZYMATIC ACTIVITY/VOL UME] IN SERUM OR PLASMA <7U/L 8 - 40 05/08 L Specimen Type: PLASMA Comment: No hemolysis noted. Ordering Provider: LUCERO GRIFFIN Report Released Date/Time: May 08, 2024 12:01 PM Reporting Lab: [address] [address] Performing Lab: [address] [address] [facility] COMPREHENS ALBA METABOLIC PANEL GLOMERULAR FILTRATION RATE/1.73 SQ M.PREDICTED [VOLUME RATE/AREA] IN SERUM, PLASMA OR BLOOD BY CREATININE-B ASED FORMULA (CKD-EPI 2020) 91.2 60 05/08 Specimen Type: PLASMA Comment: No hemolysis noted. Ordering Provider: LUCERO GRIFFIN Report Released Date/Time: May 08, 2024 12:01 PM Reporting Lab: [facility] [address] [address] Performing Lab: [facility] [address] [address] [facility] LIPID PANEL (STL) CHOLESTEROL [MASS/VOLUME ] IN SERUM OR PLASMA 132 mg/dL 0 - 200 05/08 Specimen Type: PLASMA Comment: No hemolysis noted. Ordering Provider: LUCERO GRIFFIN Report Released Date/Time: May 08, 2024 12:01 PM Reporting Lab: [facility] [address] [address] Performing Lab: [facility] [address] [address] [facility] LIPID PANEL (STL) TRIGLYCERIDE [MASS/VOLUME ] IN SERUM OR PLASMA 55 mg/dL 0 - 150 05/08 Specimen Type: PLASMA Comment: No hemolysis noted. Ordering Provider: LUCERO GRIFFIN Report Released Date/Time: May 08, 2024 12:01 PM Reporting Lab: [facility] [address] [address] Performing Lab: [facility] [address] [address] [facility] LIPID PANEL (STL) CHOLESTEROL IN LDL [MASS/VOLUME ] IN SERUM OR PLASMA BY CALCULATION 75 mg/dL 05/08 Specimen Type: PLASMA Comment: No hemolysis noted. Ordering Provider: LUCERO GRIFFIN Report Released Date/Time: May 08, 2024 12:01 PM Reporting Lab: [facility] [address] [address] Performing Lab: [place] [address] [address] [address] [facility] LIPID PANEL (STL) CHOLESTEROL IN HDL [MASS/VOLUME ] IN SERUM OR PLASMA 46 mg/dL 40 05/08 Specimen Type: PLASMA Comment: No hemolysis noted. Ordering Provider: LUCERO GRIFFIN Report Released Date/Time: May 08, 2024 12:01 PM Reporting Lab: [place] [address] [address] Performing Lab: [place] [address] [address] [facility] CBC LEUKOCYTES [#/VOLUME] IN BLOOD BY AUTOMATED COUNT 7.9 10*3/uL 3.6 - 11.2 05/08 Specimen Type: BLOOD No comment entered. Ordering Provider: LUCERO GRIFFIN Report Released Date/Time: May 08, 2024 12:01 PM Reporting Lab: [address] [address] Performing Lab: [place] [address] [address] [facility] CBC ERYTHROCYTES [#/VOLUME] IN BLOOD BY AUTOMATED COUNT 4.54 10*6/uL 4.10 - 5.70 05/08 Specimen Type: BLOOD No comment entered. Ordering Provider: LUCERO GRIFFIN Report Released Date/Time: May 08, 2024 12:01 PM Reporting Lab: [place] [address] [address] Performing Lab: [address] [address] [facility] CBC HEMOGLOBIN [MASS/VOLUME ] IN BLOOD 13.5 g/dL 13.1 - 16.8 05/08 Specimen Type: BLOOD No comment entered. Ordering Provider: LUCERO GRIFFIN Report Released Date/Time: May 08, 2024 12:01 PM Reporting Lab: [address] [address] Performing Lab: [address] [address] [facility] CBC HEMATOCRIT [VOLUME FRACTION] OF BLOOD 41.2 38.2 - 48.4 05/08 Specimen Type: BLOOD No comment entered. Ordering Provider: LUCERO GRIFFIN Report Released Date/Time: May 08, 2024 12:01 PM Reporting Lab: [address] [address] Performing Lab: [place] [phone] [facility] CBC MCV [ENTITIC VOLUME] BY AUTOMATED COUNT 90.7 fL 80.0 - 100.0 05/08 Specimen Type: BLOOD No comment entered. Ordering Provider: LUCERO GRIFFIN Report Released Date/Time: May 08, 2024 12:01 PM Reporting Lab: [place] [phone] Performing Lab: [place] [phone] [facility] CBC MCH [ENTITIC MASS] BY AUTOMATED COUNT 29.7 pg 27.0 - 34.0 05/08 Specimen Type: BLOOD No comment entered. Ordering Provider: LUCERO GRIFFIN Report Released Date/Time: May 08, 2024 12:01 PM Reporting Lab: [address] [address] Performing Lab: [address] [address] [facility] CBC MCHC [MASS/VOLUME ] BY AUTOMATED COUNT 32.8 g/dL 33.0 - 36.0 05/08 L Specimen Type: BLOOD No comment entered. Ordering Provider: LUCERO GRIFFIN Report Released Date/Time: May 08, 2024 12:01 PM Reporting Lab: [place] [phone] Performing Lab: [address] [phone] [facility] CBC PLATELETS [#/VOLUME] IN BLOOD BY AUTOMATED COUNT 280 10*3/uL 150 - 400 05/08 Specimen Type: BLOOD No comment entered. Ordering Provider: LUCERO GRIFFIN Report Released Date/Time: May 08, 2024 12:01 PM Reporting Lab: [facility] [address] [address] Performing Lab: [facility] [address] [phone] [place] [address] [facility] CBC PLATELET MEAN VOLUME [ENTITIC VOLUME] IN BLOOD BY AUTOMATED COUNT 10.1 fL 7.5 - 11.2 05/08 Specimen Type: BLOOD No comment entered. Ordering Provider: LUCERO GRIFFIN Report Released Date/Time: May 08, 2024 12:01 PM Reporting Lab: [facility] [address] [address] Performing Lab: [place] [address] [place] [phone] [facility] CBC ERYTHROCYTE DISTRIBUTION WIDTH [RATIO] BY AUTOMATED COUNT 14.4 11.8 - 15.1 05/08 Specimen Type: BLOOD No comment entered. Ordering Provider: LUCERO GRIFFIN Report Released Date/Time: May 08, 2024 12:01 PM Reporting Lab: [facility] [address] [address] Performing Lab: [facility] [address] [address] [facility] CBC LYMPHOCYTES/ 100 LEUKOCYTES IN BLOOD BY AUTOMATED COUNT 15 05/08 Specimen Type: BLOOD No comment entered. Ordering Provider: LUCERO GRIFFIN Report Released Date/Time: May 08, 2024 12:01 PM Reporting Lab: [facility] [address] [address] Performing Lab: [facility] [address] [place], [place] [phone] [address] [facility] CBC MONOCYTES/10 0 LEUKOCYTES IN BLOOD BY AUTOMATED COUNT 12 05/08 Specimen Type: BLOOD No comment entered. Ordering Provider: LUCERO GRIFFIN Report Released Date/Time: May 08, 2024 12:01 PM Reporting Lab: [facility] [address] [address] Performing Lab: [facility] [address] [address] [facility] CBC NEUTROPHILS/ 100 LEUKOCYTES IN BLOOD BY AUTOMATED COUNT 70 05/08 Specimen Type: BLOOD No comment entered. Ordering Provider: LUCERO GRIFFIN Report Released Date/Time: May 08, 2024 12:01 PM Reporting Lab: [facility] [address] [address] Performing Lab: [facility] [address] [address] [facility] CBC EOSINOPHILS/ 100 LEUKOCYTES IN BLOOD BY AUTOMATED COUNT 2 05/08 Specimen Type: BLOOD No comment entered. Ordering Provider: LUCERO GRIFFIN Report Released Date/Time: May 08, 2024 12:01 PM Reporting Lab: [facility] [address] [address] Performing Lab: [facility] [address] [address] [facility] CBC BASOPHILS/10 0 LEUKOCYTES IN BLOOD BY AUTOMATED COUNT 1 05/08 Specimen Type: BLOOD No comment entered. Ordering Provider: LUCERO GRIFFIN Report Released Date/Time: May 08, 2024 12:01 PM Reporting Lab: [facility] [address] [address] Performing Lab: [facility] [address] [address] [facility] CBC LYMPHOCYTES [#/VOLUME] IN BLOOD BY AUTOMATED COUNT 1.18 10*3/uL 0.77 - 4.50 05/08 Specimen Type: BLOOD No comment entered. Ordering Provider: LUCERO GRIFFIN Report Released Date/Time: May 08, 2024 12:01 PM Reporting Lab: [facility] [address] [address] Performing Lab: [facility] [address] [facility] CBC MONOCYTES [#/VOLUME] IN BLOOD BY AUTOMATED COUNT 0.93 10*3/uL 0.19 - 0.80 05/08 H Specimen Type: BLOOD No comment entered. Ordering Provider: LUCERO GRIFFIN Report Released Date/Time: May 08, 2024 12:01 PM Reporting Lab: [place] [phone] Performing Lab: [place] [phone] [facility] CBC NEUTROPHILS [#/VOLUME] IN BLOOD BY AUTOMATED COUNT 5.59 10*3/uL 2.10 - 8.00 05/08 Specimen Type: BLOOD No comment entered. Ordering Provider: LUCERO GRIFFIN Report Released Date/Time: May 08, 2024 12:01 PM Reporting Lab: [place] [phone] Performing Lab: [place] [phone] [facility] CBC EOSINOPHILS [#/VOLUME] IN BLOOD BY AUTOMATED COUNT 0.14 10*3/uL 0.00 - 0.60 05/08 Specimen Type: BLOOD No comment entered. Ordering Provider: LUCERO GRIFFIN Report Released Date/Time: May 08, 2024 12:01 PM Reporting Lab: [place] [phone] Performing Lab: [address] [address] [facility] CBC BASOPHILS [#/VOLUME] IN BLOOD BY AUTOMATED COUNT 0.06 10*3/uL 0.00 - 0.20 05/08 Specimen Type: BLOOD No comment entered. Ordering Provider: LUCERO GRIFFIN Report Released Date/Time: May 08, 2024 12:01 PM Reporting Lab: [place] [phone] Performing Lab: [place] [phone] [facility] HGA1C HEMOGLOBIN A1C/HEMOGLOB IN.TOTAL IN BLOOD 5.7 4.0 - 6.0 05/08 Specimen Type: BLOOD No comment entered. Ordering Provider: LUCERO GRIFFIN Report Released Date/Time: May 08, 2024 12:01 PM Reporting Lab: [facility] [address] [facility] [address] Performing Lab: [address] [address] [facility] Vital Signs Combined list of inpatient and outpatient Vital Signs from Department of [facility] and [facility], ranging from 12 months to all on record, depending upon the facility. Vital Sign Value Date Comments Source SYSTOLIC BLOOD PRESSURE 134 05/08/2024 11:34:05 [facility] DIASTOLIC BLOOD PRESSURE 72 05/08/[facility]24 [facility] P[facility] OXIMETRY 94 05/08/2024 11:34:05 [facility] WEIGHT 172 05/08/2024 11:34:05 [facility] PAIN 0 05/08/2024 11:34:05 [facility] TEMPERATURE 98.2 05/08/2024 11:34:05 [facility] PULSE 63 05/08/2024 11:34:05 [facility] RESPIRATION 20 05/08/2024 11:34:05 [facility] Encounters Combined list of: 1) Encounters from Department of [facility] Affairs facilities going backup to the last 18 months, not all [place] inpatient encounters are included; 2) Encounters from the Department [facility] facilities going backup to 280 months. Location Location Details Encounter Type Encounter Number Reason For Visit Attending Provider ADM Date DC Date Status Disposition Source [facility] Outpatient Encounter [id number] 12/19 [facility] Outpatient Encounter [id number] 12/26 [facility] N [facility] OFFICE O/P EST MOD 30 MIN [id number] Diagnos is: ICD-10- CM I67.9 Cerebro vascula r disease , unspeci saundra GRIFFIN LUCERO 05/07 [facility] FEE [id number] Diagnos is: ICD-10- CM Z55.9 Problem s related to educati on and literac y, unspeci fijean JOSY CARRILLO O 05[facility] En[facility] [id number] FEI OVERTON E 06/11 [facility] Outpatient Encounter [id number] FEI OVERTON E 07/17 [facility] Outpatient Encounter [id number] FEI OVERTON E 07/17 [facility] Outpatient Encounter [id number] Lavinia LAMB 05/07 [facility] OFFICE O/P EST HI 40 MIN [id number] Diagnos is: ICD-10- CM I67.9 Cerebro vascula r disease , unspeci saundra GRIFFINLUCERO 05/08 [facility] Outpatient Encounter [id number] [facility] En[facility] [id number] 05/23 [facility] Social History Combined list of available smoking, tobacco, and other social history from Department of Defense and Veterans Affairs facilities. Social History Type Response Date Comment Sourc e Tobacco smoking status NHIS VA-TOBACCO USE FORMER CIGARETTES 05/08/2024 [facility] History of tobacco use VA-TOBACCO NEVER USED OTHER TYPE 05/08/2024 [facility] History of tobacco use VA-TOBACCO FORMER USER 05/08/2023 [facility] History of tobacco use VA-TOBACCO FORMER USER 05/06/2022 [facility] Plan of Care List of future care activities from Department of Veterans Affairs facilities. Additional future care activities may be listed in the Assessment and Plan section. Date/Time Care Activity Care Activity Detail Facili ty 11/12/2024 AMBULATORY - MEDICINE AMBULATORY - MEDICI NE [facility]
--- OUTSIDE RECORDS SUMMARY | 2024-05-24 13:08 | XMS_ITS | Encounter Summary ---
Author Organization [facility] Address [address] [place] [address] Care Team Providers Care Telemarketing Sales Representative Name Role Phone [facility], External Provider Primary Care Provider U navailable Encounter Details Date Type Department Care Team (Latest Contact Info) Description 08/23/2006 Outpatient Historical [facility] Nghia Longoria MD 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
--- OUTSIDE RECORDS SUMMARY | 2024-05-24 13:08 | XMS_ITS | Encounter Summary ---
Author Organization [facility] Address [address] [place] [address] Care Team Providers Care Director Of Marketing Operations Name Role Phone [facility], [facility] Provider Primary Care Provider U navailable Encounter Details Date Type Department Care Team (Late st Contact Info) Description 08/17/2006 Outpatient Historical [facility] Blood Flow [address] [place] [address] Nghia Longoria MD [address] [facility] [address] [place] [address] Social History Tobacco Use Types Packs/Day Years Used Date Smoking Tobacco: Never Assessed Sex and Gender Information Value Date Recorded Sex Assigned at Not on file 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
--- OUTSIDE RECORDS SUMMARY | 2024-05-24 13:08 | XMS_ITS ---
Author Organization [facility] Address [address] [place], [place] [id number] Care Team Providers Care Esthetics Instructor Name Role Phone MADELINE CARRASCO Unavailable [phone] Toño Dejesus Unavailable Unavailable RENEA SIMMONS Unavailable [phone] REASON FOR VISIT *General care Medications Medication [...] 06/22/2023 Encounters Encounter Location Date Provider Diagnosis [facility] [address] [place], [place] [id number] 06/22/2023 RENEA SIMMONS Other hammer toe(s) (acquired), right foot M20.41 ; Tinea unguium B35.1 ; Other hammer toe(s) (acquired), left foot M20.42 ; Pain in right toe(s) M79.674 ; Pain in left toe(s) M79.675 and Unspecified atherosclerosis of [place] arteries of extremities, bilateral legs I70.203 Assessments [...] (ICD-10 - M79.675) 06/22/2023 Unspecified atherosclerosis of [place] arteries of extremities, bilateral legs (ICD-10 - [...] OTC and prescription treatments. Unspecified atherosclerosis of [place] arteries of extremities, bilateral legs Patient educated on risks and aggravating factors of PVD, including conservative treatment options such as a diet and exercise regimen to aid in slowing progression of vascular disease Next Appt Details Follow Up: 3 Months, Reason: Provider Name:LOLA LOPEZ, 07/25/2024 11:30:00 AM, [address] [place] [address], [phone], Progress Notes * ASMITA NIETO DDOB: [birth year] (82 yo M)Acc No.[id number]:06/22/2023 Patient: ASMITA RIVERA Provider: Irene SIMMONS :1940 A ge:82 Y S ex:Male Date:06/22/2023 Address:[address] [place] [address] Subjective: * Chief Complaints: * 1 . [...] Patient denies c hest pain, history of OK, irregular heartbeat. M usculoskeletal: Patient complains of [...] M79.675 6 . U nspecified atherosclerosis of [place] arteries of extremities, bilateral legs - I70.203 [...] were emphasized. 3. U nspecified atherosclerosis of mo[place] arteries of extremities, bilateral legs Notes: Patient educated on risks and aggravating factors of PVD, including conservative treatment options such as a diet and exercise regimen to aid in slowing progression of vascular disease ? * Procedure Codes: 1 1721 DEBRIDE NAIL, 6 OR MORE, Modifiers: Q8 * Follow Up: 3 Months * Billing Information: * Visit Code: * Procedure Codes: 87104 DEBRIDE NAIL, 6 OR MORE. Modifiers: Q8 * Sign off status: Completed true * Provider: Irene SIMMONS Date: 0 06/22/2023 Generated for Alen pitts/Volodymyr/Darcy on: 0 05/24/2024 01:08 PM CDT History and Physical Notes * [...]
--- OUTSIDE RECORDS SUMMARY | 2024-05-24 13:08 | XMS_ITS | Encounter Summary ---
Author Name [facility] Organization [facility] [place] [facility] [place] Address [address] [place] [address] Care Team Providers Care Fuel Efficient Aircraft Designer Name Role Phone LUCERO GRIFFIN Primary Care [...] MEDIC ARE SUPPL EMENT Aug 06, 2009 [id number] [phone] LEVI QUIROZ PATIENT ANTHEM [place] MEDIGAP PLAN F MEDIC ARE SUPPL EMENT Aug 06, 2009 [id number] [phone] LEVI QUIROZ PATIENT ANTHEM [place] MEDICARE SUPPLEMEN [place] MEDIC ARE SUPPL EMENT Aug 06, 2009 [id number] [phone] LEVI QUIROZ PATIENT [place] PLAN F MEDIC ARE SUPPL EMENT Aug 06, 2009 [id number] [phone] LEVI QUIROZ PATIENT MEDICARE (WNR) MEDICARE (M) PART A Dec 07, 2006 PART A [id number] LEVI QUIROZ PATIENT MEDICARE (WNR) MEDICARE (M) PART B Dec 07, 2006 PART B [id number] LEVI QUIROZ PATIENT Selected Encounter This section includes the information on record at [place] for the Encounter. Date/Time Encounter Type Encounter Description Reason Provider Source May 08, 2024 11:00 AM OFFICE O/P EST HI 40 MIN PRIMARY CARE/MEDICINE ICD-10-CM I67.9 Cerebrovascular disease, unspecified SIMMERING,JAM ES IHE Encounter Template Text not used by [place] Assessments - Encounter Diagnoses This section includes the primary and secondary diagnoses documented for the Encounter. Date/Time Primary/Secondary Diagnosis Diagnosis Name Provider Source May 08, 2024 12:15 PM PRIMARY Cerebrovascular disease, unspecified [facility] May 08, 2024 12:15 PM SECONDARY Chronic obstructive pulmonary disease, unspecified [facility] May 08, 2024 12:15 PM SECONDARY Contact with and exposure to other hazardous substances [facility] May 08, 2024 12:15 PM SECONDARY Deficiency of other specified B group vitamins [facility] May 08, 2024 12:15 PM SECONDARY Essential (primary) hypertension [facility] May 08, 2024 12:15 PM SECONDARY Low back pain, unspecified [facility] May 08, 2024 12:15 PM SECONDARY Male erectile dysfunction, unspecified [facility] May 08, 2024 12:15 PM SECONDARY [facility] May 08, 2024 12:15 PM SECONDARY Occlusion and stenosis of unspecified carotid artery [facility] May 08, 2024 12:15 PM SECONDARY Peripheral vascular disease, unspecified [facility] May 08, 2024 12:15 PM SECONDARY Polyneuropathy, unspecified [facility] May 08, 2024 12:15 PM SECONDARY Unsp dementia, unsp severity, without beh/psych/mood/anx [facility] Lab Results: +/- 30 days of the encounter This section includes the Chemistry and Hematology Lab Results on record with [place] for the patient. Radiology Reports and Pathology Reports are provided separately, in subsequent sections. Lab Results This section contains the Chemistry/Hematology Results that were resulted 30 days before or 30 daysafter the date of the Encounter. Date/Time Source Result Type Result - Unit Interpretation Reference Range Specimen Type Comment May 21, 2024 10:[address] [facility] URINALYSIS (STL-PB) URINE Specimen Type: URINE No comment entered. Ordering Provider: LUCERO GRIFFIN Report Released Date/Time: May 17, 2024 01:11 PM Reporting Lab: [facility] [address] [place] [phone] Performing Lab: [address] [address] URINE COLOR Yellow Yellow U.BILIRUBIN Negative mg/dL Negative U.PH 6.0 5.0-8.0 URINE WBC/HPF >182 /[HPF] H 0-5 URINE RBC/HPF 6 /[HPF] H 0-5 APPEARANCE Turbid Clear U.NITRITE 2+ mg/dL H Negative WBC Clumps OCC /[HPF] Negative-Rare BACTERIA FEW /[HPF] Negative MUCUS RARE /[LPF] Negative-Rare URN.GLUCOSE Normal mg/dL Negative URN.PROTEIN 10 mg/dL H URN.UROBILINOGEN Normal mg/dL Normal URN.BLOOD Negative mg/dL Negative-Trace URN.KETONES Trace mg/dL Negative-Trace URN.LEUK.EST. 500 mg/dL H Negative-Trace URN.SPECIFIC GRAVITY 1.022 May 08, 2024 12:[address] [facility] TSH W/ REFLEX FT4 (STL) PLASMA Speci men Type: PLASMA No comment entered. Ordering Provider: LUCERO GRIFFIN Report Released Date/Time: May 08, 2024 12:01 PM Reporting Lab: [facility] [address] [facility] [address] Performing Lab: [facility] [address] [facility] [phone] TSH 0.764 u[IU]/mL 0.47-5 May 08, 2024 12:21 PM [facility] VITAMIN D, 25-HYDROXY SERUM Specimen Type: SE RUM No comment entered. Ordering Provider: LUCERO GRIFFIN Report Released Date/Time: May 08, 2024 12:01 PM Reporting Lab: [facility] [address] [facility] [address] Performing Lab: [facility] [address] [facility] [address] VITAMIN D, 25-HYDROXY 27.2 ng/mL L 30-96 May 08, 2024 12:21 PM [facility] URINALYSIS (STL-PB) URINE Specimen Type: URIN E No comment entered. Ordering Provider: LUCERO GRIFFIN Report Released Date/Time: May 08, 2024 12:01 PM Reporting Lab: [facility] [address] [facility] [address] Performing Lab: [facility] [address] [facility] [address] URINE COLOR Yellow Yellow U.BILIRUBIN Negative mg/dL Negative U.PH 6.0 5.0-8.0 URINE WBC/HPF >182 /[HPF] H 0-5 URINE RBC/HPF 3 /[HPF] 0-5 APPEARANCE Turbid Clear U.NITRITE 2+ mg/dL H Negative BACTERIA OCC /[HPF] Negative SQUAMOUS EPITH. 2 /[HPF] 0-5 MUCUS RARE /[LPF] Negative-Rare URN.GLUCOSE Normal mg/dL Negative URN.PROTEIN 20 mg/dL H URN.UROBILINOGEN Normal mg/dL Normal URN.BLOOD Negative mg/dL Negative-Trace URN.KETONES Trace mg/dL Negative-Trace URN.LEUK.EST. 500 mg/dL H Negative-Trace URN.SPECIFIC GRAVITY 1.022 May 08, 2024 12:21 PM [facility] COMPREHENSIVE METABOLIC PANEL PLASMA Specimen Type: PLASMA Comment: No hemolysis noted. Ordering Provider: LUCERO GRIFFIN Report Released Date/Time: May 08, 2024 12:01 PM Reporting Lab: [facility] [address] [facility] [phone] Performing Lab: [facility] [address] [facility] [phone] CREATININE 0.72 mg/dL 0.7-1.3 UREA NITROGEN 12.4 [...] 91.2 >60 May 08, 2024 12:21 PM [facility] LIPID PANEL (STL) PLASMA Specimen Ty pe: PLASMA Comment: No hemolysis noted. Ordering Provider: LUCERO GRIFFIN Report Released Date/Time: May 08, 2024 12:01 PM Reporting Lab: [facility] [address] [facility] [address] Performing Lab: [facility] [address] [place] [phone] CHOLESTEROL 132 mg/dL 0-200 TRIGLYCERIDE 55 mg/dL 0-150 CALCULATED LDL 75 mg/dL HDL(New) 46 mg/dL >40 May 08, 2024 12:21 PM [facility] CBC BLOOD Specimen Type: BLOOD No comment entered. Ordering Provider: LUCERO GRIFFIN Report Released Date/Time: May 08, 2024 12:01 PM Reporting Lab: [facility] [address] [facility] [phone] Performing Lab: [facility] [address] [place] [phone] WBC 7.9 10*3/uL 3.6-11.2 RBC 4.54 10*6/uL 4.10-5.70 HGB 13.5 g/dL 13.1-16.8 HCT 41.2 38.2-48.4 MCV 90.7 fL 80.0-100.0 MCH 29.7 pg 27.0-34.0 MCHC 32.8 g/dL L 33.0-36.0 PLT 280 10*3/uL 150-400 MPV 10.1 fL 7.5-11.2 RDW 14.4 11.8-15.1 LYMPHOCYTES, AUTO % 15 MONOCYTES, AUTO % 12 NEUTROPHILS, AUTO % 70 EOSINOPHILS, AUTO % 2 BASOPHILS, AUTO % 1 LYMPHOCYTES, ABSOLUTE 1.18 10*3/uL 0.77- 4.50 MONOCYTES, ABSOLUTE 0.93 10*3/uL H 0.19-0. 80 NEUTROPHILS, ABSOLUTE 5.59 10*3/uL 2.10- 8.00 EOSINOPHILS, ABSOLUTE 0.14 10*3/uL 0.00- 0.60 BASOPHILS, ABSOLUTE 0.06 10*3/uL 0.00-0. 20 May 08, 2024 12:[address] [facility] HGA1C BLOOD Specimen Type: BLOOD No comment entered. Ordering Provider: LUCERO GRIFFIN Report Released Date/Time: May 08, 2024 12:01 PM Reporting Lab: [facility] [address] [facility] [address] Performing Lab: [facility] [address] [facility] [address] HGA1C 5.7 4.0-6.0 Vital Signs: All taken on the encounter date This section contains inpatient and outpatient Vital Signs collected on the date of the Encounter. Date/Time Temperature Pulse Blood Pressure Respiratory Rate SP02 Pain Height Weight Body Mass Index Source May 08, 2024 11:34 AM 98.2 63 134/72 [address] [facility] Social History: Smoking Status (Most current) and Tobacco Use (All prior to encounter date) This section includes the most current, and the historical, smoking and tobacco- related health factors from the [place] facility where the Encounter took place. Current Smoking Status This section includes the most current smoking, or tobacco-related health factor, from the [place] facility where the Encounter took place. Date/Time Current Smoking Status Comment Facil itchemo May 08, 2024 11:00 AM [place]-TOBACCO USE FORMER CIGARETTES [facility] Tobacco Use History This section includes a history of the smoking, or tobacco-related health factors, that were collected on or before the date of the Encounter. The data comes from the [place] facility where the Encounter took place. Date/Time Smoking Status/Tobacco Use Comment F acility May 08, 2024 11:00 AM [place]-TOBACCO USE FORMER CIGARETTES . [facility] May 08, 2023 10:00 AM VA-TOBACCO FORMER USER [facility] May 08, 2023 10:00 AM VA-TOBACCO QUIT 1 TO < 5 YRS [facility] May 06, 2022 09:00 AM VA-TOBACCO FORMER USER [facility] May 06, 2022 09:00 AM VA-TOBACCO QUIT 15 YRS OR MORE [facility] Pathology Reports: +/- 30 days of the encounter Pathology Reports For cases when an order for pathology services may have been completed prior to the date of the Encounter, the report list includes the Pathology Reports that were completed up to 30 days before dateof the Encounter. For cases when an order for pathology services may have been completed after the date of the Encounter, the report list also includes the Pathology Reports that were completed up to30 days after date of the Encounter. The data comes from all [place] treatment facilities. Date/Time Pathology Report Provider Source May 21, 2024 10:30 AM LR MICROBIOLOGY RE PORT: Accession [UID]: [id number] [[id number]] Received: May 21, 2024@16:54 Collection sample: URINE,CLEAN CATCH Collection date: May 21, 2024 10:30 Site/Specimen: URINE Provider: LUCERO GRIFFIN Test(s) ordered: C&S URINE..................... completed: May 23, 2024 12:09 * BACTERIOLOGY FINAL REPORT => May 23, 2024 12:21 TECH CODE: [id number] Bacteriology Remark(s): PW 05/22/24 CULTURE SHOWS >100,000 CFU/ML OF GRAM NEGATIVE RODS AT 1 DAY. 05/23/24 CO NATURE OF GROWTH SUGGESTS CONTAMINATION OR DELAY IN TRANSPORT. =--=--=--=--=--=--=--=--=--=--=-- =--=--=--=--=--=--=--=--=--=--=-- =--=--=--=-- Performing Laboratory: Bacteriology Report [facility]formed By: [facility] CLIA# [id number] [address] [address] LEON ROSALES [facility] Encounter Notes: All associated encounter notes This section contains the clinical notes associated to the Encounter. Date/Time Encounter Note(s) Provider Source May 15, 2024 11:26 AM PHYSICIAN LETTERS: LOCAL TITLE: TEST RESULT GENERAL LETTER STL STANDARD TITLE: PHYSICIAN LETTERS DATE OF NOTE: MAY 15, 2024@11:26 ENTRY DATE: MAY 15, 2024@11:26:33 AUTHOR: LUCERO GRIFFINIGNER: URGENCY: STATUS: COMPLETED [address] [address] MAY 15, 2024 JACQUES QUIROZ [address] [place] [address] Dear Jacques Quiroz, I would like to update you [...] you have any questions please call your immigration case worker. I look forward to seeing you at your next clinic appointment. Thank you for choosing the [facility] for your healthcare. We need to speak to you by phone. Please call the following number at your earliest convenience. Toll Free: Local: [phone] FUTURE APPOINTMENTS: 11/12/2024 11:00 BRITTANEY-NOCO PACT 1 PCP Sincerely, LUCERO GRIFFIN MD STAFF PHYSICIAN JACQUES QUIROZ JAMES [facility] May 08, 2024 11:56 AM PRIMARY CARE NOTE: LOCAL TITLE: PRIMARY CARE PROVIDER ESTABLISHED VISIT [facility] STANDARD TITLE: PRIMARY CARE NOTE DATE OF NOTE: MAY 08, 2024@11:56 ENTRY DATE: MAY 08, 2024@11:57:01 AUTHOR: LUCERO GRIFFIN EXP COSIGNER: URGENCY: STATUS: COMPLETED PRIMARY CARE PROVIDER ESTABLISHED VISIT [facility] Has ADDENDA ESTABLISHED PATIENT NMHR-DI-EXVY: REASON FOR VISIT/CHIEF COMPLAINT: HPI: pt had [...] 1) Parkinsonism 2) CVD - Cerebrovascular Disease (SCT 43799122) comment: right sided stroke left sided weakness. comment: cva in september 2022. 3) PVD - peripheral vascular disease comment: left sided weakness. comment: status post right cea 4) HTN - Hypertension (SCT 61447481) 5) Mixed Hyperlipidemia (SCT 747540011) 6) COPD - Chronic Obstructive Pulmonary Disease (SCT 16473759) 7) Glaucoma 8) Neuropathy (nerve damage) 9) Vitamin B12 Deficiency (SCT 414001268) 10) Incontinence 11) Polyp Colon (SCT 98289653) 12) Erectile dysfunction 13) Rotator cuff impingement syndrome comment: left 14) Appendix absent 15) LBP - Low back pain comment: status post discectomy 16) Exposure to potentially hazardous substance 17) Carotid artery stenosis comment: 95% right sided. Vascular declined to intervene outside [facility] Navarro 18) Dementia (SCT 33874533) comment: vascular and parkinson's. 19) Abnormal swallowing [...] medication list with the patient and/or his/her care-pet caregiver. Handwritten corrections, additions and/or deletions were made to the list. Corrected Outpatient Medication List was provided to the patient/caregiver. REVIEW OF SYSTEMS: General: Normal Ears, Nose, Mouth, Throat: Normal Eye: Normal Cardiovascular: Normal Respiratory: Normal ABD/GI: Normal Musculoskeletal/Extremities: Normal /UNEMPLOYMENT EXAMINER: Normal Hematology & Lymph: Normal Endocrine: Normal [...] Nl. Respiratory: Clear ABD/GI: Normal. Extremities: Normal /UNEMPLOYMENT EXAMINER: Deferred Hematology & Lymph: Normal Endocrine: Normal [...] Info RSV, BIVALENT, PROTEIN SUBUNIT R* 05/08/2023 [facility]* CONTRAINDICATED No data available REFUSED ======= Immunization Date Facility Info PNEUMOCOCCAL CONJUGATE, UNSPECIF* 05/08/2023 [facility]* <I> TDAP 05/08/2023 [facility]* <I> <I> See the Detailed Immunizations Health [...] to keep all scheduled appointments and contact fly setter for any additional problems. PREVENTION & SCREENING: [...] treatment planning, education and counseling of the patient/family/customer care professional, placing orders, communicating with other health care providers, and documentation in the electronic health record. Herpes Zoster (Shingles) Vaccine - L,N,P,PH,U: The patient declines to receive the recommended dose of zoster (shingles) vaccine. Immunization: ZOSTER RECOMBINANT Refusal Reason: PATIENT DECISION Patient refuses all immunization(s) in the ZOSTER group Date Documented: 05/08/24 12:06 Ischemic HD/Post MA Follow Up: Patient is taking aspirin from [...] diminished) SENSORY CHECK: Includes 10 gram Monofilament ([place]) test of sensation. Intact (Greater than or [...] MD STAFF PHYSICIAN Signed: 05/15/2024 11:[address] [facility] May 08, 2024 11:36 AM NURSING NOTE: LOCAL TITLE: V15 PACT FACE TO FACE NOTE STL STANDARD TITLE: NURSING NOTE DATE OF NOTE: MAY 08, 2024@11:36 ENTRY DATE: MAY 08, 2024@11:36:14 AUTHOR: RAMON LAMB EXP COSIGNER: URGENCY: STATUS: COMPLETED Provider Visit: Patient [...] INVENTORY - MAP: 05/06/2022 Personal Health Plan [place], [place], [place] (MAP) family What matters most to you in your life right now? - Julian's Response: staying healthy Would you like to discuss any personal problem, family problem, alcohol use, drug use, or a mental or emotional illness? No My [facility] ([facility]), please select appointment type: Face to face: Yes- Done Contact provided Primary Care phone number and encouraged to call if any questions or concerns. Review that after hours nurse line [phone] and emergency room are available 29/08 for patient use. Contact verbalized good understanding. No notification required for this note. Suicide Screen - V: C-SSRS Screening [place] Suicide Severity Rating Scale (C-SSRS) screener 1. [...] Screen: ADL Screen - Little Index of [place] in Activities of Daily Living Bathing: (2 [...] learning ABILITIES, BARRIERS to learning, CULTURAL and HINDUISM beliefs, and learning PREFERENCES were assessed. Following are findings of note: Patient reads well. 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 LANGUAGE Patient reports that Maltese is preferred language for healthcare. Patient has [...] Practical Nurse Signed: 05/08/2024 11:40 RAMON LAMB [facility]
--- OUTSIDE RECORDS SUMMARY | 2024-05-24 13:08 | XMS_ITS | Encounter Summary ---
Author Organization [facility] Address [address] [place] [address] Care Team Providers Care Trim Attacher Name Role Phone [facility], External Provider Primary Care Provider U beccaailable Encounter Details Date Type Department Care Team (Latest Contact Info) Description 03/25/2008 Outpatient Historical HIS CARDIOPULMONARY Nghia Longoria MD [address] [facility] [address] [place] [address] Carotid Art Occ w/o Infarc Social History Tobacco Use Types Packs/Day Years Used Date Smoking Tobacco: Never Assessed Sex and Gender Information Value Date Recorded Sex Assigned at Not on file Legal Sex Male 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 [address] [email or web address] Noninvasive Vascular Lab Carotid Duplex Study Patient: Jacques Quiroz Study ID: [id number] Gender: M : 1940 Age: 67 years Race: 1 Room: Bed: Height: Study Date: March 25, 2008 Patient status: Outpatient Weight: Access. #: [id number] POC: Basting Puller: Alondra Ordering: Romina Attending MD: Romina Admitting [...] 18:16:07 Procedure Note Provider, Historical - 03/25/2008 [place] [id number] [place], [place] [address]I[place]: [email or web address] Noninvasive Vascular Lab Carotid Duplex Study Patient: Jacques Quiroz Study ID: [id number] Gender: M : 1940 Age: 67 years Race: 1 Room: Bed: Height: Study Date: March 25, 2008 Patient status: Outpatient Weight: Access. #: [id number] POC: Basting Puller: Alondra Ordering: Romina Attending MD: Romina Admitting [...] infarction documented in this encounter Care Teams Trim Attacher Relationship Specialty Start Date End Date [facility], External Provider [address] [place] [address] PCP - General 08/06/19 documented as of this encounter
--- OUTSIDE RECORDS SUMMARY | 2024-05-24 13:08 | XMS_ITS ---
Author Organization [facility] Address [address] [place], [place] [id number] Care Team Providers Care Machine Tack Puller Name Role Phone MADELINE CARRASCO Unavailable [phone] Toño Dejesus Unavailable Unavailable RENEA SIMMONS Unavailable [phone] REASON FOR VISIT *General care Medications Medication [...] Active Encounters Encounter Location Date Provider Diagnosis [facility] [address] [place], [place] [id number] 10/12/2023 RENEA SIMMONS Other hammer toe(s) (acquired), right foot M20.41 ; Tinea unguium B35.1 ; Other hammer toe(s) (acquired), left foot M20.42 ; Pain in right toe(s) M79.674 ; Pain in left toe(s) M79.675 and 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 Unspecified atherosclerosis of [place] arteries of extremities, bilateral legs Patient educated on risks and aggravating factors of PVD, including conservative treatment options such as a diet and exercise regimen to aid in slowing progression of vascular disease Next Appt Details Follow Up: 3 Months, Reason: Provider Name:LOLA LOPEZ, 07/25/2024 11:30:00 AM, [address] [place] [address], [id number], Progress Notes * ASMITA NIETO DDOB: [birth year] (82 yo M)Acc No.[id number]:10/12/2023 Patient: ASMITA RIVERA Joan Provider: Irene SIMMONS :1940 A ge:82 Y S ex:Male Date:10/12/2023 Address:[address] [place] [address] Subjective: * Chief Complaints: * 1 . [...] Patient denies c hest pain, history of [place], irregular heartbeat. M usculoskeletal: Patient complains of [...] . P ain in right toe(s) - M79.676 5 . P ain in left toe(s) - M79.675 6 . U nspecified atherosclerosis of [place] arteries of extremities, bilateral legs - I70.203 [...] were emphasized. 3. U nspecified atherosclerosis of petersburg arteries of extremities, bilateral legs Notes: Patient educated on risks and aggravating factors of PVD, including conservative treatment options such as a diet and exercise regimen to aid in slowing progression of vascular disease ? * Procedure Codes: 1 1721 DEBRIDE NAIL, 6 OR MORE, Modifiers: Q8 * Follow Up: 3 Months * Billing Information: * Visit Code: * Procedure Codes: 60730 DEBRIDE NAIL, 6 OR MORE. Modifiers: Q8 * Sign off status: Completed true * Provider: Irene SIMMONS Date: 0 10/12/2023 Generated for Alen pitts/Volodymyr/Darcy on: 0 05/24/2024 [...]
--- OUTSIDE RECORDS SUMMARY | 2024-05-24 13:08 | XMS_ITS | Clinical Summary ---
Author Organization [facility] Address [address] [place] [address] Phone Care Team Providers Care Recreation Therapy Teacher Name Role Phone [facility], External Provider Primary Care Provider [...] on file Legal Sex Male 4:15 AM PROSTHETIC AIDES TEACHER Gender Identity Not on file Sexual Orientation [...] INFLUENZA VACCINE (#1) 2023 Insurance MEDICARE [address]ILROAD [facility] SUPP Care Teams Recreation Therapy Teacher Relationship Specialty Start Date End Date [facility], External Provider [address] [place] [address] PCP - General 08/06/19
--- OUTSIDE RECORDS SUMMARY | 2024-05-24 13:08 | XMS_ITS | Encounter Summary ---
Author Organization [employer] Address [address] [place] [address] Care Team Providers Care Is/It Project Manager Name Role Phone [facility] Primary Care Provider U beccaailable Encounter Details Date Type Department Care Team (Latest Contact Info) Description 08/30/2006 Outpatient Historical HIS CARD BULLET SWAGING MACHINE OPERATOR Nghia Longoria MD [address] [facility] [address] [place] [address] Carotid Art Occ w/o Infarc (Primary Dx) Social History Tobacco Use Types Packs/Day Years Used Date Smoking Tobacco: Never Assessed Sex and Gender Information Value Date Recorded Sex Assigned at Not on file Legal Sex Male 4:15 AM SENIOR MECHANICAL PROJECT MANAGER Gender Identity Not on file Sexual [...] and non- Americans is available on the [facility] Intranet at: [email or web address] Select: Lab Policies and Procedures Select: Reference Ranges - GFR 08/23/2006 10:5 4 AM CDT us Nghia Longoria MD CHEMISTRY ORDERABLES Edited INTERFACE SYSTEM Refer to clinic/hospital department documented in this encounter Visit Diagnoses Diagnosis Occlusion and stenosis of carotid artery without mention of cerebral infarction- Primary documented in this encounter Care Teams Is/It Project Manager Relationship Specialty Start Date End Date [facility], External Provider [address] [place] [address] PCP - General 08/06/19 documented as of this encounter
--- OUTSIDE RECORDS SUMMARY | 2024-05-24 13:08 | XMS_ITS | Encounter Summary ---
Author Name [facility] [place] Organization [facility] [facility] [place] Address [address] [place] [address] Care Team Providers Care Paper Bag Press Operator Name Role Phone LUCERO GRIFFIN Primary Care Provider Unavailab le Insurance Providers: All historical and current [...] F MEDIC ARE SUPPL EMENT Aug 06, [id number] [phone] LEVI NIETO PATIENT ANTHEM [place] MED[place] PL[place] F MEDIC ARE SUPPL EMENT Aug 06, 2009 [id number] [phone] LEVI NIETO PATIENT ANTHEM [place] MEDICARE SUPPLEMEN [place]O MEDIC ARE SUPPL EMENT Aug 06, 2009 [id number] [phone] LEVI NIETO PATIENT [place] PLAN F MEDIC ARE SUPPL EMENT Aug 06, [id number] [phone] LEVI NIETO PATIENT MEDICARE (WNR) MEDICARE (M) PART A Dec 07, 2006 PART A [id number] LEVI NIETO PATIENT MEDICARE (WNR) MEDICARE (M) PART B Dec 07, 2006 PART B [id number] LEVI NIETO PATIENT Selected Encounter This section includes the information on record at [place] for the Encounter. Date/Time Encounter Type Encounter Description Reason Pro vider Source May 23, 2024 09:33 AM Outpatient Encounter GENERAL INTERNAL MEDICINE IHE Encounter Template Text not used by [place] Plan of Treatment: Future Appointments (+ 6 months) and Future Tests (+/- 45 days) The Plan of Treatment section includes future care activities for the patient from all [place] treatmentfacilities. This section includes future appointments and future orders which are active, pending or scheduled. Future Appointments This section includes appointments that were scheduled to occur 6 months from the date of the Encounter, up to a maximum of 20 appointments. The data comes from all [place] treatment facilities. Appointment Date/Time Appointment Type Appointme nt Facility Name Nov 12, 2024 11:00 AM AMBULATORY - MEDICINE [facility] Lab Results: +/- 30 days of the encounter This section includes the Chemistry and Hematology Lab Results on record with [place] for the patient. Radiology Reports and Pathology Reports are provided separately, in subsequent sections. Lab Results This section contains the Chemistry/Hematology Results that were resulted 30 days before or 30 daysafter the date of the Encounter. Date/Time Source Result Type Result - Unit Interpretation Reference Range Specimen Type Comment May 21, 2024 10:30 AM [facility] URINALYSIS (STL-PB) URINE Specimen Type: URINE No comment entered. Ordering Provider: LUCERO GRIFFIN Report Released Date/Time: May 17, 2024 01:11 PM Reporting Lab: [facility] [address] [facility] [address] Performing Lab: [facility] [address] [place] [address] URINE COLOR Yellow Yellow U.BILIRUBIN Negative mg/dL [...] GRAVITY 1.022 May 08, 2024 12:21 PM [facility] TSH W/ REFLEX FT4 (STL) PLASMA Speci men Type: PLASMA No comment entered. Ordering Provider: LUCERO GRIFFIN Report Released Date/Time: May 08, 2024 12:01 PM Reporting Lab: [facility] [address] [place] [address] Performing Lab: [facility] [address] [place] [address] TSH 0.764 u[IU]/mL 0.47-5 May 08, 2024 12:21 PM [facility] VITAMIN D, 25-HYDROXY SERUM Specimen Type: SE RUM No comment entered. Ordering Provider: LUCERO GRIFFIN Report Released Date/Time: May 08, 2024 12:01 PM Reporting Lab: [facility] [address] [place] [address] Performing Lab: [facility] [address] [place] [address] VITAMIN D, 25-HYDROXY 27.2 ng/mL L 30-96 May 08, 2024 12:21 PM [facility] URINALYSIS (STL-PB) URINE Specimen Type: URIN E No comment entered. Ordering Provider: LUCERO GRIFFIN Report Released Date/Time: May 08, 2024 12:01 PM Reporting Lab: [facility] [address] [place] [address] Performing Lab: [facility] [address] [place] [address] URINE COLOR Yellow Yellow U.BILIRUBIN Negative mg/dL [...] GRAVITY 1.022 May 08, 2024 12:21 PM [facility] COMPREHENSIVE METABOLIC PANEL PLASMA Specimen Type: PLASMA Comment: No hemolysis noted. Ordering Provider: LUCERO GRIFFIN Report Released Date/Time: May 08, 2024 12:01 PM Reporting Lab: [address] [address] Performing Lab: [address] [address] CREATININE 0.72 mg/dL 0.7-1.3 UREA NITROGEN 12.4 [...] 91.2 >60 May 08, 2024 12:21 PM [facility] LIPID PANEL (STL) PLASMA Specimen Ty pe: PLASMA Comment: No hemolysis noted. Ordering Provider: LUCERO GRIFFIN Report Released Date/Time: May 08, 2024 12:01 PM Reporting Lab: [facility] [address] [place] [phone] Performing Lab: [address] [address] CHOLESTEROL 132 mg/dL 0-200 TRIGLYCERIDE 55 mg/dL 0-150 CALCULATED LDL 75 mg/dL HDL(New) 46 mg/dL >40 May 08, 2024 12:21 PM [facility] CBC BLOOD Specimen Type: BLOOD No comment entered. Ordering Provider: LUCERO GRIFFIN Report Released Date/Time: May 08, 2024 12:01 PM Reporting Lab: [facility] [address] [place] [phone] Performing Lab: [address] [address] WBC 7.9 10*3/uL 3.6-11.2 RBC 4.54 10*6/uL [...] 0.00-0. 20 May 08, 2024 12:21 PM [facility] HGA1C BLOOD Specimen Type: BLOOD No comment entered. Ordering Provider: LUCERO GRIFFIN Report Released Date/Time: May 08, 2024 12:01 PM Reporting Lab: [facility] [address] [place] [phone] Performing Lab: [address] [address] HGA1C 5.7 4.0-6.0 Pathology Reports: +/- 30 days of the [...] the Encounter. The data comes from [facility]. Date/Time Pathology Report Provider Source May 21, 2024 10:30 AM LR MICROBIOLOGY RE PORT: Accession [UID]: [id number] [[id number]] Received: May 21, 2024@16:54 Collection sample: URINE,CLEAN CATCH Collection date: May 21, 2024 10:30 Site/Specimen: URINE Provider: LUCERO GRIFFIN Test(s) ordered: C&S URINE..................... completed: May 23, 2024 12:09 * BACTERIOLOGY FINAL REPORT => May 23, 2024 12:21 TECH CODE: [id number] Bacteriology Remark(s): 05/22/24 CULTURE SHOWS >100,000 CFU/ML OF GRAM NEGATIVE RODS AT 1 DAY. 05/23/24 CO NATURE OF GROWTH SUGGESTS CONTAMINATION OR DELAY IN TRANSPORT. =--=--=--=--=--=--=--=--=--=--=-- =--=--=--=--=--=--=--=--=--=--=-- =--=--=--=-- Performing Laboratory: Bacteriology Report Performed By: [facility] [address] [place], [place] [address]IA# [id number] [address] [facility] [address] [place] [address] LEON ROSALES [facility] Encounter Notes: All associated encounter notes This section contains the clinical notes associated to the Encounter. Date/Time Encounter Note(s) Provider Source May 07, 2024 09:34 AM SCANNED NOTE: LOCAL TITLE: NON [place] CARE ST STANDARD TITLE: SCANNED NOTE DATE OF NOTE: MAY 07, 2024@09:34 ENTRY DATE: MAY 23, 2024@09:34:08 AUTHOR: AMRIT TAPIA EXP COSIGNER: URGENCY: STATUS: COMPLETED Attached to this note is a scanned copy of [place] medical record consisting of the following document(s): Neurology DOS: 05/07/2024 From: [facility] To view the scanned document: 1) You must be logged into [facility] 2) Click on Toolbar 3) Sign on to [facility] /es/ AMRIT TAPIA Skeet Operator (Scanning) Signed: 05/23/2024 09:39 AMRIT TAPIA Julianna [facility]
--- OUTSIDE RECORDS SUMMARY | 2024-05-24 13:08 | XMS_ITS | Encounter Summary ---
Author Organization [employer] Address [address] [place] [address] Care Team Providers Care Well Shooter Name Role Phone [facility], External Provider Primary Care Provider U beccaailable Encounter Details Date Type Department Care Team (Late st Contact Info) Description 08/23/2006 Outpatient Historical [facility] Support Serv. (Adt Cardiology-[facility]) [address] 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
--- OUTSIDE RECORDS SUMMARY | 2024-05-24 13:08 | XMS_ITS | Encounter Summary ---
Author Organization [facility] Address 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
--- OUTSIDE RECORDS SUMMARY | 2024-05-24 13:08 | XMS_ITS | Encounter Summary ---
Author Organization [employer] Address [address] [place] [address] Care Team Providers Care Plant Operator Helper Name Role Phone [facility], External Provider Primary Care Provider U beccaailjoao Encounter Details Date Type Department Care Team (Latest Contact Info) Description 08/17/2006 Outpatient Historical HIS CARDIOPULMONARY Nghia Longoria MD [address] [facility] [address] [place] [phone] Carotid Art Occ w/o Infarc (Primary Dx) Social History Tobacco Use Types Packs/Day Years Used Date Smoking Tobacco: Never Assessed Sex and Gender Information Value Date Recorded Sex Assigned at Not on file 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
--- OUTSIDE RECORDS SUMMARY | 2024-05-24 13:08 | XMS_ITS | Patient Health Record ---
Author Organization [facility] Address [address] [place], [place] [id number] Care Team Providers Care Architectural Engineer Name Role Phone MADELINE CARRASCO Unavailable [phone] Toño Dejesus Unavailable Unavailable RENEA SIMMONS Unavailable [phone] Allergies No Known Allergies Reason For Referral [...] [facility] [address] [place], [place] [id number] 01/25/2024 RENEA SIMMONS Other hammer toe(s) (acquired), right foot M20.41 ; Tinea unguium B35.1 ; Other hammer toe(s) (acquired), left foot M20.42 ; Pain in right toe(s) M79.674 ; Pain in left toe(s) M79.675 and 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, bilateral legs I70.203 [facility] [address], [place] [id number] 06/22/2023 RENEA SIMMONS Other hammer toe(s) (acquired), right foot M20.41 ; Tinea unguium B35.1 ; Other hammer toe(s) (acquired), left foot M20.42 ; Pain in right toe(s) M79.674 ; Pain in left toe(s) M79.675 and 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, bilateral legs I70.203 [facility] [address] [place], [place] [id number] 10/12/2023 RENEA SIMMONS Other hammer toe(s) (acquired), right foot M20.41 ; Tinea unguium B35.1 ; Other hammer toe(s) (acquired), left foot M20.42 ; Pain in right toe(s) M79.674 ; Pain in left toe(s) M79.675 and 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, bilateral legs I70.203 Assessments [...] (ICD-10 - M79.675) 06/22/2023 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, 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) Patient educated on risks and aggravating factors of PVD, including conservative treatment options such as a diet and exercise regimen to aid in slowing progression of vascular disease 01/25/2024 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, 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) Patient educated on risks and aggravating factors of PVD, including conservative treatment options such as a diet and exercise regimen to aid in slowing progression of vascular disease 10/12/2023 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, 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) Patient educated on risks and aggravating factors of PVD, including conservative treatment options such as a diet and exercise regimen to aid in slowing progression of vascular disease Plan Of Treatment Next Appt Details Provider Name:LOLA Darryn LOPEZ, 07/25/2024 11:30:00 AM, [address] [place] [address], [id number], Insurance Providers Payer Name Payer Address Payer Phone Subscriber Number Group Number Insured Name Patient Relationship to Insured Coverage Start Date Coverage End Date Medicare Cedrick Merchant GBA [id number] [address] [address] [place], [place] [phone] [id number] ASMITA NIETO Self - patient is the insured [place] ([facility]) ATTN CLAIMS [address] [place] [address] [id number] ASMITA NIETO Self - patient is the insured
[2024-05-24 13:09] LABS: INR 1.1; Prothrombin Time 14.3 Seconds (11.1-14.7)
--- OUTSIDE RECORDS SUMMARY | 2024-05-24 13:09 | XMS_ITS ---
Author Organization [facility] Address [address] [place], [place] [id number] Care Team Providers Care Fire Medic Name Role Phone MADELINE CARRASCO Unavailable [phone] Toño Dejesus Unavailable Unavailable RENEA SIMMONS Unavailable [phone] REASON FOR VISIT *General care Medications Medication [...] Active Encounters Encounter Location Date Provider Diagnosis [facility] [address] [place] [id number] 01/25/2024 RENEA SIMMONS Other hammer toe(s) (acquired), right foot M20.41 ; Tinea unguium B35.1 ; Other hammer toe(s) (acquired), left foot M20.42 ; Pain in right toe(s) M79.674 ; Pain in left toe(s) M79.675 and Unspecified atherosclerosis of tetlin arteries of extremities, bilateral legs I70.203 Assessments [...] (ICD-10 - M79.675) 01/25/2024 Unspecified atherosclerosis of tetlin arteries of extremities, bilateral legs (ICD-10 - [...] OTC and prescription treatments. Unspecified atherosclerosis of tetlin arteries of extremities, bilateral legs Patient educated on risks and aggravating factors of PVD, including conservative treatment options such as a diet and exercise regimen to aid in slowing progression of vascular disease Next Appt Details Follow Up: 3 Months, Reason: Provider Name:LOLA LOPEZ, 07/25/2024 11:30:00 AM, [address] [place] [address], [id number], Progress Notes * ASMITA NIETO DDOB: [birth year] (83 yo M)Acc No.[id number]:01/25/2024 Patient: ASMITA RIVERA Joan Provider: Irene SIMMONS :1940 A ge:83 Y S ex:Male Date:01/25/2024 Address:[address] [place] [address] Subjective: * Chief Complaints: * 1 . [...] Patient denies c hest pain, history of DC, irregular heartbeat. M usculoskeletal: Patient complains of [...] M79.675 6 . U nspecified atherosclerosis of tetlin arteries of extremities, bilateral legs - I70.203 [...] were emphasized. 3. U nspecified atherosclerosis of tetlin arteries of extremities, bilateral legs Notes: Patient educated on risks and aggravating factors of PVD, including conservative treatment options such as a diet and exercise regimen to aid in slowing progression of vascular disease ? * Procedure Codes: 1 1721 DEBRIDE NAIL, 6 OR MORE, Modifiers: Q8 * Follow Up: 3 Months * Billing Information: * Visit Code: * Procedure Codes: 29087 DEBRIDE NAIL, 6 OR MORE. Modifiers: Q8 * Electronic signature of LOLITA SIMMONS DPM on 05/24/2024 at 01:08 PM CDT Sign off status: Pending * Provider: Irene SIMMONS Date: 03/27/2023 Generated for Alen pitts/Volodymyr/Darcy on: 0 05/24/2024 [...]
[2024-05-24 13:14] LABS: Partial Thromboplastin Time 25.8 Seconds (22.3-36.8)
--- NOTE | 2024-05-24 13:15 | ED_ITS ---
HPI - General Adult General Chief complaint: Neuro Symptoms/Deficit Stated complaint: code stroke Time Seen by Provider: 05/24/24 12:49 History of Present Illness HPI narrative: 83-year-old male present to the emergency department for evaluation for right eye droop. Does have Parkinson's at baseline. Patient did have a suspected stroke approximately 1 month ago and does follow-up with Dr Boyd. Patient's last known normal was approximately 9:00 a.m. when the went shopping. states she came home at approximately a all labs and she noticed that the right eye was more medial and he was having difficulty opening the right eye. Patient was also having some difficulty with ambulation. called EMS and feels that things started to improved by 1145. Upon arrival emergency department patient has no complaints and is at his normal baseline. It has no significant facial droop and no eye droop that the was initially concerned about. Patient does have some clenching of the left fast which is baseline for him. [facility] Patient does take Plavix and aspirin Related Data Home Medications ?Medication ?Instructions ?Recorded ?Confirmed ?Last Taken ?Type aspirin 81 mg tablet,delayed 81 mg PO DAILY 12/14/18 05/24/24 05/24/24 History release (Adult Low Dose Aspirin) latanoprost 0.005 % eye drops 1 drop ophthalmic (eye) DAILY 12/14/18 05/24/24 05/24/24 History (Xalatan) mecobalamin (vitamin B12) 1,000 1,000 mcg sublingual DAILY 12/14/18 05/24/24 10/19/20 05:00 History mcg disintegrating tablet,sublingual timolol maleate 0.5 % eye drops 1 drop ophthalmic (eye) QA 12/14/18 05/24/24 05/24/24 History cilostazol 100 mg tablet 100 mg PO BID 07/13/20 05/24/24 05/24/24 History Allergies Allergy/AdvReac Type Severity Reaction Status Date / Time No Known Allergies Allergy Verified 04/17/24 12:13 Review of Systems 2 Review of Systems: All systems reviewed & are unremarkable except as noted in HPI and below PMFSH Past Medical History Medical History Carotid stenosis, right History of CVA (cerebrovascular accident) COPD (chronic obstructive pulmonary disease) Cataract CVA (cerebral vascular accident) PVD (peripheral vascular disease) Hyperlipidemia Surgical History Surgical History Hx of cataract extraction H/O shoulder surgery On the left History of right-sided carotid endarterectomy History of back surgery History of appendectomy Family History Family History Sister Family history of rheumatoid arthritis Brother Familial Alzheimer's disease of late onset Father Lung cancer Other Family history of coronary artery disease Social History Social History Social History: The patient lives with his who is a durable power managing attorney for healthcare. He is a full code. Smoking packs per day: 2 Smoking cigarettes per day: 40.0 Years smoked: 25 Smoking pack-years: 50.00 Smoking status: Former smoker Tobacco type: cigarettes, pipe and cigars Second hand tobacco smoke exposure: No Smoking end date: 01/07/20 Additional smoking assessment comments: SMOKES 20 CIGARS A DAY Alcohol intake: current Drinks per week: 1 Alcohol use details: RARE SINCE THE STROKES Substance use: never Substance use type: does not use Do You Feel Safe in your Home?: Yes Lack of Transportation: No Lack of Food: Never True Current Housing: I Have Housing Concerned About Future Housing: No Difficulty Paying Gas/Electric Bills: No Difficulty Paying for Meds: No Currently Unemployed: No Education: Associate Degree Difficulty w/ Childcare or Family Care: No Living arrangements: with family Occupation/Education: retired Additional occupation/education comments: 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 Gender identity (if verbalized by the patient): Male Spiritual care concerns: No Exam 2 Narrative: APPEARANCE: Well appearing, no pain, no distress, well-nourished. HEAD: normocephalic, atraumatic. EYES: PERRLA/EOMI, conjunctivae clear. NOSE: Normal no drainage EARS:TMS clear with good light reflex. THROAT: Pharynx clear, no exudate. NECK: Supple. No adenopathy, no masses. RESPIRATORY: Airway patent, respirations nonlabored. Clear to auscultation bilaterally, no rales, rhonchi, wheezing. CARDIOVASCULAR: Regular rate and rhythm without murmurs rubs or gallops. ABDOMINAL: Soft, nontender, nondistended, normal bowel sounds MUSCULOSKELETAL: Moves all extremities. Strength/ROM intact, No edema, No calf tenderness. NEURO: No facial droop, plenty rest of left hand but does have good strength of upper and lower extremity with no focal deficit SKIN: Warm, dry. Normal Color Course Vital Signs Vital signs: Vital Signs Pulse Rate 77 05/24/24 13:04 Respiratory Rate 24 H 05/24/24 13:04 Blood Pressure 149/56 H 05/24/24 13:04 Pulse Oximetry 97 05/24/24 13:04 Pulse Rate 72 05/24/24 15:23 Respiratory Rate 18 05/24/24 15:23 Blood Pressure 135/66 05/24/24 15:23 Pulse Oximetry 100 05/24/24 15:23 Oxygen Delivery Room Air 05/24/24 17:39 Medical Decision Making MDM Narrative Medical decision making narrative: 83-year-old male present to the emergency department for evaluation for right eye droop and medial deviation of the right eye which has since resolved. Patient is currently at his baseline per patient and per family. Patient's CT scan does show evidence of multiple prior old infarcts. CTA does show 95% occlusion the right internal carotid artery patient just had an ultrasound 10 days ago showing less than 70% occlusion. Patient does have multiple chronic findings related to other areas of stenosis involving the vertebral arteries and these did not appear to be acute. Patient does take aspirin and Plavix. Case was discussed with hospitalist patient be admitted for repeat the carotid Doppler. Patient will be evaluated by Neurology tomorrow. Patient family are comfortable the plan for admission. All questions concerns were addressed. Differential Diagnosis Differential Diagnosis: CVA, TIA, Grover's palsy, Parkinson's Vital Signs Vital Signs: Vital Signs Pulse Rate 77 05/24/24 13:04 Respiratory Rate 24 H 05/24/24 13:04 Blood Pressure 149/56 H 05/24/24 13:04 Pulse Oximetry 97 05/24/24 13:04 Pulse Rate 72 05/24/24 15:23 Respiratory Rate 18 05/24/24 15:23 Blood Pressure 135/66 05/24/24 15:23 Pulse Oximetry 100 05/24/24 15:23 Oxygen Delivery Room Air 05/24/24 17:39 Lab Data Lab results reviewed: Yes I reviewed the patient's lab results. 05/24/24 12:53 05/24/24 12:53 Labs: Lab Results 05/24/24 05/24/24 05/24/24 Range/Units 12:49 12:53 13:42 WBC 9.8 (4.5-10.0) K/mm3 RBC 4.44 L (4.6-6.20) M/mm3 Hgb 13.3 L (14.0-18.0) g/dL Hct 41.2 L (42.0-52.0) % MCV 92.8 (80-100) fl MCH 30.0 (26-34) pg MCHC 32.3 (32-36) g/dl RDW 14.0 (11.5-14.5) % Plt Count 215 (150-375) k/mm3 MPV 9.4 (7.4-10.4) fl Immature Gran % (Auto) 0.3 (0-0.5) % Neut % (Auto) 74.0 H (45.5-73.1) % Lymph % (Auto) 11.7 L (18.3-44.2) % [place] % (Auto) 11.4 H (2.6-8.5) % Eos % (Auto) 2.0 (0-4.4) % Baso % (Auto) 0.6 (0.2-1.2) % Lymph # (Auto) 1.15 (0.9-3.2) K/mm3 [place] # (Auto) 1.1 H (0.1-0.6) K/mm3 Eos # (Auto) 0.2 (0-0.3) K/mm3 Baso # (Auto) 0.1 (0.0-0.1) K/mm3 Abs Immat Gran (auto) 0.03 (0.00-0.031) K/mm3 Absolute Neuts (auto) 7.3 H (1.3-6.7) K/mm3 Absolute Nucleated RBC 0.000 (0.0-0.012) K/mm3 Nucleated RBC % 0.0 (0.0-0.2) % PT 14.3 (11.1-14.7) Seconds INR 1.1 APTT 25.8 (22.3-36.8) Seconds Sodium 141 (137-145) mmol/L Potassium 3.5 (3.4-5.0) mmol/L Chloride 105 (98-107) mmol/L Carbon Dioxide 30 (22-30) mmol/L Anion Gap 6 (4-12) mmol/L BUN 15 D (9-20) mg/dL Creatinine 0.96 (0.7-1.3) mg/dL Estim Creat Clear Calc Not Reportable Estimated GFR > 60 (59 - ) Glucose 103 (65-110) mg/dL POC Capillary Glucose 118 H (65-105) mg/dl Calcium 9.2 (8.4-10.2) mg/dL Total Bilirubin 1.1 (0.2-1.3) mg/dL AST 22 (17-59) U/L ALT 8 (6-50) U/L Alkaline Phosphatase 91 (38-126) U/L Troponin I 0.026 (0.000-0.034) ng/mL Total Protein 7.0 (6.3-8.2) g/dL Albumin 3.8 (3.5-5.1) g/dL Influenza A (RT-PCR) Negative (Negative) Influenza B (RT-PCR) Negative (Negative) RSV (RT-PCR) Negative (Negative) SARS-CoV-2 RNA (RT-PCR) Negative (Negative) Imaging Data Radiologist's impression: Impressions Head CT 05/24/24 13:13 Impression: No acute intracranial hemorrhage or suspicious mass effect. Multiple prior cerebral infarctions, as detailed above. Chest X-Ray 05/24/24 13:19 IMPRESSION: Chronic interstitial change, without focal infiltrate or effusion. Head/Neck CTA 05/24/24 13:19 IMPRESSION: 1. 95% stenosis of the right carotid bulb relative to normal distal artery lumen diameter (NASCET criteria). 2. 60% stenosis of the left carotid bulb relative to normal distal artery lumen diameter. 3. Segmental occlusion of the junction of the extracranial to intracranial left vertebral artery with likely retrograde filling of the more distal left vertebral artery and left posterior inferior cerebellar artery and a couple unchanged small foci of high-grade stenosis along this segment of the left vertebral artery. 4. Moderate stenosis at the origin of the right subclavian artery and right vertebral artery and multifocal mild to moderate stenosis along the extracranial left vertebral artery. Discharge Plan Discharge Clinical Impression: Brain TIA, Facial droop Patient Disposition: Still a Patient Condition: Serious
[2024-05-24 13:20] LABS: Troponin I 0.026 ng/mL (0.000-0.034)
[2024-05-24] MEDS: ASPIRIN 81 MG CHEWABLE TABLET 243 MG PO (13:42)
--- NOTE | 2024-05-24 14:02 | PC.NURSE ---
Pt unable to provide u/a sample when attempting to stand w/ assist. Discussed straight catheter w/ pt and at bedside.
[2024-05-24 14:25] LABS: Influenza A QL RT-PCR Negative (Negative); Influenza B QL RT-PCR Negative (Negative); RSV RNA, RT-PCR Negative (Negative); SARS-CoV-2 RNA PCR Negative (Negative)
--- NOTE | 2024-05-24 14:28 | P.HP_ITS ---
H&P: HPI History of Present Illness Date/Time: 05/24/24 14:28 Chief Complaint: Stroke-like symptoms Narrative: 83-year-old male past medical history of CVA with left hand residuals on aspirin, Plavix, Lipitor, right carotid stents, Parkinson's disease, PVD and hyperlipidemia presents the hospital with stroke-like symptoms. Per the the patient had facial droop and difficulty opening his eye so she brought into the hospital for stroke-like symptoms. Patient states that he has no complaints. he is patient of Dr. Boyd and saw him on 05/07/2024, with recommendations for brain MRI and carotid Doppler study. MRI showed no acute processes, carotid Doppler showed 50-69% stenosis in the right internal carotid artery by sonographic criteria, 50-69% stenosis in the left internal carotid artery by sonographic criteria, and Left vertebral artery flow not visualized, possibly occluded. In the ED the patient had a head CT with no acute findings, CTA that showed 95% stenosis of the right carotid bulb relative to normal distal artery lumen diameter (NASCET criteria), 60% stenosis of the left carotid bulb relative to normal distal artery lumen diameter. Due to the discrepancies in such a short time patient is being admitted to the hospital, with plans for carotid Doppler repeat and Neurology to see him tomorrow. UA shows dark cloudy urine with positive nitrates, 1+ leukocyte esterase WBC 5100 and WBC clumps, 4+ bacteria with no epithelial cells. Review of Systems Review of Systems: 12 systems were reviewed and are negativ e except for as per HPI. [facility] Past Medical History Medical History Carotid stenosis, right History of CVA (cerebrovascular accident) COPD (chronic obstructive pulmonary disease) Cataract CVA (cerebral vascular accident) PVD (peripheral vascular disease) Hyperlipidemia Surgical History Surgical History Hx of cataract extraction H/O shoulder surgery On the left History of right-sided carotid endarterectomy History of back surgery History of appendectomy Family History Family History Sister Family history of rheumatoid arthritis Brother Familial Alzheimer's disease of late onset Father Lung cancer Other Family history of coronary artery disease Social History Social History Social History: The patient lives with his who is a durable power collections attorney for healthcare. He is a full code. Smoking packs per day: 2 Smoking cigarettes per day: 40.0 Years smoked: 25 Smoking pack-years: 50.00 Smoking status: Former smoker Tobacco type: cigarettes, pipe and cigars Second hand tobacco smoke exposure: No Smoking end date: 01/07/20 Additional smoking assessment comments: SMOKES 20 CIGARS A DAY Alcohol intake: current Drinks per week: 1 Alcohol use details: RARE SINCE THE STROKES Substance use: never Substance use type: does not use Do You Feel Safe in your Home?: Yes Lack of Transportation: No Lack of Food: Never True Current Housing: I Have Housing Concerned About Future Housing: No Difficulty Paying Gas/Electric Bills: No Difficulty Paying for Meds: No Currently Unemployed: No Education: Associate Degree Difficulty w/ Childcare or Family Care: No Living arrangements: with family Occupation/Education: retired Additional occupation/education comments: 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 Gender identity (if verbalized by the patient): Male Spiritual care concerns: No Meds Home Medications and Allergies Home Medications ?Medication ?Instructions ?Recorded ?Confirmed ?Type aspirin 81 mg tablet,delayed 81 mg PO DAILY 12/14/18 05/24/24 History release (Adult Low Dose Aspirin) latanoprost 0.005 % eye drops 1 drop ophthalmic (eye) DAILY 12/14/18 05/24/24 History (Xalatan) mecobalamin (vitamin B12) 1,000 1,000 mcg sublingual DAILY 12/14/18 05/24/24 History mcg disintegrating tablet,sublingual timolol maleate 0.5 % eye drops 1 drop ophthalmic (eye) QAM 12/14/18 05/24/24 History cilostazol 100 mg tablet 100 mg PO BID 07/13/20 05/24/24 History lisinopril 5 mg tablet See Rx Instructions .Route 03/26/24 05/24/24 Rx .COMPLEX #90 tabs clopidogrel 75 mg tablet See Rx Instructions .Route 04/12/24 05/24/24 Rx .COMPLEX #90 tabs lidocaine 5 % topical ointment 1 applic topical TID PRN pain #50 04/17/24 05/24/24 Rx grams carbidopa 25 mg-levodopa 100 mg See Rx Instructions .Route 05/07/24 05/24/24 Rx tablet .COMPLEX #540 tabs atorvastatin 80 mg tablet (Lipitor) 80 mg PO QHS #90 tabs 05/14/24 05/24/24 Rx Allergies Allergy/AdvReac Type Severity Reaction Status Date / Time No Known Allergies Allergy Verified 04/17/24 12:13 Vital Signs Vital Signs - 24 hr 05/24/24 13:04 05/24/24 13:16 05/24/24 13:30 Pulse Rate 77 73 69 Respiratory Rate 24 H 20 Blood Pressure 149/56 H 149/56 H Pulse Oximetry 97 100 05/24/24 13:31 05/24/24 14:23 Pulse Rate 70 79 Respiratory Rate 18 20 Blood Pressure 134/63 Pulse Oximetry 97 98 Exam Narrative: General: well appearing, appears stated age. HEENT: normocephalic, atraumatic. Mucous membranes moist. EOMI, PERRLA, bilateral sclera anicteric, no conjunctival injection. Neck supple without JVD, lymphadenopathy, or bruit. Respiratory: clear to ascultation bilaterally. No rales/rhonic/wheezes. Cardiovascular: Regular rate and rhythm, normal S1-S2 upon ascultation. No murmurs, rubs, or clicks. PMI is nondisplaced, capillary refill less than 3 second. Abdomen: Soft, round, no pulsatile masses, nondistended and nontender. No rebound, no guarding. No CVA tenderness, no hepatosplenomegaly. Bowel sounds present to all four quadrants. No high pitch or tinkling sounds, resonant to percussion. Extremities: No cyanosis, clubbing, or edema present. Pulses are palpable 2/2. Left contracted hand residual from old stroke. Patient has no new neuro deficits Neuro: Alert and orientated x 4. PERRLA. Cranial nerves 2-12 intact without focal deficit. Skin: Warm, dry, and intact, without rash, erythema, or lesion. Psych: pleasant, cooperative, normal speech, normal affect, no hallucinations, no dysarthia H&P: Results Labs Labs: Short CBC 05/24/24 Range/Units 12:53 WBC 9.8 (4.5-10.0) K/mm3 Hgb 13.3 L (14.0-18.0) g/dL Hct 41.2 L (42.0-52.0) % Plt Count 215 (150-375) k/mm3 BMP 05/24/24 12:53 Sodium 141 Potassium 3.5 Chloride 105 Carbon Dioxide 30 BUN 15 D Creatinine 0.96 Glucose 103 Calcium 9.2 Cardiac Enzymes 05/24/24 Range/Units 12:53 Troponin I 0.026 (0.000-0.034) ng/mL Liver Function 05/24/24 Range/Units 12:53 Total Bilirubin 1.1 (0.2-1.3) mg/dL AST 22 (17-59) U/L ALT 8 (6-50) U/L Alkaline Phosphatase 91 (38-126) U/L Albumin 3.8 (3.5-5.1) g/dL Assessment and Plan Assessment and plan (1) Urinary tract infection: Code(s): N39.0 - Urinary tract infection, site not specified Status: Inactive Assessment and Plan: IV Rocephin started IVF (2) Brain TIA: Code(s): G45.9 - Transient cerebral ischemic attack, unspecified Status: Acute Assessment and Plan: 243 aspirin given in the ED Neurology consulted Carotid Doppler pending Restart home med Permissive hypertension (3) CVA (cerebral vascular accident): Code(s): I63.9 - Cerebral infarction, unspecified Status: Acute Assessment and Plan: History of with left hand contracture Continue aspirin, Plavix, Lipitor PT OT (4) Parkinson's disease: Code(s): G20 - Parkinson's disease Status: Acute Assessment and Plan: Restart home med (5) Hypertension: Qualifiers: Hypertension type: unspecified Qualified Code(s): I10 - Essential (primary) hypertension Code(s): I10 - Essential (primary) hypertension Status: Acute Assessment and Plan: Holding antihypertensive Permissive hypertension Quality VTE Prophylaxis VTE prophylaxis: mechanical ordered and pharmacologic ordered Hospitalist MIPS Advance Care Plan I have confirmed that the patient's Advanced Care Plan is present, code status is documented, or surrogate decision maker is listed in patient medical record.: Yes Medication Reconciliation I have utilized all available resources to obtain, update and review the patients current medications (includes all prescriptions, OTC, herbals, cannabis, and nutritional supplements).: Yes
[2024-05-24] MEDS: ENOXAPARIN 40 MG/0.4 ML SYRINGE SUB-Q (15:17)
[2024-05-24 15:25] LABS: Add Urine Microscopic? YES; Appearance Urine Cloudy (Clear); Bacteria Urine 4+ /hpf; Bilirubin Urine Negative (Negative); Blood Urine Non-Hemolyzed Trace (Negative); Color Urine Dark Yellow (Yellow); Glucose Urine UA Negative (Negative); Hyaline Casts Urine Present /lpf; Ketones Urine Trace mg/dL (Negative); Leukocyte Esterase Ur 1+ LEU/UL (Negative); Need Manual Microscopic Reviewed; Nitrate Urine Positive (Negative); Protein Urine 1+ mg/dL (Negative); Specific Grav Ur > 1.045 (1.001-1.035); Squamous Epithelial Cell Urine None Seen /hpf (Few); WBC Clumps Urine Present /HPF; WBC Urine 51-100 /hpf (0-3); pH Urine 5.5 (5.0-9.0)
--- NOTE | 2024-05-24 16:25 | ADMGEN ---
This patient, Jacques Quiroz, was admitted to Medical Room 252-01. Patient/family oriented to hospital policies and general routines including ID bracelet, bed and alarms, visiting hours, pain management, procedures, bathroom and other care routines, personal items, smoking policy, room service/diet, and visiting hours. Information on how to activate the Rapid Response Team has been discussed. Patient/Family are encouraged to report perceived risks to care and to ask questions if they do not understand what they are told or what they should do.
[2024-05-24] MEDS: SODIUM CHLORIDE 0.9% IV 1,000 ML 75 ML IV CONT (17:09)
[2024-05-24] MEDS: ATORVASTATIN 40 MG TABLET 80 MG PO (22:35)
[2024-05-25] VITALS (9 sets, daily range): BP systolic 149–173; BP diastolic 60–85; PULSE 64–83; RESP 16; TEMP 36.2–36.7; O2SAT 97–100
[2024-05-25 05:16] LABS: Basophils Absolute Auto 0.1 K/mm3 (0.0-0.1); Basophils Percent Auto 0.6 % (0.2-1.2); Eosinophils Absolute Auto 0.2 K/mm3 (0-0.3); Hematocrit 42.3 % (42.0-52.0); Hemoglobin 13.8 g/dL (14.0-18.0); Immature Granulocyte Absolute 0.03 K/mm3 (0.00-0.031); Immature Granulocyte Percent A 0.4 % (0-0.5); Lymphocytes Absolute Auto 1.49 K/mm3 (0.9-3.2); Lymphocytes Percent Auto 18.7 % (18.3-44.2); Mean Corpuscular HGB Conc 32.6 g/dl (32-36); Mean Corpuscular Hemoglobin 30.1 pg (26-34); Mean Corpuscular Volume 92.2 fl (80-100); Mean Platelet Volume 9.3 fl (7.4-10.4); Monocytes Absolute Auto 0.8 K/mm3 (0.1-0.6); Monocytes Percent Auto 10.2 % (2.6-8.5); Neutrophils Absolute Auto 5.3 K/mm3 (1.3-6.7); Neutrophils Percent Auto 67.1 % (45.5-73.1); Platelet Count Result 202 k/mm3 (150-375); Red Blood Count 4.59 M/mm3 (4.6-6.20)
[2024-05-25 05:35] LABS: Anion Gap 6 mmol/L (4-12); Blood Urea Nitrogen 11 mg/dL (9-20); Calcium 9.1 mg/dL (8.4-10.2); Carbon Dioxide 29 mmol/L (22-30); Chloride 106 mmol/L (98-107); Estimated CRCL calculation 70 ml/min; Estimated Glomerular Filt Rate > 60; Glucose 88 mg/dL (65-110); Potassium 4.1 mmol/L (3.4-5.0); Sodium 141 mmol/L (137-145)
--- NOTE | 2024-05-25 06:59 | PM.IMPN ---
Progress Note: A&P Assessment and Plan (1) Urinary tract infection: Code(s): N39.0 - Urinary tract infection, site not specified Status: Inactive Assessment and Plan: - UA: cloudy appearance with 1+ protein, trace ketones, positive nitrates, 1+ leukocytes, 11-20 RBC, 51-100 WBC, WBC clumps present, 4+ bacteria and no epithelial cells miguel ángel - UC obtained on 05/24: Enterobacter cloacae/asburia - previous micro reviewed 01/04/21: ecoli pansensitive - started on rocephin on 05/24, transitioned to cefepime on 05/25 (2) Brain TIA: Code(s): G45.9 - Transient cerebral ischemic attack, unspecified Status: Acute Assessment and Plan: Stroke like symptoms of right facial droop, difficulty opening his right eye, and difficulty with ambulation. Last known normal was 0900 05/24, per chart review noted improvement of symptoms by 1145. Resolution of symptoms on arrival to ED. Given loading dose aspirin in the ED and all home medications were resumed. Patient follows neurlogy, Dr. Boyd (last seen 05/07). Patient had weakness of left hand and shoulder problems concerning Dr. Boyd of a stroke. MRI of the brain and a carotid Doppler study were ordered at that time. Additionally Dr. Boyd noted the that he may seek an opinion from vascular surgeon who comes from [place] if he have significant abnormal findings. - Continue asa 81 mg, plavix 75 mg, and atorvastatin 80 mg daily - Carotid doppler on admission showed < 50% stenosis and > 70 % stenosis of the right and left carotid arteries respectively. - Head CT on admission showed no acute intracranial process however multiple prior infarcts noted. - Head/neck CTA on admission showed 95% and 60% stenosis of the right and left carotid bulb respectively as well as segmental occlusion of the junction of the extracranial to intracranial left vertebral artery with likely retrograde filling of the more distal left vertebral artery and left posterior inferior cerebellar artery and a couple unchanged small foci of high-grade stenosis along this segment of the left vertebral artery and moderate stenosis at the origin of the right subclavian artery and right vertebral artery and multifocal mild to moderate stenosis along the extracranial left vertebral artery. Per Neuro note on 05/07 patient had 95% stenosis of LACY in 2022, seen by vascular surgeon at [facility] who did not persue further intervention given patients comorbidities. Patient had right carotid endarterectomy long ago. - Carotid doppler 05/16 showed 50-69% stenosis of the right/left internal carotid arteries - MRI 05/11 showed no acute intracranial process however multiple old infarcts in the right front, temporal and parietal lobes, the left cerebellar hemisphere and in the bilateral basal ganglia and thalami, age related changes including moderate diffuse volume loss and extensive white matter T2 hyperintensity consistent with chronic small vessel ischemic disease, and chronically absent flow void in the left vertebral artery consistent with slow flow related multifocal severe stenosis in the more proximal artery - Echo ordered - Initiate stroke protocol, NIH Stroke Scale, neuro's q.4 hours - Monitor CBC, CMP, magnesium, troponin, lipid profile, and blood glucose - Telemetry monitoring - PT/OT eval and treat - Neurology consulted, appreciate assistance and recommendations All these abnormalities have been documented previously and no intervention is being entertained. Will benefit from the physical therapy and occupation therapy because of the multiple neurological abnormalities and ongoing diagnosis of Parkinson's disease. (3) Parkinson's disease: Code(s): G20 - Parkinson's disease Status: Acute Assessment and Plan: Chronic, followed by neurology Dr. Boyd Continue Sinemet 2 tablets TIDWM (4) COPD (chronic obstructive pulmonary disease): Qualifiers: COPD type: unspecified COPD Qualified Code(s): J44.9 - Chronic obstructive pulmonary disease, unspecified Code(s): J44.9 - Chronic obstructive pulmonary disease, unspecified Status: Acute Assessment and Plan: Chronic, does not appear in acute exacerbation Monitor (5) Hypertension: Qualifiers: Hypertension type: unspecified Qualified Code(s): I10 - Essential (primary) hypertension Code(s): I10 - Essential (primary) hypertension Status: Acute Assessment and Plan: Chronic, holding home lisinopril 5 mg daily for permissive hypertension secondary to TIA and severe stenosis seen on imaging - Lisinopril 5 mg daily - Closely monitor BP Time Spent With Patient Time with patient: 25 - 35 minutes Subjective Date/time seen: 05/25/24 06:59 Interval history: 83 year old male with past medical of parkinsons, 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 Patient is pleasant sitting up comfortably in his chair with at bedside. He has no complaints at this time denying chest pain, shortness a breath, palpitations, nausea/vomiting, abdominal pain. Per patient has returned to his baseline and she is no longer noting any mental status changes, slurred speech, or gait abnormalities. Patient was evaluated by Neurology and no acute intervention is required at this time. Review of Systems Review of Systems: All systems reviewed & are unremarkable except as noted in HPI and below Exam Narrative: AF HR 81 RR 16 SpO2 98 BP General: male in no acute respiratory distress who is nontoxic appearing, sitting up in chair HEENT: Normocephalic. Atraumatic. Pupils equal round reactive to light. Extraocular movement intact. Sclera clear and anicteric. No facial asymmetry. Chest: Lungs are clear to auscultation bilaterally. No wheezes or crackles. CV: Heart was regular rate and rhythm. S1/S2. No murmurs, gallops, or rubs. Abd: Abdomen was soft. Nontender. Nondistended. Positive bowel sounds. No organomegaly or masses. Ext: No clubbing, cyanosis, or edema. DP pulses bilaterally. Neuro: Patient is alert and oriented x4. Strength is 5/5 in both upper and lower extremities. Cranial nerves 2-12 are intact. Able to name 5 colors and animals. Normal [id number] test. No upper extremity drift. Speech is clear. Objective Data Vital Signs Vital Signs: Vital Signs - 24 hr 05/24/24 13:04 05/24/24 13:16 05/24/24 13:30 Temperature Pulse Rate 77 73 69 Respiratory Rate 24 H 20 Blood Pressure 149/56 H 149/56 H Pulse Oximetry 97 100 Oxygen Delivery 05/24/24 13:31 05/24/24 14:23 05/24/24 15:23 Temperature Pulse Rate 70 79 72 Respiratory Rate 18 20 18 Blood Pressure 134/63 135/66 Pulse Oximetry 97 98 100 Oxygen Delivery 05/24/24 17:39 05/24/24 20:00 05/24/24 20:00 Temperature Pulse Rate 66 Respiratory Rate Blood Pressure Pulse Oximetry Oxygen Delivery Room Air Room Air 05/24/24 21:16 05/25/24 00:00 05/25/24 04:00 Temperature 97.7 F Pulse Rate 60 71 83 Respiratory Rate 16 Blood Pressure 155/62 H Pulse Oximetry 97 Oxygen Delivery 05/25/24 04:26 Temperature 97.7 F Pulse Rate 81 Respiratory Rate 16 Blood Pressure 170/85 H Pulse Oximetry 98 Oxygen Delivery Intake/Output Intake/Output: Intake & Output 05/22/24 05/23/24 05/24/24 05/25/24 23:59 23:59 23:59 23:59 Intake Total 440 250 Output Total 75 200 Balance 365 50 Meds/Results Medications: Active Medications Generic Name Dose Route Start Last Admin Trade Name Freq PRN Reason Stop Dose Admin Acetaminophen 650 mg 05/24/24 14:52 Acetaminophen 325 Mg Tablet PO Q4H PRN Mild Pain (1-3) or Fever Aspirin 81 mg 05/25/24 08:00 Aspirin 81 Mg Chewable Tablet PO DAILY@0800 [facility] Aspirin 81 mg 05/25/24 09:00 Aspirin 81 Mg Enteric Tablet PO DAILY [facility] Atorvastatin Calcium 80 mg 05/24/24 22:20 05/24/24 22:35 Atorvastatin 40 Mg Tablet PO 80 mg QHS [facility] Administration Carbidopa/Levodopa 2 tablet 05/25/24 08:00 Carbidopa/Levodopa 25/100 Mg Tablet BY MOUTH TIDWM [facility] Cilostazol 100 mg 05/25/24 08:00 Cilostazol 100 Mg Tablet PO BIDWM [facility] Clopidogrel Bisulfate 75 mg 05/25/24 09:00 Clopidogrel Bisulfate 75 Mg Tablet BY MOUTH DAILY [facility] Docusate Sodium 100 mg 05/25/24 09:00 Docusate Sodium 100 Mg Capsule PO DAILY [facility] Enoxaparin Sodium 40 mg 05/24/24 14:50 05/24/24 15:17 Enoxaparin 40 Mg/0.4 Ml Syringe SUB-Q 40 mg DAILY [facility] Administration Ceftriaxone Sodium 1 gm in 50 mls @ 100 mls/hr 05/24/24 16:00 05/24/24 17:50 Rocephin 1 Gm/Ns 50 Ml IVPB Infused Q24H [facility] Infusion Sodium Chloride 1,000 mls @ 75 mls/hr 05/24/24 15:55 05/24/24 17:09 Normal Saline Iv IV CONT 75 mls/hr .[id number] [facility] Administration Latanoprost 1 drop 05/25/24 09:00 Latanoprost 0.005% Op Soln 2.5 Ml Btl EACH EYE DAILY [facility] Timolol Maleate 1 drop 05/25/24 09:00 Timolol Maleate 0.5% Op Soln 5 Ml Bottle EACH EYE [facility] Radiology Results: ITS Impressions Head CT 05/24/24 13:13 Impression: No acute intracranial hemorrhage or suspicious mass effect. Multiple prior cerebral infarctions, as detailed above. Chest X-Ray 05/24/24 13:19 IMPRESSION: Chronic interstitial change, without focal infiltrate or effusion. Head/Neck CTA 05/24/24 13:19 IMPRESSION: 1. 95% stenosis of the right carotid bulb relative to normal distal artery lumen diameter (NASCET criteria). 2. 60% stenosis of the left carotid bulb relative to normal distal artery lumen diameter. 3. Segmental occlusion of the junction of the extracranial to intracranial left vertebral artery with likely retrograde filling of the more distal left vertebral artery and left posterior inferior cerebellar artery and a couple unchanged small foci of high-grade stenosis along this segment of the left vertebral artery. 4. Moderate stenosis at the origin of the right subclavian artery and right vertebral artery and multifocal mild to moderate stenosis along the extracranial left vertebral artery. Carotid Doppler Study 05/24/24 16:20 IMPRESSION: 1. Less than 50% stenosis in the right internal carotid artery by sonographic criteria. 2. Greater than or equal to 70% stenosis in the left internal carotid artery by sonographic criteria. Labs Labs: Laboratory Results - last 24 hr 05/24/24 05/24/24 05/24/24 12:49 12:53 13:42 WBC 9.8 RBC 4.44 L Hgb 13.3 L Hct 41.2 L MCV 92.8 MCH 30.0 MCHC 32.3 RDW 14.0 Plt Count 215 MPV 9.4 Immature Gran % (Auto) 0.3 Neut % (Auto) 74.0 H Lymph % (Auto) 11.7 L [place] % (Auto) 11.4 H Eos % (Auto) 2.0 Baso % (Auto) 0.6 Lymph # (Auto) 1.15 [place] # (Auto) 1.1 H Eos # (Auto) 0.2 Baso # (Auto) 0.1 Abs Immat Gran (auto) 0.03 Absolute Neuts (auto) 7.3 H Absolute Nucleated RBC 0.000 Nucleated RBC % 0.0 PT 14.3 INR 1.1 APTT 25.8 Sodium 141 Potassium 3.5 Chloride 105 Carbon Dioxide 30 Anion Gap 6 BUN 15 D Creatinine 0.96 Estim Creat Clear Calc Not Reportable Estimated GFR > 60 Glucose 103 POC Capillary Glucose 118 H Calcium 9.2 Total Bilirubin 1.1 AST 22 ALT 8 Alkaline Phosphatase 91 Troponin I 0.026 Total Protein 7.0 Albumin 3.8 Urine Color Urine Appearance Urine pH Ur Specific [place] Urine Protein Urine Glucose (UA) Urine Ketones Ur Blood (Man) Urine Nitrate Urine Bilirubin Urine Urobilinogen Add Ur Microanalysis Leukocyte Esterase Rfl Urine RBC Urine WBC Urine WBC Clumps Ur Squamous Epith Cells Urine Bacteria Urine Casts Hyaline Casts Influenza A (RT-PCR) Negative Influenza B (RT-PCR) Negative RSV (RT-PCR) Negative SARS-CoV-2 RNA (RT-PCR) Negative 05/24/24 05/25/24 14:55 05:10 WBC 8.0 RBC 4.59 L Hgb 13.8 L Hct 42.3 MCV 92.2 MCH 30.1 MCHC 32.6 RDW 14.0 Plt Count 202 MPV 9.3 Immature Gran % (Auto) 0.4 Neut % (Auto) 67.1 Lymph % (Auto) 18.7 [place] % (Auto) 10.2 H Eos % (Auto) 3.0 Baso % (Auto) 0.6 Lymph # (Auto) 1.49 [place] # (Auto) 0.8 H Eos # (Auto) 0.2 Baso # (Auto) 0.1 Abs Immat Gran (auto) 0.03 Absolute Neuts (auto) 5.3 Absolute Nucleated RBC 0.000 Nucleated RBC % 0.0 PT INR APTT Sodium 141 Potassium 4.1 Chloride 106 Carbon Dioxide 29 Anion Gap 6 BUN 11 Creatinine 0.73 Estim Creat Clear Calc 70 Estimated GFR > 60 Glucose 88 POC Capillary Glucose Calcium 9.1 Total Bilirubin AST ALT Alkaline Phosphatase Troponin I Total Protein Albumin Urine Color Dark yellow Urine Appearance Cloudy H Urine pH 5.5 Ur Specific [place] > 1.045 H Urine Protein 1+ H Urine Glucose (UA) Negative Urine Ketones Trace H Ur Blood (Man) Non-hemolyzed trace Urine Nitrate Positive H Urine Bilirubin Negative Urine Urobilinogen 1.0 Add Ur Microanalysis Reviewed Leukocyte Esterase Rfl 1+ H Urine RBC 11-20 H Urine WBC 51-100 H Urine WBC Clumps Present H Ur Squamous Epith Cells None seen Urine Bacteria 4+ H Urine Casts 11-20 Hyaline Casts Present Influenza A (RT-PCR) Influenza B (RT-PCR) RSV (RT-PCR) SARS-CoV-2 RNA (RT-PCR) Quality VTE Prophylaxis VTE prophylaxis: pharmacologic ordered
[2024-05-25 08:16] LABS: Glucose Point of Care 77 mg/dl (65-105)
[2024-05-25] MEDS: DOCUSATE SODIUM 100 MG CAPSULE PO (10:15)
[2024-05-25] MEDS: cilostazoL 100 MG TABLET PO ×2 (10:15→16:28)
[2024-05-25] MEDS: CARBIDOPA/LEVODOPA 25/100 MG TABLET 2 TABLET BY MOUTH ×3 (10:15→16:28)
[2024-05-25] MEDS: ENOXAPARIN 40 MG/0.4 ML SYRINGE SUB-Q (10:15)
[2024-05-25] MEDS: CLOPIDOGREL BISULFATE 75 MG TABLET BY MOUTH (10:15)
[2024-05-25] MEDS: ASPIRIN 81 MG CHEWABLE TABLET PO (10:15)
[2024-05-25] MEDS: TIMOLOL MALEATE 0.5% OP SOLN 5 ML BOTTLE 1 DROP EACH EYE (10:16)
--- NOTE | 2024-05-25 11:53 | P.CONNEU_ITS ---
Assessment and Plan Assessment and plan (1) Carotid stenosis, right: Code(s): I65.21 - Occlusion and stenosis of right carotid artery Status: Acute (2) Short-term memory loss: Code(s): R41.3 - Other amnesia Status: Acute (3) CVA (cerebral vascular accident): Code(s): I63.9 - Cerebral infarction, unspecified Status: Acute (4) Parkinson's disease: Code(s): G20 - Parkinson's disease Status: Acute Plan 1. Parkinson disease on medical treatment is stable. 2. History of cerebrovascular accident in the past along with the 95% stenosis of right carotid bulb 60% stenosis of left carotid bulb, segmental occlusion of the junction of the extracranial to intracranial left vertebral artery with retrograde filling of the more distal left vertebral artery and left posterior inferior cerebellar artery in addition to unchanged number small foci of high- grade stenosis, moderate stenosis at the origin the right subclavian artery and right vertebral artery with multiple multifocal stenosis along the extracranial left vertebral artery as well. All these abnormalities have been documented previously and no intervention is being entertained. His MRI has multiple old infarct in the right frontal temporal parietal lobes left cerebellar hemisphere bilateral basal ganglia and thalami again old and related to his previous documented CTA abnormalities. Obvious 2 no further intervention is necessary 3. Will benefit from the physical therapy and occupation therapy because of the multiple neurological abnormalities and ongoing diagnosis of Parkinson's disease. If any further question arises please do not hesitate to contact me thank Consult date: 05/25/24 HPI: Jacques Quiroz is a 83 year old male admitted to the hospital through the emergency room for complaints of droopiness of the right eye in addition to the ongoing history of 1. Parkinson's disease 2. Possibility of a stroke in the past about 4 weeks ago as per the information available from his his right eye was deviated medially and he was having difficulties in opening his right eye in addition he was having difficulties in ambulation. EMS were called to the scene by the time patient was in his normal baseline patient has been taking aspirin and Plavix for subsequent to his previous hospitalization, he is not allergic to any medication, does have history of right carotid artery stenosis, hyperlipidemia with peripheral vascular disease and previous stroke. He does have history of right carotid endarterectomy in addition to the low back surgery and smoking years 25, smoking pack years 50 but at present former smoker. initial evaluation in the emergency room this particular time there was no obvious focal deficit. His vital signs were normal pinnae CBC, BMP, and last scan along with the screening for the routine viral infections were negative. The CT scan of the head did not reveal any bleed, chest x-ray was negative, head and neck CTA documented 95% stenosis of the right carotid bulb with 60% stenosis of the left carotid bulb in segmental occlusion of the junction of the extra and intracranial left vertebral artery with retrograde filling of more distal left vertebral artery and left posterior cerebellar artery but again unchanged from previous study. Patient was admitted to the hospital for TIA. Patient does have the ongoing history of Parkinson's disease in addition to previous stroke and right carotid endarterectomy in the past, he has seen the vascular surgeon at [facility] who has suggested no surgical intervention because of the multiple medical problems. He has been taking carbidopa levodopa 25/102 tablets 3 times a day, occasionally using a walker to ambulate however he is independent ate most of his activities of daily living he has been documented to have the mini-mental status score of 15/30 with difficulties in using the walker as well but no hallucinations. He has been noted to have right hand repetitive movements though he is able to suppress them. Review of Systems 2 Review of Systems: All systems reviewed & are unremarkable except as noted in HPI and below PMFSH Past Medical History Medical History Carotid stenosis, right History of CVA (cerebrovascular accident) COPD (chronic obstructive pulmonary disease) Cataract CVA (cerebral vascular accident) PVD (peripheral vascular disease) Hyperlipidemia Surgical History Surgical History Hx of cataract extraction H/O shoulder surgery On the left History of right-sided carotid endarterectomy History of back surgery History of appendectomy Family History Family History Sister Family history of rheumatoid arthritis Brother Familial Alzheimer's disease of late onset Father Lung cancer Other Family history of coronary artery disease Social History Social History Social History: The patient lives with his who is a durable power attorney lawyer for healthcare. He is a full code. Smoking packs per day: 2 Smoking cigarettes per day: 40.0 Years smoked: 25 Smoking pack-years: 50.00 Smoking status: Former smoker Tobacco type: cigarettes, pipe and cigars Second hand tobacco smoke exposure: No Smoking end date: 01/07/20 Additional smoking assessment comments: SMOKES 20 CIGARS A DAY Alcohol intake: current Drinks per week: 1 Alcohol use details: RARE SINCE THE STROKES Substance use: never Substance use type: does not use Do You Feel Safe in your Home?: Yes Lack of Transportation: No Lack of Food: Never True Current Housing: I Have Housing Concerned About Future Housing: No Difficulty Paying Gas/Electric Bills: No Difficulty Paying for Meds: No Currently Unemployed: No Education: Associate Degree Difficulty w/ Childcare or Family Care: No Living arrangements: with family Occupation/Education: retired Additional occupation/education comments: 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 Gender identity (if verbalized by the patient): Male Spiritual care concerns: No Meds Home Medications and Allergies Home Medications ?Medication ?Instructions ?Recorded ?Confirmed ?Type aspirin 81 mg tablet,delayed 81 mg PO DAILY 12/14/18 05/24/24 History release (Adult Low Dose Aspirin) latanoprost 0.005 % eye drops 1 drop ophthalmic (eye) DAILY 12/14/18 05/24/24 History (Xalatan) mecobalamin (vitamin B12) 1,000 1,000 mcg sublingual DAILY 12/14/18 05/24/24 History mcg disintegrating tablet,sublingual timolol maleate 0.5 % eye drops 1 drop ophthalmic (eye) QAM 12/14/18 05/24/24 History cilostazol 100 mg tablet 100 mg PO BID 07/13/20 05/24/24 History lisinopril 5 mg tablet See Rx Instructions .Route 03/26/24 05/24/24 Rx .COMPLEX #90 tabs clopidogrel 75 mg tablet See Rx Instructions .Route 04/12/24 05/24/24 Rx .COMPLEX #90 tabs lidocaine 5 % topical ointment 1 applic topical TID PRN pain #50 04/17/24 05/24/24 Rx grams carbidopa 25 mg-levodopa 100 mg See Rx Instructions .Route 05/07/24 05/24/24 Rx tablet .COMPLEX #540 tabs atorvastatin 80 mg tablet (Lipitor) 80 mg PO QHS #90 tabs 05/14/24 05/24/24 Rx Allergies Allergy/AdvReac Type Severity Reaction Status Date / Time No Known Allergies Allergy Verified 04/17/24 12:13 Vital Signs Vital Signs - 24 hr 05/24/24 13:04 05/24/24 13:16 05/24/24 13:30 Temperature Pulse Rate 77 73 69 Respiratory Rate 24 H 20 Blood Pressure 149/56 H 149/56 H Pulse Oximetry 97 100 Oxygen Delivery 05/24/24 13:31 05/24/24 14:23 05/24/24 15:23 Temperature Pulse Rate 70 79 72 Respiratory Rate 18 20 18 Blood Pressure 134/63 135/66 Pulse Oximetry 97 98 100 Oxygen Delivery 05/24/24 17:39 05/24/24 20:00 05/24/24 20:00 Temperature Pulse Rate 66 Respiratory Rate Blood Pressure Pulse Oximetry Oxygen Delivery Room Air Room Air 05/24/24 21:16 05/25/24 00:00 05/25/24 04:00 Temperature 36.5 C Pulse Rate 60 71 83 Respiratory Rate 16 Blood Pressure 155/62 H Pulse Oximetry 97 Oxygen Delivery 05/25/24 04:26 05/25/24 08:00 05/25/24 08:00 Temperature 36.5 C Pulse Rate 81 68 Respiratory Rate 16 Blood Pressure 170/85 H Pulse Oximetry 98 Oxygen Delivery Room Air 05/25/24 08:47 Temperature Pulse Rate Respiratory Rate Blood Pressure Pulse Oximetry Oxygen Delivery Room Air Exam 2 Narrative: Exam reveals him to be awake alert in no obvious acute distress, he is oriented to person place and time, has no obvious dysarthria or dysphagia, head normocephalic with no bruit, ear nose throat examination normal, neck supple with no cervical bruits, heart regular with no murmur, lungs clear to auscultation, neurologically he is awake alert oriented to place and time, pupils round regular feels the vision full extraocular movements full l facial sensation intact,face symmetrical, tongue midline, and motor examination revealed him to have fairly symmetrical strength in upper and lower extremities proximally and distally though he has some difficulties in raising the left upper extremity above the 100? sensory examination is intact reflexes are sluggish but symmetrical and plantars are downgoing. Results Labs 05/25/24 05:10 05/25/24 05:10 Labs: Short CBC 05/24/24 05/25/24 Range/Units 12:53 05:10 WBC 9.8 8.0 (4.5-10.0) K/mm3 Hgb 13.3 L 13.8 L (14.0-18.0) g/dL Hct 41.2 L 42.3 (42.0-52.0) % Plt Count 215 202 (150-375) k/mm3 BMP 05/24/24 05/25/24 12:53 05:10 Sodium 141 141 Potassium 3.5 4.1 Chloride 105 106 Carbon Dioxide 30 29 BUN 15 D 11 Creatinine 0.96 0.73 Glucose 103 88 Calcium 9.2 9.1 Cardiac Enzymes 05/24/24 Range/Units 12:53 Troponin I 0.026 (0.000-0.034) ng/mL Liver Function 05/24/24 Range/Units 12:53 Total Bilirubin 1.1 (0.2-1.3) mg/dL AST 22 (17-59) U/L ALT 8 (6-50) U/L Alkaline Phosphatase 91 (38-126) U/L Albumin 3.8 (3.5-5.1) g/dL Urine 05/24/24 Range/Units 14:55 Urine Color Dark yellow (Yellow) Urine Appearance Cloudy H (Clear) Urine pH 5.5 (5.0-9.0) Ur Specific [place] > 1.045 H (1.001-1.035) Urine Protein 1+ H (Negative) mg/dL Urine Glucose (UA) Negative (Negative) mg/dL
[2024-05-25] MEDS: CEFEPIME 1 GM/NS 50 ML 1 GM/50 ML BAG IVPB (15:36)
[2024-05-25] MEDS: LATANOPROST 0.005% OP SOLN 2.5 ML BTL 1 DROP EACH EYE (20:06)
[2024-05-25] MEDS: ATORVASTATIN 40 MG TABLET 80 MG PO (20:06)
[2024-05-26] VITALS (9 sets, daily range): BP systolic 136–190; BP diastolic 70–81; PULSE 64–88; RESP 16–18; TEMP 36.6–37.2; O2SAT 97–100
[2024-05-26] MEDS: CEFEPIME 1 GM/NS 50 ML 1 GM/50 ML BAG IVPB ×2 (04:01→15:53)
--- NOTE | 2024-05-26 07:57 | PM.IMPN ---
Progress Note: A&P Assessment and Plan (1) Urinary tract infection: Code(s): N39.0 - Urinary tract infection, site not specified Status: Inactive Assessment and Plan: - UA: cloudy appearance with 1+ protein, trace ketones, positive nitrates, 1+ leukocytes, 11-20 RBC, 51-100 WBC, WBC clumps present, 4+ bacteria and no epithelial cells miguel ángel - UC obtained on 05/24: Enterobacter cloacae/asburia - previous micro reviewed 01/04/21: ecoli pansensitive - started on rocephin on 05/24, transitioned to cefepime on 05/25. Will transition to PO Levaquin on 05/27. (2) Brain TIA: Code(s): G45.9 - Transient cerebral ischemic attack, unspecified Status: Acute Assessment and Plan: Stroke like symptoms of right facial droop, difficulty opening his right eye, and difficulty with ambulation. Last known normal was 0900 05/24, per chart review noted improvement of symptoms by 1145. Resolution of symptoms on arrival to ED. Given loading dose aspirin in the ED and all home medications were resumed. Patient follows neurlogy, Dr. Carrero (last seen 05/07). Patient had weakness of left hand and shoulder problems concerning Dr. Carrero of a stroke. MRI of the brain and a carotid Doppler study were ordered at that time. Additionally Dr. Carrero noted the that he may seek an opinion from vascular surgeon who comes from [place] if he have significant abnormal findings. - Continue asa 81 mg, plavix 75 mg, and atorvastatin 80 mg daily - Carotid doppler on admission showed < 50% stenosis and > 70 % stenosis of the right and left carotid arteries respectively. - Head CT on admission showed no acute intracranial process however multiple prior infarcts noted. - Head/neck CTA on admission showed 95% and 60% stenosis of the right and left carotid bulb respectively as well as segmental occlusion of the junction of the extracranial to intracranial left vertebral artery with likely retrograde filling of the more distal left vertebral artery and left posterior inferior cerebellar artery and a couple unchanged small foci of high-grade stenosis along this segment of the left vertebral artery and moderate stenosis at the origin of the right subclavian artery and right vertebral artery and multifocal mild to moderate stenosis along the extracranial left vertebral artery. Per Neuro note on 05/07 patient had 95% stenosis of LACY in 2022, seen by vascular surgeon at [facility] who did not persue further intervention given patients comorbidities. Patient had right carotid endarterectomy long ago. - Carotid doppler 05/16 showed 50-69% stenosis of the right/left internal carotid arteries - MRI 05/11 showed no acute intracranial process however multiple old infarcts in the right front, temporal and parietal lobes, the left cerebellar hemisphere and in the bilateral basal ganglia and thalami, age related changes including moderate diffuse volume loss and extensive white matter T2 hyperintensity consistent with chronic small vessel ischemic disease, and chronically absent flow void in the left vertebral artery consistent with slow flow related multifocal severe stenosis in the more proximal artery - Echo ordered - Initiate stroke protocol, NIH Stroke Scale, neuro's q.4 hours - Monitor CBC, CMP, magnesium, troponin, lipid profile, and blood glucose - Telemetry monitoring - PT/OT eval and treat - Neurology consulted, appreciate assistance and recommendations All these abnormalities have been documented previously and no intervention is being entertained. Will benefit from the physical therapy and occupation therapy because of the multiple neurological abnormalities and ongoing diagnosis of Parkinson's disease. Patient remains at baseline per him and his . He is AOx3 with a benign neuro exam. Spoke with neurology dr. carrero and he wants the echo performed prior to discharge. Echo unable to be obtained today, will be done tomorrow. (3) Parkinson's disease: Code(s): G20 - Parkinson's disease Status: Acute Assessment and Plan: Chronic, followed by neurology Dr. Carrero Continue Sinemet 2 tablets TIDWM (4) COPD (chronic obstructive pulmonary disease): Qualifiers: COPD type: unspecified COPD Qualified Code(s): J44.9 - Chronic obstructive pulmonary disease, unspecified Code(s): J44.9 - Chronic obstructive pulmonary disease, unspecified Status: Acute Assessment and Plan: Chronic, does not appear in acute exacerbation Monitor (5) Hypertension: Qualifiers: Hypertension type: unspecified Qualified Code(s): I10 - Essential (primary) hypertension Code(s): I10 - Essential (primary) hypertension Status: Acute Assessment and Plan: Chronic, holding home lisinopril 5 mg daily for permissive hypertension secondary to TIA and severe stenosis seen on imaging - Lisinopril 5 mg daily - Closely monitor BP Time Spent With Patient Time with patient: 25 - 35 minutes Subjective Date/time seen: 05/26/24 07:57 Interval history: 83 year old male with past medical of parkinsons, 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 Patient is pleasant lying comfortably in bed with at bedside. He states he is back to his baseline mental status and agrees. He denies any increase confusion, difficulty with speech her findings were, will weakness/tingling/numbness to the extremities. He has no other complaints denying chest pain, shortness a breath, nausea/vomiting, palpitations, and abdominal pain. Spoke with neurology and they do wish for patient to an echo prior to discharge so he will remain inpatient pending echo as we do not have the service today. Review of Systems Review of Systems: All systems reviewed & are unremarkable except as noted in HPI and below Exam Narrative: AF HR 77 RR 18 Spo2 100 BP 163/73 General: male in no acute respiratory distress who is nontoxic appearing, sitting up in bed HEENT: Normocephalic. Atraumatic. Extraocular movement intact. Sclera clear and anicteric. No facial asymmetry. Chest: Lungs are clear to auscultation bilaterally. No wheezes or crackles. CV: Heart was regular rate and rhythm. S1/S2. No murmurs, gallops, or rubs. Abd: Abdomen was soft. Nontender. Nondistended. Positive bowel sounds. No organomegaly or masses. Ext: No clubbing, cyanosis, or edema. DP pulses bilaterally. Neuro: Patient is alert and oriented x4. Strength is 5/5 in both upper and lower extremities. Cranial nerves 2-12 are intact. No upper extremity drift. Speech is clear. Objective Data Vital Signs Vital Signs: Vital Signs - 24 hr 05/25/24 08:00 05/25/24 08:00 05/25/24 08:47 Temperature Pulse Rate 68 Respiratory Rate Blood Pressure Pulse Oximetry Oxygen Delivery Room Air Room Air 05/25/24 11:39 05/25/24 12:00 05/25/24 15:00 Temperature 97.1 F L Pulse Rate 64 71 Respiratory Rate 16 Blood Pressure 149/76 H Pulse Oximetry 97 Oxygen Delivery Room Air 05/25/24 16:00 05/25/24 20:00 05/25/24 20:00 Temperature Pulse Rate 70 82 Respiratory Rate Blood Pressure Pulse Oximetry Oxygen Delivery Room Air 05/25/24 20:14 05/26/24 00:00 05/26/24 04:00 Temperature 98.0 F Pulse Rate 72 81 70 Respiratory Rate 16 Blood Pressure 173/60 H Pulse Oximetry 100 Oxygen Delivery 05/26/24 06:56 Temperature 98.0 F Pulse Rate 68 Respiratory Rate 16 Blood Pressure 181/81 H Pulse Oximetry 98 Oxygen Delivery Intake/Output Intake/Output: Intake & Output 05/23/24 05/24/24 05/25/24 05/26/24 23:59 23:59 23:59 23:59 Intake Total 440 1020 400 Output Total 75 200 Balance 365 820 400 Meds/Results Medications: Active Medications Generic Name Dose Route Start Last Admin Trade Name Freq PRN Reason Stop Dose Admin Acetaminophen 650 mg 05/24/24 14:52 Acetaminophen 325 Mg Tablet PO Q4H PRN Mild Pain (1-3) or Fever Aspirin 81 mg 05/25/24 08:00 05/25/24 10:15 Aspirin 81 Mg Chewable Tablet PO 81 mg DAILY@0800 GEOVANNY Administration Atorvastatin Calcium 80 mg 05/24/24 22:20 05/25/24 20:06 Atorvastatin 40 Mg Tablet PO 80 mg QHS GEOVANNY Administration Carbidopa/Levodopa 2 tablet 05/25/24 08:00 05/25/24 16:28 Carbidopa/Levodopa 25/100 Mg Tablet BY MOUTH 2 tablet TIDWM GEOVANNY Administration Cilostazol 100 mg 05/25/24 08:00 05/25/24 16:28 Cilostazol 100 Mg Tablet PO 100 mg BIDWM GEOVANNY Administration Clopidogrel Bisulfate 75 mg 05/25/24 09:00 05/25/24 10:15 Clopidogrel Bisulfate 75 Mg Tablet BY MOUTH 75 mg DAILY GEOVANNY Administration Docusate Sodium 100 mg 05/25/24 09:00 05/25/24 10:15 Docusate Sodium 100 Mg Capsule PO 100 mg DAILY GEOVANNY Administration Enoxaparin Sodium 40 mg 05/24/24 14:50 05/25/24 10:15 Enoxaparin 40 Mg/0.4 Ml Syringe SUB-Q 40 mg DAILY GEOVANNY Administration Cefepime HCl 1 gm in 50 mls @ 100 mls/hr 05/25/24 16:00 05/26/24 04:33 Maxipime 1 Gm/Ns 50 Ml IVPB Infused Q12H GEOVANNY Infusion Latanoprost 1 drop 05/25/24 21:00 05/25/24 20:06 Latanoprost 0.005% Op Soln 2.5 Ml Btl EACH EYE 1 drop HS GEOVANNY Administration Lisinopril 5 mg 05/26/24 09:00 Lisinopril 5 Mg Tablet PO DAILY GEOVANNY Perflutren Lipid Microsphere 0 ml 05/25/24 07:24 Perflutren Lipid Microspheres 1.5 Ml Vial Diluted To 10 Ml Total Volume IV PUSH 05/28/24 07:24 ONCE PRN adequate visualization Protocol Timolol Maleate 1 drop 05/25/24 09:00 05/25/24 10:16 Timolol Maleate 0.5% Op Soln 5 Ml Bottle EACH EYE 1 drop QAM GEOVANNY Administration Radiology Results: ITS Impressions Head CT 05/24/24 13:13 Impression: No acute intracranial hemorrhage or suspicious mass effect. Multiple prior cerebral infarctions, as detailed above. Chest X-Ray 05/24/24 13:19 IMPRESSION: Chronic interstitial change, without focal infiltrate or effusion. Head/Neck CTA 05/24/24 13:19 IMPRESSION: 1. 95% stenosis of the right carotid bulb relative to normal distal artery lumen diameter (NASCET criteria). 2. 60% stenosis of the left carotid bulb relative to normal distal artery lumen diameter. 3. Segmental occlusion of the junction of the extracranial to intracranial left vertebral artery with likely retrograde filling of the more distal left vertebral artery and left posterior inferior cerebellar artery and a couple unchanged small foci of high-grade stenosis along this segment of the left vertebral artery. 4. Moderate stenosis at the origin of the right subclavian artery and right vertebral artery and multifocal mild to moderate stenosis along the extracranial left vertebral artery. Carotid Doppler Study 05/24/24 16:20 IMPRESSION: 1. Less than 50% stenosis in the right internal carotid artery by sonographic criteria. 2. Greater than or equal to 70% stenosis in the left internal carotid artery by sonographic criteria. Labs Labs: Laboratory Results - last 24 hr 05/25/24 08:09 POC Capillary Glucose 77 Quality VTE Prophylaxis VTE prophylaxis: pharmacologic ordered
[2024-05-26 08:28] LABS: Hematocrit 44.4 % (42.0-52.0); Hemoglobin 14.3 g/dL (14.0-18.0); Mean Corpuscular HGB Conc 32.2 g/dl (32-36); Mean Corpuscular Hemoglobin 29.9 pg (26-34); Mean Corpuscular Volume 92.7 fl (80-100); Mean Platelet Volume 9.4 fl (7.4-10.4); Platelet Count Result 197 k/mm3 (150-375); Red Blood Count 4.79 M/mm3 (4.6-6.20); Red Cell Distribution Width 13.9 % (11.5-14.5); White Blood Count 7.6 K/mm3 (4.5-10.0)
[2024-05-26 08:31] LABS: Alanine Aminotransferase 14 U/L (6-50); Albumin Level 4.1 g/dL (3.5-5.1); Alkaline Phosphatase 106 U/L (38-126); Anion Gap 6 mmol/L (4-12); Aspartate Amino Transferase 24 U/L (17-59); Bilirubin,Total 1.3 mg/dL (0.2-1.3); Blood Urea Nitrogen 9 mg/dL (9-20); Calcium 9.3 mg/dL (8.4-10.2); Carbon Dioxide 31 mmol/L (22-30); Chloride 104 mmol/L (98-107); Estimated CRCL calculation 71 ml/min; Estimated Glomerular Filt Rate > 60; Glucose 99 mg/dL (65-110); Potassium 3.8 mmol/L (3.4-5.0); Sodium 141 mmol/L (137-145)
[2024-05-26] MEDS: cilostazoL 100 MG TABLET PO ×2 (08:49→16:23)
[2024-05-26] MEDS: CLOPIDOGREL BISULFATE 75 MG TABLET BY MOUTH (08:49)
[2024-05-26] MEDS: CARBIDOPA/LEVODOPA 25/100 MG TABLET 2 TABLET BY MOUTH ×3 (08:49→16:23)
[2024-05-26] MEDS: ASPIRIN 81 MG CHEWABLE TABLET PO (08:49)
[2024-05-26] MEDS: DOCUSATE SODIUM 100 MG CAPSULE PO (08:49)
[2024-05-26] MEDS: ENOXAPARIN 40 MG/0.4 ML SYRINGE SUB-Q (08:50)
[2024-05-26] MEDS: TIMOLOL MALEATE 0.5% OP SOLN 5 ML BOTTLE 1 DROP EACH EYE (08:50)
[2024-05-26] MEDS: lisinopriL 5 MG TABLET PO (08:50)
[2024-05-26] MEDS: ATORVASTATIN 40 MG TABLET 80 MG PO (20:37)
[2024-05-26] MEDS: LATANOPROST 0.005% OP SOLN 2.5 ML BTL 1 DROP EACH EYE (20:39)
[2024-05-27] VITALS: BP 141/67; PULSE 66; PULSE 71; RESP 16; TEMP 36.5; O2SAT 98
--- NOTE | 2024-05-27 | ECHO_ITS ---
Patient Info Name: Jacques Quiroz Age: 83 years : 1940 Gender: Male Ht: 70 in Wt: 167 lbs BSA: 1.94 m2 HR: 73 bpm BP: 141 / 67 mmHg Technical Quality: Poor Exam Date: 05/27/2024 10:28 AM Exam Location: Echo Lab Patient Status: Inpatient Admit Date: 05/25/2024 Staff Ordering Physician: Debbie Merino PA-C [employer] Machine Tender: Genoveva Choe RDCS Attending Provider: Debbie Merino PA-C Referring Physician: Angelique MANUEL; Exam Type: CA echo dop bubble study w con Study Info Indications - STROKE EVAL Complete two-dimentional, color flow and Doppler transthoracic echocardiogram is performed with agitated saline and with contrast to opacify the left ventricle and to improve the delineation of the left ventricle endocardial borders. Contrast/Agitated Saline Contrast/Ag. Saline: Definity Amount: 2.00 ml Administered By: Genoveva Choe RDCS Existing IV Access: Yes Contrast/Ag. Saline: Agitated Saline Amount: 20.00 ml Existing IV Access: Yes Reason for Poor Study: poor echocardiographic windows Summary 1. Definity contrast administered improved wall motion interpretation. 2. Left ventricular chamber dimension is normal. 3. Left ventricular systolic function is normal, estimated at 60-65%. 4. There is mild concentric increased left ventricular wall thickness. 5. E/e' 11 is mildly elevated. 6. The aortic valve is not well visualized. Cannot determine number of aortic valve leaflets. 7. There is mild aortic valve sclerosis. 8. There is trace aortic valve regurgitation. 9. The mitral valve has moderately calcified annulus. 10. No pulmonary hypertension, estimated pulmonary arterial systolic pressure is 27 mmHg. Left Ventricle E/e' 11 is mildly elevated. Definity contrast administered improved wall motion interpretation. Left ventricular chamber dimension is normal. Left ventricular systolic function is normal, estimated at 60-65%. There is mild concentric increased left ventricular wall thickness. The left ventricular diastolic function is abnormal. Right Ventricle Right ventricular chamber dimension is normal. Right ventricular systolic function is normal. Left Atria Left atrial chamber dimension is normal. Right Atria Right atrial chamber dimension is normal. Atrial Septum Agitated saline injection with and without valsalva maneuver opacified right side cardiac chambers without shunt to left side cardiac chambers. Intact interatrial septum visualized by 2D and agitated saline imaging. Aortic Valve The aortic valve is not well visualized. Cannot determine number of aortic valve leaflets. There is mild aortic valve sclerosis. There is no aortic valve stenosis. There is trace aortic valve regurgitation. Pulmonic Valve There is no pulmonic regurgitation. Mitral Valve The mitral valve has moderately calcified annulus. There is no mitral valve stenosis. There is no mitral valve regurgitation. Tricuspid Valve There is no tricuspid valve regurgitation. No pulmonary hypertension, estimated pulmonary arterial systolic pressure is 27 mmHg. Pericardium/Pleural There is no pericardial effusion. Inferior Vena Cava Normal inferior vena cava with >50% collapse upon inspiration consistent with normal right atrial pressure, 5 mmHg. Aorta The aortic root size at the sinus of Valsalva is normal. Left Ventricular Outflow Tract Name Value Normal LVOT 2D LVOT Diameter 2.0 cm LVOT Doppler LVOT Peak Gradient 4 mmHg LVOT Mean Gradient 2 mmHg LVOT VTI 20 cm LVOT VTI/AV VTI Ratio 0.7 LVOT Stroke Volume 61 ml LVOT CO 4.1 l/min LVOT CI 2.1 l/min/m2 Pulmonic Valve Name Value Normal RVOT Doppler RVOT Peak Gradient 3 mmHg PV Doppler PV Peak Gradient 3 mmHg Mitral Valve Name Value Normal MV Doppler MV Decel [place] 309 cm/s2 MV PHT 66 ms MV Area (PHT) 3.3 cm2 4.0-5.0 MV Diastolic Function MV E Peak Velocity 71 cm/s MV A Peak Velocity 77 cm/s MV E/A 0.9 MV Decel Time 229 ms Tricuspid Valve Name Value Normal TV Regurgitation Doppler TR Peak Velocity 233 cm/s TR Peak Gradient 22 mmHg Estimated PAP/RSVP RA Pressure 5 mmHg <=5 PA Systolic Pressure 27 mmHg <36 RV Systolic Pressure 27 mmHg <36 Aorta Name Value Normal Ascending Aorta Ao Root Diameter (MM) 3.0 cm Ao Root Diam Index (MM) 1.6 cm/m2 Aortic Valve Name Value Normal AV Doppler AV Peak Velocity 149 cm/s AV Peak Gradient 9 mmHg AV Mean Gradient 5 mmHg AV VTI 28 cm AV Area (Cont Eq VTI) 2.2 cm2 >=3.0 AV Area (Cont Eq Farrukh) 1.9 cm2 AV Regurgitation 2D LVOT Area 3.0 cm2 Ventricles Name Value Normal LV Dimensions 2D/MM IVS Diastole Thickness (MM) 1.0 cm 0.6-1.0 LVID Diastole (MM) 6.4 cm 4.2-5.8 LVIW Diastolic Thickness (MM) 1.2 cm 0.6-1.0 LVID Systole (MM) 3.1 cm 2.5-4.0 LVOT Diameter 2.0 cm LV Mass (MM Cubed) 323.85 g 88.00-224.00 LV Mass Index (MM Cubed) 167 g/m2 49-115 Relative Wall Thickness (MM) 0.39 LV Fractional Shortening/Ejection Fraction 2D/MM LV Fractional Shortening (MM) 52 % 25-43 LV EF (MM Teicholz) 82 % 52-72 LV Diastolic Volume (4C MOD) 64 ml LV EF (4C MOD) 57 % LV Diastolic Volume (2C MOD) 53 ml LV EF (2C MOD) 77 % LV Diastolic Volume (BP MOD) 57 ml 62-150 LV Diastolic Volume Index (BP MOD) 30 ml/m2 34-74 LV Systolic Volume (BP MOD) 21 ml 21-61 LV Systolic Volume Index (BP MOD) 11 ml/m2 11-31 LV EF (BP MOD) 64 % 52-72 LV Diastolic Length (4C) 7.6 cm LV Systolic Length (4C) 7.4 cm LV Stroke Volume (4C MOD) 36 ml Atria Name Value Normal LA Dimensions LA Dimension (MM) 4.5 cm 3.0-4.1 LA Volume (4C A-L) 50 ml LA Volume (BP A-L) 45 ml RA Dimensions RA Area (4C) 10.1 cm2 <=18.0 Report Signatures
[2024-05-27 04:00] VITALS: PULSE 77
[2024-05-27 05:04] LABS: Hematocrit 40.6 % (42.0-52.0); Hemoglobin 13.1 g/dL (14.0-18.0); Mean Corpuscular HGB Conc 32.3 g/dl (32-36); Mean Corpuscular Hemoglobin 29.6 pg (26-34); Mean Corpuscular Volume 91.6 fl (80-100); Mean Platelet Volume 9.4 fl (7.4-10.4); Platelet Count Result 183 k/mm3 (150-375); Red Blood Count 4.43 M/mm3 (4.6-6.20); Red Cell Distribution Width 13.9 % (11.5-14.5); White Blood Count 7.7 K/mm3 (4.5-10.0)
[2024-05-27 05:26] LABS: Alanine Aminotransferase 8 U/L (6-50); Albumin Level 3.6 g/dL (3.5-5.1); Alkaline Phosphatase 87 U/L (38-126); Anion Gap 6 mmol/L (4-12); Aspartate Amino Transferase 21 U/L (17-59); Bilirubin,Total 1.1 mg/dL (0.2-1.3); Blood Urea Nitrogen 10 mg/dL (9-20); Calcium 9.2 mg/dL (8.4-10.2); Carbon Dioxide 30 mmol/L (22-30); Chloride 104 mmol/L (98-107); Estimated CRCL calculation 71 ml/min; Estimated Glomerular Filt Rate > 60; Glucose 88 mg/dL (65-110); Potassium 3.5 mmol/L (3.4-5.0); Sodium 140 mmol/L (137-145)
[2024-05-27 08:00] VITALS: PULSE 95
[2024-05-27 08:48] VITALS: O2SAT 97
[2024-05-27] MEDS: DOCUSATE SODIUM 100 MG CAPSULE PO (08:48)
[2024-05-27] MEDS: CLOPIDOGREL BISULFATE 75 MG TABLET BY MOUTH (08:48)
[2024-05-27] MEDS: ENOXAPARIN 40 MG/0.4 ML SYRINGE SUB-Q (08:48)
[2024-05-27] MEDS: lisinopriL 5 MG TABLET PO (08:48)
[2024-05-27] MEDS: CARBIDOPA/LEVODOPA 25/100 MG TABLET 2 TABLET BY MOUTH ×2 (08:48→12:21)
[2024-05-27] MEDS: cilostazoL 100 MG TABLET PO (08:48)
[2024-05-27] MEDS: levoFLOXacin 750 MG TABLET PO (08:48)
[2024-05-27] MEDS: ASPIRIN 81 MG CHEWABLE TABLET PO (08:48)
[2024-05-27] MEDS: TIMOLOL MALEATE 0.5% OP SOLN 5 ML BOTTLE 1 DROP EACH EYE (08:49)
[2024-05-27] MEDS: PERFLUTREN LIPID MICROSPHERES 1.5 ML VIAL DILUTED TO 10 ML TOTAL VOLUME IV PUSH (10:58)
[2024-05-27 12:00] VITALS: PULSE 75
--- NOTE | 2024-05-27 12:25 | WPDNEUROPN ---
Progress Note: A&P Assessment and Plan (1) Brain TIA: Code(s): G45.9 - Transient cerebral ischemic attack, unspecified Status: Acute (2) Carotid stenosis, right: Code(s): I65.21 - Occlusion and stenosis of right carotid artery Status: Acute (3) Left carotid bruit: Code(s): R09.89 - Other specified symptoms and signs involving the circulatory and respiratory systems Status: Acute (4) History of CVA (cerebrovascular accident): Code(s): Z86.73 - Personal history of transient ischemic attack (TIA), and cerebral infarction without residual deficits Status: Acute (5) Parkinson's disease: Code(s): G20 - Parkinson's disease Status: Acute (6) Short-term memory loss: Code(s): R41.3 - Other amnesia Status: Acute Plan I shall arrange for him to be seen by a vascular surgeon from [facility] who has a clinic an adverse fill for 2nd opinion since he has a 95% stenosis in the carotid bulb all confirmed on the CT angiogram done on this admission and in addition there is also a 60% narrowing of the internal carotid artery on the left side. I believe the both of them may require attention since the symptom on the right side the body would still be most likely from the left internal carotid artery. I spoke to the hospitalist team as well as his and will be arranging the same for him. In the meanwhile he is on atorvastatin 80 mg a day and aspirin 81 mg a day and Plavix 75 mg a day which should be continued. Subjective Date/time seen: 05/27/24 12:25 Interval history: Ms. Quiroz is a 83-year-old gentleman history of for Parkinson's disease and CVA and right carotid endarterectomy. He has been seen by Dr. Castaneda and I have reviewed his records. I also spoke to his today. Patient undergoing echocardiogram and hence I was unable to speak to him personally. Patient presented to the hospital with the droopy right eye which has now cleared up completely. His is satisfied that he is back to his normal self. Patient was noted to have a 60% narrowing on the left internal carotid artery and 95% narrowing on the right carotid bulb and I saw him in my office on 05/07/2024 and we discussed about a or an opinion from a vascular surgeon from [facility] and adverse fill since the he has been to a vascular surgeon in [facility] who thought that he should just be managed on medication alone. Patient has had 10-12 transient ischemic attacks in the last 10 15 years. He used to smoke till 2019. His LDL was 71 on 05/11/2024. Review of Systems Review of Systems: All systems reviewed & are unremarkable except as noted in HPI and below Exam Narrative: I was unable to examine the patient at this time Objective Data Vital Signs Vital Signs: Vital Signs - 24 hr 05/26/24 16:00 05/26/24 16:00 05/26/24 20:00 Temperature 97.9 F Pulse Rate 64 88 Respiratory Rate 18 Blood Pressure 136/74 Pulse Oximetry 97 Oxygen Delivery Room Air 05/26/24 20:00 05/26/24 21:35 05/27/24 00:00 Temperature 98.9 F Pulse Rate 71 69 66 Respiratory Rate 16 Blood Pressure 159/77 H Pulse Oximetry 97 Oxygen Delivery 05/27/24 00:00 05/27/24 04:00 05/27/24 08:00 Temperature 97.7 F Pulse Rate 71 77 95 Respiratory Rate 16 Blood Pressure 141/67 H Pulse Oximetry 98 Oxygen Delivery 05/27/24 08:48 05/27/24 08:50 Temperature Pulse Rate Respiratory Rate Blood Pressure Pulse Oximetry 97 Oxygen Delivery Room Air Room Air Intake/Output Intake/Output: Intake & Output 05/24/24 05/25/24 05/26/24 05/27/24 23:59 23:59 23:59 23:59 Intake Total 440 1020 750 200 Output Total 75 200 Balance 365 820 750 200 Meds/Results Medications: Active Medications Generic Name Dose Route Start Last Admin Trade Name Freq PRN Reason Stop Dose Admin Acetaminophen 650 mg 05/24/24 14:52 Acetaminophen 325 Mg Tablet PO Q4H PRN Mild Pain (1-3) or Fever Aspirin 81 mg 05/25/24 08:00 05/27/24 08:48 Aspirin 81 Mg Chewable Tablet PO 81 mg DAILY@0800 GEOVANNY Administration Atorvastatin Calcium 80 mg 05/24/24 22:20 05/26/24 20:37 Atorvastatin 40 Mg Tablet PO 80 mg QHS GEOVANNY Administration Carbidopa/Levodopa 2 tablet 05/25/24 08:00 05/27/24 12:21 Carbidopa/Levodopa 25/100 Mg Tablet BY MOUTH 2 tablet TIDWM GEOVANNY Administration Cilostazol 100 mg 05/25/24 08:00 05/27/24 08:48 Cilostazol 100 Mg Tablet PO 100 mg BIDWM GEOVANNY Administration Clopidogrel Bisulfate 75 mg 05/25/24 09:00 05/27/24 08:48 Clopidogrel Bisulfate 75 Mg Tablet BY MOUTH 75 mg DAILY GEOVANNY Administration Docusate Sodium 100 mg 05/25/24 09:00 05/27/24 08:48 Docusate Sodium 100 Mg Capsule PO 100 mg DAILY GEOVANNY Administration Enoxaparin Sodium 40 mg 05/24/24 14:50 05/27/24 08:48 Enoxaparin 40 Mg/0.4 Ml Syringe SUB-Q 40 mg DAILY GEOVANNY Administration Latanoprost 1 drop 05/25/24 21:00 05/26/24 20:39 Latanoprost 0.005% Op Soln 2.5 Ml Btl EACH EYE 1 drop HS GEOVANNY Administration Levofloxacin 750 mg 05/27/24 09:00 05/27/24 08:48 Levofloxacin 750 Mg Tablet PO 05/30/24 21:00 750 mg DAILY GEOVANNY Administration Lisinopril 5 mg 05/26/24 09:00 05/27/24 08:48 Lisinopril 5 Mg Tablet PO 5 mg DAILY GEOVANNY Administration Perflutren Lipid Microsphere 0 ml 05/25/24 07:24 Perflutren Lipid Microspheres 1.5 Ml Vial Diluted To 10 Ml Total Volume IV PUSH 05/28/24 07:24 ONCE PRN adequate visualization Protocol Timolol Maleate 1 drop 05/25/24 09:00 05/27/24 08:49 Timolol Maleate 0.5% Op Soln 5 Ml Bottle EACH EYE 1 drop QAM GEOVANNY Administration Radiology Results: ITS Impressions Head CT 05/24/24 13:13 Impression: No acute intracranial hemorrhage or suspicious mass effect. Multiple prior cerebral infarctions, as detailed above. Chest X-Ray 05/24/24 13:19 IMPRESSION: Chronic interstitial change, without focal infiltrate or effusion. Head/Neck CTA 05/24/24 13:19 IMPRESSION: 1. 95% stenosis of the right carotid bulb relative to normal distal artery lumen diameter (NASCET criteria). 2. 60% stenosis of the left carotid bulb relative to normal distal artery lumen diameter. 3. Segmental occlusion of the junction of the extracranial to intracranial left vertebral artery with likely retrograde filling of the more distal left vertebral artery and left posterior inferior cerebellar artery and a couple unchanged small foci of high-grade stenosis along this segment of the left vertebral artery. 4. Moderate stenosis at the origin of the right subclavian artery and right vertebral artery and multifocal mild to moderate stenosis along the extracranial left vertebral artery. Carotid Doppler Study 05/24/24 16:20 IMPRESSION: 1. Less than 50% stenosis in the right internal carotid artery by sonographic criteria. 2. Greater than or equal to 70% stenosis in the left internal carotid artery by sonographic criteria. Labs Labs: Laboratory Results - last 24 hr 05/27/24 04:43 WBC 7.7 RBC 4.43 L Hgb 13.1 L Hct 40.6 L MCV 91.6 MCH 29.6 MCHC 32.3 RDW 13.9 Plt Count 183 MPV 9.4 Sodium 140 Potassium 3.5 Chloride 104 Carbon Dioxide 30 Anion Gap 6 BUN 10 Creatinine 0.72 Estim Creat Clear Calc 71 Estimated GFR > 60 Glucose 88 Calcium 9.2 Total Bilirubin 1.1 AST 21 ALT 8 Alkaline Phosphatase 87 Total Protein 7.0 Albumin 3.6
--- NOTE | 2024-05-27 13:14 | IVDEFINITY ---
Prior to administration of IV Definity the patient was educated on the risks and benefits of the imaging enhancing agent including potential adverse side effects. The patient verbalized understanding. Allergies were verified. No exclusion criteria were identified and at least one of the following inclusion criteria were met: 1) physician request, 2) patient technically difficult to image (per the [place] [employer]chocardi[employer] guidelines of two or more segments not discernable within the apical view), or 3) questionable left ventricular function. ?
[2024-05-27 13:25] VITALS: BP 160/63; PULSE 70; RESP 18; TEMP 36.8; O2SAT 100
--- NOTE | 2024-05-27 13:58 | P.DS_ITS ---
DS: Admitting Diagnosis Discharge Date 05/27/2024 Admitting Diagnosis Urinary tract infection Brain TIA COPD Parkinson's Hypertension DS: Discharge Diagnosis Discharge Diagnosis (1) Brain TIA: Code(s): G45.9 - Transient cerebral ischemic attack, unspecified Status: Acute (2) Parkinson's disease: Code(s): G20 - Parkinson's disease Status: Acute (3) COPD (chronic obstructive pulmonary disease): Qualifiers: COPD type: unspecified COPD Qualified Code(s): J44.9 - Chronic obstructive pulmonary disease, unspecified Code(s): J44.9 - Chronic obstructive pulmonary disease, unspecified Status: Acute (4) Hypertension: Qualifiers: Hypertension type: unspecified Qualified Code(s): I10 - Essential (primary) hypertension Code(s): I10 - Essential (primary) hypertension Status: Acute (5) Urinary tract infection: Code(s): N39.0 - Urinary tract infection, site not specified Status: Inactive DS: Summary Hospital Course Reason for hospitalization: Urinary tract infection Brain TIA COPD Parkinson's Hypertension Hospital Course: 83 year old male with past medical of parkinsons, 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 Last known normal was 0900 05/24, per chart review noted improvement of symptoms by 1145. Patient follows neurology, Dr. Boyd (last seen 05/07). Patient had weakness of left hand and shoulder problems concerning Dr. Boyd of a stroke. MRI of the brain and a carotid Doppler study were ordered at that time. Carotid doppler 05/16 showed 50-69% stenosis of the right/left internal carotid arteries. MRI 05/11 showed no acute intracranial process however multiple old infarcts in the right front, temporal and parietal lobes, the left cerebellar hemisphere and in the bilateral basal ganglia and thalami, age related changes including moderate diffuse volume loss and extensive white matter T2 hyperintensity consistent with chronic small vessel ischemic disease, and chronically absent flow void in the left vertebral artery consistent with slow flow related multifocal severe stenosis in the more proximal artery. Patient had resolution of symptoms on arrival to ED. Given loading dose aspirin in the ED and all home medications were resumed. Labs were unremarkable. UA concernign for infection, started on IV antibiotics. Culture grew Enterobacter cloacae/asburia and patient transtioned to oral antibiotics at discharge to complete the course. Carotid doppler on admission showed < 50% stenosis and > 70 % stenosis of the right and left carotid arteries respectively. Head CT on admission showed no acute intracranial process however multiple prior infarcts noted. Head/neck CTA on admission showed 95% and 60% stenosis of the right and left carotid bulb respectively as well as segmental occlusion of the junction of the extracranial to intracranial left vertebral artery with likely retrograde filling of the more distal left vertebral artery and left posterior inferior cerebellar artery and a couple unchanged small foci of high-grade stenosis along this segment of the left vertebral artery and moderate stenosis at the origin of the right subclavian artery and right vertebral artery and multifocal mild to moderate stenosis along the extracranial left vertebral artery. Echo was obtained and showed LVEF 60-65% with no noted bubble sign. Per Neuro note on 05/07 patient had 95% stenosis of LACY in 2022, seen by vascular surgeon at [facility] who did not pursue further intervention given patients comorbidities. Patient had right carotid endarterectomy long ago. Per neurology Dr. Boyd he plans to arrange patient to be seen by vascular surgeon from [facility] for second opinion on 95% stenosis of carotid bulb and 60% narrowing of LICA. In the meanwhile he is on atorvastatin 80 mg a day and aspirin 81 mg a day and Plavix 75 mg a day which should be continued. Patient had no complaints at time of discharge denying chest pain, shortness a breath, palpitations, nausea/vomiting, abdominal pain, dizziness/lightheadedness, and weakness/tingling/numbness. Per patient is back if not better than his baseline. Patient discharged home with in a stable condition. He is to continue his outpatient physical therapy with [facility]. He is to follow up with his primary care provider in 1 week and neurology as scheduled. Status at Discharge Functional status at discharge: uses cane/walker Time Spent with Patient Time attestation: Total time spent providing and/or coordinating discharge services: Time spent: Greater than 30 minutes Exam Narrative: AF HR 70 RR 18 Spo2 100 BP 160/63 General: male in no acute respiratory distress who is nontoxic appearing, sitting up in bed HEENT: Normocephalic. Atraumatic. Extraocular movement intact. Sclera clear and anicteric. Chest: Lungs are clear to auscultation bilaterally. CV: Heart was regular rate and rhythm. Abd: Abdomen was soft. Nontender. Nondistended. Positive bowel sounds. Ext: No clubbing, cyanosis, or edema. DP pulses bilaterally. Neuro: Patient is alert and oriented x4. Strength is 5/5 in both upper and lower extremities. Cranial nerves 2-12 are intact. No upper extremity drift. Speech is clear. DS: Data Data Completed and Pending Completed studies during hospitalization: Carotid Doppler Head neck CTA Chest x-ray Head CT Labs on day of discharge: Labs from last 24 hours 05/27/24 04:43 WBC 7.7 RBC 4.43 L Hgb 13.1 L Hct 40.6 L MCV 91.6 MCH 29.6 MCHC 32.3 RDW 13.9 Plt Count 183 MPV 9.4 Sodium 140 Potassium 3.5 Chloride 104 Carbon Dioxide 30 Anion Gap 6 BUN 10 Creatinine 0.72 Estim Creat Clear Calc 71 Estimated GFR > 60 Glucose 88 Calcium 9.2 Total Bilirubin 1.1 AST 21 ALT 8 Alkaline Phosphatase 87 Total Protein 7.0 Albumin 3.6 Discharge Plan Discharge Attending physician on discharge: Rafi Shetty Consulting providers: Kevin Mccullough Discharging Clinician: Debbie Merino Anticipated Discharge Date/Time: 05/27/24 13:53 Patient Disposition: Home Activity: as tolerated Diet: as tolerated and heart healthy Discharge Instructions: Discharge disposition: Patient admitted to the hospital for a TIA Evaluated by neurology Neurology Dr. Boyd is working on a referral to a vascular surgeon from [place] to evaluate patient in outpatient setting Take all medications as prescribed even if feeling better aspirin 81 mg daily, atorvastatin 80 mg daily, and plavix 75 mg daily Eat well balanced meals and stay hydrated Strict bleeding precautions since you remain on Plavix and aspirin including shaving with an electric razor, holding pressure for greater than 20 minutes for injury, protection of had with any falls, etc. Follow-up with neurology During admission patient was diagnosed with a urinary tract infection Take all medications as prescribed even if feeling better Levaquin daily, course to be completed on 05/30 Attached is information on this medication Eat well balanced meals and stay hydrated Keep active to remain strong Avoid use of diapers or pads Good dorota Care every 2 hours Trend urine output Monitor blood pressures Take caution while standing, rising, or moving Change positions slowly taking a break between each position change If you standing feel dizzy sit back down and take a break Encouraged to continue with yearly vaccinations Return to the emergency department if he developed sudden shortness of breath, chest pain, nausea, vomiting, upset stomach or intractable diarrhea Return to the emergency department if you develop fever greater than 101.5 Follow-up with the primary care physician within 1-2 weeks Thank you for [facility] for your healthcare needs Patient Instructions: Antibiotic Form, Levofloxacin (By mouth), Transient Ischemic Attack (DC), Urinary Tract Infection in Men (DC), Urinary Tract Infection in Older Adults (DC) Patient Language: Chadian Stand Alone Forms: General Discharge Information Follow-up/Referrals: Hailey Celaya NP [Primary Care Provider] - 1 Week Riana Boyd MD [Physician] - Discharge Medications: New levofloxacin 750 mg tablet 750 mg PO DAILY Qty: 3 0RF Continued carbidopa-levodopa 25-100 mg tablet See Rx Instructions .ROUTE .COMPLEX Qty: 540 3RF Dose Instruction: TAKE 2 TABLETS BY MOUTH 3 TIMES A DAY Rx Instructions: TAKE 2 TABLETS BY MOUTH 3 TIMES A DAY mecobalamin (vitamin B12) 1,000 mcg tablet,disintegrating 1,000 mcg SUBLINGUAL DAILY latanoprost [Xalatan] 0.005 % drops 1 drop EACH EYE DAILY aspirin [Adult Low Dose Aspirin] 81 mg tablet,delayed release (DR/EC) 81 mg PO DAILY timolol maleate 0.5 % drops 1 drop EACH EYE QAM cilostazol 100 mg tablet 100 mg PO BID lidocaine 5 % ointment 1 applic topical TID PRN (Reason: pain) Qty: 50 0RF lisinopril 5 mg tablet See Rx Instructions .ROUTE .COMPLEX Qty: 90 0RF Dose Instruction: 5 MG ORALLY DAILY Rx Instructions: 5 MG ORALLY DAILY clopidogrel 75 mg tablet See Rx Instructions .ROUTE .COMPLEX Qty: 90 2RF Dose Instruction: TAKE 1 TABLET BY MOUTH EVERY DAY Rx Instructions: TAKE 1 TABLET BY MOUTH EVERY DAY atorvastatin [Lipitor] 80 mg tablet 80 mg PO QHS Qty: 90 1RF Date of admission: 05/25/24 09:09 Primary Care Provider: Hailey Celaya Admitting Provider: Rafi Shetty Attending physician on admission: Debbie Merino Condition: Stable Hospitalist MIPS Heart Failure (Exclusion) Patient has history of Heart Transplant or Left Ventricular Assistive Device?: No IF YES, STOP HERE Heart Failure (Qualifier) Patient has current or prior documentation of LVEF less than or equal to 40%, or mod/servere depressed LVSF?: No IF NO, STOP HERE
== END 2024-05-27 14:32 | disposition home or self-care (01) | DRG 69 ==
LOC: ANHED 14:05 → ANH2MED 15:24
PROVIDERS: Nurse Practitioner Gerontology; Admitting Provider Internal Medicine; Emergency Provider Emergency Medicine; PCP Nurse Practitioner Family; Visit Provider Student in an Organized Health Care Education/Training Program
DX: G45.9 Transient cerebral ischemic attack, unspecified (principal); N39.0 Urinary tract infection, site not specified; B96.89 Other specified bacterial agents as the cause of diseases classified elsewhere; R29.810 Facial weakness; R41.3 Other amnesia; R09.89 Other specified symptoms and signs involving the circulatory and respiratory systems; G20.A1 Parkinson's disease without dyskinesia, without mention of fluctuations; I10 Essential (primary) hypertension; J44.9 Chronic obstructive pulmonary disease, unspecified; I73.9 Peripheral vascular disease, unspecified; E78.5 Hyperlipidemia, unspecified; I69.398 Other sequelae of cerebral infarction; M24.542 Contracture, left hand; Z20.822 Contact with and (suspected) exposure to COVID-19; Z79.02 Long term (current) use of antithrombotics/antiplatelets; Z79.82 Long term (current) use of aspirin; Z79.899 Other long term (current) drug therapy; Z87.891 Personal history of nicotine dependence; Z98.49 Cataract extraction status, unspecified eye; Z98.890 Other specified postprocedural states; Z95.828 Presence of other vascular implants and grafts
CPT/HCPCS: 36415; 70450; 70496; 70498; 71045; 80048; 80053; 81001; 82948; 84484; 85025; 85027; 85610; 85730; 87086; 87186; 87637; 93005; 93880; 96365; 96372; 96375; 97161; 97165; 97530; 97535; 99285; A9270; C8929; G0378; J0692; J0696; J1650; J7030; Q9957; Q9967

== ENCOUNTER 2024-06-18 13:00 | Outpatient (RCR) | payer MEDICARE, SELFPAY ==
--- NOTE | 2024-04-29 08:55 | BUOTOPEVAL ---
Assessment and note entered by Estela Trivedi OT Evaluation Information Assessment Status Evaluation Diagnosis Parkinson's ICD-10 Condition Codes (OT) Joint stiffness of left hand M25.642,Generalized muscle weakness M62.81 Onset 2023 Reported Pain Level Pain Score 0: Self Report Pain Score 0: Self Report Assessment OT Clinical Summary The patient is an 83 year old male who was referred to outpatient OT due to Parkinson's disease and stiffness of L hand and wrist. The patient has a history of strokes. The patient previously demonstrated WFL UE AROM, strength and fine/gross motor coordination of L UE. The patient now requires min assist for ADLs and meal preparation due to poor coordination of L hand and arm. The patient has not used L UE for daily tasks for approximately 1 year due to other health concerns being addressed. The patient demonstrates the need for skilled OT to address fine motor coordination, gross motor coordination, ADLs such as dressing and cutting meat, and AROM/ PROM of L UE in order to regain increased function of L UE for ADLs. Therapist educated patient and family on HEP and to try to use his L hand throughout daily tasks. Therapist educated caregiver to provide verbal cues rather than physical assist when engaging in dressing and self feeding at home. Plan of Care Interventions Therapeutic Exercise,Manual Therapy,Neuro Re- education,Therapeutic Activities,Sensory Integrative Techniques,Self-Care/Home Management OT Services Indicated Yes OT Services Indicated Yes Treatment Frequency and 2-3x/week for 10 visits. Duration These treatments will address the objective and functional deficits as defined above. The patient will be advanced safely and appropriately in order for the patient to progress towards his/her prior level of function. Additional exercises will be introduced and as well as a comprehensive home exercise program upon discharge, if needed, ?to ensure carryover of functional gains achieved in the clinic. This treatment plan has been reviewed and agreement upon by the patient.
--- NOTE | 2024-04-29 09:00 | OPREHPOC ---
Outpatient Therapy Plan of Care This is a Multidisciplinary Plan of Care that may contain components documented by all disciplines (PT, OT, and ST.) OT Problem 1 OT Problem #1 Knowledge Deficit OT Goal 1 Goal / Goal Update The patient and caregiver will demonstrate 100% knowledge and return demonstration for UE HEP needed to increase function of L UE. Target Visit 10 OT Problem 2 OT Problem #2 Impaired Coordination OT Goal 1 Goal / Goal Update The patient will demonstrate increased fine motor coordination by scoring WNL for 9-hole peg test for L UE in order to button shirt and jeans. (Norm 25 s, R hand 28 s) Target Visit 10 OT Goal 1 Goal / Goal Update The patient will demonstrate increased AROM for L shoulder flexion as >90 degrees, abduction as >85 degrees, and elbow extension as 20 degrees to 0 to avoid contracture of L UE and reach overhead to place dishes in cabinet. AROM L UE: Wrist flexion: 48 degrees Wrist extension: 34 degrees Elbow extension: 50 degrees Shoulder abduction: 55 degrees Target Visit 10 OT Goal 1 Goal / Goal Update The patient will demonstrate increased gross motor movements of L UE demonstrating donning shirt or folding laundry with min verbal cues for technique and accuracy of ADLs. Target Visit 10 OT Goal 2 Goal / Goal Update The patient will increase independence with ADLs by cutting up steak with modified independence using B hands to increase autonomy. Target Visit 10
--- NOTE | 2024-05-22 08:52 | BUOTOPEVAL ---
Assessment and note entered by Estela Trivedi OT Evaluation Information Assessment Status Re-evaluation Diagnosis Parkinson's disease Diagnosis Parkinson's ICD-10 Condition Codes (OT) Joint stiffness of left hand M25.642,Generalized muscle weakness M62.81 Onset 2023 Reported Pain Level Pain Score 0: Self Report Pain Score 0: Self Report Pain Score 0: Self Report Pain Score 0: Self Report Pain Score 0: Self Report Pain Score 0: Self Report Pain Score 0: Self Report Pain Score 0: Self Report Assessment OT Clinical Summary The patient has demonstrated increased difficulty with visual scanning during functional activities at therapy sessions, visual perception deficits when copying peg pattern and demonstrates poor results from [employer] Engine maze (42 s with 5 mistakes ), Trails A (2:34) and MOCA (16/30) which all demonstrate cognitive dysfunction for visual scanning and executive function. The patient demonstrates continued UB coordination deficits of L UE and requires skilled OT to address coordination, motor planning, executive function and visual scanning/perception needed to maintain safety at home and maximize independence. Therapist has added goals to POC including executive function and visual scanning to increase safety at home. Plan of Care Interventions Therapeutic Exercise,Neuro Re-education, Therapeutic Activities,Cognitive Function, Electrical Stimulation,Sensory Integrative Techniques,Self-Care/Home Management,Prosthetic Training Interventions Therapeutic Exercise,Manual Therapy,Neuro Re- education,Therapeutic Activities,Sensory Integrative Techniques,Self-Care/Home Management OT Services Indicated Yes Treatment Frequency and 2-3x/week 10 visits. Duration These treatments will address the objective and functional deficits as defined above. The patient will be advanced safely and appropriately in order for the patient to progress towards his/her prior level of function. Additional exercises will be introduced and as well as a comprehensive home exercise program upon discharge, if needed, ?to ensure carryover of functional gains achieved in the clinic. This treatment plan has been reviewed and agreement upon by the patient.
--- NOTE | 2024-05-22 08:53 | OPREHPOC ---
Outpatient Therapy Plan of Care This is a Multidisciplinary Plan of Care that may contain components documented by all disciplines (PT, OT, and ST.) OT Problem 1 OT Problem #1 Knowledge Deficit OT Goal 1 Goal / Goal Update The patient and caregiver will demonstrate 100% knowledge and return demonstration for UE HEP needed to increase function of L UE. CONTINUE 05/17/2024 Target Visit 10 OT Problem 2 OT Problem #2 Impaired Coordination OT Goal 1 Goal / Goal Update The patient will demonstrate increased fine motor coordination by scoring WNL for 9-hole peg test for L UE in order to button shirt and jeans. CONTINUE 05/17/2024 L hand 64 s (Norm 25 s, R hand 28 s) Target Visit 10 OT Goal 1 Goal / Goal Update The patient will demonstrate increased AROM for L shoulder flexion as >90 degrees, abduction as >85 degrees, and elbow extension as 20 degrees to 0 to avoid contracture of L UE and reach overhead to place dishes in cabinet. CONTINUE 05/17/2024 Reeval: AROM L UE: Elbow extension: 32 degrees Shoulder abduction: 60 degrees Shoulder flexion: 70 degrees Target Visit 10 OT Goal 1 Goal / Goal Update The patient will demonstrate increased gross motor movements of L UE demonstrating donning shirt or folding laundry with min verbal cues for technique and accuracy of ADLs. CONTINUE 05/17/2024 Target Visit 10 OT Goal 2 Goal / Goal Update The patient will increase independence with ADLs by cutting up steak with modified independence using B hands to increase autonomy. GOAL MET; DISCONTINUED DUE TO ADAPTATION OF FOAM ROLL, the patient performs cutting up meat with mod I. Target Visit 10 OT Goal 1 Goal / Goal Update The patient will demonstrate increased visual scanning and memory skills by scoring <80 seconds on Trails A and improving MOCA score to >20 in order to maintain safety at home and avoid risk of falls. Target Visit 10
--- NOTE | 2024-06-12 12:35 | OPREHPOC ---
Outpatient Therapy Plan of Care This is a Multidisciplinary Plan of Care that may contain components documented by all disciplines (PT, OT, and ST.) PT Problem 1 PT Problem #1 Knowledge Deficit PT Goal 1 Goal / Goal Update compliant with HEP with assist from his . Target Visit 5 PT Problem 2 PT Problem #2 Impaired Balance PT Goal 1 Goal / Goal Update TUG to be completed safely in under 18 seconds Tinetti to display moderate fall risk or less 5x sit to stand to be completed safely in 18 seconds or less Target Visit 10 PT Problem 3 PT Problem #3 Impaired Gait PT Goal 1 Goal / Goal Update patient to display improved step/stride length and pass his stance leg with each foot step/stride patient to complete 6 minute walk test without rest Target Visit 10 PT Problem 4 PT Problem #4 Impaired Functional Mobility PT Goal 1 Goal / Goal Update patient to be independent walking at home patient to complete 3 independent self care/ADL tasks at home Target Visit 10 OT Problem 1 OT Problem #1 Knowledge Deficit OT Goal 1 Goal / Goal Update The patient and caregiver will demonstrate 100% knowledge and return demonstration for UE HEP needed to increase function of L UE. CONTINUE 06/11/2024 Target Visit 10 OT Problem 2 OT Problem #2 Impaired Coordination OT Goal 1 Goal / Goal Update The patient will demonstrate increased fine motor coordination by scoring WNL for 9-hole peg test for L UE in order to button shirt and jeans. L hand 83 s 06/11/2024 L hand 64 s (Norm 25 s, R hand 28 s) Target Visit 10 OT Goal 1 Goal / Goal Update The patient will demonstrate increased AROM for L shoulder flexion as >90 degrees, abduction as >85 degrees, and elbow extension as 20 degrees to 0 to avoid contracture of L UE and reach overhead to place dishes in cabinet. CONTINUE 06/11/2024 Reeval 06/11/2024: AROM L UE: Elbow extension: 30 degrees Shoulder abduction: 48 degrees Shoulder flexion: 45 degrees Target Visit 10 OT Goal 1 Goal / Goal Update The patient will demonstrate increased gross motor movements of L UE and visual motor coordination demonstrating donning shirt and pants with min verbal cues for technique and accuracy of ADLs. UPGRADED 06/11/2024 Target Visit 10 OT Goal 2 Goal / Goal Update The patient will increase independence with ADLs by cutting up steak with modified independence using B hands to increase autonomy. GOAL MET; DISCONTINUED DUE TO ADAPTATION OF FOAM ROLL, the patient performs cutting up meat with mod I. Target Visit 10 OT Goal 1 Goal / Goal Update The patient will demonstrate increased visual scanning and memory skills by scoring <80 seconds on Trails A and improving MOCA score to >20 in order to maintain safety at home and avoid risk of falls. 06/11/2024 Trails A: 120 s MOCA: Star cancellation: 28 Target Visit 10
--- NOTE | 2024-06-12 12:35 | PTOPEVAL1 ---
Assessment and note entered by JT File, PT Evaluation Information Assessment Status Evaluation ICD-10 Condition Codes (PT) Difficulty Walking R26.2,Abnormalities of gait and mobility R26.9,Weakness R53.1 Onset 06/04/24 Subjective Information patient is joined by his for his evaluation today. they report he is weak and has trouble with stability while standing and walking. he has not had any falls recently. she reports he is not using any AD to get around. he does have and use grab bars around the home. he is currently in OT for rehab from a stroked that has affected his L UE. she reports she has to help him with all activities at home. Reported Pain Level Pain Score 0: Self Report Pain Score 0: Self Report Assessment PT Clinical Summary mr. dodge is an 83 yo man who presents to skilled PT services for evaluation and treatment of generalized weakness, unsteady balance, and unsteady gait. he presents with signs and symptoms consistent with deficits from parkinsons disease. he would benefit from continued skilled PT to address his objective/functional deficits and improve his endurance, strength, balance, and functional activity performance to maintain a good quality of life. Plan of Care Interventions Gait Training,Manual Therapy,Neuro Re-education, Patient/Caregiver Education,Therapeutic Activities ,Therapeutic Exercise PT Services Indicated Yes Treatment Frequency and 2x weekly for 10 visits Duration These treatments will address the objective and functional deficits as defined above. The patient will be advanced safely and appropriately in order for the patient to progress towards his/her prior level of function. Additional exercises will be introduced and as well as a comprehensive home exercise program upon discharge, if needed, ?to ensure carryover of functional gains achieved in the clinic. This treatment plan has been reviewed and agreement upon by the patient.
--- NOTE | 2024-06-17 12:39 | BUOTOPEVAL ---
Assessment and note entered by Estela Trivedi OT Evaluation Information Assessment Status Re-evaluation Diagnosis Parkinson's disease ICD-10 Condition Codes (OT) Generalized muscle weakness M62.81 ICD-10 Condition Codes (OT) Joint stiffness of left hand M25.642,Generalized muscle weakness M62.81 Onset 2023 Reported Pain Level Pain Score 0: Self Report Assessment OT Clinical Summary The patient demonstrates decline in progress for visual scanning/processing speed, L fine motor coordination, L gross motor coordination, and AROM of L shoulder and elbow due to hospitalization with TIA resulting in weakness and increased stroke like symptoms. The patient has missed a few weeks of treatment due to hospitalization and requires continued OT to address functional deficits of L UE and visual/cognitive deficits that affect his independence in daily life. The patient demonstrates minimal assist for donning pullover shirt this date and demonstrates decreased score on MOCA and Trails A. The patient demonstrates slower 9-hole peg test since last assessment and requires skilled OT to improve fine motor coordination, gross motor coordination, independence with dressing and other ADLs, and visual scanning and memory in order to maintain highest level of independence. Plan of Care Interventions Therapeutic Exercise,Manual Therapy,Neuro Re- education,Therapeutic Activities,Cognitive Function,Sensory Integrative Techniques,Self-Care/ Home Management OT Services Indicated Yes Treatment Frequency and 1-2x/week for 10 visits. Duration These treatments will address the objective and functional deficits as defined above. The patient will be advanced safely and appropriately in order for the patient to progress towards his/her prior level of function. Additional exercises will be introduced and as well as a comprehensive home exercise program upon discharge, if needed, ?to ensure carryover of functional gains achieved in the clinic. This treatment plan has been reviewed and agreement upon by the patient.
--- NOTE | 2024-06-17 12:40 | OPREHPOC ---
Outpatient Therapy Plan of Care This is a Multidisciplinary Plan of Care that may contain components documented by all disciplines (PT, OT, and ST.) PT Problem 1 PT Problem #1 Knowledge Deficit PT Goal 1 Goal / Goal Update compliant with HEP with assist from his . Target Visit 5 PT Problem 2 PT Problem #2 Impaired Balance PT Goal 1 Goal / Goal Update TUG to be completed safely in under 18 seconds Tinetti to display moderate fall risk or less 5x sit to stand to be completed safely in 18 seconds or less Target Visit 10 PT Problem 3 PT Problem #3 Impaired Gait PT Goal 1 Goal / Goal Update patient to display improved step/stride length and pass his stance leg with each foot step/stride patient to complete 6 minute walk test without rest Target Visit 10 PT Problem 4 PT Problem #4 Impaired Functional Mobility PT Goal 1 Goal / Goal Update patient to be independent walking at home patient to complete 3 independent self care/ADL tasks at home Target Visit 10 OT Problem 1 OT Problem #1 Knowledge Deficit OT Goal 1 Goal / Goal Update The patient and caregiver will demonstrate 100% knowledge and return demonstration for UE HEP needed to increase function of L UE. CONTINUE 06/11/2024 Target Visit 10 OT Problem 2 OT Problem #2 Impaired Coordination OT Goal 1 Goal / Goal Update The patient will demonstrate increased fine motor coordination by scoring WNL for 9-hole peg test at <33 seconds for L UE in order to button shirt and jeans. CONTINUE; 06/11/2024 L hand 83 s 06/11/2024 L hand 64 s (Norm 25 s, R hand 28 s) Target Visit 10 OT Goal 1 Goal / Goal Update The patient will demonstrate increased AROM for L shoulder flexion as >90 degrees, abduction as >85 degrees, and elbow extension as 20 degrees to 0 to avoid contracture of L UE and reach overhead to place dishes in cabinet. CONTINUE 06/11/2024 Reeval 06/11/2024: AROM L UE: Elbow extension: 30 degrees Shoulder abduction: 48 degrees Shoulder flexion: 45 degrees Target Visit 10 OT Goal 1 Goal / Goal Update The patient will demonstrate increased gross motor movements of L UE and visual motor coordination for orienting shirts demonstrating donning shirt and pants with min verbal cues for technique and accuracy of ADLs. UPGRADED 06/11/2024 Target Visit 10 OT Goal 2 Goal / Goal Update The patient will increase independence with ADLs by cutting up steak with modified independence using B hands to increase autonomy. GOAL MET; DISCONTINUED DUE TO ADAPTATION OF FOAM ROLL, the patient performs cutting up meat with mod I. Target Visit 10 OT Goal 1 Goal / Goal Update The patient will demonstrate increased visual scanning and memory skills by scoring <80 seconds on Trails A and improving MOCA score to >20 in order to maintain safety at home and avoid risk of falls. CONTINUE; 06/11/2024 Trails A: 120 s MOCA: Target Visit 10
--- NOTE | 2024-09-03 10:41 | PCOTNOTE ---
Patient is discharged from OT due to being placed on hospice care. The patient no longer requires skilled OT, therapist discussed continuation of exercises at home with caregiver.
== END 2024-07-23 23:59 | disposition home or self-care (01) ==
LOC: CHSPT 13:00
PROVIDERS: PCP Nurse Practitioner Family; Visit Provider Nurse Practitioner Family
DX: M25.642 Stiffness of left hand, not elsewhere classified (principal); M25.632 Stiffness of left wrist, not elsewhere classified; G20.A1 Parkinson's disease without dyskinesia, without mention of fluctuations
CPT/HCPCS: 97014; 97110; 97112; 97161; 97166; 97168; 97530; G0283

== ENCOUNTER 2024-07-25 11:48 | Outpatient (RCR) | payer MEDICARE, SELFPAY ==
--- NOTE | 2024-08-08 13:34 | OPREHPOC ---
Outpatient Therapy Plan of Care This is a Multidisciplinary Plan of Care that may contain components documented by all disciplines (PT, OT, and ST.) PT Problem 1 PT Problem #1 Knowledge Deficit PT Goal 1 Goal / Goal Update compliant with HEP with assist from his . Target Visit 5 Progress Met PT Problem 2 PT Problem #2 Impaired Balance PT Goal 1 Goal / Goal Update TUG to be completed safely in under 18 seconds Tinetti to display moderate fall risk or less 5x sit to stand to be completed safely in 18 seconds or less Target Visit 14 Progress Not Met PT Problem 3 PT Problem #3 Impaired Gait PT Goal 1 Goal / Goal Update patient to display improved step/stride length and pass his stance leg with each foot step/stride. not met patient to complete 6 minute walk test without rest. met Target Visit 14 Progress Partially Met PT Problem 4 PT Problem #4 Impaired Functional Mobility PT Goal 1 Goal / Goal Update patient to be independent walking at home patient to complete 3 independent self care/ADL tasks at home Target Visit 14 Progress Not Met OT Problem 1 OT Problem #1 Knowledge Deficit OT Goal 1 Goal / Goal Update The patient and caregiver will demonstrate 100% knowledge and return demonstration for UE HEP needed to increase function of L UE. CONTINUE 06/11/2024 Target Visit 10 OT Problem 2 OT Problem #2 Impaired Coordination OT Goal 1 Goal / Goal Update The patient will demonstrate increased fine motor coordination by scoring WNL for 9-hole peg test at <33 seconds for L UE in order to button shirt and jeans. CONTINUE; 06/11/2024 L hand 83 s 06/11/2024 L hand 64 s (Norm 25 s, R hand 28 s) Target Visit 10 OT Goal 1 Goal / Goal Update The patient will demonstrate increased AROM for L shoulder flexion as >90 degrees, abduction as >85 degrees, and elbow extension as 20 degrees to 0 to avoid contracture of L UE and reach overhead to place dishes in cabinet. CONTINUE 06/11/2024 Reeval 06/11/2024: AROM L UE: Elbow extension: 30 degrees Shoulder abduction: 48 degrees Shoulder flexion: 45 degrees Target Visit 10 OT Goal 1 Goal / Goal Update The patient will demonstrate increased gross motor movements of L UE and visual motor coordination for orienting shirts demonstrating donning shirt and pants with min verbal cues for technique and accuracy of ADLs. UPGRADED 06/11/2024 Target Visit 10 OT Goal 2 Goal / Goal Update The patient will increase independence with ADLs by cutting up steak with modified independence using B hands to increase autonomy. GOAL MET; DISCONTINUED DUE TO ADAPTATION OF FOAM ROLL, the patient performs cutting up meat with mod I. Target Visit 10 OT Goal 1 Goal / Goal Update The patient will demonstrate increased visual scanning and memory skills by scoring <80 seconds on Trails A and improving MOCA score to >20 in order to maintain safety at home and avoid risk of falls. CONTINUE; 06/11/2024 Trails A: 120 s MOCA: Target Visit 10
--- NOTE | 2024-08-08 13:34 | PTOPREEVAL ---
Assessment and note entered by JT File, PT Evaluation Information Assessment Status Re-evaluation ICD-10 Condition Codes (PT) Difficulty Walking R26.2,Abnormalities of gait and mobility R26.9,Weakness R53.1 Onset 06/04/24 Subjective Information patient is driven to PT by his . she reports they work on his exercises at home, but he still shuffles and struggles to walk. he reports no falls since his last visit. Reported Pain Level Pain Score 0: Self Report Assessment PT Clinical Summary mr. dodge presents to skilled PT for his 10th skilled therapy visit for difficulty walking, weakness, and abnormal gait mechanics. he has only met his goal for HEP performance, and continues to struggle with ambulation and balance. however, given his neurological diagnosis of parkinsons disease, it is advised he continued skilled PT in a maintenance program. he will benefit from the continued therapy and work on his balance and ambulation to maintain his QOL and independence Plan of Care Interventions Gait Training,Manual Therapy,Neuro Re-education, Patient/Caregiver Education,Therapeutic Activities ,Therapeutic Exercise PT Services Indicated Yes Treatment Frequency and 1x weekly for 4 more visits Duration These treatments will address the objective and functional deficits as defined above. The patient will be advanced safely and appropriately in order for the patient to progress towards his/her prior level of function. Additional exercises will be introduced and as well as a comprehensive home exercise program upon discharge, if needed, ?to ensure carryover of functional gains achieved in the clinic. This treatment plan has been reviewed and agreement upon by the patient.
--- NOTE | 2024-10-21 16:22 | PCPTNOTE ---
pt attends 10 visits for skilled PT. pt has not attended therapy since 10/09/24. pt is discharged from therapy.
== END 2024-08-20 20:00 | disposition home or self-care (01) ==
LOC: CHSOT 11:48
PROVIDERS: PCP Nurse Practitioner Family; Visit Provider Nurse Practitioner Family
DX: M25.642 Stiffness of left hand, not elsewhere classified (principal); M25.632 Stiffness of left wrist, not elsewhere classified; G20.A1 Parkinson's disease without dyskinesia, without mention of fluctuations
CPT/HCPCS: 97110; 97112; 97530

== ENCOUNTER 2024-08-09 16:31 | Observation (INO) | payer MEDICARE, SELFPAY ==
[2024-08-09] VITALS (16 sets, daily range): BP systolic 102–146; BP diastolic 54–88; PULSE 69–78; RESP 15–28; TEMP 36.4–36.5; O2SAT 92–100; BMI 23.1
--- NOTE | ~2024-08-09 | XR_ITS ---
CHEST RADIOGRAPH CLINICAL HISTORY: increased weakness . COMPARISON: 05/24/2024 TECHNIQUE: Single portable view of the chest. FINDINGS The cardiomediastinal silhouette is unremarkable. The lungs are clear. IMPRESSION: No focal infiltrate or effusion. Reviewed, dictated and finalized at location A.
--- NOTE | ~2024-08-09 | CT_ITS ---
History: Increased weakness PROCEDURE: CT head without contrast. COMPARISON: 05/24/2024 TECHNIQUE: Axial imaging of the head performed from the skull base to the vertex without IV contrast. Sagittal a nd coronal reformations obtained. DLP: 681 mGy-cm FINDINGS: The ventricles are enlarged. The dilatation of the ventricles is proportional to the degree of sulcal prominence, not uncommon in the senescent brain. Decreased attenuation is identified within the periventricular white matter, likely secondary to micr ovascular ischemic disease, in a patient of this age. There is no mass, mass effect or midline shift. There is no abnormal extra-axial fluid collection or intracranial hemorrhage. Visualized paranasal sinuses are clear. The mastoid air cells are well aerated. No acute displaced fractures within the overlying cranium. Impression: No acute intracranial hemorrhage or suspicious mass effect. Reviewed, dictated and finalized at location A. Impression: No acute intracranial hemorrhage or suspicious mass effect.
--- NOTE | ~2024-08-09 | CT_ITS ---
CTA brain carotid Ordering provider: Leela Terry MD History: . CVA . Comparison: None. Technique: CT angiogram head and neck was performed following timed intravenous injection of contrast . Thin slice axial images and reformatted coronal images were obtained. Three dimensional reformatted images of the brain were also obtained using a [employer] workstation. Radiation reduction technique ut ilized.The dose-length product was 975.98 mGy-cm. 100 mL Omnipaque 350 was given IV. FINDINGS: HEAD: --ANTERIOR AND MIDDLE CEREBRAL ARTERIES AND BRANCHES: Normal caliber and contour. --INTERNAL CAROTID ARTERIES: Mild atheromatous disease but no significant stenosis. No occlusion. 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 No atheromatous disease. --POSTERIOR CEREBRAL ARTERIES: Normal caliber and contour --POSTERIOR COMMUNICATING ARTERIES: Not visualized which is probably related to congenital absence or small size. --ANEURYSM: None visualized. --BRAIN: Please refer to report of CT head performed the same day. --BONES AND SUPERFICIAL SOFT TISSUES: Please refer to report of CT head performed the same day. --PARANASAL SINUSES AND MASTOIDS: Please refer to report of CT head done the same day. NECK: --RIGHT CERVICAL CAROTID SYSTEM: Severe atheromatous disease of the carotid bulb and proximal interna l carotid artery. Percent stenosis per NASCET criteria is 95% No carotid dissection. Otherwise, no s ignificant atheromatous disease or stenosis of the cervical carotid system. --LEFT CERVICAL CAROTID SYSTEM: Mild atheromatous disease of the carotid bulb and proximal internal c arotid artery without significant stenosis. Percent stenosis per NASCET criteria is 70%. No carotid dissection. Otherwise, no significant atheromatous disease or stenosis of the cervical carotid system. --VERTEBRAL ARTERIES:Near occlusion is seen in the left side vertebral artery at the left interverteb ral foramen of C7 and also at the level of C2-C3. Otherwise, Normal caliber and contour with atherosc lerotic changes. --VISUALIZED AORTIC ARCH AND BRANCHING VESSELS: Mild atheromatous disease but no significant stenosis . --SOFT TISSUES: Normal. --CERVICAL SPINE: Age appropriate degenerative changes. IMPRESSION: No definite intracranial occlusion or severe stenosis seen. 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 Mild narrowing of the cavernous carotid ar maliha bilaterally. Otherwise, normal intracranial CTA. Atherosclerotic changes with 95% narrowing of the right internal carotid artery. Atherosclerotic changes with 70% narrowing of the left internal carotid artery. 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 Dr. Terry was notified with the result of the patient at 6:40 PM on August 09, 2024. Reviewed, dictated and finalized at location A. IMPRESSION: No definite intracranial occlusion or severe stenosis seen. 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 Mild narrowing of th e cavernous carotid artery bilaterally. Otherwise, normal intracranial CTA. Atherosclerotic changes with 95% narrowing of the right internal carotid artery . Atherosclerotic changes with 70% narrowing of the left internal carotid artery. Severe atherosclerotic changes with Near occlusion of the left vertebral artery at the level of C7 and C2-C3. Dr. Terry was notified with the result of the patient at 6:40 PM on August 09.
--- NOTE | 2024-08-09 16:33 | ECG_ITS ---
Test Date: 2024-08-09 16:51:14 Measurements Intervals Hugo Rate: 75 P: 92 MS: 198 QRS: -28 QRSD: 87 T: 76 QT: 393 QTc: 440 Interpretive Statements SINUS RHYTHM WITH OCCASIONAL SUPRAVENTRICULAR PREMATURE COMPLEXES BORDERLINE LEFT AXIS DEVIATION [QRS AXIS < -20] NONSPECIFIC T-WAVE ABNORMALITY Compared to ECG 05/24/2024 13:12:26 T-wave abnormality now present Electronically Signed On 08-10-2024 13:56:56 CDT by Bravo Bundy M.D.
--- NOTE | 2024-08-09 16:57 | ED_ITS ---
HPI - Neuro Symptoms/Deficit General Chief Complaint: Suspected CVA Stated Complaint: increased weakness, FAST ED 2 Time Seen by Provider: 08/09/24 16:57 Source: patient and EMS Mode of arrival: EMS Limitations: no limitations History of Present Illness HPI Narrative: 83 years old white male came to the ED from home by ambulance because he at 1 p.m. today patient noted that the patient unable to stand, looking to the right side, incoherent, does not make sense with slurred speech last time patient was normal 1 hour prior to that. On arrival patient denying any symptoms, his is telling me that currently patient exactly the same as at noon today. Basically back to his normal baseline. History of carotid stenosis, right Dysphagia, glaucoma, hyperlipidemia, hypertension, Parkinson disease, back surgery, carotid artery-subclavian artery bypass graft right Patient was seen by DR ARGENIS D.O., [facility] at July 11, 2024 AND HIS ASSESSMENT AND PLAN AT THIS TIME IS 83-YEAR-OLD MALE WITH PROGRESSION OF RIGHT CAROTID STENOSIS TO OCCLUSIVE OR NEAR OCCLUSIVE WITH DISCORDANT IMAGING FINDING ON CTA VERSUS CAROTID DOPPLER ACHES AND 50-69% STENOSIS OF THE LEFT ICA THAT IS ASYMPTOMATIC AT THIS TIME. AFTER A MEME DISCUSSION WITH PATIENT WE HAVE DECIDED TO NOT PURSUE INTERVENTION. Related Data Home Medications ?Medication ?Instructions ?Recorded ?Confirmed ?Last Taken ?Type aspirin 81 mg tablet,delayed 81 mg PO DAILY 12/14/18 08/09/24 05/24/24 History release (Adult Low Dose Aspirin) latanoprost 0.005 % eye drops 1 drop ophthalmic (eye) DAILY 12/14/18 08/09/24 05/24/24 History (Xalatan) mecobalamin (vitamin B12) 1,000 1,000 mcg sublingual DAILY 12/14/18 08/09/24 10/19/20 05:00 History mcg disintegrating tablet,sublingual timolol maleate 0.5 % eye drops 1 drop ophthalmic (eye) QAM 12/14/18 08/09/24 05/24/24 History cilostazol 100 mg tablet 100 mg PO BID 07/13/20 08/09/24 05/24/24 History lidocaine 5 % topical ointment 1 applic topical TID PRN pain 08/09/24 08/09/24 Unknown History Allergies Allergy/AdvReac Type Severity Reaction Status Date / Time No Known Allergies Allergy Verified 08/09/24 21:28 Review of Systems 2 Review of Systems: All systems reviewed & are unremarkable except as noted in HPI and below [facility] Past Medical History Medical History (Updated 08/09/24 @ 22:57 by Yue Ingram APRN) Parkinson's disease Carotid stenosis, right History of CVA (cerebrovascular accident) COPD (chronic obstructive pulmonary disease) Cataract CVA (cerebral vascular accident) PVD (peripheral vascular disease) Hyperlipidemia Surgical History Surgical History Hx of cataract extraction H/O shoulder surgery On the left History of right-sided carotid endarterectomy History of back surgery History of appendectomy Family History Family History (Updated 08/09/24 @ 23:34 by Svetlana Segovia RN) Sister Family history of rheumatoid arthritis Brother Familial Alzheimer's disease of late onset Father Lung cancer Glaucoma Other Family history of coronary artery disease Social History Social History Social History: The patient lives with his 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 He is a full code. Smoking packs per day: 2 Smoking cigarettes per day: 40.0 Years smoked: 25 Smoking pack-years: 50.00 Smoking status: Former smoker Tobacco type: cigarettes and cigars Second hand tobacco smoke exposure: No Smoking end date: 01/07/20 Additional smoking assessment comments: SMOKES 20 CIGARS A DAY Alcohol intake: current Drinks per week: 1 Alcohol use details: RARE SINCE THE STROKES Substance use: never Substance use type: does not use Do You Feel Safe in your Home?: Yes Lack of Transportation: No Lack of Food: Never True Current Housing: I Have Housing Concerned About Future Housing: No Difficulty Paying Gas/Electric Bills: No Difficulty Paying for Meds: No Currently Unemployed: No Education: Associate Degree Difficulty w/ Childcare or Family Care: No Living arrangements: with family Occupation/Education: retired Additional occupation/education comments: 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 Gender identity (if verbalized by the patient): Male Spiritual care concerns: No Exam 2 Narrative: General appearance: Well-developed, well-nourished, hand tremors Skin: Normal color Head: Normocephalic, nontraumatic Eyes: Clear conjunctiva ENT: Oropharynx normal, ears normal, nose normal Neck: Supple, nontender Chest and respiratory: Airway patent, no respiratory distress, no accessory muscle use Heart: Regular rate/rhythm Abdomen: Soft, nontender, no organomegaly, quiet bowel sounds Vascular: Normal peripheral pulses, normal capillary refill. 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, no gross motor deficit Course Vital Signs Vital signs: Vital Signs Temperature 36.4 C 08/09/24 16:54 Pulse Rate 74 08/09/24 16:54 Respiratory Rate 18 08/09/24 16:54 Blood Pressure 119/55 L 08/09/24 16:54 Pulse Oximetry 96 08/09/24 16:54 Oxygen Delivery Room Air 08/09/24 16:54 Temperature 36.8 C 08/10/24 08:00 Pulse Rate 75 08/10/24 12:00 Respiratory Rate 24 H 08/10/24 08:00 Blood Pressure 184/91 H 08/10/24 08:00 Pulse Oximetry 97 08/10/24 12:00 Oxygen Delivery Room Air 08/10/24 12:00 MDM - Neuro Symptoms/Deficit MDM Narrative Medical decision making narrative: Patient came to the ED by ambulance from home with acute CVA like symptoms, resolved on arrival. Vital signs showing blood pressure 119/55 otherwise within normal limit Physical examination showing slight weakness on the left side, history of CVA with left hemiplegia Differential diagnosis TIA, electrolyte imbalance, dehydration, urinary tract infection Blood workup today troponin 0 point 045, otherwise within normal limit Chest x-ray showed no acute abnormalities CT head without contrast showed no acute abnormalities CTA head and neck showed NO ACUTE ABNORMALITIES ADMIT TO HOSPITALIST, DIAGNOSIS TIA Differential Diagnosis Differential diagnosis: Likely other (As above) Medical Records Attestation: I reviewed the patient's medical records. Lab Data Attestation: I reviewed the patient's lab results. 08/09/24 17:27 08/09/24 17:27 Labs: Lab Results 08/09/24 08/09/24 Range/Units 16:55 17:27 WBC 9.0 (4.5-10.0) K/mm3 RBC 4.13 L (4.6-6.20) M/mm3 Hgb 12.3 L (14.0-18.0) g/dL Hct 37.0 L (42.0-52.0) % MCV 89.6 (80-100) fl MCH 29.8 (26-34) pg MCHC 33.2 (32-36) g/dl RDW 14.3 (11.5-14.5) % Plt Count 222 (150-375) k/mm3 MPV 9.3 (7.4-10.4) fl Immature Gran % (Auto) 0.2 (0-0.5) % Neut % (Auto) 73.0 (45.5-73.1) % Lymph % (Auto) 14.1 L (18.3-44.2) % [place] % (Auto) 11.0 H (2.6-8.5) % Eos % (Auto) 1.1 (0-4.4) % Baso % (Auto) 0.6 (0.2-1.2) % Lymph # (Auto) 1.27 (0.9-3.2) K/mm3 [place] # (Auto) 1.0 H (0.1-0.6) K/mm3 Eos # (Auto) 0.1 (0-0.3) K/mm3 Baso # (Auto) 0.1 (0.0-0.1) K/mm3 Abs Immat Gran (auto) 0.02 (0.00-0.031) K/mm3 Absolute Neuts (auto) 6.6 (1.3-6.7) K/mm3 Absolute Nucleated RBC 0.000 (0.0-0.012) K/mm3 Nucleated RBC % 0.0 (0.0-0.2) % PT 14.2 (11.1-14.7) Seconds INR 1.1 APTT 28.9 (22.3-36.8) Seconds Sodium 136 L (137-145) mmol/L Potassium 3.5 (3.4-5.0) mmol/L Chloride 104 (98-107) mmol/L Carbon Dioxide 25 (22-30) mmol/L Anion Gap 7 (4-12) mmol/L BUN 16 (9-20) mg/dL Creatinine 0.91 (0.7-1.3) mg/dL Estim Creat Clear Calc 57 ml/min Estimated GFR > 60 (59 - ) Glucose 95 (65-110) mg/dL POC Capillary Glucose 98 (65-105) mg/dl Calcium 9.2 (8.4-10.2) mg/dL Total Bilirubin 1.2 (0.2-1.3) mg/dL AST 21 (17-59) U/L ALT 7 (6-50) U/L Alkaline Phosphatase 70 (38-126) U/L Troponin I 0.045 H* (0.000-0.034) ng/mL Total Protein 6.5 (6.3-8.2) g/dL Albumin 3.4 L (3.5-5.1) g/dL ECG Data EKG #1: Attestation: I personally reviewed and interpreted this ECG as follows: ECG completion date: 08/09/24 Interpretation: Normal sinus rhythm at 75 beats per minute with occasional PVCs, left axis deviation, nonspecific ST T-wave abnormalities, compared to EKG on May 24, 2024 T-wave abnormality now present Critical Care Time Critical Care Time Critical Care Time: No Discharge Plan Discharge Clinical Impression: Brain TIA, Elevated troponin Patient Disposition: Still a Patient Condition: Stable
[2024-08-09 17:36] LABS: Hematocrit 37.0 % (42.0-52.0); Hemoglobin 12.3 g/dL (14.0-18.0); Immature Granulocyte Percent A 0.2 % (0-0.5); Lymphocytes Absolute Auto 1.27 K/mm3 (0.9-3.2); Mean Corpuscular HGB Conc 33.2 g/dl (32-36); Mean Corpuscular Hemoglobin 29.8 pg (26-34); Mean Corpuscular Volume 89.6 fl (80-100); Nucleated Red Blood Cells Absolute Auto 0.000 K/mm3 (0.0-0.012); Nucleated Red Blood Cells Perc 0.0 % (0.0-0.2); Platelet Count Result 222 k/mm3 (150-375); Red Blood Count 4.13 M/mm3 (4.6-6.20); White Blood Count 9.0 K/mm3 (4.5-10.0)
--- OUTSIDE RECORDS SUMMARY | 2024-08-09 17:38 | XMS_ITS | Encounter Summary ---
Author Organization Address [address] [place] [address] Care Team Providers Care Diesel Pile Driver Operator Name Role Phone [facility], External Provider Primary Care Provider U navailable Encounter Details Date Type Department Care Team (Late st Contact Info) Description 08/17/2006 Outpatient Historical [facility] Supp Svcs Blood Flow [address] [place] [address] Nghia Longoria MD [address] [facility] [address] [place] [address] Social History Tobacco Use Types Packs/Day Years Used Date Smoking Tobacco: Never Assessed Sex and Gender Information Value Date Recorded Sex Assigned at Not on file 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
--- OUTSIDE RECORDS SUMMARY | 2024-08-09 17:38 | XMS_ITS | Encounter Summary ---
Author Organization [employer] Address [address] [place] [address] Care Team Providers Care Burn Center Nurse Name Role Phone [facility], External Provider Primary Care Provider U beccaailable Encounter Details Date Type Department Care Team (Late st Contact Info) Description 08/23/2006 Outpatient Historical [facility] Support Serv. (Adt Cardiology-SJ) [address] 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
--- OUTSIDE RECORDS SUMMARY | 2024-08-09 17:38 | XMS_ITS | Patient Health Record ---
Author Organization [facility] Address [address] [place], [place] [id number] Care Team Providers Care Healthcare Science Specialist Name Role Phone MADELINE CARRASCO Unavailable [phone] Toño Dejesus Unavailable Unavailable RENEA SIMMONS Unavailable [phone] LOLA LEONARD Unavailable [phone] Allergies No Known Allergies Reason For Referral No Information Medications Medication SIG (Take, Route, Frequency, Duration) Notes Start Date End Date Status Atorvastatin Calcium 40 MG TAKE 1 TABLET BY MOUTH EVERY DAY Oral; Duration: 90 Days Active Clotrimazole 1 % 1 application Loss Prevention Associate ally Once a day; Duration: 30 days 08/08/2024 02/03/2025 Active Lisinopril 20 MG TAKE 1 TABLET BY DECLAN TH DAILY Oral; Duration: 90 Days Active Timolol Maleate 0.5 % INSTILL ONE DROP I NTO BOTH EYES EVERY MORNING Ophthalmic; Duration: 150 Days Active Latanoprost 0.005 % Ophthalmic; Duration : 75 Days Active Cilostazol 100 MG TAKE 1 TABLET BY DECLAN TH TWICE A DAY BEFORE MEALS Oral; Duration: 90 Days Active Vital Signs Height-cm 177.80 cm 08/08/2024 Weight-kg 74.84 kg 08/08/2024 Height 70.00 in 08/08/2024 Weight 165 lbs 08/08/2024 BMI 23.67 kg/m2 08/08/2024 Encounters Encounter Location Date Provider Diagnosis [facility] [address] [place], [place] [id number] 01/25/2024 RENEA SIMMONS Other hammer toe(s) (acquired), right foot M20.41 ; Tinea unguium B35.1 ; Other hammer toe(s) (acquired), left foot M20.42 ; Pain in right toe(s) M79.674 ; Pain in left toe(s) M79.675 and Unspecified atherosclerosis of [place] arteries of extremities, bilateral legs I70.[address] [id number] 08/08/2024 LOLA HORACIO Other hammer toe(s) (acquired), right foot M20.41 ; Tinea unguium B35.1 ; Other hammer toe(s) (acquired), left foot M20.42 ; Pain in right toe(s) M79.674 ; Pain in left toe(s) M79.675 and Unspecified atherosclerosis of [place] arteries of extremities, bilateral legs I70.203 [facility] [address] [place], [place] [id number] 10/12/2023 RENEA IRIS Other hammer toe(s) (acquired), right foot M20.41 ; Tinea unguium B35.1 ; Other hammer toe(s) (acquired), left foot M20.42 ; Pain in right toe(s) M79.674 ; Pain in left toe(s) M79.675 and Unspecified atherosclerosis of [place] arteries of extremities, bilateral legs I70.203 Assessments [...] were discussed, but conservative options were emphasized. 08/08/2024 Other hammer toe(s) (acquired), right foot (ICD-10 [...] were discussed, but conservative options were emphasized. 08/08/2024 Tinea unguium (ICD-10 - B35.1) Aseptic debridement [...] educated regarding both OTC and prescription treatments. 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) Patient educated on risks and aggravating factors of PVD, including conservative treatment options such as a diet and exercise regimen to aid in slowing progression of vascular disease 10/12/2023 Unspecified atherosclerosis of [place] arteries of extremities, 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) Patient educated on risks and aggravating factors of PVD, including conservative treatment options such as a diet and exercise regimen to aid in slowing progression of vascular disease 08/08/2024 Unspecified atherosclerosis of ak[place] arteries of extremities, 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) Patient educated on risks and aggravating factors of PVD, including conservative treatment options such as a diet and exercise regimen to aid in slowing progression of vascular disease Plan Of Treatment Next Appt Details Provider Name:LOLA LOPEZ, 10/10/2024 11:30:00 AM, [address] [place] [address], [phone], Insurance Providers Payer Name Payer Address Payer Phone Subscriber Number Group Number Insured Name Patient Relationship to Insured Coverage Start Date Coverage End Date Medicare Cedrick Merchant GBA [id number] [address] [address] [place], [place] [id number] ASMITA NIETO Self - patient is the insured [facility] ATTN CLAIMS [address] [place] [address] [id number] ASMITA NIETO Self - patient is the insured
--- OUTSIDE RECORDS SUMMARY | 2024-08-09 17:38 | XMS_ITS | Clinical Summary ---
Author Organization [facility] Address [address] [place] [address] Phone Care Team Providers Care Scow Hand Name Role Phone [facility], External Provider Primary Care Provider [...] 100 mg TabletIndicatio ns:PVD (peripheral vascular disease) TAKE 1 TABLET BY MOUTH TWICE A DAY BEFORE MEALS 180 Tablet 5 Active Active Problems Problem Noted Date Diagnosed [...] Encounters Date Type Department Care Team Description 07/08/2024 [facility] Motor Checker [address] [place] [address] Nghia Longoria MD PVD (peripheral vascular disease) from Last 3 Months Family History Medical [...] on file 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
--- OUTSIDE RECORDS SUMMARY | 2024-08-09 17:38 | XMS_ITS | Encounter Summary ---
Author Organization [employer] Address [address] [place] [address] Care Team Providers Care Door To Door Sales Representative Name Role Phone [facility], External Provider Primary Care Provider U beccaailjoao Encounter Details Date Type Department Care Team (Latest Contact Info) Description 08/17/2006 Outpatient Historical [facility] CARDIOPULMONARY Nghia Longoria MD [address] 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
--- OUTSIDE RECORDS SUMMARY | 2024-08-09 17:38 | XMS_ITS | Encounter Summary ---
Author Organization [employer] Address [address] [place] [address] Care Team Providers Care Car Retarder Operator Name Role Phone [facility], External Provider Primary Care Provider U beccaailable Encounter Details Date Type Department Care Team (Latest Contact Info) Description 03/15/2007 Outpatient Historical [facility] CARDIOPULMONARY Nghia Longoria MD [address] 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 Gender Identity Not on file Sexual Orientation Not on file documented as of this encounter Plan of Treatment Not on file documented as of this encounter Procedures Procedure Name Priority Date/Time Associated Diagnosis Comments US DUPLEX ARTERIAL LEGS BILATERAL Routine 03/15/2007 3:48 PM RESIDENTIAL TREATMENT SPECIALIST documented in this encounter Results * US DOPPLER ARTERIAL LEGS BILATERAL (03/15/2007 3:48 PM RESIDENTIAL TREATMENT SPECIALIST) Anatomical Region Laterality Modality Lower Extremity Other Narrative 03/15/2007 3:48 PM RESIDENTIAL TREATMENT SPECIALIST Please type in written order in Special Instructions field. [facility] [address] [place] [address] [email or web address] Noninvasive Vascular Lab Carotid Duplex Study Patient: Jacques MESAN: [id number] Study ID: BLOOD FLOW STUDY Gender: M : 1940 Age: 66 years Race: 1 Room: Bed: Height: Study Date: March 15, 2007 Patient status: Outpatient Weight: Access. #: [id number] POC: Band Sawyer: Sumanth Ordering: Romina Attending MD: Romina Admitting [...] in written order in Special Instructions field. [facility] [address] [place], [place] [address]: [email or web address] Noninvasive Vascular Lab Carotid Duplex Study Patient: Jacques Quiroz Study ID: BLOOD FLOW STUDY Gender: M : 1940 Age: 66 years Race: 1 Room: Bed: Height: Study Date: March 15, 2007 Patient status: Outpatient Weight: Access. #: [id number] POC: Band Sawyer: Sumanth Ordering: Romina Attending MD: Romina Admitting [...] infarction documented in this encounter Care Teams Car Retarder Operator Relationship Specialty Start Date End Date [facility], External Provider [address] [place] [address] PCP - General 08/06/19 documented as of this encounter
--- OUTSIDE RECORDS SUMMARY | 2024-08-09 17:38 | XMS_ITS | Encounter Summary ---
Author Organization [employer] Address [address] [place] [address] Care Team Providers Care Accounts Receivable Administrator Name Role Phone [facility], [facility] Primary Care Provider U navailable Encounter Details Date Type Department Care Team (Latest Contact Info) Description 08/23/2006 Outpatient Historical [facility] Nghia Longoria MD [address] [facility] [address] [place] [phone] Shortness of Breath (Primary Dx) Social History Tobacco Use Types Packs/Day Years Used Date Smoking Tobacco: Never Assessed Sex and Gender Information Value Date Recorded Sex Assigned at Not on file 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
--- OUTSIDE RECORDS SUMMARY | 2024-08-09 17:38 | XMS_ITS | Encounter Summary ---
Author Organization [facility] Address 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
--- OUTSIDE RECORDS SUMMARY | 2024-08-09 17:38 | XMS_ITS | Encounter Summary ---
Author Organization [employer] Address [address] [place] [address] Care Team Providers Care Development Technician Name Role Phone [facility], External Provider Primary Care Provider U beccaailable Encounter Details Date Type Department Care Team (Latest Contact Info) Description 08/30/2006 Outpatient Historical HIS CARD TRUCKING CONTRACTOR Nghia Longoria MD [address] [facility] [address] [place] [phone] Carotid Art Occ w/o Infarc (Primary Dx) Social History Tobacco Use Types Packs/Day Years Used Date Smoking Tobacco: Never Assessed Sex and Gender Information Value Date Recorded Sex Assigned at Not on file 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 Gender Identity Not on file Sexual Orientation [...] and non- Americans is available on the [facility] Intranet at: [email or web address] Network([facility])/[email or web address] Select: Lab Policies and Procedures Select: Reference Ranges - GFR 08/23/2006 10:5 4 AM CDT us Nghia Longoria MD CHEMISTRY ORDERABLES Edited INTERFACE SYSTEM Refer to clinic/hospital department documented in this encounter Visit Diagnoses Diagnosis Occlusion and stenosis of carotid artery without mention of cerebral infarction- Primary documented in this encounter Care Teams Development Technician Relationship Specialty Start Date End Date [facility], External Provider [address] [place] [address] PCP - General 08/06/19 documented as of this encounter
--- OUTSIDE RECORDS SUMMARY | 2024-08-09 17:38 | XMS_ITS | Encounter Summary ---
Author Organization [employer] Address [address] [place] [address] Care Team Providers Care Bullet Slug Casting Machine Operator Name Role Phone [facility], External Provider Primary Care Provider U beccaailjoao Encounter Details Date Type Department Care Team (Late st Contact Info) Description 08/23/2006 Outpatient Historical [facility] Support Serv. (Adt Cardiology-[facility]J) [address] 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
--- OUTSIDE RECORDS SUMMARY | 2024-08-09 17:38 | XMS_ITS | Encounter Summary ---
Author Organization [employer] Address [address] [place] [address] Care Team Providers Care Nursery Teacher Name Role Phone [facility], External Provider Primary Care Provider U beccaailable Encounter Details Date Type Department Care Team (Latest Contact Info) Description 03/25/2008 Outpatient Historical [facility] CARDIOPULMONARY Nghia Longoria MD [address] [facility] [address] [place] [address] Carotid Art Occ w/o Infarc Social History Tobacco Use Types Packs/Day Years Used Date Smoking Tobacco: Never Assessed Sex and Gender Information Value Date Recorded Sex Assigned at Not on file Legal Sex Male 4:15 AM TITLE I COORDINATOR Gender Identity Not on file Sexual Orientation Not on file documented as of this encounter Plan of Treatment Not on file documented as of this encounter Procedures Procedure Name Priority Date/Time Associated Diagnosis Comments US CAROTID DOPPLER Routine 03/25/2008 7: 04 PM TITLE I COORDINATOR documented in this encounter Results * US CAROTID DOPPLER (03/25/2008 7:04 PM TITLE I COORDINATOR) Anatomical Region Laterality Modality Neck Other Narrative 03/25/2008 7:04 PM TITLE I COORDINATOR [facility] [address] [place] [address] [email or web address] Noninvasive Vascular Lab Carotid Duplex Study Patient: Jacques Quiroz Study ID: [id number] Gender: M : 1940 Age: 67 years Race: 1 Room: Bed: Height: Study Date: March 25, 2008 Patient status: Outpatient Weight: Access. #: [id number] POC: Ball Fringe Machine Operator: Alondra Ordering: Romina Attending MD: Romina Admitting [...] 18:16:07 Procedure Note Provider, Historical - 03/25/2008 [facility] [address] [place], [place] [address]: [email or web address] Noninvasive Vascular Lab Carotid Duplex Study Patient: Jacques Quiroz Study ID: [id number] Gender: M : 1940 Age: 67 years Race: 1 Room: Bed: Height: Study Date: March 25, 2008 Patient status: Outpatient Weight: Access. #: [id number] POC: Ball Fringe Machine Operator: Alondra Ordering: Romina Attending MD: Romina Admitting [...] infarction documented in this encounter Care Teams Nursery Teacher Relationship Specialty Start Date End Date [facility], External Provider [address] [place] [address] PCP - General 08/06/19 documented as of this encounter
--- OUTSIDE RECORDS SUMMARY | 2024-08-09 17:38 | XMS_ITS | Continuity of Care Document ---
Author Name [facility] Organization [facility] Care Team Providers Care Screen Printer Name Role Phone [facility] Unavailable Unavailable Problems Combined list of problems from Department of Defense and Veterans Affairs facilities. It does not include entries that were removed or entered in error. Problem Status Onset Date Problem Type Date of Resolution Comments Source Abnormal swallowing Active Condition [facility] Appendix absent Active Condition [facility] Carotid artery stenosis Active Condition May 08, 2023 Entered By: LORENA GRIFFIN ES Comment: 95% right sided. Vascular declined to intervene outside [facility] [place]. [facility] COPD - Chronic Obstructive Pulmonary Disease ([facility] [id number]) Active Condition [facility] CVD - Cerebrovascular Disease ([facility] [id number]) Active Condition May 06, 2022 Entered By: LORENA GRIFFIN ES Comment: right sided stroke left sided weakness.May 08, 2023 Entered By: LORENA GRIFFIN ES Comment: cva in september 2022. [facility] Dementia ([facility] [id number]) Active Condition May 08, 2023 Entered By: LORENA GRIFFIN ES Comment: vascular and parkinson's. [facility] Erectile dysfunction Active Condition [facility] Exposure to potentially hazardous substance Active Condition [facility] Glaucoma Active Condition [facility] HTN - Hypertension ([facility] [id number]) Active Condition [facility] Incontinence Active Condition [facility] LBP - Low back pain Active Condition May 06, 2022 Entered By: LORENA GRIFFIN ES Comment: status post discectomy [facility] Mixed Hyperlipidemia ([facility] 798308809) Active Condition [facility] Neuropathy (nerve damage) Active Condition [facility] Parkinsonism Active Condition [facility] Polyp Colon ([facility] [id number]) Active Condition [facility] PVD - peripheral vascular disease Active Condition May 06 Entered By: LORENA GRIFFIN Comment: left sided weakness.May 06, 2022 Entered By: LORENA GRIFFIN Comment: status post right cea [facility] Rotator cuff impingement syndrome Active Condition May 06, 2022 Entered By: LORENA GRIFFIN Comment: left [facility] Vitamin B12 Deficiency ([facility] [id number]) Active Condition [facility] Diagnosis: ICD-10-CM I67.9 Cerebrovascular disease, unspecified Active Diagnosis [facility] Diagnosis: ICD-10-CM Z55.9 Problems related to education and literacy, unspecified Active Diagnosis [facility] Medications Combined list of outpatient medications from [...] A DAY ORAL ACTIVE LUCERO GRIFFIN 2022 [facility] ATORVASTATI N CA 80MG TAB TAKE ONE-HALF TABLET BY MOUTH EVERY EVENING ORAL ACTIVE LUCERO GRIFFIN 2022 [facility] CARBIDOPA 25MG/LEVODO PA 100MG TAB TAKE ONE TABLET BY MOUTH 6 TIMES A DAY ORAL ACTIVE LUCERO GRIFFIN 2022 [facility] CICLOPIROX 8% SOLN,TOP APPLY LIGHTLY TO AFFECTED AREA(S) ONCE A DAY (THIN COAT TO THICK NAILS - FILE DOWN AFTER 1 WEEK) (EXTERNA L USE ONLY) TOPICA L ACTIVE 05/09/2025 [id number] LUCERO GRIFFIN 2024 6.6 [facility] CILOSTAZOL 100MG TAB TAKE ONE TABLET BY MOUTH TWICE A DAY ORAL ACTIVE LUCERO GRIFFIN 2022 [facility] CLOPIDOGREL BISULFATE 75MG TAB TAKE ONE TABLET BY MOUTH ONCE A DAY ORAL ACTIVE LUCERO GRIFFIN 2024 [facility] CYANOCOBALA MIN 1000MCG TAB TAKE ONE TABLET BY MOUTH ONCE A DAY ORAL ACTIVE SIMLUCERO PAN 2022 [facility] LATANOPROST 0.005% SOLN,OPH INSTILL 1 DROP IN BOTH EYES EVERY EVENING OPHTHA LMIC ACTIVE SIMMERING LUCERO 2022 [facility] LISINOPRIL 10MG TAB TAKE ONE-HALF TABLET BY MOUTH ONCE A DAY ORAL ACTIVE SIMLUCERO PAN 2024 [facility] MEMANTINE HCL 5MG TAB TAKE ONE TABLET BY MOUTH TWICE A DAY ORAL 06/14/2024 [id number] SIMLUCERO PAN 2023 180 [facility] TIMOLOL MALEATE 0.5% SOLN,OPH INSTILL 1 DROP IN BOTH EYES TWICE A DAY OPHRAYMONDA LMIC ACTIVE SIMMERLUCERO BOSTON 2022 [facility] Immunizations Combined list of available immunizations from the Department of Defense and Veterans Affairs facilities. Immunization Series Date Given Administered By Site Reaction Lot Number CVX Code Drug Production Superintendent Hydro Status Comments Source RSV, BIVALENT, PROTEIN SUBUNIT RSVPREF, DILUENT RECONSTITUTED , 0.5 ML, PF 2023 DINA LAMB H R RIGHT DELTO ID [id number] complet ed ADMINISTLavinia GARCIA AT [facility] Results Combined list of recent chemistry, hematology and other laboratory results from Department of [facility] and [facility], ranging from 15 months to all on record, depending upon the facility. Order Name Results Value Reference Range Date Interpretation Specimen Comments Source URINALYSIS (STL-PB) COLOR OF URINE Yellow 05/21 Specimen Type: URINE No comment entered. Ordering Provider: LUCERO GRIFFIN Report Released Date/Time: May 17, 2024 01:11 PM Reporting Lab: [facility] [address] [address] Performing Lab: [facility] [address] [facility] [address] [facility] URINALYSIS (STL-PB) BILIRUBIN.TO RORO [PRESENCE] IN URINE BY TEST STRIP Negativ emg/dL 05/21 Specimen Type: URINE No comment entered. Ordering Provider: LUCERO GRIFFIN Report Released Date/Time: May 17, 2024 01:11 PM Reporting Lab: [facility] [address] [place], [place] [phone] Performing Lab: [facility] [address] [place] [phone] [facility] URINALYSIS (STL-PB) PH OF URINE BY TEST STRIP 6.0 5.0 - 8.0 05/21 Specimen Type: URINE No comment entered. Ordering Provider: LUCERO GRIFFIN Report Released Date/Time: May 17, 2024 01:11 PM Reporting Lab: [place] [address] Performing Lab: [address] [phone] [facility] URINALYSIS (STL-PB) LEUKOCYTES [#/AREA] IN URINE SEDIMENT BY MICROSCOPY HIGH POWER FIELD >182/[H PF] 0 - 5 05/21 H Specimen Type: URINE No comment entered. Ordering Provider: LUCERO GRIFFIN Report Released Date/Time: May 17, 2024 01:11 PM Reporting Lab: [facility] [address] [place] [phone] Performing Lab: [address] [address] [facility] URINALYSIS (STL-PB) ERYTHROCYTES [#/VOLUME] IN URINE SEDIMENT BY MICROSCOPY HIGH POWER FIELD 6 /[HPF] 0 - 5 05/21 H Specimen Type: URINE No comment entered. Ordering Provider: LUCERO GRIFFIN Report Released Date/Time: May 17, 2024 01:11 PM Reporting Lab: [facility] [address] [place] [phone] Performing Lab: [address] [address] [facility] URINALYSIS (STL-PB) APPEARANCE OF URINE Turbid 05/21 Specimen Type: URINE No comment entered. Ordering Provider: LUCERO GRIFFIN Report Released Date/Time: May 17, 2024 01:11 PM Reporting Lab: [facility] [place] [phone] Performing Lab: [facility] [address] [place] [phone] [facility] URINALYSIS (STL-PB) NITRITE [PRESENCE] IN URINE BY TEST STRIP 2+mg/dL 05/21 H Specimen Type: URINE No comment entered. Ordering Provider: LUCERO GRIFFIN Report Released Date/Time: May 17, 2024 01:11 PM Reporting Lab: [facility] [place] [phone] Performing Lab: [address] [phone] [facility] URINALYSIS (STL-PB) LEUKOCYTE CLUMPS [#/VOLUME] IN URINE BY AUTOMATED COUNT OCC/[HP F] 05/21 Specimen Type: URINE No comment entered. Ordering Provider: LUCERO GRIFFIN Report Released Date/Time: May 17, 2024 01:11 PM Reporting Lab: [facility] [place] [phone] Performing Lab: [facility] [address] [facility] URINALYSIS (STL-PB) BACTERIA [PRESENCE] IN URINE SEDIMENT BY LIGHT MICROSCOPY FEW/[HP F] 05/21 Specimen Type: URINE No comment entered. Ordering Provider: LUCERO GRIFFIN Report Released Date/Time: May 17, 2024 01:11 PM Reporting Lab: [facility] [address] Performing Lab: [facility] [address] [place], [place] [phone] [facility] URINALYSIS (STL-PB) MUCUS [PRESENCE] IN URINE SEDIMENT BY LIGHT MICROSCOPY RARE/[L PF] 05/21 Specimen Type: URINE No comment entered. Ordering Provider: LUCERO GRIFFIN Report Released Date/Time: May 17, 2024 01:11 PM Reporting Lab: [facility] [address] [facility] [address] Performing Lab: [facility] [address] [facility] [address] [facility] URINALYSIS (STL-PB) GLUCOSE [MASS/VOLUME ] IN URINE BY TEST STRIP Normalm g/dL 05/21 Specimen Type: URINE No comment entered. Ordering Provider: LUCERO GRIFFIN Report Released Date/Time: May 17, 2024 01:11 PM Reporting Lab: [facility] [address] [facility] [address] Performing Lab: [facility] [address] [facility] [phone] [place] [address] [facility] URINALYSIS (STL-PB) PROTEIN [MASS/VOLUME ] IN URINE BY TEST STRIP 10 mg/dL 05/21 H Specimen Type: URINE No comment entered. Ordering Provider: LUCERO GRIFFIN Report Released Date/Time: May 17, 2024 01:11 PM Reporting Lab: [facility] [address] [facility] [address] Performing Lab: [facility] [address] [facility] [phone] [place] [address] [facility] URINALYSIS (STL-PB) URN.UROBILIN OGEN Normalm g/dL 05/21 Specimen Type: URINE No comment entered. Ordering Provider: LUCERO GRIFFIN Report Released Date/Time: May 17, 2024 01:11 PM Reporting Lab: [facility] [address] [facility] [address] Performing Lab: [facility] [address] [facility] [phone] [place] [address] [facility] URINALYSIS (STL-PB) HEMOGLOBIN [MASS/VOLUME ] IN URINE BY TEST STRIP Negativ emg/dL 05/21 Specimen Type: URINE No comment entered. Ordering Provider: LUCERO GRIFFIN Report Released Date/Time: May 17, 2024 01:11 PM Reporting Lab: [facility] [address] [place] [phone] Performing Lab: [address] [facility] URINALYSIS (STL-PB) KETONES [MASS/VOLUME ] IN URINE BY TEST STRIP Tracemg /dL 05/21 Specimen Type: URINE No comment entered. Ordering Provider: LUCERO GRIFFIN Report Released Date/Time: May 17, 2024 01:11 PM Reporting Lab: [place] [address] [place] [address] Performing Lab: [address] [facility] URINALYSIS (STL-PB) URN.LEUK.EST . 500 mg/dL 05/21 H Specimen Type: URINE No comment entered. Ordering Provider: LUCERO GRIFFIN Report Released Date/Time: May 17, 2024 01:11 PM Reporting Lab: [place] [address] [place] [address] Performing Lab: [address] [facility] URINALYSIS (STL-PB) SPECIFIC GRAVITY OF URINE 1.022 05/21 Specimen Type: URINE No comment entered. Ordering Provider: LUCERO GRIFFIN Report Released Date/Time: May 17, 2024 01:11 PM Reporting Lab: [place] [address] Performing Lab: [address] [facility] TSH W/ REFLEX FT4 (STL) THYROTROPIN [UNITS/VOLUM E] IN SERUM OR PLASMA 0.764 u[IU]/m L 0.47 - 5 05/08 Specimen Type: PLASMA No comment entered. Ordering Provider: LUCERO GRIFFIN Report Released Date/Time: May 08, 2024 12:01 PM Reporting Lab: [address] [place] [address] Performing Lab: [place] [address] [facility] [address] [facility] VITAMIN D, 25-HYDROXY 25-HYDROXYVI TAMIN D3 [MASS/VOLUME ] IN SERUM OR PLASMA 27.2 ng/mL 30 - 96 05/08 L Specimen Type: SERUM No comment entered. Ordering Provider: LUCERO GRIFFIN Report Released Date/Time: May 08, 2024 12:01 PM Reporting Lab: [place] [address] [facility] [address] Performing Lab: [place] [phone] [place] [address] [facility] URINALYSIS (STL-PB) COLOR OF URINE Yellow 05/08 Specimen Type: URINE No comment entered. Ordering Provider: LUCERO GRIFFIN Report Released Date/Time: May 08, 2024 12:01 PM Reporting Lab: [facility] [address] Performing Lab: [place] [address] [facility] [phone] [place] [address] [facility] URINALYSIS (STL-PB) BILIRUBIN.TO RORO [PRESENCE] IN URINE BY TEST STRIP Negativ emg/dL 05/08 Specimen Type: URINE No comment entered. Ordering Provider: LUCERO GRIFFIN Report Released Date/Time: May 08, 2024 12:01 PM Reporting Lab: [facility] [address] Performing Lab: [place] [address] [facility] [address] [facility] URINALYSIS (STL-PB) PH OF URINE BY TEST STRIP 6.0 5.0 - 8.0 05/08 Specimen Type: URINE No comment entered. Ordering Provider: LUCERO GRIFFIN Report Released Date/Time: May 08, 2024 12:01 PM Reporting Lab: [facility] [address] Performing Lab: [facility] [address] [facility] [address] [facility] URINALYSIS (STL-PB) LEUKOCYTES [#/AREA] IN URINE SEDIMENT BY MICROSCOPY HIGH POWER FIELD >182/[H PF] 0 - 5 05/08 H Specimen Type: URINE No comment entered. Ordering Provider: LUCERO GRIFFIN Report Released Date/Time: May 08, 2024 12:01 PM Reporting Lab: [place] [address] [facility] [address] Performing Lab: [address] [address] [facility] URINALYSIS (STL-PB) ERYTHROCYTES [#/VOLUME] IN URINE SEDIMENT BY MICROSCOPY HIGH POWER FIELD 3 /[HPF] 0 - 5 05/08 Specimen Type: URINE No comment entered. Ordering Provider: LUCERO GRIFFIN Report Released Date/Time: May 08, 2024 12:01 PM Reporting Lab: [address] [address] Performing Lab: [place] [phone] [facility] URINALYSIS (STL-PB) APPEARANCE OF URINE Turbid 05/08 Specimen Type: URINE No comment entered. Ordering Provider: LUCERO GRIFFIN Report Released Date/Time: May 08, 2024 12:01 PM Reporting Lab: [place] [phone] Performing Lab: [address] [phone] [facility] URINALYSIS (STL-PB) NITRITE [PRESENCE] IN URINE BY TEST STRIP 2+mg/dL 05/08 H Specimen Type: URINE No comment entered. Ordering Provider: LUCERO GRIFFIN Report Released Date/Time: May 08, 2024 12:01 PM Reporting Lab: [place] [phone] Performing Lab: [address] [place] [address] [facility] URINALYSIS (STL-PB) BACTERIA [PRESENCE] IN URINE SEDIMENT BY LIGHT MICROSCOPY OCC/[HP F] 05/08 Specimen Type: URINE No comment entered. Ordering Provider: LUCERO GRIFFIN Report Released Date/Time: May 08, 2024 12:01 PM Reporting Lab: [place] [address] [facility] [address] Performing Lab: [place] [address] [facility] [address] [facility] URINALYSIS (STL-PB) EPITHELIAL CELLS [#/AREA] IN URINE SEDIMENT BY MICROSCOPY LOW POWER FIELD 2 /[HPF] 0 - 5 05/08 Specimen Type: URINE No comment entered. Ordering Provider: LUCERO GRIFFIN Report Released Date/Time: May 08, 2024 12:01 PM Reporting Lab: [place] [address] [facility] [address] Performing Lab: [place] [address] [facility] [address] [facility] URINALYSIS (STL-PB) MUCUS [PRESENCE] IN URINE SEDIMENT BY LIGHT MICROSCOPY RARE/[L PF] 05/08 Specimen Type: URINE No comment entered. Ordering Provider: LUCERO GRIFFIN Report Released Date/Time: May 08, 2024 12:01 PM Reporting Lab: [place] [address] [facility] [address] Performing Lab: [address] [address] [facility] URINALYSIS (STL-PB) GLUCOSE [MASS/VOLUME ] IN URINE BY TEST STRIP Normalm g/dL 05/08 Specimen Type: URINE No comment entered. Ordering Provider: LUCERO GRIFFIN Report Released Date/Time: May 08, 2024 12:01 PM Reporting Lab: [place] [address] [facility] [address] Performing Lab: [place] [address] [place] [phone] [facility] URINALYSIS (STL-PB) PROTEIN [MASS/VOLUME ] IN URINE BY TEST STRIP 20 mg/dL 05/08 H Specimen Type: URINE No comment entered. Ordering Provider: LUCERO GRIFFIN Report Released Date/Time: May 08, 2024 12:01 PM Reporting Lab: [facility] [address] [facility] [address] Performing Lab: [facility] [address] [facility] [address] [facility] URINALYSIS (STL-PB) URN.UROBILIN OGEN Normalm g/dL 05/08 Specimen Type: URINE No comment entered. Ordering Provider: LUCERO GRIFFIN Report Released Date/Time: May 08, 2024 12:01 PM Reporting Lab: [place] [address] [facility] [address] Performing Lab: [facility] [address] [facility] [address] [facility] URINALYSIS (STL-PB) HEMOGLOBIN [MASS/VOLUME ] IN URINE BY TEST STRIP Negativ emg/dL 05/08 Specimen Type: URINE No comment entered. Ordering Provider: LUCERO GRIFFIN Report Released Date/Time: May 08, 2024 12:01 PM Reporting Lab: [place] [address] [facility] [address] Performing Lab: [facility] [address] [place] [phone] [facility] URINALYSIS (STL-PB) KETONES [MASS/VOLUME ] IN URINE BY TEST STRIP Tracemg /dL 05/08 Specimen Type: URINE No comment entered. Ordering Provider: LUCERO GRIFFIN Report Released Date/Time: May 08, 2024 12:01 PM Reporting Lab: [facility] [address] [facility] [address] Performing Lab: [facility] [address] [facility] [address] [facility] URINALYSIS (STL-PB) URN.LEUK.EST . 500 mg/dL 05/08 H Specimen Type: URINE No comment entered. Ordering Provider: LUCERO GRIFFIN Report Released Date/Time: May 08, 2024 12:01 PM Reporting Lab: [facility] [address] [facility] [address] Performing Lab: [facility] [address] [place] [phone] [facility] URINALYSIS (STL-PB) SPECIFIC GRAVITY OF URINE 1.022 05/08 Specimen Type: URINE No comment entered. Ordering Provider: LUCERO GRIFFIN Report Released Date/Time: May 08, 2024 12:01 PM Reporting Lab: [address] [address] Performing Lab: [address] [phone] [place] [address] [facility] COMPREHENS ALBA METABOLIC PANEL CREATININE [MASS/VOLUME ] IN SERUM OR PLASMA 0.72 mg/dL 0.7 - 1.3 05/08 Specimen Type: PLASMA Comment: No hemolysis noted. Ordering Provider: LUCERO GRIFFIN Report Released Date/Time: May 08, 2024 12:01 PM Reporting Lab: [address] [address] Performing Lab: [address] [address] [facility] COMPREHENS ALBA METABOLIC PANEL UREA NITROGEN [MASS/VOLUME ] IN SERUM OR PLASMA 12.4 mg/dL 9.0 - 25.0 05/08 Specimen Type: PLASMA Comment: No hemolysis noted. Ordering Provider: LUCERO GRIFFIN Report Released Date/Time: May 08, 2024 12:01 PM Reporting Lab: [facility] [address] [facility] [address] Performing Lab: [address] [address] [facility] COMPREHENS ALBA METABOLIC PANEL GLUCOSE [MASS/VOLUME ] IN SERUM OR PLASMA 104 mg/dL 72 - 99 05/08 H Specimen Type: PLASMA Comment: No hemolysis noted. Ordering Provider: LUCERO GRIFFIN Report Released Date/Time: May 08, 2024 12:01 PM Reporting Lab: [facility] [address] [facility] [address] Performing Lab: [address] [address] [facility] COMPREHENS ALBA METABOLIC PANEL SODIUM [MOLES/VOLUM E] IN SERUM OR PLASMA 139 meq/L 136 - 145 05/08 Specimen Type: PLASMA Comment: No hemolysis noted. Ordering Provider: LUCERO GRIFFIN Report Released Date/Time: May 08, 2024 12:01 PM Reporting Lab: [address] [address] Performing Lab: [address] [phone] [facility] COMPREHENS ALBA METABOLIC PANEL POTASSIUM [MOLES/VOLUM E] IN SERUM OR PLASMA 4.0 meq/L 3.5 - 5 05/08 Specimen Type: PLASMA Comment: No hemolysis noted. Ordering Provider: LUCERO GRIFFIN Report Released Date/Time: May 08, 2024 12:01 PM Reporting Lab: [address] [address] Performing Lab: [address] [phone] [place] [address] [facility] COMPREHENS ALBA METABOLIC PANEL CHLORIDE [MOLES/VOLUM E] IN SERUM OR PLASMA 104 meq/L 98 - 107 05/08 Specimen Type: PLASMA Comment: No hemolysis noted. Ordering Provider: LUCERO GRIFFIN Report Released Date/Time: May 08, 2024 12:01 PM Reporting Lab: [address] [address] Performing Lab: [address] [address] [facility] COMPREHENS ALBA METABOLIC PANEL CARBON DIOXIDE, TOTAL [MOLES/VOLUM E] IN SERUM OR PLASMA 27 meq/L 22 - 31 05/08 Specimen Type: PLASMA Comment: No hemolysis noted. Ordering Provider: LUCERO GRIFFIN Report Released Date/Time: May 08, 2024 12:01 PM Reporting Lab: [place] [address] [facility] [address] Performing Lab: [address] [address] [facility] COMPREHENS ALBA METABOLIC PANEL CALCIUM [MASS/VOLUME ] IN SERUM OR PLASMA 9.9 mg/dL 8.4 - 10.4 05/08 Specimen Type: PLASMA Comment: No hemolysis noted. Ordering Provider: LUCERO GRIFFIN Report Released Date/Time: May 08, 2024 12:01 PM Reporting Lab: [address] [address] Performing Lab: [address] [phone] [place] [address] [facility] COMPREHENS ALBA METABOLIC PANEL PROTEIN [MASS/VOLUME ] IN SERUM OR PLASMA 7.0 g/dL 6 - 8.6 05/08 Specimen Type: PLASMA Comment: No hemolysis noted. Ordering Provider: LUCERO GRIFFIN Report Released Date/Time: May 08, 2024 12:01 PM Reporting Lab: [address] [address] Performing Lab: [address] [phone] [place] [address] [facility] COMPREHENS ALBA METABOLIC PANEL ALBUMIN [MASS/VOLUME ] IN SERUM OR PLASMA 3.7 g/dL 3.4 - 5 05/08 Specimen Type: PLASMA Comment: No hemolysis noted. Ordering Provider: LUCERO GRIFFIN Report Released Date/Time: May 08, 2024 12:01 PM Reporting Lab: [address] [id number] Performing Lab: [address] [id number] [facility] COMPREHENS ALBA METABOLIC PANEL BILIRUBIN.TO RORO [MASS/VOLUME ] IN SERUM OR PLASMA 1.1 mg/dL 0.2 - 1.2 05/08 Specimen Type: PLASMA Comment: No hemolysis noted. Ordering Provider: LUCERO GRIFFIN Report Released Date/Time: May 08, 2024 12:01 PM Reporting Lab: [place] [address] [facility] [id number] Performing Lab: [address] [address] [facility] COMPREHENS ALBA METABOLIC PANEL ALKALINE PHOSPHATASE [ENZYMATIC ACTIVITY/VOL UME] IN SERUM OR PLASMA 78 U/L 40 - 150 05/08 Specimen Type: PLASMA Comment: No hemolysis noted. Ordering Provider: LUCERO GRIFFIN Report Released Date/Time: May 08, 2024 12:01 PM Reporting Lab: [place] [address] [facility] [address] Performing Lab: [place] [address] [facility] [address] [facility] COMPREHENS ALBA METABOLIC PANEL ASPARTATE AMINOTRANSFE RASE [ENZYMATIC ACTIVITY/VOL UME] IN SERUM OR PLASMA 41 U/L 5 - 34 05/08 H Specimen Type: PLASMA Comment: No hemolysis noted. Ordering Provider: LUCERO GRIFFIN Report Released Date/Time: May 08, 2024 12:01 PM Reporting Lab: [address] [address] Performing Lab: [place] [address] [facility] [address] [facility] COMPREHENS ALBA METABOLIC PANEL ALANINE AMINOTRANSFE RASE [ENZYMATIC ACTIVITY/VOL UME] IN SERUM OR PLASMA <7U/L 8 - 40 05/08 L Specimen Type: PLASMA Comment: No hemolysis noted. Ordering Provider: LUCERO GRIFFIN Report Released Date/Time: May 08, 2024 12:01 PM Reporting Lab: [address] [address] Performing Lab: [address] [address] [facility] COMPREHENS ALBA METABOLIC PANEL GLOMERULAR FILTRATION RATE/1.73 SQ M.PREDICTED [VOLUME RATE/AREA] IN SERUM, PLASMA OR BLOOD BY CREATININE-B ASED FORMULA (CKD-EPI 2020) 91.2 60 05/08 Specimen Type: PLASMA Comment: No hemolysis noted. Ordering Provider: LUCERO GRIFFIN Report Released Date/Time: May 08, 2024 12:01 PM Reporting Lab: [facility] [address] [facility] [address] Performing Lab: [place] [address] [facility] [address] [facility] LIPID PANEL (STL) CHOLESTEROL [MASS/VOLUME ] IN SERUM OR PLASMA 132 mg/dL 0 - 200 05/08 Specimen Type: PLASMA Comment: No hemolysis noted. Ordering Provider: LUCERO GRIFFIN Report Released Date/Time: May 08, 2024 12:01 PM Reporting Lab: [facility] [address] [facility] [address] Performing Lab: [facility] [address] [facility] [address] [facility] LIPID PANEL (STL) TRIGLYCERIDE [MASS/VOLUME ] IN SERUM OR PLASMA 55 mg/dL 0 - 150 05/08 Specimen Type: PLASMA Comment: No hemolysis noted. Ordering Provider: LUCERO GRIFFIN Report Released Date/Time: May 08, 2024 12:01 PM Reporting Lab: [facility] [address] [facility] [address] Performing Lab: [facility] 91 [facility] [address] [facility] LIPID PANEL (STL) CHOLESTEROL IN LDL [MASS/VOLUME ] IN SERUM OR PLASMA BY CALCULATION 75 mg/dL 05/08 Specimen Type: PLASMA Comment: No hemolysis noted. Ordering Provider: LUCERO GRIFFIN Report Released Date/Time: May 08, 2024 12:01 PM Reporting Lab: [facility] [address] Performing Lab: [facility] [address] [facility] [address] [facility] LIPID PANEL (STL) CHOLESTEROL IN HDL [MASS/VOLUME ] IN SERUM OR PLASMA 46 mg/dL 40 05/08 Specimen Type: PLASMA Comment: No hemolysis noted. Ordering Provider: LUCERO GRIFFIN Report Released Date/Time: May 08, 2024 12:01 PM Reporting Lab: [place] [address] [facility] [address] Performing Lab: [place] [address] [facility] [address] [facility] CBC LEUKOCYTES [#/VOLUME] IN BLOOD BY AUTOMATED COUNT 7.9 10*3/uL 3.6 - 11.2 05/08 Specimen Type: BLOOD No comment entered. Ordering Provider: LUCERO GRIFFIN Report Released Date/Time: May 08, 2024 12:01 PM Reporting Lab: [place] [address] [facility] [address] Performing Lab: [place] [address] [facility] [address] [facility] CBC ERYTHROCYTES [#/VOLUME] IN BLOOD BY AUTOMATED COUNT 4.54 10*6/uL 4.10 - 5.70 05/08 Specimen Type: BLOOD No comment entered. Ordering Provider: LUCERO GRIFFIN Report Released Date/Time: May 08, 2024 12:01 PM Reporting Lab: [place] [address] [facility] [address] Performing Lab: [address] [address] [facility] CBC HEMOGLOBIN [MASS/VOLUME ] IN BLOOD 13.5 g/dL 13.1 - 16.8 05/08 Specimen Type: BLOOD No comment entered. Ordering Provider: LUCERO GRIFFIN Report Released Date/Time: May 08, 2024 12:01 PM Reporting Lab: [place] [address] [facility] [address] Performing Lab: [address] [place] [address] [facility] CBC HEMATOCRIT [VOLUME FRACTION] OF BLOOD 41.2 38.2 - 48.4 05/08 Specimen Type: BLOOD No comment entered. Ordering Provider: LUCERO GRIFFIN Report Released Date/Time: May 08, 2024 12:01 PM Reporting Lab: [place] [id number] Performing Lab: [place] [phone] [facility] [facility] CBC MCV [ENTITIC VOLUME] BY AUTOMATED COUNT 90.7 fL 80.0 - 100.0 05/08 Specimen Type: BLOOD No comment entered. Ordering Provider: LUCERO GRIFFIN Report Released Date/Time: May 08, 2024 12:01 PM Reporting Lab: [place] [phone] Performing Lab: [address] [facility] CBC MCH [ENTITIC MASS] BY AUTOMATED COUNT 29.7 pg 27.0 - 34.0 05/08 Specimen Type: BLOOD No comment entered. Ordering Provider: LUCERO GRIFFIN Report Released Date/Time: May 08, 2024 12:01 PM Reporting Lab: [place] [phone] Performing Lab: [place] [phone] [facility] [facility] CBC MCHC [MASS/VOLUME ] BY AUTOMATED COUNT 32.8 g/dL 33.0 - 36.0 05/08 L Specimen Type: BLOOD No comment entered. Ordering Provider: LUCERO GRIFFIN Report Released Date/Time: May 08, 2024 12:01 PM Reporting Lab: [place] [phone] Performing Lab: [place] [phone] [facility] [facility] CBC PLATELETS [#/VOLUME] IN BLOOD BY AUTOMATED COUNT 280 10*3/uL 150 - 400 05/08 Specimen Type: BLOOD No comment entered. Ordering Provider: LUCERO GRIFFIN Report Released Date/Time: May 08, 2024 12:01 PM Reporting Lab: [facility] [address] [facility] [address] Performing Lab: [facility] 91 [facility] [address] [facility] CBC PLATELET MEAN VOLUME [ENTITIC VOLUME] IN BLOOD BY AUTOMATED COUNT 10.1 fL 7.5 - 11.2 05/08 Specimen Type: BLOOD No comment entered. Ordering Provider: LUCERO GRIFFIN Report Released Date/Time: May 08, 2024 12:01 PM Reporting Lab: [facility] 91 [facility] [address] Performing Lab: [facility] [address] [place] [id number] [place] [address] [facility] CBC ERYTHROCYTE DISTRIBUTION WIDTH [RATIO] BY AUTOMATED COUNT 14.4 11.8 - 15.1 05/08 Specimen Type: BLOOD No comment entered. Ordering Provider: LUCERO GRIFFIN Report Released Date/Time: May 08, 2024 12:01 PM Reporting Lab: [facility] [address] [facility] [address] Performing Lab: [facility] [address] [facility] [address] [facility] CBC LYMPHOCYTES/ 100 LEUKOCYTES IN BLOOD BY AUTOMATED COUNT 15 05/08 Specimen Type: BLOOD No comment entered. Ordering Provider: LUCERO GRIFFIN Report Released Date/Time: May 08, 2024 12:01 PM Reporting Lab: [facility] [address] [facility] [address] Performing Lab: [facility] [address] [place], [place] [phone] [address] [facility] CBC MONOCYTES/10 0 LEUKOCYTES IN BLOOD BY AUTOMATED COUNT 12 05/08 Specimen Type: BLOOD No comment entered. Ordering Provider: LUCERO GRIFFIN Report Released Date/Time: May 08, 2024 12:01 PM Reporting Lab: [facility] [address] [facility] [address] [address] [address] Performing Lab: [facility] [address] [facility] [address] [facility] CBC NEUTROPHILS/ 100 LEUKOCYTES IN BLOOD BY AUTOMATED COUNT 70 05/08 Specimen Type: BLOOD No comment entered. Ordering Provider: LUCERO GRIFFIN Report Released Date/Time: May 08, 2024 12:01 PM Reporting Lab: [facility] [address] [facility] [address] Performing Lab: [facility] 91 [facility] [address] [facility] CBC EOSINOPHILS/ 100 LEUKOCYTES IN BLOOD BY AUTOMATED COUNT 2 05/08 Specimen Type: BLOOD No comment entered. Ordering Provider: LUCERO GRIFFIN Report Released Date/Time: May 08, 2024 12:01 PM Reporting Lab: [facility] [address] Performing Lab: [facility] [address] [facility] [address] [facility] CBC BASOPHILS/10 0 LEUKOCYTES IN BLOOD BY AUTOMATED COUNT 1 05/08 Specimen Type: BLOOD No comment entered. Ordering Provider: LUCERO GRIFFIN Report Released Date/Time: May 08, 2024 12:01 PM Reporting Lab: [facility] [address] Performing Lab: [facility] [address] [facility] [address] [facility] CBC LYMPHOCYTES [#/VOLUME] IN BLOOD BY AUTOMATED COUNT 1.18 10*3/uL 0.77 - 4.50 05/08 Specimen Type: BLOOD No comment entered. Ordering Provider: LUCERO GRIFFIN Report Released Date/Time: May 08, 2024 12:01 PM Reporting Lab: [facility] [address] Performing Lab: [facility] [address] [facility] [address] [facility] CBC MONOCYTES [#/VOLUME] IN BLOOD BY AUTOMATED COUNT 0.93 10*3/uL 0.19 - 0.80 05/08 H Specimen Type: BLOOD No comment entered. Ordering Provider: LUCERO GRIFFIN Report Released Date/Time: May 08, 2024 12:01 PM Reporting Lab: [place] [address] [facility] [address] Performing Lab: [place] [address] [facility] [address] [facility] CBC NEUTROPHILS [#/VOLUME] IN BLOOD BY AUTOMATED COUNT 5.59 10*3/uL 2.10 - 8.00 05/08 Specimen Type: BLOOD No comment entered. Ordering Provider: LUCERO GRIFFIN Report Released Date/Time: May 08, 2024 12:01 PM Reporting Lab: [place] [phone] Performing Lab: [place] [address] [place] [phone] [facility] CBC EOSINOPHILS [#/VOLUME] IN BLOOD BY AUTOMATED COUNT 0.14 10*3/uL 0.00 - 0.60 05/08 Specimen Type: BLOOD No comment entered. Ordering Provider: LUCERO GRIFFIN Report Released Date/Time: May 08, 2024 12:01 PM Reporting Lab: [place] [address] [place] [phone] Performing Lab: [place] [address] [facility] [address] [facility] CBC BASOPHILS [#/VOLUME] IN BLOOD BY AUTOMATED COUNT 0.06 10*3/uL 0.00 - 0.20 05/08 Specimen Type: BLOOD No comment entered. Ordering Provider: LUCERO GRIFFIN Report Released Date/Time: May 08, 2024 12:01 PM Reporting Lab: [place] [address] [place] [phone] Performing Lab: [place] [address] [facility] [address] [facility] HGA1C HEMOGLOBIN A1C/HEMOGLOB IN.TOTAL IN BLOOD 5.7 4.0 - 6.0 05/08 Specimen Type: BLOOD No comment entered. Ordering Provider: LUCERO GRIFFIN Report Released Date/Time: May 08, 2024 12:01 PM Reporting Lab: [facility] [address] [facility] [address] Performing Lab: [facility] [address] [facility] [address] [facility] Vital Signs Combined list of inpatient and outpatient Vital Signs from Department of [facility] and [facility], ranging from 12 months to all on record, depending upon the facility. Vital Sign Value Date Comments Source SYSTOLIC BLOOD PRESSURE 134 05/08/2024 11:34:05 [facility] DIASTOLIC BLOOD PRESSURE 72 05/08/2024 11:34:05 [facility] PULSE OXIMETRY 94 05/08/2024 11:34:05 [facility] WEIGHT 172 05/08/2024 11:34:05 [facility] PAIN 0 05/08/2024 11:34:05 [facility] TEMPERATURE 98.2 05/08/2024 [facility]:34:05 [facility] PULSE 63 05/08/2024 11:34:05 [facility] RESPIRATION 20 05/08/2024 11:34:05 [facility] Encounters Combined list of: 1) Encounters from Department of [facility] facilities going backup to the last 18 months, not all [place] inpatient encounters are included; 2) Encounters from the Department of [facility] facilities going backup to 280 months. Location Location Details Encounter Type Encounter Number Reason For Visit Attending Provider ADM Date DC Date Status Disposition Source [facility] OFFICE O/P EST MOD 30 MIN [id number] Diagnos is: ICD-10- CM I67.9 Cerebro vascula r disease , unspeci LUCERO Carson 05/07 [facility] FEE [id number] Diagnos is: ICD-10- CM Z55.9 Problem s related to educati on and literac y, unspeci fied JOSY CARRILLO O 05/07 [facility] Outpatient Encounter [id number] [place] E 06/11 [facility] Outpatient Encounter [id number] [place] MARIA FRANCISCO E 07/17 [facility] Outpatient Encounter [id number] [place] E 07/17 [facility] Outpatient Encounter [id number] Lavinia LAMB 05/07 [facility] OFFICE O/P EST HI 40 MIN [id number] Diagnos is: ICD-10- CM I67.9 Cerebro vascula r disease , unspeci LUCERO Carson 05/08 [facility] Outpatient Encounter [id number] 05/15 [facility] Outpatient Encounter [id number] 05/23 [facility] Outpatient Encounter [id number] Lavinia LAMB 05/31 [facility] SYNCH AUDIO-ONLY EST LOW 20 [id number] Diagnos is: ICD-10- CM I67.9 Cerebro vascula r disease , unspeci LUCERO Carson 06/03 [facility] Social History Combined list of available smoking, tobacco, and other social history from Department of Defense and Veterans Affairs facilities. Social History Type Response Date Comment Sourc e Tobacco smoking status NHIS VA-TOBACCO USE FORMER CIGARETTES 05/08/2024 [facility] History of tobacco use VA-TOBACCO NEVER USED OTHER TYPE 05/08/2024 [facility] History of tobacco use VA-TOBACCO FORMER USER 05/08/2023 [facility] History of tobacco use VA-TOBACCO FORMER USER 05/06/2022 [facility] Plan of Care List of future care activities from Department of Veterans Affairs facilities. Additional future care activities may be listed in the Assessment and Plan section. Date/Time Care Activity Care Activity Detail Facili ty 11/12/2024 AMBULATORY - MEDICINE AMBULATORY - MEDICI [facility]
--- OUTSIDE RECORDS SUMMARY | 2024-08-09 17:39 | XMS_ITS ---
Author Organization [facility] Address [address] [place], [place] [id number] Care Team Providers Care Molding Cutter Name Role Phone MADELINE CARRASCO Unavailable [phone] Toño Dejesus Unavailable Unavailable RENEA SIMMONS Unavailable [phone] REASON FOR VISIT *General care Medications Medication SIG (Take, Route, Frequency, Duration) Notes Start Date End Date Status Cilostazol 100 MG TAKE 1 TABLET BY DECLAN TH TWICE A DAY BEFORE MEALS Oral; Duration: 90 Days Active Latanoprost 0.005 % Ophthalmic; Duration : 75 Days Active Atorvastatin Calcium 40 MG TAKE 1 TABLET BY MOUTH EVERY DAY Oral; Duration: 90 Days Active Timolol Maleate 0.5 % INSTILL ONE DROP I NTO BOTH EYES EVERY MORNING Ophthalmic; Duration: 150 Days Active Lisinopril 20 MG TAKE 1 TABLET BY DECLAN TH DAILY Oral; Duration: 90 Days Active Encounters Encounter Location Date Provider Diagnosis [place] [address] [address] [place], [place] [id number] 01/25/2024 RENEA SIMMONS Other hammer toe(s) (acquired), right foot M20.41 ; Tinea unguium B35.1 ; Other hammer toe(s) (acquired), left foot M20.42 ; Pain in right toe(s) M79.674 ; Pain in left toe(s) M79.675 and 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 [...] seen by Dr. Dejesus was 11/2023., Initials [facility]. * ROS: G eneral / Constitutional: Patient denies w eakness. R espiratory: Patient denies c hronic cough, shortness of breath, sputum production. C ardiovascular: Patient denies c hest pain, history of [place], irregular heartbeat. M usculoskeletal: Patient complains of [...] M79.675 6 . U nspecified atherosclerosis of ak chin arteries of extremities, bilateral legs - I70.203 [...] were emphasized. 3. U nspecified atherosclerosis of ak chin arteries of extremities, bilateral legs Notes: Patient educated on risks and aggravating factors of PVD, including conservative treatment options such as a diet and exercise regimen to aid in slowing progression of vascular disease ? * Procedure Codes: 1 1721 DEBRIDE NAIL, 6 OR MORE, Modifiers: Q8 * Follow Up: 3 Months * Billing Information: * Visit Code: * Procedure Codes: 85286 DEBRIDE NAIL, 6 OR MORE. Modifiers: Q8 * Electronic signature of LOLITA SIMMONS DPM on 08/09/2024 at 05:38 PM CDT Sign off status: Pending * Provider: Irene SIMMONS Date: 1 03/27/2023 Generated for Alen pitts/Volodymyr/Darcy on: 0 08/09/2024 05:38 PM CDT History and Physical Notes * [...]
--- OUTSIDE RECORDS SUMMARY | 2024-08-09 17:39 | XMS_ITS ---
Author Organization [facility] Address [address] [place], [place] [id number] Care Team Providers Care Test Engineer Name Role Phone MADELINE CARRASCO Unavailable [phone] Toño Dejesus Unavailable Unavailable LOLA LEONARD Unavailable [phone] Allergies No Known Allergies REASON FOR VISIT *General care Medications Medication SIG (Take, Route, Frequency, Duration) Notes Start Date End Date Status Atorvastatin Calcium 40 MG TAKE 1 TABLET BY MOUTH EVERY DAY Oral; Duration: 90 Days Active Clotrimazole 1 % 1 application [employer] [place] ally Once a day; Duration: 30 days 08/08/2024 02/03/2025 Active Timolol Maleate 0.5 % INSTILL ONE DROP I NTO BOTH EYES EVERY MORNING Ophthalmic; Duration: 150 Days Active Latanoprost 0.005 % Ophthalmic; Duration : 75 Days Active Cilostazol 100 MG TAKE 1 TABLET BY DECLAN TH TWICE A DAY BEFORE MEALS Oral; Duration: 90 Days Active Lisinopril 20 MG TAKE 1 TABLET BY DECLAN TH DAILY Oral; Duration: 90 Days Active Vital Signs Height 70.00 in 08/08/2024 Weight 165 lbs 08/08/2024 BMI 23.67 kg/m2 08/08/2024 Height-cm 177.80 cm 08/08/2024 Weight-kg 74.84 kg 08/08/2024 Encounters Encounter Location Date Provider Diagnosis [address] [id number] 08/08/2024 LOLA LEONARD Other hammer toe(s) (acquired), right foot M20.41 ; Tinea unguium B35.1 ; Other hammer toe(s) (acquired), left foot M20.42 ; Pain in right toe(s) M79.674 ; Pain in left toe(s) M79.675 and 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, bilateral legs I70.203 Assessments Encounter Date Diagnosis (ICD Code) Assessment Notes Treatment Notes Treatment Clinical Notes Section Notes 08/08/2024 Other hammer toe(s) (acquired), right foot [...] toe(s) (acquired), left foot (ICD-10 - M20.42) 08/08/2024 Pain in right toe(s) (ICD-10 - M79.674) 08/08/2024 Pain in left toe(s) (ICD-10 - M79.675) 08/08/2024 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, bilateral legs Patient educated on risks and aggravating factors of PVD, including conservative treatment options such as a diet and exercise regimen to aid in slowing progression of vascular disease Next Appt Details Follow Up: 3 Months, Reason: Provider Name:LOLA LOPEZ, 10/10/2024 11:30:00 AM, [address] [place] [address], [id number], Progress Notes * ASMITA NIETO DDOB: [birth year] (83 yo M)Acc No.[id number]:08/08/2024 Patient: ASMITA RIVERA Provider: Joan LEONARD :1940 A ge:83 Y S ex:Male Date:08/08/2024 Address:[address] [place] [address] [address], [id number] Subjective: * Chief Complaints: * 1 . *General care. * HPI: H PI: General care P atient presents to the office for at risk foot care. Patient states that their nails are thickened, elongated and painful. Patient states that it is aggravated by shoe gear. Onset is gradual. Patient denies being diabetic. Patient denies taking prescription blood thinners but does take a daily aspirin. Date last seen by Dr. Li was 07/2024. Initials sea. * ROS: G eneral / Constitutional: Patient denies w eakness. R espiratory: Patient denies c hronic cough, shortness of breath, sputum production. C ardiovascular: Patient denies c hest pain, history of TX, irregular heartbeat. M usculoskeletal: Patient complains of h ammertoes. P eripheral Vascular: Patient denies b lanching of skin, cold extremities, decreased sensation in extremities. S kin: Patient complains of f ungal nails, nail changes. ? N eurologic: Patient denies d izziness, gait abnormality, headache. * Medical History: M edical History Verified. * Family History: F ather: PRN - Father: . M other: PRN - Mother: . B rother: SIB - Brother: . S ister: SIB - Sister: . * Social History: M igrated Social History: M igrated Social History: History of tobacco use : , Alcohol intake : , Smoking Status : Former smoker. * Medications: T aking Latanoprost 0.005 % [...] 1 TABLET BY MOUTH EVERY DAY Oral , Medication List reviewed and reconciled with the patient * Allergies: N .K.D.A. Objective: * Vitals: W t: 165 lbs, [...] M79.675 6 . 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 3. U nspecified atherosclerosis of klamath arteries of extremities, bilateral legs Notes: Patient educated on risks and aggravating factors of PVD, including conservative treatment options such as a diet and exercise regimen to aid in slowing progression of vascular disease ? * Follow Up: 3 Months * Billing Information: * Visit Code: * Procedure Codes: * Electronic signature of SAL LEONARD DPM on 08/09/2024 at 05:38 PM CDT Sign off status: Pending * Provider: Joan LEONARD Date: 08/08/2024 Generated for Alen pitts/Volodymyr/Darcy on: 08/09/2024 05:38 PM CDT History and Physical Notes * HPI (History of Present Illness) Category Sub-Category Detail Notes Category Not es HPI General care Patient presents to the office for at risk foot care. Patient states that their nails are thickened, elongated and painful. Patient states that it is aggravated by shoe gear. Onset is gradual. Patient denies being diabetic. Patient denies taking prescription blood thinners but does take a daily aspirin. Date last seen by Dr. Li was 07/2024. Initials sea Examination Category Sub-Category Detail Notes Category Not [...]
[2024-08-09 17:45] LABS: Alanine Aminotransferase 7 U/L (6-50); Albumin Level 3.4 g/dL (3.5-5.1); Alkaline Phosphatase 70 U/L (38-126); Anion Gap 7 mmol/L (4-12); Aspartate Amino Transferase 21 U/L (17-59); Bilirubin,Total 1.2 mg/dL (0.2-1.3); Blood Urea Nitrogen 16 mg/dL (9-20); Calcium 9.2 mg/dL (8.4-10.2); Carbon Dioxide 25 mmol/L (22-30); Chloride 104 mmol/L (98-107); Estimated CRCL calculation 57 ml/min; Estimated Glomerular Filt Rate > 60; Glucose 95 mg/dL (65-110); Potassium 3.5 mmol/L (3.4-5.0); Sodium 136 mmol/L (137-145); Total Protein 6.5 g/dL (6.3-8.2)
[2024-08-09 17:49] LABS: INR 1.1; Prothrombin Time 14.2 Seconds (11.1-14.7)
[2024-08-09 17:50] LABS: Partial Thromboplastin Time 28.9 Seconds (22.3-36.8)
[2024-08-09 17:59] LABS: Troponin I 0.045 ng/mL (0.000-0.034)
--- NOTE | 2024-08-09 18:27 | P.HP_ITS ---
H&P: HPI History of Present Illness Date/Time: 08/09/24 18:27 Chief Complaint: Stroke-like symptoms Narrative: 83-year-old male past medical history of stroke, COPD, PVD hyperlipidemia, Parkinson's presents the hospital with a stroke-like symptoms. Of note patient had a stroke in April where he had a CTA that showed almost 100% occlusion of the right carotid artery his later on transferred to [facility] and they were unable to do intervention. Like states that patient was unable to walk or move his and had difficulties talking it lasted about 30 minutes. She states that by the time she got to the hospital if her resolved. She knows that options are limited for stroke management. Patient denies all symptoms at this current time. Lab work shows hemoglobin 12.3, sodium of 136, initial troponin of 0.045, in CT. has the paperwork from [facility] that showed all the workup that they did a month ago for stroke and occluded carotid arteries. Review of Systems Review of Systems: 12 systems were reviewed and are negativ e except for as per HPI. [facility] Past Medical History Medical History (Updated 08/09/24 @ 22:57 by Yue Ingram, FLOOR SURFACER) Parkinson's disease Carotid stenosis, right History of CVA (cerebrovascular accident) COPD (chronic obstructive pulmonary disease) Cataract CVA (cerebral vascular accident) PVD (peripheral vascular disease) Hyperlipidemia Surgical History Surgical History Hx of cataract extraction H/O shoulder surgery On the left History of right-sided carotid endarterectomy History of back surgery History of appendectomy Family History Family History Sister Family history of rheumatoid arthritis Brother Familial Alzheimer's disease of late onset Father Lung cancer Other Family history of coronary artery disease Social History Social History Social History: The patient lives with his who is a durable power claim attorney for healthcare. He is a full code. Smoking packs per day: 2 Smoking cigarettes per day: 40.0 Years smoked: 25 Smoking pack-years: 50.00 Smoking status: Former smoker Tobacco type: cigarettes and cigars Second hand tobacco smoke exposure: No Smoking end date: 01/07/20 Additional smoking assessment comments: SMOKES 20 CIGARS A DAY Alcohol intake: current Drinks per week: 1 Alcohol use details: RARE SINCE THE STROKES Substance use: never Substance use type: does not use Do You Feel Safe in your Home?: Yes Lack of Transportation: No Lack of Food: Never True Current Housing: I Have Housing Concerned About Future Housing: No Difficulty Paying Gas/Electric Bills: No Difficulty Paying for Meds: No Currently Unemployed: No Education: Associate Degree Difficulty w/ Childcare or Family Care: No Living arrangements: with family Occupation/Education: retired Additional occupation/education comments: 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 Gender identity (if verbalized by the patient): Male Spiritual care concerns: No Meds Home Medications and Allergies Home Medications ?Medication ?Instructions ?Recorded ?Confirmed ?Type aspirin 81 mg tablet,delayed 81 mg PO DAILY 12/14/18 08/09/24 History release (Adult Low Dose Aspirin) latanoprost 0.005 % eye drops 1 drop ophthalmic (eye) DAILY 12/14/18 08/09/24 History (Xalatan) mecobalamin (vitamin B12) 1,000 1,000 mcg sublingual DAILY 12/14/18 08/09/24 History mcg disintegrating tablet,sublingual timolol maleate 0.5 % eye drops 1 drop ophthalmic (eye) QAM 12/14/18 08/09/24 History cilostazol 100 mg tablet 100 mg PO BID 07/13/20 08/09/24 History clopidogrel 75 mg tablet See Rx Instructions .Route 04/12/24 08/09/24 Rx .COMPLEX #90 tabs carbidopa 25 mg-levodopa 100 mg See Rx Instructions .Route 05/07/24 08/09/24 Rx tablet .COMPLEX #540 tabs atorvastatin 80 mg tablet (Lipitor) 80 mg PO QHS #90 tabs 05/14/24 08/09/24 Rx lisinopril 5 mg tablet See Rx Instructions .Route 06/20/24 08/09/24 Rx .COMPLEX #90 tabs lidocaine 5 % topical ointment 1 applic topical TID PRN pain 08/09/24 08/09/24 History Allergies Allergy/AdvReac Type Severity Reaction Status Date / Time No Known Allergies Allergy Verified 08/09/24 21:28 Vital Signs Vital Signs - 24 hr 08/09/24 16:54 08/09/24 17:00 08/09/24 17:15 Temperature 97.6 F Pulse Rate 74 74 70 Respiratory Rate 18 15 21 H Blood Pressure 119/55 L 109/58 L Pulse Oximetry 96 96 99 Oxygen Delivery Room Air Exam Narrative: General: well appearing, appears stated age. HEENT: normocephalic, atraumatic. Mucous membranes moist. EOMI, PERRLA, bilateral sclera anicteric, no conjunctival injection. Neck supple without JVD, lymphadenopathy, or bruit. Respiratory: clear to ascultation bilaterally. No rales/rhonic/wheezes. Cardiovascular: Regular rate and rhythm, normal S1-S2 upon ascultation. No murmurs, rubs, or clicks. PMI is nondisplaced, capillary refill less than 3 second. Abdomen: Soft, round, no pulsatile masses, nondistended and nontender. No rebound, no guarding. No CVA tenderness, no hepatosplenomegaly. Bowel sounds present to all four quadrants. No high pitch or tinkling sounds, resonant to percussion. Extremities: No cyanosis, clubbing, or edema present. Pulses are palpable 2/2. Upper extremity tremors at rest Neuro: Alert and orientated x 4. PERRLA. Cranial nerves 2-12 intact without focal deficit. Skin: Warm, dry, and intact, without rash, erythema, or lesion. Psych: pleasant, cooperative, normal speech, normal affect, no hallucinations, no dysarthia H&P: Results Labs Labs: Short CBC 08/09/24 Range/Units 17:27 WBC 9.0 (4.5-10.0) K/mm3 Hgb 12.3 L (14.0-18.0) g/dL Hct 37.0 L (42.0-52.0) % Plt Count 222 (150-375) k/mm3 BMP 08/09/24 17:27 Sodium 136 L Potassium 3.5 Chloride 104 Carbon Dioxide 25 BUN 16 Creatinine 0.91 Glucose 95 Calcium 9.2 Cardiac Enzymes 08/09/24 Range/Units 17:27 Troponin I 0.045 H* (0.000-0.034) ng/mL Liver Function 08/09/24 Range/Units 17:27 Total Bilirubin 1.2 (0.2-1.3) mg/dL AST 21 (17-59) U/L ALT 7 (6-50) U/L Alkaline Phosphatase 70 (38-126) U/L Albumin 3.4 L (3.5-5.1) g/dL Assessment and Plan Assessment and plan (1) Elevated troponin: Code(s): R79.89 - Other specified abnormal findings of blood chemistry Status: Acute Assessment and Plan: Trend troponins Troponins flat EKGs needed (2) Urinary tract infection: Code(s): N39.0 - Urinary tract infection, site not specified Status: Acute Assessment and Plan: Could be cause of stroke-like symptoms Rocephin Culture and sensitivity pending (3) CVA (cerebral vascular accident): Code(s): I63.9 - Cerebral infarction, unspecified Status: Acute Assessment and Plan: Likely another TIA, and patient are aware that there is not intervention for his occluded carotid Neurology to see in morning Holding off on MRI until seen by Neurology Continue home meds lisinopril, aspirin, Lipitor, pedal, Plavix (4) Anemia: Code(s): D64.9 - Anemia, unspecified Status: Acute Assessment and Plan: No signs of acute bleeding Continue to monitor (5) Parkinson's disease: Code(s): G20 - Parkinson's disease Status: Acute Assessment and Plan: Restart home medication (6) Hypertension: Qualifiers: Hypertension type: unspecified Qualified Code(s): I10 - Essential (primary) hypertension Code(s): I10 - Essential (primary) hypertension Status: Acute Assessment and Plan: Continue lisinopril (7) Hyperlipidemia: Qualifiers: Hyperlipidemia type: unspecified Qualified Code(s): E78.5 - Hyperlipidemia, unspecified Code(s): E78.5 - Hyperlipidemia, unspecified Status: Chronic Assessment and Plan: Continue statin Quality VTE Prophylaxis VTE prophylaxis: mechanical ordered and pharmacologic ordered Hospitalist MIPS Advance Care Plan I have confirmed that the patient's Advanced Care Plan is present, code status is documented, or surrogate decision maker is listed in patient medical record.: Yes Medication Reconciliation I have utilized all available resources to obtain, update and review the patients current medications (includes all prescriptions, OTC, herbals, cannabis, and nutritional supplements).: Yes
--- NOTE | 2024-08-09 19:07 | PC.NURSE ---
Report received from JULIO CESAR Whelan. Assumed care of patient at this time.
--- NOTE | 2024-08-09 20:55 | PC.NURSE ---
Report received from JULIO CESAR Coello.
[2024-08-09 22:49] LABS: Troponin I 0.045 ng/mL (0.000-0.034)
[2024-08-09] MEDS: ATORVASTATIN 40 MG TABLET 80 MG PO (22:53)
[2024-08-09] MEDS: LATANOPROST 0.005% OP SOLN 2.5 ML BTL 1 DROP EACH EYE (22:54)
--- NOTE | 2024-08-09 23:33 | ADMGEN ---
This patient, Jacques Quiroz, was admitted to IMU Room 213-01 at 2130. Patient/family oriented to hospital policies and general routines including ID bracelet, bed and alarms, visiting hours, pain management, procedures, bathroom and other care routines, personal items, smoking policy, room service/diet, and visiting hours. Information on how to activate the Rapid Response Team has been discussed. Patient/Family are encouraged to report perceived risks to care and to ask questions if they do not understand what they are told or what they should do.
[2024-08-10] VITALS (7 sets, daily range): BP systolic 133–184; BP diastolic 53–95; PULSE 68–84; RESP 18–24; TEMP 36.3–36.8; O2SAT 96–99
[2024-08-10 02:20] LABS: Troponin I 0.043 ng/mL (0.000-0.034)
[2024-08-10] MEDS: CLOPIDOGREL BISULFATE 75 MG TABLET BY MOUTH (10:36)
[2024-08-10] MEDS: CARBIDOPA/LEVODOPA 25/100 MG TABLET 2 TABLET BY MOUTH (10:36)
[2024-08-10] MEDS: ASPIRIN 81 MG ENTERIC TABLET PO (10:36)
[2024-08-10] MEDS: TIMOLOL MALEATE 0.5% OP SOLN 5 ML BOTTLE 1 DROP EACH EYE (10:37)
--- NOTE | 2024-08-10 10:53 | P.DS_ITS ---
DS: Admitting Diagnosis Discharge Date 08/10/24 Admitting Diagnosis Stroke-like symptoms DS: Discharge Diagnosis Discharge Diagnosis (1) Elevated troponin: Code(s): R79.89 - Other specified abnormal findings of blood chemistry Status: Acute Assessment and Plan: Trend troponins Troponins flat EKGs needed (2) Urinary tract infection: Code(s): N39.0 - Urinary tract infection, site not specified Status: Acute Assessment and Plan: Could be cause of stroke-like symptoms Rocephin Culture and sensitivity pending (3) CVA (cerebral vascular accident): Code(s): I63.9 - Cerebral infarction, unspecified Status: Acute Assessment and Plan: Likely another TIA, and patient are aware that there is not intervention for his occluded carotid Neurology to see in morning Holding off on MRI until seen by Neurology Continue home meds lisinopril, aspirin, Lipitor, pedal, Plavix (4) Anemia: Code(s): D64.9 - Anemia, unspecified Status: Acute Assessment and Plan: No signs of acute bleeding Continue to monitor (5) Parkinson's disease: Code(s): G20 - Parkinson's disease Status: Acute Assessment and Plan: Restart home medication (6) Hypertension: Qualifiers: Hypertension type: unspecified Qualified Code(s): I10 - Essential (primary) hypertension Code(s): I10 - Essential (primary) hypertension Status: Acute Assessment and Plan: Continue lisinopril (7) Hyperlipidemia: Qualifiers: Hyperlipidemia type: unspecified Qualified Code(s): E78.5 - Hyperlipidemia, unspecified Code(s): E78.5 - Hyperlipidemia, unspecified Status: Chronic Assessment and Plan: Continue statin Plan patient presented with TIA like symptoms and he was recently admitted with a similar presentation and seen by the neurologist and recommended that a vascular surgeon from [facility] who has a clinic an adverse fill for 2nd opinion since he has a 95% stenosis in the carotid bulb all confirmed on the CT angiogram done on admission and in addition there is also a 60% narrowing of the internal carotid artery on the left side. patient now clinically his baseline and his symptoms have resolved, will discharge patient home with his . DS: Summary Hospital Course Hospital Course: patient presented with TIA like symptoms and he was recently admitted with a similar presentation and seen by the neurologist and recommended that a vascular surgeon from [facility] who has a clinic an adverse fill for 2nd opinion since he has a 95% stenosis in the carotid bulb all confirmed on the CT angiogram done on admission and in addition there is also a 60% narrowing of the internal carotid artery on the left side. patient now clinically his baseline and his symptoms have resolved, will discharge patient home with his . Time Spent with Patient Time attestation: Total time spent providing and/or coordinating discharge services: DS: Data Data Completed and Pending Labs on day of discharge: Labs from last 24 hours 08/10/24 08/09/24 08/09/24 01:38 22:13 17:27 WBC 9.0 RBC 4.13 L Hgb 12.3 L Hct 37.0 L MCV 89.6 MCH 29.8 MCHC 33.2 RDW 14.3 Plt Count 222 MPV 9.3 Immature Gran % (Auto) 0.2 Neut % (Auto) 73.0 Lymph % (Auto) 14.1 L [place] % (Auto) 11.0 H Eos % (Auto) 1.1 Baso % (Auto) 0.6 Lymph # (Auto) 1.27 [place] # (Auto) 1.0 H Eos # (Auto) 0.1 Baso # (Auto) 0.1 Abs Immat Gran (auto) 0.02 Absolute Neuts (auto) 6.6 Absolute Nucleated RBC 0.000 Nucleated RBC % 0.0 PT 14.2 INR 1.1 APTT 28.9 Sodium 136 L Potassium 3.5 Chloride 104 Carbon Dioxide 25 Anion Gap 7 BUN 16 Creatinine 0.91 Estim Creat Clear Calc 57 Estimated GFR > 60 Glucose 95 POC Capillary Glucose Calcium 9.2 Total Bilirubin 1.2 AST 21 ALT 7 Alkaline Phosphatase 70 Troponin I 0.043 H* 0.045 H* 0.045 H* Total Protein 6.5 Albumin 3.4 L 08/09/24 16:55 WBC RBC Hgb Hct MCV MCH MCHC RDW Plt Count MPV Immature Gran % (Auto) Neut % (Auto) Lymph % (Auto) [place] % (Auto) Eos % (Auto) Baso % (Auto) Lymph # (Auto) [place] # (Auto) Eos # (Auto) Baso # (Auto) Abs Immat Gran (auto) Absolute Neuts (auto) Absolute Nucleated RBC Nucleated RBC % PT INR APTT Sodium Potassium Chloride Carbon Dioxide Anion Gap BUN Creatinine Estim Creat Clear Calc Estimated GFR Glucose POC Capillary Glucose 98 Calcium Total Bilirubin AST ALT Alkaline Phosphatase Troponin I Total Protein Albumin Discharge Plan Discharge Attending physician on discharge: Momo Strong Consulting providers: Yue Ingram; Bravo Bundy; London Lynn; Patricia Arnold Discharging Clinician: Isadora Romero Patient Disposition: Home Activity: as tolerated Diet: heart healthy Discharge Instructions: Patient to follow up with his primary care provider as soon as soon as possible. patient is instructed if any symptoms redevelop to go to nearest ER Patient Instructions: Antibiotic Form Patient Language: Polish Stand Alone Forms: General Discharge Information Follow-up/Referrals: Manuel Weber APRN [Primary Care Provider] - Discharge Medications: Continued carbidopa-levodopa 25-100 mg tablet See Rx Instructions .ROUTE .COMPLEX Qty: 540 3RF Dose Instruction: TAKE 2 TABLETS BY MOUTH 3 TIMES A DAY Rx Instructions: TAKE 2 TABLETS BY MOUTH 3 TIMES A DAY mecobalamin (vitamin B12) 1,000 mcg tablet,disintegrating 1,000 mcg SUBLINGUAL DAILY latanoprost [Xalatan] 0.005 % drops 1 drop EACH EYE DAILY aspirin [Adult Low Dose Aspirin] 81 mg tablet,delayed release (DR/EC) 81 mg PO DAILY timolol maleate 0.5 % drops 1 drop EACH EYE QAM cilostazol 100 mg tablet 100 mg PO BID lidocaine 5 % ointment 1 applic topical TID PRN (Reason: pain) clopidogrel 75 mg tablet See Rx Instructions .ROUTE .COMPLEX Qty: 90 2RF Dose Instruction: TAKE 1 TABLET BY MOUTH EVERY DAY Rx Instructions: TAKE 1 TABLET BY MOUTH EVERY DAY atorvastatin [Lipitor] 80 mg tablet 80 mg PO QHS Qty: 90 1RF lisinopril 5 mg tablet See Rx Instructions .ROUTE .COMPLEX Qty: 90 2RF Dose Instruction: 5 MG ORALLY DAILY Rx Instructions: 5 MG ORALLY DAILY Date of admission: 08/09/24 18:34 Primary Care Provider: Manuel Weber Admitting Provider: Momo Strong Attending physician on admission: Isadora Romero Condition: Stable
== END 2024-08-10 12:04 | disposition home or self-care (01) ==
LOC: ANHED 18:33 → ANHIMU 08-10 10:52
PROVIDERS: Admitting Provider Internal Medicine; Emergency Provider Emergency Medicine; PCP Nurse Practitioner Family; Visit Provider Family Medicine
DX: I63.9 Cerebral infarction, unspecified (principal); R47.81 Slurred speech; I65.22 Occlusion and stenosis of left carotid artery; N39.0 Urinary tract infection, site not specified; R79.89 Other specified abnormal findings of blood chemistry; D64.9 Anemia, unspecified; G20.A1 Parkinson's disease without dyskinesia, without mention of fluctuations; J44.9 Chronic obstructive pulmonary disease, unspecified; I73.9 Peripheral vascular disease, unspecified; E78.5 Hyperlipidemia, unspecified; Z86.73 Personal history of transient ischemic attack (TIA), and cerebral infarction without residual deficits; Z87.891 Personal history of nicotine dependence; Z98.49 Cataract extraction status, unspecified eye; Z98.890 Other specified postprocedural states; Z79.02 Long term (current) use of antithrombotics/antiplatelets; Z79.82 Long term (current) use of aspirin; Z79.899 Other long term (current) drug therapy
CPT/HCPCS: 36415; 70450; 70496; 70498; 71045; 80053; 82948; 84484; 85025; 85610; 85730; 93005; 96365; 99285; A9270; G0378; J0696; Q9967